=== PATIENT | male | born 1985 | race Caucasian/White ===

== ENCOUNTER 2016-12-09 11:36 | Inpatient (IN) | payer OTHER ==
[~2016-12-09] VITALS: Ht 190.5 cm; Wt 100.0 kg
[2016-12-09] MEDS ORDERED: ONDANSETRON 4 MG INJ IV STA (12:24)
--- NOTE | 2016-12-09 12:24 | ERA ---
ER Documentation Chief Complaint Date/Time DATE: 12/09/16 TIME: 12:23 Chief Complaint Vomiting blood HPI The patient is a 31-year-old male, presenting to the ER because any vomited 2 tablespoon of bright red blood around 6 AM, he had similar symptoms around August 22, 2069 where he went to [facility]. He had EGD that showed bleeding ulcer/ AVM that required cauterization. While he was lifting the ER around 11 AM, he complains of substernal chest pain, without radiation, he had similar chest pain previously. He also complained at the same time epigastric and right upper quadrant abdominal pain. He denied dysuria, diarrhea, constipation Past medical history: Pulmonary hypertension, history of CVA, history of arrhythmia, congenital heart disease, anemia, atrial fibrillation, sick sinus syndrome, CAD, Marfan syndrome, history of pulmonary embolism Past surgical history : Patent foramen ova closure, AICD in June 2016 ROS All systems reviewed and are negative except as per history of present illness. Medications Home Meds Reported Medications Budesonide-Formoterol Fumarate* (Symbicort*) 160-4.5 Hfa.aer.ad, 1 PUFF INHALATION BID, #1 EACH 12/09/16 Gabapentin* (Gabapentin*) 300 Mg Capsule, 300 MG PO TID, #90 CAP 12/09/16 Sucralfate* (Carafate*) 1 Gm Tab, 1 GM PO AC MEALS AND BEDTIME, TAB 12/09/16 Atorvastatin Calcium (Atorvastatin Calcium) 10 Mg Tablet, 10 MG PO QHS, #30 TAB 12/09/16 Tramadol Hcl* (Ultram*) 50 Mg Tablet, 50 MG PO Q6H Y for PAIN, TAB 12/09/16 Sotalol Hcl* (Sotalol Hcl*) 80 Mg Tablet, 80 MG PO BID, TAB 12/09/16 Apixaban* (Eliquis*) 5 Mg Tablet, 5 MG PO BID, TAB 12/09/16 Sertraline Hcl* (Zoloft*) 50 Mg Tablet, 50 MG PO DAILY, #30 TAB 12/09/16 Nitroglycerin* (Nitrostat*) 0.4 Mg Tab.subl, 0.4 MG SL Q5MIN Y for CHEST PAIN, BOTTLE 12/09/16 Pantoprazole* (Pantoprazole*) 40 Mg Tablet.dr, 40 MG PO AC BREAKFAST, TAB 12/09/16 Isosorbide Mononitrate* (Isosorbide Mononitrate*) 60 Mg Tab.er.24h, 60 MG PO DAILY, TAB 12/09/16 Hydromorphone Hcl* (Dilaudid*) 4 Mg Tablet, 4 MG PO Q4H Y for PAIN, TAB 12/09/16 Potassium Chloride* (Potassium Chloride*) 20 Meq Tablet.er, 20 MEQ PO DAILY, TAB.SA 12/09/16 Aspirin* (Aspirin* EC) 81 Mg Tablet.dr, 81 MG PO DAILY, TAB 12/09/16 Albuterol Sulfate* (Albuterol Sulfate* Neb) 0.083%-3 Ml Neb, 2.5 MG NEB Q4 Y for WHEEZING AND SOB, #30 VIAL 12/09/16 Digoxin* (Lanoxin*) 0.125 Mg Tablet, 0.125 MG PO DAILY, TAB 12/09/16 Zolpidem Tartrate* (Ambien*) 10 Mg Tablet, 10 MG PO QHS Y for INSOMNIA, TAB 12/09/16 Ferrous Sulfate* (Ferrous Sulfate*) 325 Mg Tabec, 325 MG PO TID, TAB 12/09/16 Tiotropium Mcgee* (Spiriva*) 18 Mcg Cap.w.dev, 1 CAP INHALATION DAILY, #30 CAP 12/09/16 Ipratropium-Albuterol (Ipratropium-Albuterol) 0.5-3 Mg/3 Ml Ampul.neb, 3 ML INHALATION Q6, #30 VIAL 12/09/16 Allergies Allergies: Coded Allergies: avocado (Verified Allergy, Severe, 12/09/16) banana (Verified Allergy, Severe, 12/09/16) iodine (Verified Allergy, Severe, ANAPHYLLACTIC, 12/09/16) ketamine (Verified Allergy, Severe, RASH, 12/09/16) latex (Verified Allergy, Severe, ANAPHYLACTIC, 12/09/16) onion (Verified Allergy, Severe, 12/09/16) promethazine (Verified Allergy, Severe, 12/09/16) propofol (Verified Allergy, Severe, ANAPHYLACTIC, 12/09/16) ketorolac (Verified Allergy, Mild, RASH, 12/09/16) morphine (Verified Allergy, Mild, RASH, 12/09/16) Uncoded Allergies: IV CONTRAST (Allergy, Unknown, 12/09/16) Physical Exam Vitals Vital Signs Date Time Temp Pulse Resp B/P Pulse Ox O2 Delivery O2 Flow Rate FiO2 12/09/16 11:41 97.9 76 18 141/94 99 Physical Exam Const: No acute distress. Head: Atraumatic. Eyes: Normal Conjunctiva. ENT: Normal External Ears, Nose and Mouth. Neck: Full range of motion. No meningismus. Resp: Clear to auscultation bilaterally. Cardio: Regular rate and rhythm. Abd: Soft, non distended, normal bowel sounds, Mild epigastric and upper quadrant tenderness Skin: No petechiae or rashes. Back: No midline or flank tenderness. Ext: No cyanosis, or edema. Neur: Awake and alert. No focal deficit Psych: Normal Mood and Affect. Result Diagram: 12/09/16 1245 12/09/16 1245 Results 24 hrs Laboratory Tests Test 12/09/16 12:45 12/09/16 13:40 White Blood Count 5.110^3/ul Red Blood Count 4.4610^6/ul Hemoglobin 13.4g/dl Hematocrit 40.5% Mean Corpuscular Volume 90.8fl Mean Corpuscular Hemoglobin 30.0pg Mean Corpuscular Hemoglobin Concent 33.1g/dl Red Cell Distribution Width 14.6% Platelet Count 56979^3/UL Mean Platelet Volume 9.5fl Neutrophils % 61.1% Lymphocytes % 27.7% Monocytes % 9.4% Eosinophils % 1.4% Basophils % 0.2% Nucleated Red Blood Cells % 0.0/100WBC Neutrophils # 3.110^3/ul Lymphocytes # 1.410^3/ul Monocytes # 0.510^3/ul Eosinophils # 0.110^3/ul Basophils # 0.010^3/ul Nucleated Red Blood Cells # 0.010^3/ul Prothrombin Time 17.5Sec Prothrombin Time Ratio 1.4 INR International Normalized Ratio 1.43 Activated Partial Thromboplast Time 30.3Sec Sodium Level 143mmol/L Potassium Level 2.9mmol/L Chloride Level 116mmol/L Carbon Dioxide Level 24mmol/L Anion Gap 6 Blood Urea Nitrogen 4mg/dl Creatinine 0.49mg/dl Glucose Level 72mg/dl Calcium Level 7.1mg/dl Total Bilirubin 0.6mg/dl Direct Bilirubin 0.00mg/dl Indirect Bilirubin 0.6mg/dl Aspartate Amino Transf (AST/SGOT) 14IU/L Alanine Aminotransferase (ALT/SGPT) 29IU/L Alkaline Phosphatase 41IU/L Troponin I < 0.012ng/ml Total Protein 5.3g/dl Albumin 3.1g/dl Globulin 2.20g/dl Albumin/Globulin Ratio 1.40 Lipase 25U/L Ethyl Alcohol Level < 10.0mg/dl Magnesium Level 1.2mg/dl Current Medications Medications (Trade) Dose Ordered Sig/Yoselyn Route PRN Reason Start Time Stop Time Status Last Admin Dose Admin Ondansetron HCl (Zofran Inj) 4 mg ONCE STAT IV 12/09/16 12:24 12/09/16 12:30 DC 12/09/16 13:21 Famotidine (Pepcid Iv) 20 mg ONCE ONCE IV 12/09/16 12:30 12/09/16 12:32 DC 12/09/16 13:20 Methylprednisolone Sodium Succinate (Solu-Medrol) 12 mg ONCE ONCE IV 12/09/16 12:30 12/09/16 12:31 Cancel Diphenhydramine HCl (Benadryl) 50 mg ONCE ONCE IV 12/09/16 12:30 12/09/16 12:32 DC 12/09/16 13:20 Methylprednisolone Sodium Succinate 125 mg 125 mg ONCE ONCE IV 12/09/16 13:30 12/09/16 13:31 DC 12/09/16 13:21 Potassium Chloride 250 ml @ 62.5 mls/hr ONCE ONCE IVPB 12/09/16 14:30 12/09/16 18:29 12/09/16 17:56 Magnesium Sulfate (Magnesium Sulfate 2 Gm/50 ml) 50 ml @ 25 mls/hr ONCE ONCE IVPB 12/09/16 15:30 12/09/16 17:29 DC 12/09/16 17:57 IV Flush 10 ml 10 ml STK-MED ONCE .ROUTE 12/09/16 15:24 12/09/16 15:25 DC 12/09/16 17:44 Sodium Chloride (NS) 100 ml @ ud STK-MED ONCE .ROUTE 12/09/16 15:24 12/09/16 15:25 DC 12/09/16 17:44 Iodixanol (Visipaque Locm) 100 ml STK-MED ONCE .ROUTE 12/09/16 15:24 12/09/16 15:25 DC 12/09/16 17:44 Iodixanol (Visipaque Locm) 50 ml STK-MED ONCE .ROUTE 12/09/16 15:25 12/09/16 15:26 DC 12/09/16 17:45 Lidocaine (Xylocaine 1% (Mpf)) 5 ml ONCE ONCE SC 12/09/16 16:00 12/09/16 16:01 DC IV Flush (NS 10 ml) 10 ml PRN PRN IV FLUSH LINE 12/09/16 17:30 UNV Diphenhydramine HCl (Benadryl) 50 mg ONCE ONCE IV 12/09/16 18:30 12/09/16 18:31 Procedures/[place] [id number] Radiology Main Line: [phone] DIAGNOSTIC IMAGING REPORT Patient: CONRADO ABERNATHY : 1985 Age: 31 Sex: M MR #: [id number] DOS: 12/09/16 1224 Ordering MD: ABDIFATAH ELIAS MD Location: E/R Room/Bed: PROCEDURE: XR Chest. CLINICAL INDICATION: Chest pain. TECHNIQUE: Single frontal view. COMPARISON: None. FINDINGS: The lungs are clear. The heart size is normal. There is a left-sided dual lead permanent pacemaker/ internal cardiac defibrillator. There is no pleural effusion. There is no pneumothorax. IMPRESSION: 1. Left -sided dual lead permanent pacemaker/internal cardiac defibrillator. 2. Otherwise normal chest radiograph. RPTAT: QQ .Ted Bacon MD, MD Date Time Electronically viewed and signed by .Ted Bacon MD, MD on 12/09/2016 13:18 .R/ CC: ABDIFATAH ELIAS MD EKG: Read by emergency physician Rate/Rhythm: Pacer 79 beats/min No further attempting to interpret CT angiogram of the chest/abdomen/pelvic pending MEDICAL MAKING DECISION: The patient is a 31-year-old male, presenting with acute hematemesis, acute chest pain, acute hypokalemia, acute hypomagnesemia. He was treated with Zofran 4 mg IV for nausea, potassium chloride 40 mEq IV for acute hypokalemia, Mag 2 g IV for acute hypomagnesemia, he was medicated with Benadryl 50 mg IV, Solu-Medrol 125 mg IV, Pepcid 20 mg IV prior to CT angiogram because of history of allergic reaction to the contrast dye. He insists on having pain medications he was treated with Dilaudid 1 mg IV with good response. I do not suspect ACS in the patient, the chest pain is most likely due to acute hematemesis. The differential diagnoses acute hematemesis considered include but are not limited to gastritis, peptic ulcer disease, esophageal varices, Svetlana-Herrera tear. The differential diagnoses acute chest pain considered include but are not limited to acute coronary syndrome, acute myocardial infarction, pericarditis, pulmonary embolism, aortic dissection, pneumonia, pleural effusion, pneumothorax , GERD, chest wall pain. Critical Care: Time: 35 minutes excluding all billable procedures. Treatments/Evaluations: Close monitoring and treatment of unstable vital signs, cardiorespiratory, and neurologic status, while maintaining tight balance of fluid, respiratory, and cardiac interventions. Departure Diagnosis: Primary Impression: Hematemesis Additional Impressions: Chest pain Hypokalemia Hypomagnesemia Anemia Condition: Stable Comments I discussed the findings with the patient. I discussed the patient with the on- call hospitalist Dr. Diego at 5:30 PM. who was made aware of the lab, the treatment, the patient condition, pending urine drug screen and CT angiogram. The patient is admitted to telemetry ABDIFATAH ELIAS MD Dec 09, 2016 12:24
[2016-12-09] MEDS ORDERED: DIPHENHYDRAMINE 50 MG INJ IV ONE ×2 (12:30→18:30)
[2016-12-09] MEDS ORDERED: FAMOTIDINE 20 MG INJ IV ONE (12:30)
[2016-12-09] MEDS ORDERED: METHYLPREDNISOLONE 125 MG INJ IV ONE ×2 (12:30→13:30)
--- NOTE | 2016-12-09 13:18 | RADRPT ---
PROCEDURE: XR Chest. CLINICAL INDICATION: Chest pain. TECHNIQUE: Single frontal view. COMPARISON: None. FINDINGS: The lungs are clear. The heart size is normal. There is a left-sided dual lead permanent pacemaker/internal cardiac defib rillator. There is no pleural effusion. There is no pneumothorax. IMPRESSION: 1. Left -sided dual lead permanent pacemaker/internal cardiac defibrillator. 2. Otherwise normal chest radiograph. RPTAT: QQ .Ted Bacon MD, MD Date Time Electronically viewed and signed by .Ted Bacon MD, MD on 12/09/2016 13:18 .R/
[2016-12-09 13:26] LABS: BASOPHILS % 0.2 % (0.0-2.0); EOSINOPHILS # 0.1 10^3/ul (0.0-0.5); EOSINOPHILS % 1.4 % (0.0-7.0); HEMATOCRIT 40.5 % (42.0-52.0); HEMOGLOBIN 13.4 g/dl (14.0-18.0); LYMPHOCYTES # 1.4 10^3/ul (0.8-2.9); LYMPHOCYTES % 27.7 % (15.0-51.0); MEAN CORPUSCULAR HGB CONC 33.1 g/dl (32.0-37.0); MEAN CORPUSCULAR VOLUME 90.8 fl (82.0-101.0); MEAN PLATELET VOLUME 9.5 fl (7.4-10.4); MONOCYTE # 0.5 10^3/ul (0.3-0.9); MONOCYTES % 9.4 % (0.0-11.0); NEUTROPHIL # 3.1 10^3/ul (1.6-7.5); NEUTROPHILS % 61.1 % (39.0-77.0); PLATELET COUNT 217 10^3/UL (140-415); RED BLOOD COUNT 4.46 10^6/ul (4.70-6.10); RED CELL DISTRIBUTION WIDTH 14.6 % (11.5-14.5); WHITE BLOOD COUNT 5.1 10^3/ul (4.8-10.8)
[2016-12-09 13:48] LABS: INR 1.43; PROTIME 17.5 Sec (12.2-14.2); PT RATIO 1.4
[2016-12-09 13:49] LABS: PARTIAL THROMBOPLASTIN TIME 30.3 Sec (25.0-35.0)
[2016-12-09 13:50] LABS: ALANINE AMINOTRANSFERASE 29 IU/L (13-69); ALBUMIN 3.1 g/dl (3.3-4.9); ALKALINE PHOSPHATASE 41 IU/L (42-121); ANION GAP 6 (8-16); ASPARTATE AMINO TRANSFERASE 14 IU/L (15-46); BILIRUBIN,INDIRECT 0.6 mg/dl (0-1.1); BILIRUBIN,TOTAL 0.6 mg/dl (0.2-1.3); BLOOD UREA NITROGEN 4 mg/dl (7-20); CALCIUM 7.1 mg/dl (8.4-10.2); CARBON DIOXIDE 24 mmol/L (21-31); CHLORIDE 116 mmol/L (97-110); CREATININE 0.49 mg/dl (0.61-1.24); GLUCOSE 72 mg/dl (70-220); SODIUM 143 mmol/L (135-144); TOTAL PROTEIN 5.3 g/dl (6.1-8.1)
[2016-12-09 13:51] LABS: ETHANOL < 10.0 mg/dl
[2016-12-09 13:55] LABS: POTASSIUM 2.9 mmol/L (3.5-5.1)
[2016-12-09 14:01] LABS: TROPONIN-I < 0.012 ng/ml (0.00-0.12)
[2016-12-09] MEDS ORDERED: POTASSIUM CHLORIDE 250 ML IVPB ONE (14:30)
[2016-12-09] MEDS ORDERED: IPRA3AMP INHALATION (14:31)
[2016-12-09] MEDS ORDERED: TIOT18CA INHALATION (14:32)
[2016-12-09] MEDS ORDERED: FER325 PO (14:33)
[2016-12-09] MEDS ORDERED: ZOLP10TA PO (14:34)
[2016-12-09] MEDS ORDERED: DIGO125T6 PO (14:34)
[2016-12-09] MEDS ORDERED: ALBU2.5V3 NEB (14:35)
[2016-12-09] MEDS ORDERED: ASPI-664 PO (14:35)
[2016-12-09] MEDS ORDERED: POTA20TA96 PO (14:36)
[2016-12-09] MEDS ORDERED: HYDR4TAB51 PO (14:38)
[2016-12-09] MEDS ORDERED: ISOS60TA PO (14:38)
[2016-12-09] MEDS ORDERED: SERT50TA PO (14:39)
[2016-12-09] MEDS ORDERED: NIT4 SL (14:39)
[2016-12-09] MEDS ORDERED: PANT40TA4 PO (14:39)
[2016-12-09] MEDS ORDERED: APIX5TAB PO (14:40)
[2016-12-09] MEDS ORDERED: SOTA80TA PO (14:40)
[2016-12-09] MEDS ORDERED: TRAM-40 PO (14:40)
[2016-12-09] MEDS ORDERED: ATOR10TA65 PO (14:41)
[2016-12-09] MEDS ORDERED: GABA300C16 PO (14:42)
[2016-12-09] MEDS ORDERED: BUDE6HFA INHALATION (14:42)
[2016-12-09] MEDS ORDERED: SUCR1TAB56 PO (14:42)
[2016-12-09] MEDS ORDERED: IODIXANOL LOCM 100 ML BTL ONE (15:24)
[2016-12-09] MEDS ORDERED: SOD CHLORIDE 0.9% 100 ML ONE (15:24)
[2016-12-09] MEDS ORDERED: IODIXANOL LOCM 50 ML BTL ONE (15:25)
[2016-12-09] MEDS ORDERED: MAGNESIUM SULFATE 2 GM/50 ML 50 ML IVPB ONE (15:30)
[2016-12-09] MEDS ORDERED: LIDOCAINE 1% (MPF) 5 ML VIAL SC ONE (16:00)
--- NOTE | 2016-12-09 17:33 | RADRPT ---
PROCEDURE: XR Chest. CLINICAL INDICATION: PICC line placement TECHNIQUE: Single frontal view of the chest was obtained COMPARISON: Same day FINDINGS: There is a new right-sided PICC line in place with its tip overlying the cavoatrial junction. The heart, mediastinum, and lungs are unchanged. There is a left-sided pacemaker / AICD in place. RPTAT: AA IMPRESSION: New PICC line in appropriate position. .Eron Her MD, MD Date Time Electronically viewed and signed by .Eron Her MD, on 12/09/2016 17:33 .S/
--- NOTE | 2016-12-09 17:44 | RADRPT ---
PROCEDURE: US guidance for PICC line CLINICAL INDICATION: PICC line placement TECHNIQUE: Multiple real-time images were acquired of the patient's arm utilizing a high resolutio n transducer. This was performed by the PICC line nurse for venous access. COMPARISON: None FINDINGS: Ultrasound guidance for PICC line placement. IMPRESSION: Ultrasound guidance for PICC line placement. RPTAT: AA .Eron Her MD, MD Date Time Electronically viewed and signed by .Eron Her MD, on 12/09/2016 17:43 .S/
[2016-12-09] MEDS ORDERED: HYDROmorphONE 1 MG/ML SYG IV STA (18:12)
--- NOTE | 2016-12-09 18:27 | RADRPT ---
PROCEDURE: CT angiogram chest, abdomen and pelvis, aortic dissection protocol CLINICAL INDICATION: Chest and stomach and back pain. Clinical concern for aortic dissection. Hist ory of atrial septal defect repair and cardiac catheterization TECHNIQUE: The study was performed from the thoracic inlet to the iliac crests with the use of [address] 06/01 intravenous contrast material per aortic dissection protocol. Coronal/sagittal r eformatted images and coronal MIP images were generated. 3-D post processing was not performed The i mages were reviewed on a PACS workstation. One or more of the following dose reduction techniques we re used: Automated exposure control, adjustment of the mA and/or kV according to patient size, use o f iterative reconstruction technique. CTDIvol = 51.62 mGy and DLP= 1353.56 mGycm. COMPARISON: Chest x-ray 12/09/2016 FINDINGS: Lungs, airway and pleura: The trachea and bronchi are patent as well as normal in caliber. The katherine gs are clear of infiltrates, masses or nodules. The pleural spaces are clear, without effusions. Mediastinum, santiago and cardiovascular: The heart is mildly enlarged. Dual chamber cardiac pacemaker is present in satisfactory position There is no evidence for pericardial effusion. The thoracic aor ta is normal in caliber and there is no evidence of dissection . There are no filling defects within the pulmonary arteries to suggest emboli. There is no evidence for hilar mass and no mediastinal ad enopathy is present. The esophagus is normal in caliber. Liver, gallbladder, pancreas and spleen: Normal hepatic contour, attenuation in size. There is no evidence for liver mass or ductal dilatation. The gallbladder is unremarkable. No common bile duct dilatation is evident. The pancreas is normal. The spleen is normal, not enlarged. Adrenal glands and genitourinary system: The adrenal glands are normal bilaterally. The kidneys ar e normal in size, contour and attenuation with no evidence for masses, calculi or hydronephrosis. Sy mmetric enhancement of the kidneys is present without evidence of pyelonephritis . The ureters are unremarkable. The urinary bladder shows no abnormality. The prostate gland is mildly enlarged. The visualized scrotum is unremarkable. Gastrointestinal system: The stomach, small bowel and large intestine are normal in caliber. There is no evidence of obstruction, ileus or inflammation. The appendix and surrounding fat are normal. A normal amount of fecal debris is present within the colon and there is no wall thickening to sugg est colitis. Peritoneum, retroperitoneum, vessels and lymph nodes: The abdominal aorta is normal in caliber and without evidence of dissection. There is no evidence for atherosclerotic calcification. The aortic branches are normal without evidence of stenosis. There is no retroperitoneal hematoma Inferior eddi a cava is normal in caliber. There is no evidence for adenopathy. The peritoneal cavity is normal with no evidence for ascites. Osseous structures and musculoskeletal system: There is no evidence for acute osseous abnormality o r muscular pathology. No subcutaneous abnormalities are present. RPTAT:HJJR IMPRESSION: 1. No evidence of aortic dissection. 2. Unremarkable CT angiogram of the chest, abdomen and pelvis. 3. Incidental cardiac pacemaker in good position. Physician Nick Date Time Electronically viewed and signed by Physician Nick on 12/09/2016 18:27 JR/
[2016-12-09] MEDS ORDERED: hydrALAzine 20 MG INJ IV PRN (18:30)
[2016-12-09] MEDS ORDERED: NA PHOSPHATE/BIPHOS 133 ML ENEMA PR PRN (18:30)
[2016-12-09] MEDS ORDERED: ALBUTEROL/IPRATROPIUM (NEB) 3 ML AMP HHN PRN (18:30)
[2016-12-09] MEDS ORDERED: ACETAMINOPHEN 325 MG TAB PO PRN (18:30)
[2016-12-09] MEDS ORDERED: NACL 0.9% 3 ML SYG IV SCH (18:30)
[2016-12-09] MEDS ORDERED: NITROGLYCERIN (SL) 0.4 MG TAB SL PRN (18:30)
[2016-12-09] MEDS ORDERED: ALBUTEROL 0.083% (NEB) 2.5 MG/3 ML AMP NEB PRN (18:30)
[2016-12-09] MEDS ORDERED: LORAZEPAM 2 MG INJ IV PRN (18:30)
[2016-12-09] MEDS ORDERED: MAGNESIUM HYDROXIDE 30ML CUP PO PRN (18:30)
[2016-12-09 18:45] VITALS: TEMP 98.5
[2016-12-09 19:25] LABS: INR 1.28; PROTIME 16.1 Sec (12.2-14.2); PT RATIO 1.3
[2016-12-09 19:26] LABS: PARTIAL THROMBOPLASTIN TIME 33.9 Sec (25.0-35.0)
[2016-12-09 19:50] LABS: BARBITURATES Negative (NEGATIVE); BENZODIAZEPINES Negative (NEGATIVE); CANNABINOIDS Negative (NEGATIVE); COCAINE Negative (NEGATIVE); OPIATES Negative (NEGATIVE)
[2016-12-09 20:22] VITALS: PULSE 66
[2016-12-09 20:27] VITALS: BP 126/76; RESP 18
[2016-12-09 20:33] VITALS: PULSE 105
[2016-12-09 21:00] VITALS: Ht 190.5 cm; Wt 100.0 kg
[2016-12-09] MEDS: morphine 2 MG INJ IV PRN (21:43)
[2016-12-09] MEDS: SOD CHLORIDE 0.45% 1,000 ML IV SCH (21:43)
[2016-12-09] MEDS: SUCRALFATE 1 GM TAB PO SCH (21:44)
[2016-12-09] MEDS: FERROUS SULFATE (EC) 325 MG TAB PO SCH (21:44)
[2016-12-09] MEDS: ATORVASTATIN 10 MG TAB PO SCH (21:44)
[2016-12-09] MEDS: GABAPENTIN 300 MG CAP PO SCH (21:44)
[2016-12-09] MEDS: ZOLPIDEM 5 MG TAB PO PRN ×2 (21:45→23:44)
[2016-12-09] MEDS: HYDROCODONE/APAP (5/325) TAB PO PRN (21:45)
[2016-12-09] MEDS: DIPHENHYDRAMINE 50 MG INJ IV PRN (21:48)
[2016-12-09] MEDS: SOTALOL 80 MG TAB PO SCH (23:44)
[2016-12-10] VITALS (12 sets, daily range): BP systolic 104–128; BP diastolic 56–77; PULSE 60–75; RESP 19–20
[2016-12-10] MEDS: morphine 2 MG INJ IV PRN ×3 (02:22→10:21)
[2016-12-10] MEDS: SUCRALFATE 1 GM TAB PO SCH ×4 (06:16→20:51)
[2016-12-10] MEDS: DIPHENHYDRAMINE 50 MG INJ IV PRN ×3 (06:16→22:42)
[2016-12-10] MEDS ORDERED: PANTOPRAZOLE (EC) 40 MG TAB PO SCH (07:00)
[2016-12-10 07:21] LABS: BASOPHILS % 0.2 % (0.0-2.0); HEMOGLOBIN 12.7 g/dl (14.0-18.0); LYMPHOCYTES # 0.7 10^3/ul (0.8-2.9); LYMPHOCYTES % 12.5 % (15.0-51.0); MEAN CORPUSCULAR HEMOGLOBIN 29.3 pg (29.0-33.0); MEAN CORPUSCULAR HGB CONC 32.6 g/dl (32.0-37.0); MEAN CORPUSCULAR VOLUME 90.1 fl (82.0-101.0); MEAN PLATELET VOLUME 8.5 fl (7.4-10.4); MONOCYTE # 0.2 10^3/ul (0.3-0.9); MONOCYTES % 4.2 % (0.0-11.0); NEUTROPHIL # 4.7 10^3/ul (1.6-7.5); NEUTROPHILS % 82.9 % (39.0-77.0); PLATELET COUNT 187 10^3/UL (140-415); RED BLOOD COUNT 4.33 10^6/ul (4.70-6.10); RED CELL DISTRIBUTION WIDTH 14.4 % (11.5-14.5); WHITE BLOOD COUNT 5.7 10^3/ul (4.8-10.8)
[2016-12-10] MEDS: SOD CHLORIDE 0.45% 1,000 ML IV SCH ×2 (07:35→15:48)
[2016-12-10 07:44] LABS: CALCIUM 9.4 mg/dl (8.4-10.2); CREATININE 0.55 mg/dl (0.61-1.24); MAGNESIUM 1.9 mg/dl (1.7-2.5); PHOSPHORUS 3.4 mg/dl (2.5-4.9); POTASSIUM 4.3 mmol/L (3.5-5.1)
[2016-12-10 08:15] LABS: THYROID STIMULATING HORMONE 0.171 MIU/L (0.465-4.680)
--- NOTE | 2016-12-10 09:07 | HP ---
Date/Time of Note Date/Time of Note DATE: 12/10/16 TIME: 09:00 Assessment/Plan VTE Prophylaxis VTE Prophylaxis Intervention: SCD's Lines/Catheters IV [facility]ter [facility]from [facility] PICC Line Urinary Cath still in place: No Assessment/Plan Assessment/Plan ASSESSMENT 31-year-old male with a history of Marfan syndrome pulmonary hypertension, CVA 3, history of arrhythmia, congenital heart disease, anemia, atrial fibrillation , sick sinus syndrome, CAD, pulmonary embolism and multiple episodes of GI bleed presents with upper GI bleed PLAN N.p.o. with IV fluid Monitor H&H closely GI consult PPI Hold anticoagulation Continue his home medications with adjustment as needed Cardiology consult Note that the patient was complaining of chest/epigastric pain radiating to his back for which pulmonary and abdominal angiogram was negative for dissection HPI/ROS Admit Date/Time Admit Date/Time Dec 09, 2016 at 17:29 Hx of Present Illness This is a 31-year-old male with a history of Marfan syndrome pulmonary hypertension, CVA 3, history of arrhythmia, congenital heart disease, anemia, atrial fibrillation, sick sinus syndrome, CAD, pulmonary embolism and multiple episodes of GI bleed. He presented to the ER complaining of hematemesis. He said that he has had total of about 3 episodes of hematemesis since yesterday. He said he has had multiple episodes of GI bleeding in the past, this being his third for the year and having had 5 episodes of GI bleed last year. 2 3 months ago he underwent EGD at an outside hospital with a finding of AVM, ulcer and varices. Patient is on anticoagulation and that he said has been told he needs to continue to take it otherwise" he will of stroke or PE". Patient also complained of severe chest/epigastric pain radiating to his back. Pulmonary and abdominal angiogram was negative for dissection. When he presented to the ER, hemoglobin was 13.4 and potassium of 2.9. PMH/Family/Social Social History Smoking Status: Never smoker Exam/Review of Systems Vital Signs Vitals Vital Signs Date Time Temp Pulse Resp B/P Pulse Ox O2 Delivery O2 Flow Rate FiO2 12/10/16 07:55 97.5 82 20 128/69 100 12/09/16 18:45 Room Air Intake and Output 12/09/16 12/09/16 12/10/16 15:00 23:00 07:00 Intake Total 300 ml 555 ml Output Total 450 ml Balance 300 ml 105 ml Exam Constitutional: alert, oriented, well developed Head: atraumatic, normocephalic Eyes: EOMI, PERRL Respiratory: clear to auscultation, normal air movement Cardiovascular: nl pulses, regular rate and rhythm Gastrointestinal: soft, tender Extremities: normal pulses Labs Result Diagram: 12/10/16 0640 12/10/16 0640 Medications Medications Current Medications IV Flush (NS 10 ml) 10 ml PRN PRN IV FLUSH LINE; Start 12/09/16 at 17:30 Ondansetron HCl (Zofran Inj) 4 mg Q6H PRN IV NAUSEA AND/OR VOMITING; Start at 18:30 Acetaminophen (Tylenol Tab) 650 mg Q6H PRN PO PAIN LEVEL 1-3 OR FEVER; Start at 18:30 Acetaminophen/ Hydrocodone Bitart ([place] (5/325)) 1 tab Q6H PRN PO MODERATE PAIN LEVEL 4-6 Last administered on 12/09/16 21:45; Admin Dose 1 TAB; Start at 18:30 Morphine Sulfate (morphine) 2 mg Q4H PRN IV SEVERE PAIN LEVEL 7-10 Last administered on 12/10/16 06:16; Admin Dose 2 MG; Start 12/09/16 at 18:30 Docusate Sodium (Colace) 100 mg Q12H PRN PO CONSTIPATION; Start 12/09/16 at 18: 30 Magnesium Hydroxide (Milk Of Mag) 30 ml DAILY PRN PO CONSTIPATION; Start at 18:30 Sodium Biphosphate/ Sodium Phosphate 133 ml 133 ml DAILY PRN [place] CONSTIPATION; Start 12/09/16 at 18:30 Sodium Chloride (1/2 NS) 1,000 ml @ 75 mls/hr [id number] IV Last administered on 12/09/16 21:43; Admin Dose 75 MLS/HR; Start 12/09/16 at 18:07 Lorazepam (Ativan) 0.5 mg Q6H PRN IV ANXIETY; Start 12/09/16 at 18:30 Hydralazine HCl (Apresoline) 10 mg Q6H PRN IV ELEVATED BLOOD PRESSURE; Start at 18:30 Clonidine (Catapres) 0.1 mg Q6H PRN PO ELEVATED BLOOD PRESSURE; Start 12/09/16 at 18:30 Nitroglycerin (Nitroglycerin (Sl Tab) 0.4 Mg) 1 tab Q5M PRN SL ANGINA; Start at 18:30 Albuterol (Proventil 0.083% (Neb)) 2.5 mg Q4 PRN NEB WHEEZING AND SOB; Start at 18:30 Atorvastatin Calcium (Lipitor) 10 mg QHS PO Last administered on 12/09/16 21: 44; Admin Dose 10 MG; Start 12/09/16 at 21:00 Digoxin (Digoxin) 0.125 mg DAILY PO ; Start 12/10/16 at 09:00 Ferrous Sulfate (Ferrous Sulfate (Ec)) 325 mg TID PO Last administered on 21:44; Admin Dose 325 MG; Start 12/09/16 at 21:00 Gabapentin (Neurontin) 300 mg TID PO Last administered on 12/09/16 21:44; Admin Dose 300 MG; Start 12/09/16 at 21:00 Isosorbide Mononitrate (Imdur) 60 mg DAILY PO ; Start 12/10/16 at 09:00 Potassium Chloride (Klor-Con 20) 20 meq DAILY PO ; Start 12/10/16 at 09:00 Sertraline HCl (Zoloft) 50 mg DAILY PO ; Start 12/10/16 at 09:00 Sotalol HCl (Betapace) 80 mg BID PO Last administered on 12/09/16 23:44; Admin Dose 80 MG; Start 12/09/16 at 21:00 Zolpidem Tartrate (Ambien) 10 mg QHS PRN PO INSOMNIA Last administered on 23:44; Admin Dose 10 MG; Start 12/09/16 at 18:30 Miscellaneous Information 1 puff BID INHALATION ; Start 12/09/16 at 21:00; Status UNV Diphenhydramine HCl (Benadryl) 25 mg Q6H PRN IV allergy prophylaxis Last administered on 12/10/16 06:16; Admin Dose 25 MG; Start 12/09/16 at 21:30 CARLENE WELLINGTON MD Dec 10, 2016 09:07
[2016-12-10] MEDS: DIGOXIN 0.125 MG TAB PO SCH (09:33)
[2016-12-10] MEDS: POTASSIUM CHLORIDE (SR) 20 MEQ TAB PO SCH (09:33)
[2016-12-10] MEDS: FERROUS SULFATE (EC) 325 MG TAB PO SCH ×3 (09:33→20:51)
[2016-12-10] MEDS: GABAPENTIN 300 MG CAP PO SCH ×3 (09:33→20:51)
[2016-12-10] MEDS: SERTRALINE 50 MG TAB PO SCH (09:33)
[2016-12-10] MEDS: ISOSORBIDE MONONITRATE(SR)60 MG TAB PO SCH (09:33)
[2016-12-10] MEDS: SOTALOL 80 MG TAB PO SCH ×2 (09:34→20:52)
--- NOTE | 2016-12-10 14:05 | RADRPT ---
Vent Rate: 79 bpm RR Interval: 0 msec MS Interval: 118 msec QRS Duration: 94 msec QT Interval: 376 msec QTC Interval: 431 msec P-R-T [place]: 47 - 44 - 5 degrees Electronic atrial pacemaker T wave abnormality, consider inferior ischemia Abnormal ECG Electronically Signed By: Aiden Merrill [id number]
--- NOTE | 2016-12-10 14:09 | RADRPT ---
Echocardiogram Report Patient Name: CONRADO ABERNATHY Gender: Male Date: 1985 Study Date: 10-Dec-2016 Apparel Rental Clerk: Lor Horn RD Location: [id number] Ref. Physician: ROB BUI Quality: Adequate Procedures: Transthoracic echocardiogram with complete 2D, M-Mode, and doppler examination. Indications: Chest Pain. 2D/M Mode Doppler Measurement Value Normal Ranges Measurement Value Normal Ranges LVIDd 2D 5.3 3.5 - 5.6 cm AV Peak [place] 1.3 m/sec LVIDs 2D 3.2 2.1 - 4.1 cm AV Peak PG 7.0 mmHg LVPWd 2D 0.9 0.6 - 1.1 cm LVOT Peak [place] 1.0 m/sec IVSd 2D 0.9 0.6 - 1.1 cm LVOT Peak PG 4.3 mmHg AoR Diam 2D 2.8 2.0 - 3.7 cm MV E Peak [place] 0.8 m/sec EDV 2D 135.3 cm3 MV A Peak [place] 0.5 m/sec ESV 2D 32.1 cm3 MV E/A 1.7 LA Dimen 2D 4.1 2.3 - 4.0 cm MV Decel Time 191 msec MV Decel [place] 4 MV E/A 1.7 TR Peak [place] 2.9 m/sec TR Peak PG 33.3 mmHg RVSP 36.0 mmHg Findings Left Ventricle: Normal left ventricular systolic function. Normal left ventricular cavity size. Normal left ventricular wall thickness. Ejection fraction is visually estimated at 55 %. Tissue Doppler/Mitral Doppler indices are within normal limits. Right Ventricle: Normal right ventricular size. Normal right ventricular systolic function. Linear artifact in right ventricle suggestive of catheter, pacer lead, or ICD lead. Left Atrium: There is mild enlargement of left atrium. Right Atrium: The right atrium is normal in size. Mitral Valve: Normal appearance and function of the mitral valve with trace physiologic regurgitation. Aortic Valve: Normal appearance of the aortic valve. No significant aortic stenosis or insufficiency. Tricuspid Valve: Normal appearance and function of the tricuspid valve with trace physiologic regurgitation. Estimated peak PA systolic pressure 36 mmHg. Pulmonic Valve: Normal pulmonic valve appearance. Pericardium: Normal pericardium with no significant pericardial effusion. Aorta: Normal aortic root. IVC: Normal size and normal respiratory collapse consistent with normal right atrial pressure. Conclusions 1.Normal left ventricular systolic function. Normal left ventricular cavity size. Normal left ventricular wall thickness. Ejection fraction is visually estimated at 55 %. Tissue Doppler/Mitral Doppler indices are within normal limits. 2.Normal right ventricular size. Normal right ventricular systolic function. Linear artifact in right ventricle suggestive of catheter, pacer lead, or ICD lead. 3.There is mild enlargement of left atrium. 4.The right atrium is normal in size. 5.No significant valvular stenosis or regurgitation seen. 6.Normal pericardium with no significant pericardial effusion. Electronically Signed By: Aiden Merrill 10-Dec-2016 14:08:40 -0700 Patient Name: CONRADO ABERNATHY Study Date: 10-Dec-2016 [id number]
--- NOTE | 2016-12-10 14:27 | PN ---
Date/Time of Note Date/Time of Note DATE: 12/10/16 TIME: 13:58 Assessment/Plan VTE Prophylaxis VTE Prophylaxis Intervention: SCD's Lines/Catheters IV Catheter Type (from Nrsg): PICC Line Central line still needed: Yes Urinary Cath still in place: No Assessment/Plan Assessment/Plan 1. Upper GI bleeding, recurrent, eliquis on hold, protonix iv bid/carafate, GI consult 2. Chest pain, atypical for CAD, but pulmonary hypertension may give angina 3. Pulmonary embolism, due to ASD 4. ASD, s/p repair in 2010 5. Marfan's syndrome, 6. Atrial fibrillation, A-pacing rhythm now, controlled rate, hold eliquis due to GI bleeding 7. Pulmonary embolism in 2013, not clear if he has hypercoagulable state after intensive work ups 8. Cardiac arrest in 2011, AICD 2012 9. h/o recurrent ischemic stroke Subjective 24 Hr Interval Summary Free Text/Dictation no vomiting today Exam/Review of Systems Vital Signs Vitals Vital Signs Date Time Temp Pulse Resp B/P Pulse Ox O2 Delivery O2 Flow Rate FiO2 12/10/16 12:15 75 12/10/16 07:55 97.5 20 128/69 100 12/09/16 18:45 Room Air Intake and Output 12/09/16 12/09/16 12/10/16 15:00 23:00 07:00 Intake Total 300 ml 555 ml Output Total 450 ml Balance 300 ml 105 ml Exam Constitutional: alert, oriented, well developed Psych: nl mood/affect, no complaints Head: atraumatic, normocephalic Eyes: EOMI, PERRL, nl conjunctiva, nl lids, nl sclera ENMT: mucosa pink and moist, nl external ears & nose, nl lips & teeth, nl nasal mucosa & septum Neck: non-tender, supple Respiratory: clear to auscultation, normal air movement, No congested cough, No crackles/rales, No diminished breath sounds, No intercostal retraction, No labored breathing, No other, No respirations, No tactile fremitus, No wheezing Cardiovascular: nl pulses, regular rate and rhythm, No S3, No S4, No bruits, No diastolic murmur, No edema, No gallop, No irregular rhythm, No jugular venous distention (JVD), No murmurs/extra sounds, No other, No rub, No systolic murmur Gastrointestinal: nl liver, spleen, non-tender, soft, No ascites, No bowel sounds, No distended, No firm, No hepatomegaly, No mass , No other, No rebound or guarding, No splenomegaly, No surgical scars, No tender Musculoskeletal: nl extremities to inspection Extremities: normal pulses, No calf tenderness, No clubbing, No cyanosis, No edema, No other, No palpable cord, No pitting pedal edema, No tenderness 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: ICE RINK ATTENDANT II-XII intact, nl mental status, nl speech, nl strength Skin: nl turgor Lymph: nl lymph nodes Results Result Diagram: 12/10/16 0640 12/10/16 0640 Results 24 hrs Laboratory Tests Test 12/09/16 18:50 12/09/16 21:53 12/10/16 00:50 12/10/16 06:40 Prothrombin Time 16.1 H Prothrombin Time Ratio 1.3 INR International Normalized Ratio 1.28 Activated Partial Thromboplast Time 33.9 Troponin I < 0.012 < 0.012 Free Thyroxine 1.57 Urine Opiates Screen Negative Urine Barbiturates Negative Urine Amphetamines Screen Negative Urine Benzodiazepines Screen Negative Urine Cocaine Screen Negative Urine Cannabinoids Negative Bedside Glucose 109 White Blood Count 5.7 Red Blood Count 4.33 L Hemoglobin 12.7 L Hematocrit 39.0 L Mean Corpuscular Volume 90.1 Mean Corpuscular Hemoglobin 29.3 Mean Corpuscular Hemoglobin Concent 32.6 Red Cell Distribution Width 14.4 Platelet Count 187 Mean Platelet Volume 8.5 Neutrophils % 82.9 H Lymphocytes % 12.5 L Monocytes % 4.2 Eosinophils % 0.0 Basophils % 0.2 Nucleated Red Blood Cells % 0.0 Neutrophils # 4.7 Lymphocytes # 0.7 L Monocytes # 0.2 L Eosinophils # 0.0 Basophils # 0.0 Nucleated Red Blood Cells # 0.0 Sodium Level 139 Potassium Level 4.3 Chloride Level 106 # Carbon Dioxide Level 27 Anion Gap 10 Blood Urea Nitrogen 6 L Creatinine 0.55 L Glucose Level 114 # Hemoglobin A1c 4.9 Calcium Level 9.4 Phosphorus Level 3.4 Magnesium Level 1.9 Triglycerides Level 44 Cholesterol Level 157 LDL Cholesterol, Calculated 73 HDL Cholesterol 75 H Cholesterol/HDL Ratio 2.0 Thyroid Stimulating Hormone (TSH) 0.171 L Test 12/10/16 06:41 Troponin I < 0.012 Medications Medications Current Medications IV Flush (NS 10 ml) 10 ml PRN PRN IV FLUSH LINE; Start 12/09/16 at 17:30 Ondansetron HCl (Zofran Inj) 4 mg Q6H PRN IV NAUSEA AND/OR VOMITING; Start at 18:30 Acetaminophen (Tylenol Tab) 650 mg Q6H PRN PO PAIN LEVEL 1-3 OR FEVER; Start at 18:30 Acetaminophen/ Hydrocodone Bitart ([place] (5/325)) 1 tab Q6H PRN PO MODERATE PAIN LEVEL 4-6 Last administered on 12/09/16 21:45; Admin Dose 1 TAB; Start at 18:30 Morphine Sulfate (morphine) 2 mg Q4H PRN IV SEVERE PAIN LEVEL 7-10 Last administered on 12/10/16 10:21; Admin Dose 2 MG; Start 12/09/16 at 18:30 Docusate Sodium (Colace) 100 mg Q12H PRN PO CONSTIPATION; Start 12/09/16 at 18: 30 Magnesium Hydroxide (Milk Of Mag) 30 ml DAILY PRN PO CONSTIPATION; Start at 18:30 Sodium Biphosphate/ Sodium Phosphate 133 ml 133 ml DAILY PRN [place] CONSTIPATION; Start 12/09/16 at 18:30 Sodium Chloride (1/2 NS) 1,000 ml @ 75 mls/hr [id number] IV Last administered on 12/09/16 21:43; Admin Dose 75 MLS/HR; Start 12/09/16 at 18:07 Lorazepam (Ativan) 0.5 mg Q6H PRN IV ANXIETY; Start 12/09/16 at 18:30 Hydralazine HCl (Apresoline) 10 mg Q6H PRN IV ELEVATED BLOOD PRESSURE; Start at 18:30 Clonidine (Catapres) 0.1 mg Q6H PRN PO ELEVATED BLOOD PRESSURE; Start 12/09/16 at 18:30 Nitroglycerin (Nitroglycerin (Sl Tab) 0.4 Mg) 1 tab Q5M PRN SL ANGINA; Start at 18:30 Albuterol (Proventil 0.083% (Neb)) 2.5 mg Q4 PRN NEB WHEEZING AND SOB; Start at 18:30 Atorvastatin Calcium (Lipitor) 10 mg QHS PO Last administered on 12/09/16 21: 44; Admin Dose 10 MG; Start 12/09/16 at 21:00 Digoxin (Digoxin) 0.125 mg DAILY PO Last administered on 12/10/16 09:33; Admin Dose 0.125 MG; Start 12/10/16 at 09:00 Ferrous Sulfate (Ferrous Sulfate (Ec)) 325 mg TID PO Last administered on 13:50; Admin Dose 325 MG; Start 12/09/16 at 21:00 Gabapentin (Neurontin) 300 mg TID PO Last administered on 12/10/16 13:50; Admin Dose 300 MG; Start 12/09/16 at 21:00 Isosorbide Mononitrate (Imdur) 60 mg DAILY PO Last administered on 12/10/16 09 :33; Admin Dose 60 MG; Start 12/10/16 at 09:00 Potassium Chloride (Klor-Con 20) 20 meq DAILY PO Last administered on 09:33; Admin Dose 20 MEQ; Start 12/10/16 at 09:00 Sertraline HCl (Zoloft) 50 mg DAILY PO Last administered on 12/10/16 09:33; Admin Dose 50 MG; Start 12/10/16 at 09:00 Sotalol HCl (Betapace) 80 mg BID PO Last administered on 12/10/16 09:34; Admin Dose 80 MG; Start 12/09/16 at 21:00 Zolpidem Tartrate (Ambien) 10 mg QHS PRN PO INSOMNIA Last administered on 23:44; Admin Dose 10 MG; Start 12/09/16 at 18:30 Salmeterol Xinafoate/ Fluticasone (Advair 250/50 Diskus) 1 inh BID INH ; Start 12/10/16 at 21:00 Diphenhydramine HCl (Benadryl) 25 mg Q6H PRN IV allergy prophylaxis Last administered on 12/10/16 12:13; Admin Dose 25 MG; Start 12/09/16 at 21:30 TALA JOSHUA MD Dec 10, 2016 14:27
[2016-12-10] MEDS: HYDROmorphONE 1 MG/ML SYG IV PRN ×3 (15:00→22:42)
--- NOTE | 2016-12-10 16:28 | CONS ---
Date/Time of Note Date/Time of Note DATE: 12/10/16 TIME: 16:14 Assessment/Plan Assessment/Plan Additional Assessment/Plan Assessment * Hematemesis R/O varices vs av malformation vs ulcers * Marfan syndrome * Atrial fibrillation * Pulmonary hypertension * AICD * H/O EGD Plan * continue present management * EGD tomorrow risks and benefit explained to patient agreed with the planned procedure * Case discussed with DR Addison * further orders will depend on clinical course Consultation Date/Type/Reason Admit Date/Time Dec 09, 2016 at 17:29 Date of Consultation: Dec 10, 2016 Type of Consultation: Gastroenterology Reason for Consultation hematemesis Referring Provider: ROB BUI Hx of Present Illness 31 year old male with past medical history of Marfans syndrome,pulmonary hypertension,CVA,AICD ,history of EGD 2 months ago varices,AV malformation, ulcer per patient.presented in the emergency room complaining of hematemesis describes as 2 teaspoon per episode X 2 times.He denies any shortness of breath nor chest pain>Patient is on eliquis due to atrial fibrillation.Emergency room course revealed hemoglobin 12.7,troponon <0.012 PT 16.[address] angiogram revealed 1. No evidence of aortic dissection. 2. Unremarkable CT angiogram of the chest, abdomen and pelvis. 3. Incidental cardiac pacemaker in good position. Presently ,patient complains of nausea and vomiting but no episode of hematemesis Constitutional: improved, no complaints Eyes: no complaints ENT: no complaints Respiratory: no complaints Cardiovascular: no complaints Gastrointestinal: blood, vomiting Genitourinary: no complaints Musculoskeletal: no complaints Skin: no complaints Neurologic: no complaints Endocrine: no complaints Lymphatic: no complaints Psychological: nl mood/affect, no complaints Immunologic: no complaints Past Medical History Medical History: other (marfan,pulmonary htn,atrial fibrillation.varices,) Past Surgical History Past Surgical Hx: other (AICD,endoscopy) Family History Significant Family History: no pertinent family hx Social History Smoking Status: Never smoker Exam/Review of Systems Vital Signs Vitals Vital Signs Date Time Temp Pulse Resp B/P Pulse Ox O2 Delivery O2 Flow Rate FiO2 12/10/16 15:54 98.3 71 20 104/59 100 12/09/16 18:45 Room Air Intake and Output 9/12/09/16 12/10/16 15:00 23:00 07:00 Intake Total 300 ml 555 ml Output Total 450 ml Balance 300 ml 105 ml Exam Constitutional: alert Psych: nl mood/affect, no complaints Head: atraumatic, normocephalic Eyes: EOMI, PERRL, nl conjunctiva, nl lids, nl sclera ENMT: nl external ears & nose, nl lips & teeth, nl nasal mucosa & septum Neck: non-tender, supple Respiratory: clear to auscultation, normal air movement Cardiovascular: nl pulses, other (atrail paced) Gastrointestinal: nl liver, spleen, non-tender, soft Musculoskeletal: nl extremities to inspection, nl gait and stance Extremities: normal pulses 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: ARTS MANAGER II-XII intact, nl mental status, nl speech, nl strength Skin: nl turgor, No rash or lesions Lymph: nl lymph nodes Results Result Diagram: 12/10/16 0640 12/10/16 0640 Results 24 hrs Laboratory Tests Test 12/09/16 18:50 12/09/16 21:53 12/10/16 00:50 12/10/16 06:40 Prothrombin Time 16.1 H Prothrombin Time Ratio 1.3 INR International Normalized Ratio 1.28 Activated Partial Thromboplast Time 33.9 Troponin I < 0.012 < 0.012 Free Thyroxine 1.57 Urine Opiates Screen Negative Urine Barbiturates Negative Urine Amphetamines Screen Negative Urine Benzodiazepines Screen Negative Urine Cocaine Screen Negative Urine Cannabinoids Negative Bedside Glucose 109 White Blood Count 5.7 Red Blood Count 4.33 L Hemoglobin 12.7 L Hematocrit 39.0 L Mean Corpuscular Volume 90.1 Mean Corpuscular Hemoglobin 29.3 Mean Corpuscular Hemoglobin Concent 32.6 Red Cell Distribution Width 14.4 Platelet Count 187 Mean Platelet Volume 8.5 Neutrophils % 82.9 H Lymphocytes % 12.5 L Monocytes % 4.2 Eosinophils % 0.0 Basophils % 0.2 Nucleated Red Blood Cells % 0.0 Neutrophils # 4.7 Lymphocytes # 0.7 L Monocytes # 0.2 L Eosinophils # 0.0 Basophils # 0.0 Nucleated Red Blood Cells # 0.0 Sodium Level 139 Potassium Level 4.3 Chloride Level 106 # Carbon Dioxide Level 27 Anion Gap 10 Blood Urea Nitrogen 6 L Creatinine 0.55 L Glucose Level 114 # Hemoglobin A1c 4.9 Calcium Level 9.4 Phosphorus Level 3.4 Magnesium Level 1.9 Triglycerides Level 44 Cholesterol Level 157 LDL Cholesterol, Calculated 73 HDL Cholesterol 75 H Cholesterol/HDL Ratio 2.0 Thyroid Stimulating Hormone (TSH) 0.171 L Test 12/10/16 06:41 Troponin I < 0.012 Medications Medications Current Medications IV Flush (NS 10 ml) 10 ml PRN PRN IV FLUSH LINE; Start 12/09/16 at 17:30 Ondansetron HCl (Zofran Inj) 4 mg Q6H PRN IV NAUSEA AND/OR VOMITING; Start at 18:30 Acetaminophen (Tylenol Tab) 650 mg Q6H PRN PO PAIN LEVEL 1-3 OR FEVER; Start at 18:30 Acetaminophen/ Hydrocodone Bitart ([place] (5/325)) 1 tab Q6H PRN PO MODERATE PAIN LEVEL 4-6 Last administered on 12/09/16 21:45; Admin Dose 1 TAB; Start at 18:30 Docusate Sodium (Colace) 100 mg Q12H PRN PO CONSTIPATION; Start 12/09/16 at 18: 30 Magnesium Hydroxide (Milk Of Mag) 30 ml DAILY PRN PO CONSTIPATION; Start at 18:30 Sodium Biphosphate/ Sodium Phosphate 133 ml 133 ml DAILY PRN [place] CONSTIPATION; Start 12/09/16 at 18:30 Sodium Chloride (1/2 NS) 1,000 ml @ 75 mls/hr [id number] IV Last administered on 12/10/16 15:48; Admin Dose 75 MLS/HR; Start 12/09/16 at 18:07 Lorazepam (Ativan) 0.5 mg Q6H PRN IV ANXIETY; Start 12/09/16 at 18:30 Hydralazine HCl (Apresoline) 10 mg Q6H PRN IV ELEVATED BLOOD PRESSURE; Start at 18:30 Clonidine (Catapres) 0.1 mg Q6H PRN PO ELEVATED BLOOD PRESSURE; Start 12/09/16 at 18:30 Nitroglycerin (Nitroglycerin (Sl Tab) 0.4 Mg) 1 tab Q5M PRN SL ANGINA; Start at 18:30 Albuterol (Proventil 0.083% (Neb)) 2.5 mg Q4 PRN NEB WHEEZING AND SOB; Start at 18:30 Atorvastatin Calcium (Lipitor) 10 mg QHS PO Last administered on 12/09/16 21: 44; Admin Dose 10 MG; Start 12/09/16 at 21:00 Digoxin (Digoxin) 0.125 mg DAILY PO Last administered on 12/10/16 09:33; Admin Dose 0.125 MG; Start 12/10/16 at 09:00 Ferrous Sulfate (Ferrous Sulfate (Ec)) 325 mg TID PO Last administered on 13:50; Admin Dose 325 MG; Start 12/09/16 at 21:00 Gabapentin (Neurontin) 300 mg TID PO Last administered on 12/10/16 13:50; Admin Dose 300 MG; Start 12/09/16 at 21:00 Isosorbide Mononitrate (Imdur) 60 mg DAILY PO Last administered on 12/10/16 09 :33; Admin Dose 60 MG; Start 12/10/16 at 09:00 Potassium Chloride (Klor-Con 20) 20 meq DAILY PO Last administered on 09:33; Admin Dose 20 MEQ; Start 12/10/16 at 09:00 Sertraline HCl (Zoloft) 50 mg DAILY PO Last administered on 12/10/16 09:33; Admin Dose 50 MG; Start 12/10/16 at 09:00 Sotalol HCl (Betapace) 80 mg BID PO Last administered on 12/10/16 09:34; Admin Dose 80 MG; Start 12/09/16 at 21:00 Zolpidem Tartrate (Ambien) 10 mg QHS PRN PO INSOMNIA Last administered on 23:44; Admin Dose 10 MG; Start 12/09/16 at 18:30 Salmeterol Xinafoate/ Fluticasone (Advair 250/50 Diskus) 1 inh BID INH ; Start 12/10/16 at 21:00 Pantoprazole (Protonix Iv) 40 mg BID@06,18 IV ; Start 12/10/16 at 18:00 Hydromorphone HCl (Dilaudid) 0.5 mg Q4H PRN IV PAIN Last administered on 15:00; Admin Dose 0.5 MG; Start 12/10/16 at 14:30 Diphenhydramine HCl (Benadryl) 25 mg Q4H PRN IV itching; Start 12/10/16 at 14: 30 RAVEN COTTON NP Dec 10, 2016 16:27
--- NOTE | 2016-12-10 17:10 | CONS ---
Date/Time of Note Date/Time of Note DATE: 12/10/16 TIME: 17:04 Assessment/Plan Assessment/Plan Additional Assessment/Plan Hematemesis with history of GI bleed Chest pain, resolved Preserved ejection fraction Possible history of paroxysmal atrial fibrillation History of cardiac arrest with history of AICD Marfan's -Patient status post CT aortogram and pulmonary angiogram with no evidence of aortic dissection and no evidence of pulmonary emboli. His symptoms began with abdominal pain, nausea and hematemesis and after 2 episodes, developed stabbing chest pain. Serial cardiac enzymes remain negative, echocardiogram with preserved ejection fraction. Agree with holding anticoagulation in the interim pending GI evaluation. Consultation Date/Type/Reason Admit Date/Time Dec 09, 2016 at 17:29 Type of Consultation: cv Reason for Consultation Cardiac evaluation Hx of Present Illness This is a 31-year-old male with extensive past medical history including Marfan' s, cardiac arrest status post AICD, pulmonary emboli on anticoagulation, recurrent GI bleed who presented with abdominal pain nausea and hematemesis. This happened yesterday 2 episodes. Afterwards, patient developed stabbing and sharp-like chest pain rating from the mid abdomen and chest to his back. Because of his history of GI bleed in the past and patient being on anticoagulation, he came to the emergency room for further evaluation and care. After being given Zofran, he is feeling much better. Denies any current chest pain, shortness of breath, palpitations. He is feeling tired. 12 point review of systems was performed with all pertinent positives and negatives mentioned above and all else is negative Constitutional: improved, no complaints Eyes: no complaints ENT: no complaints Respiratory: no complaints Cardiovascular: no complaints Gastrointestinal: blood, vomiting Genitourinary: no complaints Musculoskeletal: no complaints Skin: no complaints Neurologic: no complaints Endocrine: no complaints Lymphatic: no complaints Psychological: nl mood/affect, no complaints Immunologic: no complaints Past Medical History Medical History: other (marfan,pulmonary htn, GI bleed) Past Surgical History Past Surgical Hx: other (AICD,endoscopy, ASD closure) Social History Smoking Status: Never smoker Exam/Review of Systems Vital Signs Vitals Vital Signs Date Time Temp Pulse Resp B/P Pulse Ox O2 Delivery O2 Flow Rate FiO2 12/10/16 16:11 68 12/10/16 15:54 98.3 20 104/59 100 12/09/16 18:45 Room Air Intake and Output 12/09/16 12/09/16 12/10/16 14:59 22:59 06:59 Intake Total 300 ml 555 ml Output Total 450 ml Balance 300 ml 105 ml Exam No apparent distress Constitutional: alert, oriented Head: normocephalic Respiratory: other (Coarse breath sounds bilaterally, no wheezing) Cardiovascular: other (S1-S2 heard), regular rate and rhythm Gastrointestinal: bowel sounds, non-tender, soft Extremities: other (No edema) Results Result Diagram: 12/10/16 0640 12/10/16 0640 Results 24 hrs Laboratory Tests Test 12/09/16 18:50 12/09/16 21:53 12/10/16 00:50 12/10/16 06:40 Prothrombin Time 16.1 H Prothrombin Time Ratio 1.3 INR International Normalized Ratio 1.28 Activated Partial Thromboplast Time 33.9 Troponin I < 0.012 < 0.012 Free Thyroxine 1.57 Urine Opiates Screen Negative Urine Barbiturates Negative Urine Amphetamines Screen Negative Urine Benzodiazepines Screen Negative Urine Cocaine Screen Negative Urine Cannabinoids Negative Bedside Glucose 109 White Blood Count 5.7 Red Blood Count 4.33 L Hemoglobin 12.7 L Hematocrit 39.0 L Mean Corpuscular Volume 90.1 Mean Corpuscular Hemoglobin 29.3 Mean Corpuscular Hemoglobin Concent 32.6 Red Cell Distribution Width 14.4 Platelet Count 187 Mean Platelet Volume 8.5 Neutrophils % 82.9 H Lymphocytes % 12.5 L Monocytes % 4.2 Eosinophils % 0.0 Basophils % 0.2 Nucleated Red Blood Cells % 0.0 Neutrophils # 4.7 Lymphocytes # 0.7 L Monocytes # 0.2 L Eosinophils # 0.0 Basophils # 0.0 Nucleated Red Blood Cells # 0.0 Sodium Level 139 Potassium Level 4.3 Chloride Level 106 # Carbon Dioxide Level 27 Anion Gap 10 Blood Urea Nitrogen 6 L Creatinine 0.55 L Glucose Level 114 # Hemoglobin A1c 4.9 Calcium Level 9.4 Phosphorus Level 3.4 Magnesium Level 1.9 Triglycerides Level 44 Cholesterol Level 157 LDL Cholesterol, Calculated 73 HDL Cholesterol 75 H Cholesterol/HDL Ratio 2.0 Thyroid Stimulating Hormone (TSH) 0.171 L Test 12/10/16 06:41 Troponin I < 0.012 Medications Medications Current Medications IV Flush (NS 10 ml) 10 ml PRN PRN IV FLUSH LINE; Start 12/09/16 at 17:30 Ondansetron HCl (Zofran Inj) 4 mg Q6H PRN IV NAUSEA AND/OR VOMITING; Start at 18:30 Acetaminophen (Tylenol Tab) 650 mg Q6H PRN PO PAIN LEVEL 1-3 OR FEVER; Start at 18:30 Acetaminophen/ Hydrocodone Bitart ([place] (5/325)) 1 tab Q6H PRN PO MODERATE PAIN LEVEL 4-6 Last administered on 12/09/16 21:45; Admin Dose 1 TAB; Start at 18:30 Docusate Sodium (Colace) 100 mg Q12H PRN PO CONSTIPATION; Start 12/09/16 at 18: 30 Magnesium Hydroxide (Milk Of Mag) 30 ml DAILY PRN PO CONSTIPATION; Start at 18:30 Sodium Biphosphate/ Sodium Phosphate 133 ml 133 ml DAILY PRN [place] CONSTIPATION; Start 12/09/16 at 18:30 Sodium Chloride (1/2 NS) 1,000 ml @ 75 mls/hr [id number] IV Last administered on 12/10/16 15:48; Admin Dose 75 MLS/HR; Start 12/09/16 at 18:07 Lorazepam (Ativan) 0.5 mg Q6H PRN IV ANXIETY; Start 12/09/16 at 18:30 Hydralazine HCl (Apresoline) 10 mg Q6H PRN IV ELEVATED BLOOD PRESSURE; Start at 18:30 Clonidine (Catapres) 0.1 mg Q6H PRN PO ELEVATED BLOOD PRESSURE; Start 12/09/16 at 18:30 Nitroglycerin (Nitroglycerin (Sl Tab) 0.4 Mg) 1 tab Q5M PRN SL ANGINA; Start at 18:30 Albuterol (Proventil 0.083% (Neb)) 2.5 mg Q4 PRN NEB WHEEZING AND SOB; Start at 18:30 Atorvastatin Calcium (Lipitor) 10 mg QHS PO Last administered on 12/09/16 21: 44; Admin Dose 10 MG; Start 12/09/16 at 21:00 Digoxin (Digoxin) 0.125 mg DAILY PO Last administered on 12/10/16 09:33; Admin Dose 0.125 MG; Start 12/10/16 at 09:00 Ferrous Sulfate (Ferrous Sulfate (Ec)) 325 mg TID PO Last administered on 13:50; Admin Dose 325 MG; Start 12/09/16 at 21:00 Gabapentin (Neurontin) 300 mg TID PO Last administered on 12/10/16 13:50; Admin Dose 300 MG; Start 12/09/16 at 21:00 Isosorbide Mononitrate (Imdur) 60 mg DAILY PO Last administered on 12/10/16 09 :33; Admin Dose 60 MG; Start 12/10/16 at 09:00 Potassium Chloride (Klor-Con 20) 20 meq DAILY PO Last administered on 09:33; Admin Dose 20 MEQ; Start 12/10/16 at 09:00 Sertraline HCl (Zoloft) 50 mg DAILY PO Last administered on 12/10/16 09:33; Admin Dose 50 MG; Start 12/10/16 at 09:00 Sotalol HCl (Betapace) 80 mg BID PO Last administered on 12/10/16 09:34; Admin Dose 80 MG; Start 12/09/16 at 21:00 Zolpidem Tartrate (Ambien) 10 mg QHS PRN PO INSOMNIA Last administered on 23:44; Admin Dose 10 MG; Start 12/09/16 at 18:30 Salmeterol Xinafoate/ Fluticasone (Advair 250/50 Diskus) 1 inh BID INH ; Start 12/10/16 at 21:00 Pantoprazole (Protonix Iv) 40 mg BID@06,18 IV ; Start 12/10/16 at 18:00 Hydromorphone HCl (Dilaudid) 0.5 mg Q4H PRN IV PAIN Last administered on 15:00; Admin Dose 0.5 MG; Start 12/10/16 at 14:30 Diphenhydramine HCl (Benadryl) 25 mg Q4H PRN IV itching; Start 12/10/16 at 14: 30 Procedures Procedures ECG demonstrates a paced rhythm at 79 bpm, QRS 94 ms, nonspecific ST abnormalities Aiden Merrill DO Dec 10, 2016 17:10
[2016-12-10] MEDS: PANTOPRAZOLE 40 MG INJ IV SCH (17:24)
[2016-12-10] MEDS: SALMETEROL/FLUTICASONE 250/50 INHA INH SCH (20:51)
[2016-12-10] MEDS: ATORVASTATIN 10 MG TAB PO SCH (20:51)
[2016-12-11] VITALS (22 sets, daily range): BP systolic 92–146; BP diastolic 53–86; PULSE 62–92; RESP 10–20
[2016-12-11] MEDS: DIPHENHYDRAMINE 50 MG INJ IV PRN ×5 (03:53→23:38)
[2016-12-11] MEDS: HYDROmorphONE 1 MG/ML SYG IV PRN ×4 (03:54→23:38)
[2016-12-11] MEDS: PANTOPRAZOLE 40 MG INJ IV SCH ×2 (05:56→17:21)
[2016-12-11] MEDS: SUCRALFATE 1 GM TAB PO SCH ×4 (05:59→20:40)
[2016-12-11] MEDS: DIGOXIN 0.125 MG TAB PO SCH (08:31)
[2016-12-11] MEDS: FERROUS SULFATE (EC) 325 MG TAB PO SCH ×3 (08:31→20:38)
[2016-12-11] MEDS: ISOSORBIDE MONONITRATE(SR)60 MG TAB PO SCH (08:31)
[2016-12-11] MEDS: SOTALOL 80 MG TAB PO SCH ×2 (08:31→20:39)
[2016-12-11] MEDS: POTASSIUM CHLORIDE (SR) 20 MEQ TAB PO SCH (08:32)
[2016-12-11] MEDS: GABAPENTIN 300 MG CAP PO SCH ×3 (08:32→20:37)
[2016-12-11] MEDS: SERTRALINE 50 MG TAB PO SCH (08:32)
[2016-12-11 08:41] LABS: BASOPHILS % 0.2 % (0.0-2.0); EOSINOPHILS % 0.6 % (0.0-7.0); HEMATOCRIT 35.7 % (42.0-52.0); HEMOGLOBIN 11.6 g/dl (14.0-18.0); LYMPHOCYTES # 1.9 10^3/ul (0.8-2.9); MEAN CORPUSCULAR HGB CONC 32.5 g/dl (32.0-37.0); MEAN CORPUSCULAR VOLUME 92.2 fl (82.0-101.0); MEAN PLATELET VOLUME 8.9 fl (7.4-10.4); MONOCYTE # 0.5 10^3/ul (0.3-0.9); MONOCYTES % 9.6 % (0.0-11.0); NEUTROPHIL # 2.7 10^3/ul (1.6-7.5); NEUTROPHILS % 52.2 % (39.0-77.0); PLATELET COUNT 162 10^3/UL (140-415); RED BLOOD COUNT 3.87 10^6/ul (4.70-6.10); RED CELL DISTRIBUTION WIDTH 14.9 % (11.5-14.5); WHITE BLOOD COUNT 5.2 10^3/ul (4.8-10.8)
[2016-12-11 08:52] LABS: CALCIUM 8.8 mg/dl (8.4-10.2); CREATININE 0.67 mg/dl (0.61-1.24); POTASSIUM 3.8 mmol/L (3.5-5.1)
[2016-12-11] MEDS: SOD CHLORIDE 0.45% 1,000 ML IV SCH ×2 (09:14→23:54)
[2016-12-11] MEDS: SALMETEROL/FLUTICASONE 250/50 INHA INH SCH ×2 (09:53→20:37)
--- NOTE | 2016-12-11 11:58 | CONS ---
Date/Time of Note Date/Time of Note DATE: 12/11/16 TIME: 11:57 Assessment/Plan Assessment/Plan Additional Assessment/Plan Hematemesis with history of GI bleed Chest pain, resolved Preserved ejection fraction Possible history of paroxysmal atrial fibrillation Pulmonary emboli on anticoagulation ASD status post closure History of cardiac arrest with history of AICD Marfan's -Patient status post CT aortogram and pulmonary angiogram with no evidence of aortic dissection and no evidence of pulmonary emboli. Chest pain has resolved. Serial cardiac enzymes remain negative, echocardiogram with preserved ejection fraction. Agree with holding anticoagulation in the interim pending GI evaluation. Consultation Date/Type/Reason Admit Date/Time Dec 09, 2016 at 17:29 Initial Consult Date 12/10/16 Type of Consultation: cv Referring Provider: ROB BUI 24 HR Interval Summary Free Text/Dictation Denies any further chest pain. Denies shortness of breath, overall feeling better Exam/Review of Systems Vital Signs Vitals Vital Signs Date Time Temp Pulse Resp B/P Pulse Ox O2 Delivery O2 Flow Rate FiO2 12/11/16 11:42 98.3 80 17 115/53 95 12/10/16 12:30 Room Air Intake and Output 12/10/16 12/10/16 12/11/16 15:00 23:00 07:00 Intake Total 1380 ml 1275 ml Output Total 1050 ml 700 ml Balance 330 ml 575 ml Exam No apparent distress Constitutional: alert, oriented Head: normocephalic Respiratory: other (Coarse breath sounds bilaterally, no wheezing) Cardiovascular: other (S1-S2 heard), regular rate and rhythm Gastrointestinal: bowel sounds, non-tender, soft Extremities: clubbing Results Result Diagram: 12/11/16 0800 12/11/16 0802 Results 24 hrs Laboratory Tests Test 12/11/16 08:00 12/11/16 08:02 White Blood Count 5.2 Red Blood Count 3.87 L Hemoglobin 11.6 L Hematocrit 35.7 L Mean Corpuscular Volume 92.2 Mean Corpuscular Hemoglobin 30.0 Mean Corpuscular Hemoglobin Concent 32.5 Red Cell Distribution Width 14.9 H Platelet Count 162 Mean Platelet Volume 8.9 Neutrophils % 52.2 Lymphocytes % 37.0 Monocytes % 9.6 Eosinophils % 0.6 Basophils % 0.2 Nucleated Red Blood Cells % 0.0 Neutrophils # 2.7 Lymphocytes # 1.9 Monocytes # 0.5 Eosinophils # 0.0 Basophils # 0.0 Nucleated Red Blood Cells # 0.0 Sodium Level 138 Potassium Level 3.8 Chloride Level 104 Carbon Dioxide Level 29 Anion Gap 9 Blood Urea Nitrogen 8 Creatinine 0.67 Glucose Level 82 Calcium Level 8.8 Medications Medications Current Medications IV Flush (NS 10 ml) 10 ml PRN PRN IV FLUSH LINE; Start 12/09/16 at 17:30 Ondansetron HCl (Zofran Inj) 4 mg Q6H PRN IV NAUSEA AND/OR VOMITING; Start at 18:30 Acetaminophen (Tylenol Tab) 650 mg Q6H PRN PO PAIN LEVEL 1-3 OR FEVER; Start at 18:30 Acetaminophen/ Hydrocodone Bitart ([place] (5/325)) 1 tab Q6H PRN PO MODERATE PAIN LEVEL 4-6 Last administered on 12/09/16 21:45; Admin Dose 1 TAB; Start at 18:30 Docusate Sodium (Colace) 100 mg Q12H PRN PO CONSTIPATION; Start 12/09/16 at 18: 30 Magnesium Hydroxide (Milk Of Mag) 30 ml DAILY PRN PO CONSTIPATION; Start at 18:30 Sodium Biphosphate/ Sodium Phosphate 133 ml 133 ml DAILY PRN [place] CONSTIPATION; Start 12/09/16 at 18:30 Sodium Chloride (1/2 NS) 1,000 ml @ 75 mls/hr [id number] IV Last administered on 12/10/16 15:48; Admin Dose 75 MLS/HR; Start 12/09/16 at 18:07 Lorazepam (Ativan) 0.5 mg Q6H PRN IV ANXIETY; Start 12/09/16 at 18:30 Hydralazine HCl (Apresoline) 10 mg Q6H PRN IV ELEVATED BLOOD PRESSURE; Start at 18:30 Clonidine (Catapres) 0.1 mg Q6H PRN PO ELEVATED BLOOD PRESSURE; Start 12/09/16 at 18:30 Nitroglycerin (Nitroglycerin (Sl Tab) 0.4 Mg) 1 tab Q5M PRN SL ANGINA; Start at 18:30 Albuterol (Proventil 0.083% (Neb)) 2.5 mg Q4 PRN NEB WHEEZING AND SOB; Start at 18:30 Atorvastatin Calcium (Lipitor) 10 mg QHS PO Last administered on 12/10/16 20: 51; Admin Dose 10 MG; Start 12/09/16 at 21:00 Digoxin (Digoxin) 0.125 mg DAILY PO Last administered on 12/10/16 09:33; Admin Dose 0.125 MG; Start 12/10/16 at 09:00 Ferrous Sulfate (Ferrous Sulfate (Ec)) 325 mg TID PO Last administered on 20:51; Admin Dose 325 MG; Start 12/09/16 at 21:00 Gabapentin (Neurontin) 300 mg TID PO Last administered on 12/10/16 20:51; Admin Dose 300 MG; Start 12/09/16 at 21:00 Isosorbide Mononitrate (Imdur) 60 mg DAILY PO Last administered on 12/10/16 09 :33; Admin Dose 60 MG; Start 12/10/16 at 09:00 Potassium Chloride (Klor-Con 20) 20 meq DAILY PO Last administered on 09:33; Admin Dose 20 MEQ; Start 12/10/16 at 09:00 Sertraline HCl (Zoloft) 50 mg DAILY PO Last administered on 12/10/16 09:33; Admin Dose 50 MG; Start 12/10/16 at 09:00 Sotalol HCl (Betapace) 80 mg BID PO Last administered on 12/10/16 20:52; Admin Dose 80 MG; Start 12/09/16 at 21:00 Zolpidem Tartrate (Ambien) 10 mg QHS PRN PO INSOMNIA Last administered on 23:44; Admin Dose 10 MG; Start 12/09/16 at 18:30 Salmeterol Xinafoate/ Fluticasone (Advair 250/50 Diskus) 1 inh BID INH Last administered on 12/11/16 09:53; Admin Dose 1 INH; Start 12/10/16 at 21:00 Pantoprazole (Protonix Iv) 40 mg BID@06,18 IV Last administered on 12/11/16 05 :56; Admin Dose 40 MG; Start 12/10/16 at 18:00 Hydromorphone HCl (Dilaudid) 0.5 mg Q4H PRN IV PAIN Last administered on 09:54; Admin Dose 0.5 MG; Start 12/10/16 at 14:30 Diphenhydramine HCl (Benadryl) 25 mg Q4H PRN IV itching Last administered on 10:01; Admin Dose 25 MG; Start 12/10/16 at 14:30 Aiden Merrill DO Dec 11, 2016 11:58
--- NOTE | 2016-12-11 15:28 | PN ---
Date/Time of Note Date/Time of Note DATE: 12/11/16 TIME: 15:22 Assessment/Plan VTE Prophylaxis VTE Prophylaxis Intervention: SCD's Lines/Catheters IV Catheter Type (from Nrsg): PICC Line Central line still needed: Yes Urinary Cath still in place: No Assessment/Plan Assessment/Plan 1. Upper GI bleeding, recurrent, eliquis on hold, protonix iv bid/carafate, GI consult for EGD 2. Chest pain, atypical for CAD, but pulmonary hypertension may give angina 3. Pulmonary embolism, due to ASD 4. ASD, s/p repair in 2010 5. Marfan's syndrome, 6. Atrial fibrillation, A-pacing rhythm now, controlled rate, hold eliquis due to GI bleeding 7. Pulmonary embolism in 2013, not clear if he has hypercoagulable state after intensive work ups 8. Cardiac arrest in 2011, AICD 2012 9. h/o recurrent ischemic stroke Subjective 24 Hr Interval Summary Free Text/Dictation no chest pain, no shortness of breath. nausea but no vomiting Exam/Review of Systems Vital Signs Vitals Vital Signs Date Time Temp Pulse Resp B/P Pulse Ox O2 Delivery O2 Flow Rate FiO2 12/11/16 12:50 62 12/11/16 11:42 98.3 17 115/53 95 12/10/16 12:30 Room Air Intake and Output 12/10/16 12/10/16 12/11/16 15:00 23:00 07:00 Intake Total 1380 ml 1275 ml Output Total 1050 ml 700 ml Balance 330 ml 575 ml Exam Constitutional: alert, oriented, well developed Psych: nl mood/affect, no complaints Head: atraumatic, normocephalic Eyes: EOMI, PERRL, nl conjunctiva, nl lids, nl sclera ENMT: nl external ears & nose, nl lips & teeth, nl nasal mucosa & septum Neck: non-tender, supple Respiratory: clear to auscultation, normal air movement, No congested cough, No crackles/rales, No diminished breath sounds, No intercostal retraction, No labored breathing, No other, No respirations, No tactile fremitus, No wheezing Cardiovascular: nl pulses, regular rate and rhythm, No S3, No S4, No bruits, No diastolic murmur, No edema, No gallop, No irregular rhythm, No jugular venous distention (JVD), No murmurs/extra sounds, No other, No rub, No systolic murmur Gastrointestinal: nl liver, spleen, non-tender, soft, No ascites, No bowel sounds, No distended, No firm, No hepatomegaly, No mass , No other, No rebound or guarding, No splenomegaly, No surgical scars, No tender Musculoskeletal: nl extremities to inspection Extremities: normal pulses, No calf tenderness, No clubbing, No cyanosis, No edema, No other, No palpable cord, No pitting pedal edema, No tenderness 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: [employer]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 II-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 intact, nl mental status, nl speech, nl strength Skin: nl turgor Lymph: nl lymph nodes Results Result Diagram: 12/11/16 0800 12/11/16 0802 Results 24 hrs Laboratory Tests Test 12/11/16 08:00 12/11/16 08:02 White Blood Count 5.2 Red Blood Count 3.87 L Hemoglobin 11.6 L Hematocrit 35.7 L Mean Corpuscular Volume 92.2 Mean Corpuscular Hemoglobin 30.0 Mean Corpuscular Hemoglobin Concent 32.5 Red Cell Distribution Width 14.9 H Platelet Count 162 Mean Platelet Volume 8.9 Neutrophils % 52.2 Lymphocytes % 37.0 Monocytes % 9.6 Eosinophils % 0.6 Basophils % 0.2 Nucleated Red Blood Cells % 0.0 Neutrophils # 2.7 Lymphocytes # 1.9 Monocytes # 0.5 Eosinophils # 0.0 Basophils # 0.0 Nucleated Red Blood Cells # 0.0 Sodium Level 138 Potassium Level 3.8 Chloride Level 104 Carbon Dioxide Level 29 Anion Gap 9 Blood Urea Nitrogen 8 Creatinine 0.67 Glucose Level 82 Calcium Level 8.8 Medications Medications Current Medications IV Flush (NS 10 ml) 10 ml PRN PRN IV FLUSH LINE; Start 12/09/16 at 17:30 Ondansetron HCl (Zofran Inj) 4 mg Q6H PRN IV NAUSEA AND/OR VOMITING; Start at 18:30 Acetaminophen (Tylenol Tab) 650 mg Q6H PRN PO PAIN LEVEL 1-3 OR FEVER; Start at 18:30 Acetaminophen/ Hydrocodone Bitart ([place] (5/325)) 1 tab Q6H PRN PO MODERATE PAIN LEVEL 4-6 Last administered on 12/09/16t 21:45; Admin Dose 1 TAB; Start at 18:30 Docusate Sodium (Colace) 100 mg Q12H PRN PO CONSTIPATION; Start 12/09/16 at 18: 30 Magnesium Hydroxide (Milk Of Mag) 30 ml DAILY PRN PO CONSTIPATION; Start at 18:30 Sodium Biphosphate/ Sodium Phosphate 133 ml 133 ml DAILY PRN [place] CONSTIPATION; Start 12/09/16 at 18:30 Sodium Chloride (1/2 NS) 1,000 ml @ 75 mls/hr [id number] IV Last administered on 12/10/16 15:48; Admin Dose 75 MLS/HR; Start 12/09/16 at 18:07 Lorazepam (Ativan) 0.5 mg Q6H PRN IV ANXIETY; Start 12/09/16 at 18:30 Hydralazine HCl (Apresoline) 10 mg Q6H PRN IV ELEVATED BLOOD PRESSURE; Start at 18:30 Clonidine (Catapres) 0.1 mg Q6H PRN PO ELEVATED BLOOD PRESSURE; Start 12/09/16 at 18:30 Nitroglycerin (Nitroglycerin (Sl Tab) 0.4 Mg) 1 tab Q5M PRN SL ANGINA; Start at 18:30 Albuterol (Proventil 0.083% (Neb)) 2.5 mg Q4 PRN NEB WHEEZING AND SOB; Start at 18:30 Atorvastatin Calcium (Lipitor) 10 mg QHS PO Last administered on 12/10/16 20: 51; Admin Dose 10 MG; Start 12/09/16 at 21:00 Digoxin (Digoxin) 0.125 mg DAILY PO Last administered on 12/10/16 09:33; Admin Dose 0.125 MG; Start 12/10/16 at 09:00 Ferrous Sulfate (Ferrous Sulfate (Ec)) 325 mg TID PO Last administered on 20:51; Admin Dose 325 MG; Start 12/09/16 at 21:00 Gabapentin (Neurontin) 300 mg TID PO Last administered on 12/10/16 20:51; Admin Dose 300 MG; Start 12/09/16 at 21:00 Isosorbide Mononitrate (Imdur) 60 mg DAILY PO Last administered on 12/10/16 09 :33; Admin Dose 60 MG; Start 12/10/16 at 09:00 Potassium Chloride (Klor-Con 20) 20 meq DAILY PO Last administered on 09:33; Admin Dose 20 MEQ; Start 12/10/16 at 09:00 Sertraline HCl (Zoloft) 50 mg DAILY PO Last administered on 12/10/16 09:33; Admin Dose 50 MG; Start 12/10/16 at 09:00 Sotalol HCl (Betapace) 80 mg BID PO Last administered on 12/10/16 20:52; Admin Dose 80 MG; Start 12/09/16 at 21:00 Zolpidem Tartrate (Ambien) 10 mg QHS PRN PO INSOMNIA Last administered on 23:44; Admin Dose 10 MG; Start 12/09/16 at 18:30 Salmeterol Xinafoate/ Fluticasone (Advair 250/50 Diskus) 1 inh BID INH Last administered on 12/11/16 09:53; Admin Dose 1 INH; Start 12/10/16 at 21:00 Pantoprazole (Protonix Iv) 40 mg BID@06,18 IV Last administered on 12/11/16 05 :56; Admin Dose 40 MG; Start 12/10/16 at 18:00 Hydromorphone HCl (Dilaudid) 0.5 mg Q4H PRN IV PAIN Last administered on 14:03; Admin Dose 0.5 MG; Start 12/10/16 at 14:30 Diphenhydramine HCl (Benadryl) 25 mg Q4H PRN IV itching Last administered on 14:05; Admin Dose 25 MG; Start 12/10/16 at 14:30 TALA JOSHUA MD Dec 11, 2016 15:28
[2016-12-11] MEDS ORDERED: MIDAZOLAM 1 MG/ML 2 ML INJ ONE (18:46)
[2016-12-11] MEDS ORDERED: ETOMIDATE 20 MG INJ ONE ×2 (18:46→18:58)
--- NOTE | 2016-12-11 19:01 | OPPN ---
Date/Time of Note Date/Time of Note DATE: 12/11/16 TIME: 18:58 Proc Note GI Procedure Date 12/11/16 Pre-procedure Diagnosis * Hematemesis Post-procedure Diagnosis Impression: * Severe erosive gastritis. * Otherwise normal EGD Plan: * Continue PPI plus Carafate * Review biopsies * There are H&H . Procedure Performed: Endoscopy (With biopsies) Surgeon MICHAEL BELTRAN MD [employer] Work[employer] none Anesthesia Type: MAC Anesthesiologist: ROBER KESSLER MD Tourniquet Time none EBL none Transfusion required none Biopsy 1: Gastric antrum/Rule out H. pylori infection Grafts/Implants none Tubes/Drains none Complication(s) none Pt Condition post procedure: stable Disposition: PACU Indications: other (Hematemesis) Procedure Description After informed consent, with the patient/relatives understanding the procedure, its indications, potential risks and complications, including but not limited to : allergic reaction, bleeding, perforation or infection, and after all pertinent questions were answered to the patients satisfaction, the patient/ relatives signed witnessed informed consent. Following this, premedication was administered slowly IV push under careful cardiovascular and respiratory monitoring with pulse oximetry, automatic blood pressure, and pvc monitor. Once the sedative effect was achieved the patient was place in the left lateral decubitus, the panendoscope was introduced and advanced under visual control. Careful examination of the upper gastrointestinal tract, both on insertion as well as withdrawal of the instrument disclosing the following findings: ESOPHAGUS: the mucosa of the entire esophagus was carefully examined and showed the following findings: the mucosa appears within normal limits. There is no evidence of esophagitis, varices, neoplasm, or stricture. No Hiatal Hernia identified. STOMACH: Upon entrance to the stomach air was insufflated, the gastric jose distended normally. The mucosa of the fundus, body and antrum of the stomach was carefully examined both head-on and on retroflexion, and showed the following findings: There is severe erythema edema and superficial erosion of the mucosa throughout the stomach. Biopsies were obtained a limited fashion to rule out H. pylori infection. Otherwise the mucosa appears within normal limits with no abnormalities. There is no evidence of ulcers or neoplasm. PYLORUS: The pylorus was carefully examined and showed the following findings: the pylorus appears patent and within normal limits, with no evidence of gastric outlet obstruction. DUODENUM: The duodenal mucosa was carefully examined in the duodenal bulb as well as the second portion of the duodenum and showed the following findings: the mucosa appears unremarkable with no evidence of duodenitis, ulcer or neoplasm. Copies To: CC: MICHAEL BELTRAN MD, MORDO MD Dec 11, 2016 19:01
[2016-12-11] MEDS ORDERED: HYDROmorphONE (0.2 MG/ML) 10ML SYG IV PRN ×2 (19:30)
[2016-12-11] MEDS ORDERED: DIPHENHYDRAMINE 50 MG INJ IV PRN (19:30)
[2016-12-11] MEDS ORDERED: ONDANSETRON 4 MG INJ IV PRN (19:30)
[2016-12-11] MEDS: ATORVASTATIN 10 MG TAB PO SCH (20:38)
[2016-12-12] VITALS (11 sets, daily range): BP systolic 111–139; BP diastolic 54–66; PULSE 66–89; RESP 16–19
[2016-12-12] MEDS: HYDROmorphONE 1 MG/ML SYG IV PRN ×5 (03:35→20:06)
[2016-12-12] MEDS: DIPHENHYDRAMINE 50 MG INJ IV PRN ×5 (03:36→20:05)
[2016-12-12] MEDS: SUCRALFATE 1 GM TAB PO SCH ×4 (05:51→20:05)
[2016-12-12] MEDS: PANTOPRAZOLE 40 MG INJ IV SCH ×2 (05:51→17:33)
[2016-12-12] MEDS: SALMETEROL/FLUTICASONE 250/50 INHA INH SCH ×2 (08:04→20:04)
[2016-12-12] MEDS: DIGOXIN 0.125 MG TAB PO SCH (08:05)
[2016-12-12] MEDS: DOCUSATE SODIUM 100 MG CAP PO PRN ×2 (08:05→20:04)
[2016-12-12] MEDS: POTASSIUM CHLORIDE (SR) 20 MEQ TAB PO SCH (08:05)
[2016-12-12] MEDS: FERROUS SULFATE (EC) 325 MG TAB PO SCH ×3 (08:05→20:04)
[2016-12-12] MEDS: SERTRALINE 50 MG TAB PO SCH (08:05)
[2016-12-12] MEDS: GABAPENTIN 300 MG CAP PO SCH ×3 (08:06→20:05)
[2016-12-12] MEDS: SOTALOL 80 MG TAB PO SCH ×2 (08:06→20:09)
[2016-12-12] MEDS: ISOSORBIDE MONONITRATE(SR)60 MG TAB PO SCH (08:06)
[2016-12-12 09:02] LABS: BASOPHILS % 0.2 % (0.0-2.0); EOSINOPHILS % 0.8 % (0.0-7.0); HEMOGLOBIN 12.2 g/dl (14.0-18.0); LYMPHOCYTES % 38.7 % (15.0-51.0); MEAN CORPUSCULAR HEMOGLOBIN 29.7 pg (29.0-33.0); MEAN CORPUSCULAR HGB CONC 32.1 g/dl (32.0-37.0); MEAN CORPUSCULAR VOLUME 92.5 fl (82.0-101.0); MEAN PLATELET VOLUME 8.8 fl (7.4-10.4); MONOCYTE # 0.5 10^3/ul (0.3-0.9); MONOCYTES % 9.4 % (0.0-11.0); NEUTROPHIL # 2.6 10^3/ul (1.6-7.5); NEUTROPHILS % 50.7 % (39.0-77.0); PLATELET COUNT 189 10^3/UL (140-415); RED BLOOD COUNT 4.11 10^6/ul (4.70-6.10); RED CELL DISTRIBUTION WIDTH 14.9 % (11.5-14.5); WHITE BLOOD COUNT 5.1 10^3/ul (4.8-10.8)
[2016-12-12 09:35] LABS: CALCIUM 8.9 mg/dl (8.4-10.2); CREATININE 0.7 mg/dl (0.61-1.24); POTASSIUM 3.5 mmol/L (3.5-5.1)
--- NOTE | 2016-12-12 11:10 | PN ---
Date/Time of Note Date/Time of Note DATE: 12/12/16 TIME: 11:09 Assessment/Plan VTE Prophylaxis VTE Prophylaxis Intervention: SCD's Lines/Catheters IV Catheter Type (from Nrs): PICC Line Central line still needed: No Urinary Cath still in place: No Assessment/Plan Assessment/Plan Hematemesis with history of GI bleed Chest pain, resolved Preserved ejection fraction Possible history of paroxysmal atrial fibrillation Pulmonary emboli on anticoagulation ASD status post closure History of cardiac arrest with history of AICD Marfan's -Patient status post CT aortogram and pulmonary angiogram with no evidence of aortic dissection and no evidence of pulmonary emboli. Chest pain has resolved. Serial cardiac enzymes remain negative, echocardiogram with preserved ejection fraction. -resume AC once ok with GI Subjective 24 Hr Interval Summary Free Text/Dictation The patinet with atypical chest pain but stable Exam/Review of Systems Vital Signs Vitals Vital Signs Date Time Temp Pulse Resp B/P Pulse Ox O2 Delivery O2 Flow Rate FiO2 12/12/16 08:19 79 12/12/16 07:41 97.7 19 128/61 98 12/11/16 19:52 Room Air 12/11/16 18:58 5 Intake and Output 12/11/16 12/11/16 12/12/16 15:00 23:00 07:00 Intake Total 750 ml Output Total 1600 ml 650 ml Balance -1600 ml 100 ml Results Result Diagram: 12/12/16 0814 12/12/16 0814 Results 24 hrs Laboratory Tests Test 12/12/16 08:14 White Blood Count 5.1 Red Blood Count 4.11 L Hemoglobin 12.2 L Hematocrit 38.0 L Mean Corpuscular Volume 92.5 Mean Corpuscular Hemoglobin 29.7 Mean Corpuscular Hemoglobin Concent 32.1 Red Cell Distribution Width 14.9 H Platelet Count 189 Mean Platelet Volume 8.8 Neutrophils % 50.7 Lymphocytes % 38.7 Monocytes % 9.4 Eosinophils % 0.8 Basophils % 0.2 Nucleated Red Blood Cells % 0.0 Neutrophils # 2.6 Lymphocytes # 2.0 Monocytes # 0.5 Eosinophils # 0.0 Basophils # 0.0 Nucleated Red Blood Cells # 0.0 Sodium Level 141 Potassium Level 3.5 Chloride Level 106 Carbon Dioxide Level 29 Anion Gap 10 Blood Urea Nitrogen 10 Creatinine 0.70 Glucose Level 102 Calcium Level 8.9 Medications Medications Current Medications IV Flush (NS 10 ml) 10 ml PRN PRN IV FLUSH LINE; Start 12/09/16 at 17:30 Ondansetron HCl (Zofran Inj) 4 mg Q6H PRN IV NAUSEA AND/OR VOMITING; Start at 18:30 Acetaminophen (Tylenol Tab) 650 mg Q6H PRN PO PAIN LEVEL 1-3 OR FEVER; Start at 18:30 Acetaminophen/ Hydrocodone Bitart ([place] (5/325)) 1 tab Q6H PRN PO MODERATE PAIN LEVEL 4-6 Last administered on 12/09/16 21:45; Admin Dose 1 TAB; Start at 18:30 Docusate Sodium (Colace) 100 mg Q12H PRN PO CONSTIPATION Last administered on 08:05; Admin Dose 100 MG; Start 12/09/16 at 18:30 Magnesium Hydroxide (Milk Of Mag) 30 ml DAILY PRN PO CONSTIPATION; Start at 18:30 Sodium Biphosphate/ Sodium Phosphate 133 ml 133 ml DAILY PRN [place] CONSTIPATION; Start 12/09/16 at 18:30 Sodium Chloride (1/2 NS) 1,000 ml @ 75 mls/hr [id number] IV Last administered on 12/11/16 23:54; Admin Dose 75 MLS/HR; Start 12/09/16 at 18:07 Lorazepam (Ativan) 0.5 mg Q6H PRN IV ANXIETY; Start 12/09/16 at 18:30 Hydralazine HCl (Apresoline) 10 mg Q6H PRN IV ELEVATED BLOOD PRESSURE; Start at 18:30 Clonidine (Catapres) 0.1 mg Q6H PRN PO ELEVATED BLOOD PRESSURE; Start 12/09/16 at 18:30 Nitroglycerin (Nitroglycerin (Sl Tab) 0.4 Mg) 1 tab Q5M PRN SL ANGINA; Start at 18:30 Albuterol (Proventil 0.083% (Neb)) 2.5 mg Q4 PRN NEB WHEEZING AND SOB; Start at 18:30 Atorvastatin Calcium (Lipitor) 10 mg QHS PO Last administered on 12/11/16 20: 38; Admin Dose 10 MG; Start 12/09/16 at 21:00 Digoxin (Digoxin) 0.125 mg DAILY PO Last administered on 12/12/16 08:05; Admin Dose 0.125 MG; Start 12/10/16 at 09:00 Ferrous Sulfate (Ferrous Sulfate (Ec)) 325 mg TID PO Last administered on 08:05; Admin Dose 325 MG; Start 12/09/16 at 21:00 Gabapentin (Neurontin) 300 mg TID PO Last administered on 12/12/16 08:06; Admin Dose 300 MG; Start 12/09/16 at 21:00 Isosorbide Mononitrate (Imdur) 60 mg DAILY PO Last administered on 12/12/16 08 :06; Admin Dose 60 MG; Start 12/10/16 at 09:00 Potassium Chloride (Klor-Con 20) 20 meq DAILY PO Last administered on 08:05; Admin Dose 20 MEQ; Start 12/10/16 at 09:00 Sertraline HCl (Zoloft) 50 mg DAILY PO Last administered on 12/12/16 08:05; Admin Dose 50 MG; Start 12/10/16 at 09:00 Sotalol HCl (Betapace) 80 mg BID PO Last administered on 12/12/16 08:06; Admin Dose 80 MG; Start 12/09/16 at 21:00 Zolpidem Tartrate (Ambien) 10 mg QHS PRN PO INSOMNIA Last administered on 23:44; Admin Dose 10 MG; Start 12/09/16 at 18:30 Salmeterol Xinafoate/ Fluticasone (Advair 250/50 Diskus) 1 inh BID INH Last administered on 12/12/16 08:04; Admin Dose 1 INH; Start 12/10/16 at 21:00 Pantoprazole (Protonix Iv) 40 mg BID@06,18 IV Last administered on 12/12/16 05 :51; Admin Dose 40 MG; Start 12/10/16 at 18:00 Hydromorphone HCl (Dilaudid) 0.5 mg Q4H PRN IV PAIN Last administered on 08:04; Admin Dose 0.5 MG; Start 12/10/16 at 14:30 Diphenhydramine HCl (Benadryl) 25 mg Q4H PRN IV itching Last administered on t 08:04; Admin Dose 25 MG; Start 12/10/16 at 14:30 AHSAN SAMANIEGO MD Dec 12, 2016 11:10
[2016-12-12] MEDS: SOD CHLORIDE 0.45% 1,000 ML IV SCH (12:10)
--- NOTE | 2016-12-12 16:44 | PN ---
Date/Time of Note Date/Time of Note DATE: 12/12/16 TIME: 16:41 Assessment/Plan VTE Prophylaxis VTE Prophylaxis Intervention: other Lines/Catheters IV Catheter Type (from Nrsg): PICC Line Central line still needed: Yes Urinary Cath still in place: No Assessment/Plan Chief Complaint/Hosp Course Assessment/Plan 1. Upper GI bleeding, severe erosive gastritis, recurrent, protonix iv bid/ carafate, restarted eliquis with GI approval, monitor closely for repeat bleed. 2. Chest pain, atypical for CAD, but pulmonary hypertension may give angina, resolved 3. Pulmonary embolism, due to ASD 4. ASD, s/p repair in 2010 5. Marfan's syndrome, 6. Atrial fibrillation, A-pacing rhythm now, controlled rate, eliquis 7. Pulmonary embolism in 2013, not clear if he has hypercoagulable state after extensive work ups 8. Cardiac arrest in 2011, AICD 2012 9. h/o recurrent ischemic stroke Problems: Subjective 24 Hr Interval Summary Free Text/Dictation no acute complaints Exam/Review of Systems Vital Signs Vitals Vital Signs Date Time Temp Pulse Resp B/P Pulse Ox O2 Delivery O2 Flow Rate FiO2 12/12/16 16:15 77 12/12/16 15:45 98.1 19 111/55 93 12/11/16 19:52 Room Air 12/11/16 18:58 5 Intake and Output 12/11/16 12/11/16 12/12/16 15:00 23:00 07:00 Intake Total 750 ml Output Total 1600 ml 650 ml Balance -1600 ml 100 ml Exam Constitutional: alert, oriented, well developed Psych: nl mood/affect, no complaints Head: atraumatic, normocephalic Eyes: EOMI, PERRL, nl conjunctiva, nl lids, nl sclera ENMT: nl external ears & nose, nl lips & teeth, nl nasal mucosa & septum Neck: non-tender, supple Respiratory: clear to auscultation, normal air movement, Cardiovascular: nl pulses, regular rate and rhythm, Gastrointestinal: nl liver, spleen, non-tender, soft, Musculoskeletal: nl extremities to inspection Extremities: normal pulses, 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: 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 PLANT SUPERVISOR II-XII 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0 Monocytes # 0.5 Eosinophils # 0.0 Basophils # 0.0 Nucleated Red Blood Cells # 0.0 Sodium Level 141 Potassium Level 3.5 Chloride Level 106 Carbon Dioxide Level 29 Anion Gap 10 Blood Urea Nitrogen 10 Creatinine 0.70 Glucose Level 102 Calcium Level 8.9 Medications Medications Current Medications IV Flush (NS 10 ml) 10 ml PRN PRN IV FLUSH LINE; Start 12/09/16 at 17:30 Ondansetron HCl (Zofran Inj) 4 mg Q6H PRN IV NAUSEA AND/OR VOMITING; Start at 18:30 Acetaminophen (Tylenol Tab) 650 mg Q6H PRN PO PAIN LEVEL 1-3 OR FEVER; Start at 18:30 Acetaminophen/ Hydrocodone Bitart ([place] (5/325)) 1 tab Q6H PRN PO MODERATE PAIN LEVEL 4-6 Last administered on 12/09/16 21:45; Admin Dose 1 TAB; Start at 18:30 Docusate Sodium (Colace) 100 mg Q12H PRN PO CONSTIPATION Last administered on 08:05; Admin Dose 100 MG; Start 12/09/16 at 18:30 Magnesium Hydroxide (Milk Of Mag) 30 ml DAILY PRN PO CONSTIPATION; Start at 18:30 Sodium Biphosphate/ Sodium Phosphate 133 ml 133 ml DAILY PRN [place] CONSTIPATION; Start 12/09/16 at 18:30 Sodium Chloride (1/2 NS) 1,000 ml @ 75 mls/hr [id number] IV Last administered on 12/11/16 23:54; Admin Dose 75 MLS/HR; Start 12/09/16 at 18:07 Lorazepam (Ativan) 0.5 mg Q6H PRN IV ANXIETY; Start 12/09/16 at 18:30 Hydralazine HCl (Apresoline) 10 mg Q6H PRN IV ELEVATED BLOOD PRESSURE; Start at 18:30 Clonidine (Catapres) 0.1 mg Q6H PRN PO ELEVATED BLOOD PRESSURE; Start 12/09/16 at 18:30 Nitroglycerin (Nitroglycerin (Sl Tab) 0.4 Mg) 1 tab Q5M PRN SL ANGINA; Start at 18:30 Albuterol (Proventil 0.083% (Neb)) 2.5 mg Q4 PRN NEB WHEEZING AND SOB; Start at 18:30 Atorvastatin Calcium (Lipitor) 10 mg QHS PO Last administered on 12/11/16 20: 38; Admin Dose 10 MG; Start 12/09/16 at 21:00 Digoxin (Digoxin) 0.125 mg DAILY PO Last administered on 12/12/16 08:05; Admin Dose 0.125 MG; Start 12/10/16 at 09:00 Ferrous Sulfate (Ferrous Sulfate (Ec)) 325 mg TID PO Last administered on 13:03; Admin Dose 325 MG; Start 12/09/16 at 21:00 Gabapentin (Neurontin) 300 mg TID PO Last administered on 12/12/16 13:03; Admin Dose 300 MG; Start 12/09/16 at 21:00 Isosorbide Mononitrate (Imdur) 60 mg DAILY PO Last administered on 12/12/16 08 :06; Admin Dose 60 MG; Start 12/10/16 at 09:00 Potassium Chloride (Klor-Con 20) 20 meq DAILY PO Last administered on 08:05; Admin Dose 20 MEQ; Start 12/10/16 at 09:00 Sertraline HCl (Zoloft) 50 mg DAILY PO Last administered on 12/12/16 08:05; Admin Dose 50 MG; Start 12/10/16 at 09:00 Sotalol HCl (Betapace) 80 mg BID PO Last administered on 12/12/16 08:06; Admin Dose 80 MG; Start 12/09/16 at 21:00 Zolpidem Tartrate (Ambien) 10 mg QHS PRN PO INSOMNIA Last administered on 23:44; Admin Dose 10 MG; Start 12/09/16 at 18:30 Salmeterol Xinafoate/ Fluticasone (Advair 250/50 Diskus) 1 inh BID INH Last administered on 12/12/16 08:04; Admin Dose 1 INH; Start 12/10/16 at 21:00 Pantoprazole (Protonix Iv) 40 mg BID@06,18 IV Last administered on 12/12/16 05 :51; Admin Dose 40 MG; Start 12/10/16 at 18:00 Hydromorphone HCl (Dilaudid) 0.5 mg Q4H PRN IV PAIN Last administered on 16:06; Admin Dose 0.5 MG; Start 12/10/16 at 14:30 Diphenhydramine HCl (Benadryl) 25 mg Q4H PRN IV itching Last administered on 16:06; Admin Dose 25 MG; Start 12/10/16 at 14:30 PAOLA CAEPLLAN Dec 12, 2016 16:44
[2016-12-12] MEDS: ATORVASTATIN 10 MG TAB PO SCH (20:08)
[2016-12-12] MEDS: APIXABAN 5 MG TABLET PO SCH (20:08)
[2016-12-13] VITALS (7 sets, daily range): BP systolic 116–146; BP diastolic 65–69; PULSE 73–90; RESP 18–21
[2016-12-13] MEDS: DIPHENHYDRAMINE 50 MG INJ IV PRN ×6 (00:09→20:39)
[2016-12-13] MEDS: HYDROmorphONE 1 MG/ML SYG IV PRN ×6 (00:10→20:39)
[2016-12-13] MEDS: SOD CHLORIDE 0.45% 1,000 ML IV SCH ×2 (00:13→15:31)
[2016-12-13] MEDS: PANTOPRAZOLE 40 MG INJ IV SCH ×2 (05:52→17:57)
[2016-12-13] MEDS: SUCRALFATE 1 GM TAB PO SCH ×4 (05:52→20:39)
[2016-12-13] MEDS: SALMETEROL/FLUTICASONE 250/50 INHA INH SCH ×2 (08:48→20:39)
[2016-12-13] MEDS: SERTRALINE 50 MG TAB PO SCH (08:50)
[2016-12-13] MEDS: GABAPENTIN 300 MG CAP PO SCH ×3 (08:50→20:39)
[2016-12-13] MEDS: FERROUS SULFATE (EC) 325 MG TAB PO SCH ×3 (08:50→20:39)
[2016-12-13] MEDS: ISOSORBIDE MONONITRATE(SR)60 MG TAB PO SCH (08:50)
[2016-12-13] MEDS: POTASSIUM CHLORIDE (SR) 20 MEQ TAB PO SCH (08:50)
[2016-12-13] MEDS: DIGOXIN 0.125 MG TAB PO SCH (08:51)
[2016-12-13] MEDS: SOTALOL 80 MG TAB PO SCH ×2 (08:51→20:41)
[2016-12-13 09:08] LABS: BASOPHILS % 0.2 % (0.0-2.0); HEMATOCRIT 34.4 % (42.0-52.0); HEMOGLOBIN 10.6 g/dl (14.0-18.0); LYMPHOCYTES # 1.7 10^3/ul (0.8-2.9); MEAN CORPUSCULAR HEMOGLOBIN 28.7 pg (29.0-33.0); MEAN CORPUSCULAR HGB CONC 30.8 g/dl (32.0-37.0); MEAN CORPUSCULAR VOLUME 93.2 fl (82.0-101.0); MEAN PLATELET VOLUME 8.8 fl (7.4-10.4); MONOCYTE # 0.4 10^3/ul (0.3-0.9); MONOCYTES % 10.5 % (0.0-11.0); NEUTROPHIL # 1.9 10^3/ul (1.6-7.5); NEUTROPHILS % 45.8 % (39.0-77.0); PLATELET COUNT 157 10^3/UL (140-415); RED BLOOD COUNT 3.69 10^6/ul (4.70-6.10); RED CELL DISTRIBUTION WIDTH 14.7 % (11.5-14.5); WHITE BLOOD COUNT 4.1 10^3/ul (4.8-10.8)
[2016-12-13 09:28] LABS: CALCIUM 8.6 mg/dl (8.4-10.2); CREATININE 0.72 mg/dl (0.61-1.24); MAGNESIUM 1.6 mg/dl (1.7-2.5); PHOSPHORUS 3.8 mg/dl (2.5-4.9); POTASSIUM 3.5 mmol/L (3.5-5.1)
[2016-12-13] MEDS: APIXABAN 5 MG TABLET PO SCH (09:29)
[2016-12-13] MEDS ORDERED: POTASSIUM CHLORIDE 20 MEQ POWDER FOR ORAL SOLN PO ONE ×2 (10:30)
[2016-12-13] MEDS ORDERED: MAGNESIUM SULFATE 2 GM/50 ML 50 ML IVPB ONE (10:30)
[2016-12-13 10:56] LABS: HEMATOCRIT 33.1 % (42.0-52.0); HEMOGLOBIN 10.4 g/dl (14.0-18.0)
[2016-12-13] MEDS: HYDROCODONE/APAP (5/325) TAB PO PRN (11:33)
--- NOTE | 2016-12-13 12:56 | PN ---
Date/Time of Note Date/Time of Note DATE: 12/13/16 TIME: 12:52 Assessment/Plan VTE Prophylaxis VTE Prophylaxis Intervention: SCD's Lines/Catheters IV Catheter Type (from Nrs): PICC Line Central line still needed: Yes Urinary Cath still in place: No Assessment/Plan Chief Complaint/Hosp Course Assessment/Plan 1. Upper GI bleeding, severe erosive gastritis, recurrent, protonix iv bid/ carafate, restarted eliquis with GI approval, however hgb dropped and patient states darker stool, however unclear if actually dark/black. Will hold eliquis for now, FOBT, restart when able. repeat hgb tomorrow. 2. Chest pain, atypical for CAD, but pulmonary hypertension may give angina, resolved 3. Pulmonary embolism, due to ASD 4. ASD, s/p repair in 2010 5. Marfan's syndrome, 6. Atrial fibrillation, A-pacing rhythm now, controlled rate, eliquis 7. Pulmonary embolism in 2013, not clear if he has hypercoagulable state after extensive work ups 8. Cardiac arrest in 2011, AICD 2012 9. h/o recurrent ischemic stroke DISPO: patient has hx of recurrent GI bleeds, but given multiple co-morbidities , would benefit from eliquis or other AC. Will attempt to restart eliquis when appropriate before DC. Problems: Subjective 24 Hr Interval Summary Free Text/Dictation patient reports mildly darker brown stool overnight Exam/Review of Systems Vital Signs Vitals Vital Signs Date Time Temp Pulse Resp B/P Pulse Ox O2 Delivery O2 Flow Rate FiO2 12/13/16 11:27 98.0 79 18 116/65 98 12/11/16 19:52 Room Air 12/11/16 18:58 5 Intake and Output 12/12/16 12/12/16 12/13/16 15:00 23:00 07:00 Intake Total 1600 ml 1290 ml Output Total 2400 ml 700 ml Balance -800 ml 590 ml Exam Constitutional: alert, oriented, well developed Psych: nl mood/affect, no complaints Head: atraumatic, normocephalic Eyes: EOMI, PERRL, nl conjunctiva, nl lids, nl sclera ENMT: nl external ears & nose, nl lips & teeth, nl nasal mucosa & septum Neck: non-tender, supple Respiratory: clear to auscultation, normal air movement, Cardiovascular: nl pulses, regular rate and rhythm, Gastrointestinal: nl liver, spleen, non-tender, soft, Musculoskeletal: nl extremities to inspection Extremities: normal pulses, 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: BUTTON SPINDLER II-XII 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, nl mental status, nl speech, nl strength Skin: nl turgor Lymph: nl lymph nodes Results Result Diagram: 12/13/16 1034 12/13/16 0840 Results 24 hrs Laboratory Tests Test 12/13/16 08:40 12/13/16 10:34 White Blood Count 4.1 L Red Blood Count 3.69 L Hemoglobin 10.6 L 10.4 L Hematocrit 34.4 L 33.1 L Mean Corpuscular Volume 93.2 Mean Corpuscular Hemoglobin 28.7 L Mean Corpuscular Hemoglobin Concent 30.8 L Red Cell Distribution Width 14.7 H Platelet Count 157 Mean Platelet Volume 8.8 Neutrophils % 45.8 Lymphocytes % 42.0 Monocytes % 10.5 Eosinophils % 1.0 Basophils % 0.2 Nucleated Red Blood Cells % 0.0 Neutrophils # 1.9 Lymphocytes # 1.7 Monocytes # 0.4 Eosinophils # 0.0 Basophils # 0.0 Nucleated Red Blood Cells # 0.0 Sodium Level 140 Potassium Level 3.5 Chloride Level 104 Carbon Dioxide Level 32 H Anion Gap 8 Blood Urea Nitrogen 11 Creatinine 0.72 Glucose Level 87 Calcium Level 8.6 Phosphorus Level 3.8 Magnesium Level 1.6 L Medications Medications Current Medications IV Flush (NS 10 ml) 10 ml PRN PRN IV FLUSH LINE; Start 12/09/16 at 17:30 Ondansetron HCl (Zofran Inj) 4 mg Q6H PRN IV NAUSEA AND/OR VOMITING; Start at 18:30 Acetaminophen (Tylenol Tab) 650 mg Q6H PRN PO PAIN LEVEL 1-3 OR FEVER; Start at 18:30 Acetaminophen/ Hydrocodone Bitart ([place] (5/325)) 1 tab Q6H PRN PO MODERATE PAIN LEVEL 4-6 Last administered on 12/13/16 11:33; Admin Dose 1 TAB; Start at 18:30 Docusate Sodium (Colace) 100 mg Q12H PRN PO CONSTIPATION Last administered on 20:04; Admin Dose 100 MG; Start 12/09/16 at 18:30 Magnesium Hydroxide (Milk Of Mag) 30 ml DAILY PRN PO CONSTIPATION; Start at 18:30 Sodium Biphosphate/ Sodium Phosphate 133 ml 133 ml DAILY PRN [place] CONSTIPATION; Start 12/09/16 at 18:30 Sodium Chloride (1/2 NS) 1,000 ml @ 75 mls/hr [id number] IV Last administered on 12/13/16 00:13; Admin Dose 75 MLS/HR; Start 12/09/16 at 18:07 Lorazepam (Ativan) 0.5 mg Q6H PRN IV ANXIETY; Start 12/09/16 at 18:30 Hydralazine HCl (Apresoline) 10 mg Q6H PRN IV ELEVATED BLOOD PRESSURE; Start at 18:30 Clonidine (Catapres) 0.1 mg Q6H PRN PO ELEVATED BLOOD PRESSURE; Start 12/09/16 at 18:30 Nitroglycerin (Nitroglycerin (Sl Tab) 0.4 Mg) 1 tab Q5M PRN SL ANGINA; Start at 18:30 Albuterol (Proventil 0.083% (Neb)) 2.5 mg Q4 PRN NEB WHEEZING AND SOB; Start at 18:30 Atorvastatin Calcium (Lipitor) 10 mg QHS PO Last administered on 12/12/16 20: 08; Admin Dose 10 MG; Start 12/09/16 at 21:00 Digoxin (Digoxin) 0.125 mg DAILY PO Last administered on 12/13/16 08:51; Admin Dose 0.125 MG; Start 12/10/16 at 09:00 Ferrous Sulfate (Ferrous Sulfate (Ec)) 325 mg TID PO Last administered on 12:34; Admin Dose 325 MG; Start 12/09/16 at 21:00 Gabapentin (Neurontin) 300 mg TID PO Last administered on 12/13/16 12:34; Admin Dose 300 MG; Start 12/09/16 at 21:00 Isosorbide Mononitrate (Imdur) 60 mg DAILY PO Last administered on 12/13/16 08 :50; Admin Dose 60 MG; Start 12/10/16 at 09:00 Potassium Chloride (Klor-Con 20) 20 meq DAILY PO Last administered on 08:50; Admin Dose 20 MEQ; Start 12/10/16 at 09:00 Sertraline HCl (Zoloft) 50 mg DAILY PO Last administered on 12/13/16 08:50; Admin Dose 50 MG; Start 12/10/16 at 09:00 Sotalol HCl (Betapace) 80 mg BID PO Last administered on 12/13/16 08:51; Admin Dose 80 MG; Start 12/09/16 at 21:00 Zolpidem Tartrate (Ambien) 10 mg QHS PRN PO INSOMNIA Last administered on 23:44; Admin Dose 10 MG; Start 12/09/16 at 18:30 Salmeterol Xinafoate/ Fluticasone (Advair 250/50 Diskus) 1 inh BID INH Last administered on 12/13/16 08:48; Admin Dose 1 INH; Start 12/10/16 at 21:00 Pantoprazole (Protonix Iv) 40 mg BID@06,18 IV Last administered on 12/13/16 05 :52; Admin Dose 40 MG; Start 12/10/16 at 18:00 Hydromorphone HCl (Dilaudid) 0.5 mg Q4H PRN IV PAIN Last administered on 12:35; Admin Dose 0.5 MG; Start 12/10/16 at 14:30 Diphenhydramine HCl (Benadryl) 25 mg Q4H PRN IV itching Last administered on 12:35; Admin Dose 25 MG; Start 12/10/16 at 14:30 Apixaban (Eliquis) 5 mg BID PO Last administered on 12/13/16 09:29; Admin Dose 5 MG; Start 12/12/16 at 21:00; Status Future Hold PAOLA CAPELLAN Dec 13, 2016 12:56
--- NOTE | 2016-12-13 14:28 | PN ---
DATE: 12/13/2016 ASSESSMENT: 1. Hematemesis. 2. Chest pain, which is now resolved. Preserved ejection fraction. 3. Paroxysmal atrial fibrillation. 4. Pulmonary emboli on anticoagulation. 5. Atrial septic defect, status post closure. 6. Cardiac arrest status post implantable cardioverter defibrillator. 7. Marfan syndrome. SUBJECTIVE DATA: The patient feels well with no further chest pain. Recommend resumption of anticoagulation when okay with GI. He is currently on sotalol for prevention of recurrence of atrial fibrillation. PHYSICAL EXAMINATION: No distress. VITAL SIGNS: Temperature 98, pulse 79, blood pressure 116/65. CARDIAC: Regular rate and rhythm. NECK: No jugular venous distention. LUNGS: Clear. ABDOMEN: Soft. EXTREMITIES: No edema. LAB: Hematocrit 34.4, white count 4.1, sodium 140, potassium 3.5, BUN 11, creatinine 0.72. Dictated By: Jhonny Rosa MD /hemalatha/dev /Document#: [id number]
[2016-12-13] MEDS: ATORVASTATIN 10 MG TAB PO SCH (20:39)
[2016-12-14] VITALS (12 sets, daily range): BP systolic 112–139; BP diastolic 58–67; PULSE 65–80; RESP 19–20
[2016-12-14] MEDS: HYDROmorphONE 1 MG/ML SYG IV PRN ×6 (00:41→20:47)
[2016-12-14] MEDS: DIPHENHYDRAMINE 50 MG INJ IV PRN ×6 (00:41→20:46)
[2016-12-14] MEDS: SOD CHLORIDE 0.45% 1,000 ML IV SCH ×2 (04:47→08:54)
[2016-12-14] MEDS: PANTOPRAZOLE 40 MG INJ IV SCH (06:47)
[2016-12-14 07:54] LABS: BASOPHILS % 0.2 % (0.0-2.0); EOSINOPHILS # 0.1 10^3/ul (0.0-0.5); EOSINOPHILS % 1.2 % (0.0-7.0); HEMATOCRIT 33.3 % (42.0-52.0); HEMOGLOBIN 10.7 g/dl (14.0-18.0); LYMPHOCYTES # 1.6 10^3/ul (0.8-2.9); LYMPHOCYTES % 38.8 % (15.0-51.0); MEAN CORPUSCULAR HEMOGLOBIN 30.1 pg (29.0-33.0); MEAN CORPUSCULAR HGB CONC 32.1 g/dl (32.0-37.0); MEAN CORPUSCULAR VOLUME 93.8 fl (82.0-101.0); MEAN PLATELET VOLUME 8.6 fl (7.4-10.4); MONOCYTE # 0.4 10^3/ul (0.3-0.9); MONOCYTES % 10.5 % (0.0-11.0); NEUTROPHILS % 48.6 % (39.0-77.0); PLATELET COUNT 158 10^3/UL (140-415); RED BLOOD COUNT 3.55 10^6/ul (4.70-6.10); RED CELL DISTRIBUTION WIDTH 14.6 % (11.5-14.5); WHITE BLOOD COUNT 4.2 10^3/ul (4.8-10.8)
[2016-12-14 08:16] LABS: CALCIUM 8.2 mg/dl (8.4-10.2); CREATININE 0.65 mg/dl (0.61-1.24); POTASSIUM 3.6 mmol/L (3.5-5.1)
[2016-12-14] MEDS: SUCRALFATE 1 GM TAB PO SCH ×4 (08:47→20:54)
[2016-12-14] MEDS: SALMETEROL/FLUTICASONE 250/50 INHA INH SCH ×2 (08:47→20:45)
[2016-12-14] MEDS: SERTRALINE 50 MG TAB PO SCH (08:48)
[2016-12-14] MEDS: FERROUS SULFATE (EC) 325 MG TAB PO SCH ×3 (08:48→20:45)
[2016-12-14] MEDS: POTASSIUM CHLORIDE (SR) 20 MEQ TAB PO SCH (08:48)
[2016-12-14] MEDS: GABAPENTIN 300 MG CAP PO SCH ×3 (08:55→20:46)
[2016-12-14] MEDS: ISOSORBIDE MONONITRATE(SR)60 MG TAB PO SCH (08:56)
[2016-12-14] MEDS: DIGOXIN 0.125 MG TAB PO SCH (08:57)
[2016-12-14] MEDS: DOCUSATE SODIUM 100 MG CAP PO PRN (08:57)
[2016-12-14] MEDS: SOTALOL 80 MG TAB PO SCH ×2 (08:58→20:46)
[2016-12-14] MEDS: DOCUSATE SODIUM 100 MG CAP PO SCH ×2 (12:30→20:45)
[2016-12-14] MEDS ORDERED: traMADol 50 MG TAB PO PRN (14:00)
[2016-12-14] MEDS ORDERED: HYDROmorphONE 1 MG/ML SYG IV PRN (14:30)
--- NOTE | 2016-12-14 17:33 | PN ---
Date/Time of Note Date/Time of Note DATE: 12/14/16 TIME: 17:24 Assessment/Plan VTE Prophylaxis VTE Prophylaxis Intervention: SCD's Lines/Catheters IV Catheter Type (from Nrs): PICC Line Central line still needed: Yes Urinary Cath still in place: No Assessment/Plan Assessment/Plan 1. Upper GI bleeding, severe erosive gastritis, recurrent, protonix iv bid/ carafate - Will restarted eliquis. Monitor hgb and for dark stools - Was not able to pass BM for FOBT. Will give colace 2. Chest pain, atypical for CAD, but pulmonary hypertension may give angina, resolved 3. Pulmonary embolism, due to ASD - On eliquis 4. ASD, s/p repair in 2010 - Stable 5. Marfan's syndrome, 6. Atrial fibrillation - Stable. A-pacing rhythm now, controlled rate, eliquis 7. Cardiac arrest in 2011, AICD 2012 8. h/o recurrent ischemic stroke 9. Disposition - will monitor hgb since Eliquis restarted - If remains stable will d/c in next 24-48 hours Subjective 24 Hr Interval Summary Free Text/Dictation Patient experiencing palpitations and generalized pain. Concerned because believe his defibrillator may have went off last night but no records on telemonitoring. No acute overnight events and no further episodes of dark tarry stool. Exam/Review of Systems Vital Signs Vitals Vital Signs Date Time Temp Pulse Resp B/P Pulse Ox O2 Delivery O2 Flow Rate FiO2 12/14/16 16:23 77 12/14/16 15:50 98.1 20 136/67 99 12/11/16 19:52 Room Air 12/11/16 18:58 5 Intake and Output 12/13/16 12/13/16 12/14/16 15:00 23:00 07:00 Intake Total 200 ml 2625 ml Output Total 2600 ml Balance 200 ml 25 ml Exam Constitutional: alert, oriented, well developed Psych: anxiety Head: atraumatic, normocephalic Eyes: EOMI, PERRL ENMT: nl external ears & nose, nl lips & teeth Neck: non-tender, supple Respiratory: clear to auscultation, diminished breath sounds, No crackles/rales, No wheezing Cardiovascular: regular rate and rhythm, No systolic murmur Gastrointestinal: nl liver, spleen, non-tender, soft, No distended, No rebound or guarding Musculoskeletal: nl extremities to inspection Extremities: normal pulses 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: MAP COLORER II-XII intact, nl mental status Skin: nl turgor Lymph: nl lymph nodes Results Result Diagram: 12/14/1615 12/14/16 0715 Results 24 hrs Laboratory Tests Test 12/14/16 07:15 White Blood Count 4.2 L Red Blood Count 3.55 L Hemoglobin 10.7 L Hematocrit 33.3 L Mean Corpuscular Volume 93.8 Mean Corpuscular Hemoglobin 30.1 Mean Corpuscular Hemoglobin Concent 32.1 Red Cell Distribution Width 14.6 H Platelet Count 158 Mean Platelet Volume 8.6 Neutrophils % 48.6 Lymphocytes % 38.8 Monocytes % 10.5 Eosinophils % 1.2 Basophils % 0.2 Nucleated Red Blood Cells % 0.0 Neutrophils # 2.0 Lymphocytes # 1.6 Monocytes # 0.4 Eosinophils # 0.1 Basophils # 0.0 Nucleated Red Blood Cells # 0.0 Sodium Level 139 Potassium Level 3.6 Chloride Level 105 Carbon Dioxide Level 30 Anion Gap 8 Blood Urea Nitrogen 6 L Creatinine 0.65 Glucose Level 77 Calcium Level 8.2 L Medications Medications Current Medications IV Flush (NS 10 ml) 10 ml PRN PRN IV FLUSH LINE Last administered on 12/13/16 16:42; Admin Dose 10 ML; Start 12/09/16 at 17:30 Ondansetron HCl (Zofran Inj) 4 mg Q6H PRN IV NAUSEA AND/OR VOMITING; Start at 18:30 Acetaminophen (Tylenol Tab) 650 mg Q6H PRN PO PAIN LEVEL 1-3 OR FEVER; Start at 18:30 Acetaminophen/ Hydrocodone Bitart ([place] (5/325)) 1 tab Q6H PRN PO MODERATE PAIN LEVEL 4-6 Last administered on 12/13/16 11:33; Admin Dose 1 TAB; Start at 18:30 Magnesium Hydroxide (Milk Of Mag) 30 ml DAILY PRN PO CONSTIPATION; Start at 18:30 Sodium Biphosphate/ Sodium Phosphate 133 ml 133 ml DAILY PRN [place] CONSTIPATION; Start 12/09/16 at 18:30 Sodium Chloride (1/2 NS) 1,000 ml @ 75 mls/hr [id number] IV Last administered on 12/14/16 08:54; Admin Dose 75 MLS/HR; Start 12/09/16 at 18:07 Lorazepam (Ativan) 0.5 mg Q6H PRN IV ANXIETY; Start 12/09/16 at 18:30 Hydralazine HCl (Apresoline) 10 mg Q6H PRN IV ELEVATED BLOOD PRESSURE; Start at 18:30 Clonidine (Catapres) 0.1 mg Q6H PRN PO ELEVATED BLOOD PRESSURE; Start 12/09/16 at 18:30 Nitroglycerin (Nitroglycerin (Sl Tab) 0.4 Mg) 1 tab Q5M PRN SL ANGINA; Start at 18:30 Albuterol (Proventil 0.083% (Neb)) 2.5 mg Q4 PRN NEB WHEEZING AND SOB; Start at 18:30 Atorvastatin Calcium (Lipitor) 10 mg QHS PO Last administered on 12/13/16 20: 39; Admin Dose 10 MG; Start 12/09/16 at 21:00 Digoxin (Digoxin) 0.125 mg DAILY PO Last administered on 12/14/16 08:57; Admin Dose 0.125 MG; Start 12/10/16 at 09:00 Ferrous Sulfate (Ferrous Sulfate (Ec)) 325 mg TID PO Last administered on 12:41; Admin Dose 325 MG; Start 12/09/16 at 21:00 Gabapentin (Neurontin) 300 mg TID PO Last administered on 12/14/16 12:41; Admin Dose 300 MG; Start 12/09/16 at 21:00 Isosorbide Mononitrate (Imdur) 60 mg DAILY PO Last administered on 12/14/16 08 :56; Admin Dose 60 MG; Start 12/10/16 at 09:00 Potassium Chloride (Klor-Con 20) 20 meq DAILY PO Last administered on 08:48; Admin Dose 20 MEQ; Start 12/10/16 at 09:00 Sertraline HCl (Zoloft) 50 mg DAILY PO Last administered on 12/14/16 08:48; Admin Dose 50 MG; Start 12/10/16 at 09:00 Sotalol HCl (Betapace) 80 mg BID PO Last administered on 10/2/17at 08:58; Admin Dose 80 MG; Start 12/09/16 at 21:00 Zolpidem Tartrate (Ambien) 10 mg QHS PRN PO INSOMNIA Last administered on 23:44; Admin Dose 10 MG; Start 12/09/16 at 18:30 Salmeterol Xinafoate/ Fluticasone (Advair 250/50 Diskus) 1 inh BID INH Last administered on 12/14/16 08:47; Admin Dose 1 INH; Start 12/10/16 at 21:00 Diphenhydramine HCl (Benadryl) 25 mg Q4H PRN IV itching Last administered on 16:46; Admin Dose 25 MG; Start 12/10/16 at 14:30 Pantoprazole (Protonix Tab) 40 mg BID@06,18 PO ; Start 12/14/16 at 18:00 Apixaban (Eliquis) 5 mg BID PO ; Start 12/14/16 at 21:00 Docusate Sodium (Colace) 100 mg BID PO ; Start 12/14/16 at 12:30 Hydromorphone HCl (Dilaudid) 4 mg Q4H PRN PO PAIN; Start 12/14/16 at 14:00 Tramadol HCl (Ultram) 50 mg Q6H PRN PO PAIN LEVEL 1-5; Start 12/14/16 at 14:00 Hydromorphone HCl (Dilaudid) 1 mg Q4H PRN IV PAIN Last administered on 16:45; Admin Dose 1 MG; Start 12/14/16 at 14:30 AMOS TORRES MD Dec 14, 2016 17:33
[2016-12-14] MEDS: PANTOPRAZOLE (EC) 40 MG TAB PO SCH (18:03)
[2016-12-14] MEDS: APIXABAN 5 MG TABLET PO SCH (20:45)
[2016-12-14] MEDS: ATORVASTATIN 10 MG TAB PO SCH (20:46)
--- NOTE | 2016-12-14 22:09 | CONS ---
Date/Time of Note Date/Time of Note DATE: 12/14/16 TIME: 22:08 Assessment/Plan Assessment/Plan Additional Assessment/Plan Hematemesis with history of GI bleed Chest pain, resolved Preserved ejection fraction Possible history of paroxysmal atrial fibrillation Pulmonary emboli on anticoagulation ASD status post closure History of cardiac arrest with history of AICD Marfan's -Patient status post CT aortogram and pulmonary angiogram with no evidence of aortic dissection and no evidence of pulmonary emboli. Chest pain has resolved. Serial cardiac enzymes remain negative, echocardiogram with preserved ejection fraction. EGD with erosive gastritis. Anticoagulation was restarted, monitor hemoglobin closely. Patient with sensation of possible electric shock last night and is requesting ICD interrogation. Patient with Biotronik device. Consultation Date/Type/Reason Admit Date/Time Dec 09, 2016 at 17:29 Initial Consult Date 12/10/16 Type of Consultation: cv Referring Provider: ROB BUI 24 HR Interval Summary Free Text/Dictation Patient complains of possible shocking-like sensation overnight, denies chest pain or palpitations Exam/Review of Systems Vital Signs Vitals Vital Signs Date Time Temp Pulse Resp B/P Pulse Ox O2 Delivery O2 Flow Rate FiO2 12/14/16 20:30 77 12/14/16 19:49 98.4 20 139/67 96 12/11/16 19:52 Room Air 12/11/16 18:58 5 Intake and Output 12/13/16 12/13/16 12/14/16 15:00 23:00 07:00 Intake Total 200 ml 2625 ml Output Total 2600 ml Balance 200 ml 25 ml Exam No apparent distress Constitutional: alert, oriented Head: normocephalic Respiratory: other (Coarse breath sounds bilaterally, no wheezing) Cardiovascular: other (S1-S2 heard), regular rate and rhythm Gastrointestinal: bowel sounds, non-tender, soft Extremities: other (No significant edema) Results Result Diagram: 12/14/16 0715 12/14/16 0715 Results 24 hrs Laboratory Tests Test 12/14/16 07:15 12/14/16 16:53 White Blood Count 4.2 L Red Blood Count 3.55 L Hemoglobin 10.7 L Hematocrit 33.3 L Mean Corpuscular Volume 93.8 Mean Corpuscular Hemoglobin 30.1 Mean Corpuscular Hemoglobin Concent 32.1 Red Cell Distribution Width 14.6 H Platelet Count 158 Mean Platelet Volume 8.6 Neutrophils % 48.6 Lymphocytes % 38.8 Monocytes % 10.5 Eosinophils % 1.2 Basophils % 0.2 Nucleated Red Blood Cells % 0.0 Neutrophils # 2.0 Lymphocytes # 1.6 Monocytes # 0.4 Eosinophils # 0.1 Basophils # 0.0 Nucleated Red Blood Cells # 0.0 Sodium Level 139 Potassium Level 3.6 Chloride Level 105 Carbon Dioxide Level 30 Anion Gap 8 Blood Urea Nitrogen 6 L Creatinine 0.65 Glucose Level 77 Calcium Level 8.2 L Stool Occult Blood NEGATIVE Medications Medications Current Medications IV Flush (NS 10 ml) 10 ml PRN PRN IV FLUSH LINE Last administered on 12/13/16 16:42; Admin Dose 10 ML; Start 12/09/16 at 17:30 Ondansetron HCl (Zofran Inj) 4 mg Q6H PRN IV NAUSEA AND/OR VOMITING; Start at 18:30 Acetaminophen (Tylenol Tab) 650 mg Q6H PRN PO PAIN LEVEL 1-3 OR FEVER; Start at 18:30 Acetaminophen/ Hydrocodone Bitart ([place] (5/325)) 1 tab Q6H PRN PO MODERATE PAIN LEVEL 4-6 Last administered on 12/13/16 11:33; Admin Dose 1 TAB; Start at 18:30 Magnesium Hydroxide (Milk Of Mag) 30 ml DAILY PRN PO CONSTIPATION; Start at 18:30 Sodium Biphosphate/ Sodium Phosphate 133 ml 133 ml DAILY PRN CO CONSTIPATION; Start 12/09/16 at 18:30 Sodium Chloride (1/2 NS) 1,000 ml @ 75 mls/hr [id number] IV Last administered on 12/14/16 08:54; Admin Dose 75 MLS/HR; Start 12/09/16 at 18:07 Lorazepam (Ativan) 0.5 mg Q6H PRN IV ANXIETY; Start 12/09/16 at 18:30 Hydralazine HCl (Apresoline) 10 mg Q6H PRN IV ELEVATED BLOOD PRESSURE; Start at 18:30 Clonidine (Catapres) 0.1 mg Q6H PRN PO ELEVATED BLOOD PRESSURE; Start 12/09/16 at 18:30 Nitroglycerin (Nitroglycerin (Sl Tab) 0.4 Mg) 1 tab Q5M PRN SL ANGINA; Start at 18:30 Albuterol (Proventil 0.083% (Neb)) 2.5 mg Q4 PRN NEB WHEEZING AND SOB; Start at 18:30 Atorvastatin Calcium (Lipitor) 10 mg QHS PO Last administered on 12/14/16 20: 46; Admin Dose 10 MG; Start 12/09/16 at 21:00 Digoxin (Digoxin) 0.125 mg DAILY PO Last administered on 12/14/16 08:57; Admin Dose 0.125 MG; Start 12/10/16 at 09:00 Ferrous Sulfate (Ferrous Sulfate (Ec)) 325 mg TID PO Last administered on 20:45; Admin Dose 325 MG; Start 12/09/16 at 21:00 Gabapentin (Neurontin) 300 mg TID PO Last administered on 12/14/16 20:46; Admin Dose 300 MG; Start 12/09/16 at 21:00 Isosorbide Mononitrate (Imdur) 60 mg DAILY PO Last administered on 12/14/16 08 :56; Admin Dose 60 MG; Start 12/10/16 at 09:00 Potassium Chloride (Klor-Con 20) 20 meq DAILY PO Last administered on 08:48; Admin Dose 20 MEQ; Start 12/10/16 at 09:00 Sertraline HCl (Zoloft) 50 mg DAILY PO Last administered on 12/14/16 08:48; Admin Dose 50 MG; Start 12/10/16 at 09:00 Sotalol HCl (Betapace) 80 mg BID PO Last administered on 12/14/16 20:46; Admin Dose 80 MG; Start 12/09/16 at 21:00 Zolpidem Tartrate (Ambien) 10 mg QHS PRN PO INSOMNIA Last administered on 23:44; Admin Dose 10 MG; Start 12/09/16 at 18:30 Salmeterol Xinafoate/ Fluticasone (Advair 250/50 Diskus) 1 inh BID INH Last administered on 12/14/16 20:45; Admin Dose 1 INH; Start 12/10/16 at 21:00 Diphenhydramine HCl (Benadryl) 25 mg Q4H PRN IV itching Last administered on 20:46; Admin Dose 25 MG; Start 12/10/16 at 14:30 Pantoprazole (Protonix Tab) 40 mg BID@06,18 PO Last administered on 12/14/16 18:03; Admin Dose 40 MG; Start 12/14/16 at 18:00 Apixaban (Eliquis) 5 mg BID PO Last administered on 12/14/16 20:45; Admin Dose 5 MG; Start 12/14/16 at 21:00 Docusate Sodium (Colace) 100 mg BID PO Last administered on 12/14/16 20:45; Admin Dose 100 MG; Start 12/14/16 at 12:30 Hydromorphone HCl (Dilaudid) 4 mg Q4H PRN PO PAIN; Start 12/14/16 at 14:00 Tramadol HCl (Ultram) 50 mg Q6H PRN PO PAIN LEVEL 1-5; Start 12/14/16 at 14:00 Hydromorphone HCl (Dilaudid) 1 mg Q4H PRN IV PAIN Last administered on 20:47; Admin Dose 1 MG; Start 12/14/16 at 14:30 Aiden Merrill DO Dec 14, 2016 22:09
[2016-12-15] VITALS (15 sets, daily range): BP systolic 122–134; BP diastolic 58–65; PULSE 68–122; RESP 18–20
[2016-12-15] MEDS: HYDROmorphONE 1 MG/ML SYG IV PRN ×6 (00:46→20:42)
[2016-12-15] MEDS: DIPHENHYDRAMINE 50 MG INJ IV PRN ×5 (00:46→20:42)
[2016-12-15] MEDS: SOD CHLORIDE 0.45% 1,000 ML IV SCH ×2 (03:51→20:43)
[2016-12-15] MEDS: PANTOPRAZOLE (EC) 40 MG TAB PO SCH ×2 (05:45→17:16)
[2016-12-15] MEDS: SUCRALFATE 1 GM TAB PO SCH ×4 (08:26→20:43)
[2016-12-15] MEDS: APIXABAN 5 MG TABLET PO SCH ×2 (08:26→20:43)
[2016-12-15] MEDS: POTASSIUM CHLORIDE (SR) 20 MEQ TAB PO SCH (08:26)
[2016-12-15] MEDS: GABAPENTIN 300 MG CAP PO SCH ×3 (08:26→20:43)
[2016-12-15] MEDS: SALMETEROL/FLUTICASONE 250/50 INHA INH SCH ×2 (08:26→20:42)
[2016-12-15] MEDS: DOCUSATE SODIUM 100 MG CAP PO SCH ×2 (08:27→20:43)
[2016-12-15] MEDS: SOTALOL 80 MG TAB PO SCH ×2 (08:27→20:43)
[2016-12-15] MEDS: FERROUS SULFATE (EC) 325 MG TAB PO SCH ×3 (08:28→20:42)
[2016-12-15] MEDS: SERTRALINE 50 MG TAB PO SCH (08:28)
[2016-12-15] MEDS: ISOSORBIDE MONONITRATE(SR)60 MG TAB PO SCH (08:28)
[2016-12-15] MEDS: DIGOXIN 0.125 MG TAB PO SCH (08:29)
[2016-12-15 10:02] LABS: BASOPHILS % 0.5 % (0.0-2.0); EOSINOPHILS # 0.1 10^3/ul (0.0-0.5); EOSINOPHILS % 1.8 % (0.0-7.0); HEMATOCRIT 35.3 % (42.0-52.0); HEMOGLOBIN 11.6 g/dl (14.0-18.0); LYMPHOCYTES # 1.4 10^3/ul (0.8-2.9); LYMPHOCYTES % 32.4 % (15.0-51.0); MEAN CORPUSCULAR HEMOGLOBIN 30.2 pg (29.0-33.0); MEAN CORPUSCULAR HGB CONC 32.9 g/dl (32.0-37.0); MEAN CORPUSCULAR VOLUME 91.9 fl (82.0-101.0); MEAN PLATELET VOLUME 8.8 fl (7.4-10.4); MONOCYTE # 0.4 10^3/ul (0.3-0.9); MONOCYTES % 8.6 % (0.0-11.0); NEUTROPHIL # 2.5 10^3/ul (1.6-7.5); PLATELET COUNT 179 10^3/UL (140-415); RED BLOOD COUNT 3.84 10^6/ul (4.70-6.10); RED CELL DISTRIBUTION WIDTH 14.6 % (11.5-14.5); WHITE BLOOD COUNT 4.4 10^3/ul (4.8-10.8)
[2016-12-15 11:05] LABS: CALCIUM 9.2 mg/dl (8.4-10.2); CREATININE 0.65 mg/dl (0.61-1.24); POTASSIUM 3.9 mmol/L (3.5-5.1)
[2016-12-15] MEDS ORDERED: MAGNESIUM SULFATE 2 GM/50 ML 50 ML IVPB ONE ×3 (12:30→18:00)
--- NOTE | 2016-12-15 15:44 | PN ---
Date/Time of Note Date/Time of Note DATE: 12/15/16 TIME: 15:39 Assessment/Plan VTE Prophylaxis VTE Prophylaxis Intervention: ambulation, SCD's Lines/Catheters IV Catheter Type (from Nrsg): PICC Line Central line still needed: Yes Urinary Cath still in place: No Assessment/Plan Assessment/Plan 1. Upper GI bleeding, severe erosive gastritis, recurrent, protonix iv bid/ carafate - Eliquis restarted and hgb stable - FOBT negative as well and informed patient iron supplements give stool a dark color as well 2. NSVT - 13 beats today - Electrolytes checked and Mg replaced to keep K >4 and Mg >2 3. Chest pain, atypical for CAD, but pulmonary hypertension may give angina, resolved 4. Pruritis - Patient states its chronic but relieved with benadryl - hydrocortisone cream PRN as well 5. Pulmonary embolism, due to ASD - On eliquis 6. ASD, s/p repair in 2010 - Stable 7. Marfan's syndrome, 8. Atrial fibrillation - Stable. A-pacing rhythm now, controlled rate, eliquis 8. Cardiac arrest in 2011, AICD 2012 9. h/o recurrent ischemic stroke 10. Disposition -once cleared by cardiology, will d/c home. Patient not comfortable going home after NSVT Subjective 24 Hr Interval Summary Free Text/Dictation Patient states he was feeling fine until after ICD was interrogated and had a run of NSVT. Also c/o itching of his chest area. No other acute events or new complaints. Exam/Review of Systems Vital Signs Vitals Vital Signs Date Time Temp Pulse Resp B/P Pulse Ox O2 Delivery O2 Flow Rate FiO2 12/15/16 12:00 71 12/15/16 11:53 98.6 18 123/58 96 12/15/16 11:05 Room Air 12/11/16 18:58 5 Intake and Output 12/14/16 12/14/16 12/15/16 15:00 23:00 07:00 Intake Total 1935 ml 400 ml Output Total 900 ml 1700 ml 1600 ml Balance -900 ml 235 ml -1200 ml Exam Constitutional: alert, oriented, well developed Head: atraumatic, normocephalic Eyes: EOMI, PERRL ENMT: nl external ears & nose, nl lips & teeth Neck: non-tender, supple Respiratory: clear to auscultation, diminished breath sounds, No crackles/rales, No wheezing Cardiovascular: regular rate and rhythm, No systolic murmur Gastrointestinal: nl liver, spleen, non-tender, soft, No distended, No rebound or guarding Musculoskeletal: nl extremities to inspection Extremities: normal pulses 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: [employer] II-XII intact, nl mental status Skin: nl turgor, pale complexion Lymph: nl lymph nodes Results Result Diagram: 12/15/1625 12/15/16 0913 Results 24 hrs Laboratory Tests Test 12/14/16 16:53 12/15/16 09:13 12/15/16 09:25 Stool Occult Blood NEGATIVE Sodium Level 140 Potassium Level 3.9 Chloride Level 102 Carbon Dioxide Level 34 H Anion Gap 8 Blood Urea Nitrogen 11 Creatinine 0.65 Glucose Level 74 Calcium Level 9.2 Magnesium Level 1.6 L White Blood Count 4.4 L Red Blood Count 3.84 L Hemoglobin 11.6 L Hematocrit 35.3 L Mean Corpuscular Volume 91.9 Mean Corpuscular Hemoglobin 30.2 Mean Corpuscular Hemoglobin Concent 32.9 Red Cell Distribution Width 14.6 H Platelet Count 179 Mean Platelet Volume 8.8 Neutrophils % 56.0 Lymphocytes % 32.4 Monocytes % 8.6 Eosinophils % 1.8 Basophils % 0.5 Nucleated Red Blood Cells % 0.0 Neutrophils # 2.5 Lymphocytes # 1.4 Monocytes # 0.4 Eosinophils # 0.1 Basophils # 0.0 Nucleated Red Blood Cells # 0.0 Medications Medications Current Medications IV Flush (NS 10 ml) 10 ml PRN PRN IV FLUSH LINE Last administered on 12/13/16 16:42; Admin Dose 10 ML; Start 12/09/16 at 17:30 Ondansetron HCl (Zofran Inj) 4 mg Q6H PRN IV NAUSEA AND/OR VOMITING; Start at 18:30 Acetaminophen (Tylenol Tab) 650 mg Q6H PRN PO PAIN LEVEL 1-3 OR FEVER; Start at 18:30 Acetaminophen/ Hydrocodone Bitart ([place] (5/325)) 1 tab Q6H PRN PO MODERATE PAIN LEVEL 4-6 Last administered on 12/13/16 11:33; Admin Dose 1 TAB; Start at 18:30 Magnesium Hydroxide (Milk Of Mag) 30 ml DAILY PRN PO CONSTIPATION; Start at 18:30 Sodium Biphosphate/ Sodium Phosphate 133 ml 133 ml DAILY PRN NM CONSTIPATION; Start 12/09/16 at 18:30 Sodium Chloride (1/2 NS) 1,000 ml @ 75 mls/hr [id number] IV Last administered on 12/15/16 03:51; Admin Dose 75 MLS/HR; Start 12/09/16 at 18:07 Lorazepam (Ativan) 0.5 mg Q6H PRN IV ANXIETY; Start 12/09/16 at 18:30 Hydralazine HCl (Apresoline) 10 mg Q6H PRN IV ELEVATED BLOOD PRESSURE; Start at 18:30 Clonidine (Catapres) 0.1 mg Q6H PRN PO ELEVATED BLOOD PRESSURE; Start 12/09/16 at 18:30 Nitroglycerin (Nitroglycerin (Sl Tab) 0.4 Mg) 1 tab Q5M PRN SL ANGINA; Start at 18:30 Albuterol (Proventil 0.083% (Neb)) 2.5 mg Q4 PRN NEB WHEEZING AND SOB; Start at 18:30 Atorvastatin Calcium (Lipitor) 10 mg QHS PO Last administered on 12/14/16 20: 46; Admin Dose 10 MG; Start 12/09/16 at 21:00 Digoxin (Digoxin) 0.125 mg DAILY PO Last administered on 12/15/16 08:29; Admin Dose 0.125 MG; Start 12/10/16 at 09:00 Ferrous Sulfate (Ferrous Sulfate (Ec)) 325 mg TID PO Last administered on 12:17; Admin Dose 325 MG; Start 12/09/16 at 21:00 Gabapentin (Neurontin) 300 mg TID PO Last administered on 12/15/16 12:17; Admin Dose 300 MG; Start 12/09/16 at 21:00 Isosorbide Mononitrate (Imdur) 60 mg DAILY PO Last administered on 12/15/16 08 :28; Admin Dose 60 MG; Start 12/10/16 at 09:00 Potassium Chloride (Klor-Con 20) 20 meq DAILY PO Last administered on 08:26; Admin Dose 20 MEQ; Start 12/10/16 at 09:00 Sertraline HCl (Zoloft) 50 mg DAILY PO Last administered on 12/15/16 08:28; Admin Dose 50 MG; Start 12/10/16 at 09:00 Sotalol HCl (Betapace) 80 mg BID PO Last administered on 12/15/16 08:27; Admin Dose 80 MG; Start 12/09/16 at 21:00 Zolpidem Tartrate (Ambien) 10 mg QHS PRN PO INSOMNIA Last administered on 23:44; Admin Dose 10 MG; Start 12/09/16 at 18:30 Salmeterol Xinafoate/ Fluticasone (Advair 250/50 Diskus) 1 inh BID INH Last administered on 12/15/16 08:26; Admin Dose 1 INH; Start 12/10/16 at 21:00 Pantoprazole (Protonix Tab) 40 mg BID@06,18 PO Last administered on 12/15/16 05:45; Admin Dose 40 MG; Start 12/14/16 at 18:00 Apixaban (Eliquis) 5 mg BID PO Last administered on 12/15/16 08:26; Admin Dose 5 MG; Start 12/14/16 at 21:00 Docusate Sodium (Colace) 100 mg BID PO Last administered on 12/15/16 08:27; Admin Dose 100 MG; Start 12/14/16 at 12:30 Hydromorphone HCl (Dilaudid) 4 mg Q4H PRN PO PAIN; Start 12/14/16 at 14:00 Tramadol HCl (Ultram) 50 mg Q6H PRN PO PAIN LEVEL 1-5; Start 12/14/16 at 14:00 Hydromorphone HCl (Dilaudid) 1 mg Q4H PRN IV PAIN Last administered on 12:30; Admin Dose 1 MG; Start 12/14/16 at 14:30 Diphenhydramine HCl (Benadryl) 50 mg Q4H PRN IV itching; Start 12/15/16 at 14: 30 Hydrocortisone (Hydrocortisone 0.5% Oint) 1 applic BID TOP ; Start 12/15/16 at 14:30 AMOS TORRES MD Dec 15, 2016 15:44
[2016-12-15] MEDS: HYDROCORTISONE 0.5% 28.35 GM OINT TOP SCH ×2 (17:00→20:42)
--- NOTE | 2016-12-15 19:08 | CONS ---
Date/Time of Note Date/Time of Note DATE: 12/15/16 TIME: 19:07 Assessment/Plan Assessment/Plan Additional Assessment/Plan Hematemesis with history of GI bleed Chest pain, resolved Preserved ejection fraction Possible history of paroxysmal atrial fibrillation Pulmonary emboli on anticoagulation ASD status post closure History of cardiac arrest with history of AICD Marfan's Narrow complex tachycardia -Patient with pacemaker ICD interrogation today with no abnormalities seen. Afterwards, patient with a brief episode of narrow complex tachycardia, SVT versus pacemaker mediated tachycardia. With supplement magnesium to maintain above 2.0. Maintain potassium above 4.0. Consultation Date/Type/Reason Admit Date/Time Dec 09, 2016 at 17:29 Initial Consult Date 12/10/16 Type of Consultation: cv Referring Provider: ROB BUI 24 HR Interval Summary Free Text/Dictation Denies palpitations, shortness of breath or dizziness Exam/Review of Systems Vital Signs Vitals Vital Signs Date Time Temp Pulse Resp B/P Pulse Ox O2 Delivery O2 Flow Rate FiO2 12/15/16 16:34 98.6 81 20 122/63 93 12/15/16 11:05 Room Air 12/11/16 18:58 5 Intake and Output 12/14/16 12/14/16 12/15/16 15:00 23:00 07:00 Intake Total 1935 ml 400 ml Output Total 900 ml 1700 ml 1600 ml Balance -900 ml 235 ml -1200 ml Exam No apparent distress Constitutional: alert, oriented Head: normocephalic Respiratory: other (Coarse breath sounds bilaterally, no wheezing) Cardiovascular: other (S1-S2 heard), regular rate and rhythm Gastrointestinal: bowel sounds, non-tender, soft Extremities: other (No edema) Results Result Diagram: 12/15/16 0925 12/15/16 0913 Results 24 hrs Laboratory Tests Test 12/15/16 09:13 12/15/16 09:25 Sodium Level 140 Potassium Level 3.9 Chloride Level 102 Carbon Dioxide Level 34 H Anion Gap 8 Blood Urea Nitrogen 11 Creatinine 0.65 Glucose Level 74 Calcium Level 9.2 Magnesium Level 1.6 L White Blood Count 4.4 L Red Blood Count 3.84 L Hemoglobin 11.6 L Hematocrit 35.3 L Mean Corpuscular Volume 91.9 Mean Corpuscular Hemoglobin 30.2 Mean Corpuscular Hemoglobin Concent 32.9 Red Cell Distribution Width 14.6 H Platelet Count 179 Mean Platelet Volume 8.8 Neutrophils % 56.0 Lymphocytes % 32.4 Monocytes % 8.6 Eosinophils % 1.8 Basophils % 0.5 Nucleated Red Blood Cells % 0.0 Neutrophils # 2.5 Lymphocytes # 1.4 Monocytes # 0.4 Eosinophils # 0.1 Basophils # 0.0 Nucleated Red Blood Cells # 0.0 Medications Medications Current Medications IV Flush (NS 10 ml) 10 ml PRN PRN IV FLUSH LINE Last administered on 12/13/16 16:42; Admin Dose 10 ML; Start 12/09/16 at 17:30 Ondansetron HCl (Zofran Inj) 4 mg Q6H PRN IV NAUSEA AND/OR VOMITING; Start at 18:30 Acetaminophen (Tylenol Tab) 650 mg Q6H PRN PO PAIN LEVEL 1-3 OR FEVER; Start at 18:30 Acetaminophen/ Hydrocodone Bitart ([place] (5/325)) 1 tab Q6H PRN PO MODERATE PAIN LEVEL 4-6 Last administered on 12/13/16 11:33; Admin Dose 1 TAB; Start at 18:30 Magnesium Hydroxide (Milk Of Mag) 30 ml DAILY PRN PO CONSTIPATION; Start at 18:30 Sodium Biphosphate/ Sodium Phosphate 133 ml 133 ml DAILY PRN IN CONSTIPATION; Start 12/09/16 at 18:30 Sodium Chloride (1/2 NS) 1,000 ml @ 75 mls/hr [id number] IV Last administered on 12/15/16 03:51; Admin Dose 75 MLS/HR; Start 12/09/16 at 18:07 Lorazepam (Ativan) 0.5 mg Q6H PRN IV ANXIETY; Start 12/09/16 at 18:30 Hydralazine HCl (Apresoline) 10 mg Q6H PRN IV ELEVATED BLOOD PRESSURE; Start at 18:30 Clonidine (Catapres) 0.1 mg Q6H PRN PO ELEVATED BLOOD PRESSURE; Start 12/09/16 at 18:30 Nitroglycerin (Nitroglycerin (Sl Tab) 0.4 Mg) 1 tab Q5M PRN SL ANGINA; Start at 18:30 Albuterol (Proventil 0.083% (Neb)) 2.5 mg Q4 PRN NEB WHEEZING AND SOB; Start at 18:30 Atorvastatin Calcium (Lipitor) 10 mg QHS PO Last administered on 12/14/16 20: 46; Admin Dose 10 MG; Start 12/09/16 at 21:00 Digoxin (Digoxin) 0.125 mg DAILY PO Last administered on 12/15/16 08:29; Admin Dose 0.125 MG; Start 12/10/16 at 09:00 Ferrous Sulfate (Ferrous Sulfate (Ec)) 325 mg TID PO Last administered on 12:17; Admin Dose 325 MG; Start 12/09/16 at 21:00 Gabapentin (Neurontin) 300 mg TID PO Last administered on 12/15/16 12:17; Admin Dose 300 MG; Start 12/09/16 at 21:00 Isosorbide Mononitrate (Imdur) 60 mg DAILY PO Last administered on 12/15/16 08 :28; Admin Dose 60 MG; Start 12/10/16 at 09:00 Potassium Chloride (Klor-Con 20) 20 meq DAILY PO Last administered on 08:26; Admin Dose 20 MEQ; Start 12/10/16 at 09:00 Sertraline HCl (Zoloft) 50 mg DAILY PO Last administered on 12/15/16 08:28; Admin Dose 50 MG; Start 12/10/16 at 09:00 Sotalol HCl (Betapace) 80 mg BID PO Last administered on 12/15/16 08:27; Admin Dose 80 MG; Start 12/09/16 at 21:00 Zolpidem Tartrate (Ambien) 10 mg QHS PRN PO INSOMNIA Last administered on 23:44; Admin Dose 10 MG; Start 12/09/16 at 18:30 Salmeterol Xinafoate/ Fluticasone (Advair 250/50 Diskus) 1 inh BID INH Last administered on 12/15/16 08:26; Admin Dose 1 INH; Start 12/10/16 at 21:00 Pantoprazole (Protonix Tab) 40 mg BID@06,18 PO Last administered on 12/15/16 17:16; Admin Dose 40 MG; Start 12/14/16 at 18:00 Apixaban (Eliquis) 5 mg BID PO Last administered on 12/15/16 08:26; Admin Dose 5 MG; Start 12/14/16 at 21:00 Docusate Sodium (Colace) 100 mg BID PO Last administered on 12/15/16 08:27; Admin Dose 100 MG; Start 12/14/16 at 12:30 Hydromorphone HCl (Dilaudid) 4 mg Q4H PRN PO PAIN; Start 12/14/16 at 14:00 Tramadol HCl (Ultram) 50 mg Q6H PRN PO PAIN LEVEL 1-5; Start 12/14/16 at 14:00 Hydromorphone HCl (Dilaudid) 1 mg Q4H PRN IV PAIN Last administered on 16:28; Admin Dose 1 MG; Start 12/14/16 at 14:30 Diphenhydramine HCl (Benadryl) 50 mg Q4H PRN IV itching Last administered on 16:27; Admin Dose 50 MG; Start 12/15/16 at 14:30 Hydrocortisone 1 applic 1 applic BID TOP ; Start 12/15/16 at 14:30 Magnesium Sulfate (Magnesium Sulfate 2 Gm/50 ml) 50 ml @ 25 mls/hr ONCE ONCE IVPB Last administered on 12/15/16 18:00; Admin Dose 25 MLS/HR; Start at 18:00; Stop 12/15/16 at 19:59 Aiden Merrill DO Dec 15, 2016 19:08
[2016-12-15] MEDS: ATORVASTATIN 10 MG TAB PO SCH (20:43)
[2016-12-16] VITALS (11 sets, daily range): BP systolic 117–130; BP diastolic 56–63; PULSE 69–93; RESP 18–20
[2016-12-16] MEDS: DIPHENHYDRAMINE 50 MG INJ IV PRN ×6 (00:43→22:01)
[2016-12-16] MEDS: HYDROmorphONE 1 MG/ML SYG IV PRN ×6 (00:43→22:01)
[2016-12-16] MEDS: SOD CHLORIDE 0.45% 1,000 ML IV SCH ×2 (04:57→22:08)
[2016-12-16] MEDS: PANTOPRAZOLE (EC) 40 MG TAB PO SCH ×2 (06:04→17:27)
[2016-12-16] MEDS: SUCRALFATE 1 GM TAB PO SCH ×4 (08:21→21:59)
[2016-12-16] MEDS: SALMETEROL/FLUTICASONE 250/50 INHA INH SCH ×2 (08:21→21:00)
[2016-12-16] MEDS: DOCUSATE SODIUM 100 MG CAP PO SCH ×2 (08:23→21:59)
[2016-12-16] MEDS: DIGOXIN 0.125 MG TAB PO SCH (08:23)
[2016-12-16] MEDS: SOTALOL 80 MG TAB PO SCH ×2 (08:23→21:59)
[2016-12-16] MEDS: HYDROCORTISONE 0.5% 28.35 GM OINT TOP SCH ×2 (08:24→22:01)
[2016-12-16] MEDS: APIXABAN 5 MG TABLET PO SCH ×2 (08:24→22:00)
[2016-12-16] MEDS: FERROUS SULFATE (EC) 325 MG TAB PO SCH ×3 (08:24→21:59)
[2016-12-16] MEDS: POTASSIUM CHLORIDE (SR) 20 MEQ TAB PO SCH (08:24)
[2016-12-16] MEDS: ISOSORBIDE MONONITRATE(SR)60 MG TAB PO SCH (08:24)
[2016-12-16] MEDS: GABAPENTIN 300 MG CAP PO SCH ×3 (08:24→22:00)
[2016-12-16 08:44] LABS: BASOPHILS % 0.4 % (0.0-2.0); EOSINOPHILS # 0.1 10^3/ul (0.0-0.5); EOSINOPHILS % 1.9 % (0.0-7.0); HEMATOCRIT 37.8 % (42.0-52.0); HEMOGLOBIN 12.1 g/dl (14.0-18.0); LYMPHOCYTES # 1.7 10^3/ul (0.8-2.9); LYMPHOCYTES % 32.3 % (15.0-51.0); MEAN CORPUSCULAR VOLUME 93.8 fl (82.0-101.0); MEAN PLATELET VOLUME 8.5 fl (7.4-10.4); MONOCYTE # 0.5 10^3/ul (0.3-0.9); MONOCYTES % 8.5 % (0.0-11.0); PLATELET COUNT 199 10^3/UL (140-415); RED BLOOD COUNT 4.03 10^6/ul (4.70-6.10); RED CELL DISTRIBUTION WIDTH 14.8 % (11.5-14.5); WHITE BLOOD COUNT 5.3 10^3/ul (4.8-10.8)
[2016-12-16] MEDS: SERTRALINE 50 MG TAB PO SCH (09:25)
[2016-12-16 10:13] LABS: CALCIUM 9.7 mg/dl (8.4-10.2); CREATININE 0.68 mg/dl (0.61-1.24); POTASSIUM 3.9 mmol/L (3.5-5.1)
--- NOTE | 2016-12-16 14:13 | PN ---
Date/Time of Note Date/Time of Note DATE: 12/16/16 TIME: 14:05 Assessment/Plan VTE Prophylaxis VTE Prophylaxis Intervention: SCD's Lines/Catheters IV Catheter Type (from Nrs): PICC Line Central line still needed: Yes Urinary Cath still in place: No Assessment/Plan Assessment/Plan 1. Upper GI bleeding, severe erosive gastritis, recurrent, protonix iv bid/ carafate - Eliquis restarted and hgb stable - FOBT negative as well and informed patient iron supplements give stool a dark color as well 2. NSVT - stable. no further episodes - Electrolytes checked and Mg replaced to keep K >4 and Mg >2 3. Chest pain, atypical for CAD, but pulmonary hypertension may give angina, resolved 4. Pruritis - resolved - Benadryl and hydrocortisone cream PRN 5. Pulmonary embolism, due to ASD - On eliquis 6. ASD, s/p repair in 2010 - Stable 7. Marfan's syndrome, 8. Atrial fibrillation - Stable. A-pacing rhythm now, controlled rate, eliquis 8. Cardiac arrest in 2011, AICD 2012 9. h/o recurrent ischemic stroke 10. Disposition - If remains stable, d/c in am home Subjective 24 Hr Interval Summary Free Text/Dictation Patient states "hes hanging in there" but feels as if he will be ready to go in the am. He would like to make sure his electrolytes levels are stable prior to discharge. No acute overnight events Exam/Review of Systems Vital Signs Vitals Vital Signs Date Time Temp Pulse Resp B/P Pulse Ox O2 Delivery O2 Flow Rate FiO2 12/16/16 12:30 78 12/16/16 11:55 97.6 18 119/56 98 12/15/16 11:05 Room Air Intake and Output 12/15/16 12/15/16 12/16/16 15:00 23:00 07:00 Intake Total 450 ml 1300 ml 1600 ml Output Total 900 ml 1320 ml 2200 ml Balance -450 ml -20 ml -600 ml Exam Constitutional: alert, oriented, well developed Eyes: EOMI, PERRL Neck: non-tender, supple Respiratory: clear to auscultation, diminished breath sounds, No crackles/rales , No wheezing Cardiovascular: regular rate and rhythm, No systolic murmur Gastrointestinal: nl liver, spleen, non-tender, soft, No distended, No rebound or guarding Musculoskeletal: nl extremities to inspection Extremities: normal pulses 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, nl mental status Skin: nl turgor, pale complexion Results Result Diagram: 12/16/16 0757 12/16/16 0757 Results 24 hrs Laboratory Tests Test 12/16/16 07:57 White Blood Count 5.3 # Red Blood Count 4.03 L Hemoglobin 12.1 L Hematocrit 37.8 L Mean Corpuscular Volume 93.8 Mean Corpuscular Hemoglobin 30.0 Mean Corpuscular Hemoglobin Concent 32.0 Red Cell Distribution Width 14.8 H Platelet Count 199 Mean Platelet Volume 8.5 Neutrophils % 56.0 Lymphocytes % 32.3 Monocytes % 8.5 Eosinophils % 1.9 Basophils % 0.4 Nucleated Red Blood Cells % 0.0 Neutrophils # 3.0 Lymphocytes # 1.7 Monocytes # 0.5 Eosinophils # 0.1 Basophils # 0.0 Nucleated Red Blood Cells # 0.0 Sodium Level 137 Potassium Level 3.9 Chloride Level 99 Carbon Dioxide Level 32 H Anion Gap 10 Blood Urea Nitrogen 13 Creatinine 0.68 Glucose Level 93 Calcium Level 9.7 Magnesium Level 1.7 Medications Medications Current Medications IV Flush (NS 10 ml) 10 ml PRN PRN IV FLUSH LINE Last administered on 12/13/16 16:42; Admin Dose 10 ML; Start 12/09/16 at 17:30 Ondansetron HCl (Zofran Inj) 4 mg Q6H PRN IV NAUSEA AND/OR VOMITING; Start at 18:30 Acetaminophen (Tylenol Tab) 650 mg Q6H PRN PO PAIN LEVEL 1-3 OR FEVER; Start at 18:30 Acetaminophen/ Hydrocodone Bitart ([place] (5/325)) 1 tab Q6H PRN PO MODERATE PAIN LEVEL 4-6 Last administered on 12/13/16 11:33; Admin Dose 1 TAB; Start at 18:30 Magnesium Hydroxide (Milk Of Mag) 30 ml DAILY PRN PO CONSTIPATION; Start at 18:30 Sodium Biphosphate/ Sodium Phosphate 133 ml 133 ml DAILY PRN [place] CONSTIPATION; Start 12/09/16 at 18:30 Sodium Chloride (1/2 NS) 1,000 ml @ 75 mls/hr [id number] IV Last administered on 12/16/16 04:57; Admin Dose 75 MLS/HR; Start 12/09/16 at 18:07 Lorazepam (Ativan) 0.5 mg Q6H PRN IV ANXIETY; Start 12/09/16 at 18:30 Hydralazine HCl (Apresoline) 10 mg Q6H PRN IV ELEVATED BLOOD PRESSURE; Start at 18:30 Clonidine (Catapres) 0.1 mg Q6H PRN PO ELEVATED BLOOD PRESSURE; Start 12/09/16 at 18:30 Nitroglycerin (Nitroglycerin (Sl Tab) 0.4 Mg) 1 tab Q5M PRN SL ANGINA; Start at 18:30 Albuterol (Proventil 0.083% (Neb)) 2.5 mg Q4 PRN NEB WHEEZING AND SOB; Start at 18:30 Atorvastatin Calcium (Lipitor) 10 mg QHS PO Last administered on 12/15/16 20: 43; Admin Dose 10 MG; Start 12/09/16 at 21:00 Digoxin (Digoxin) 0.125 mg DAILY PO Last administered on 12/16/16 08:23; Admin Dose 0.125 MG; Start 12/10/16 at 09:00 Ferrous Sulfate (Ferrous Sulfate (Ec)) 325 mg TID PO Last administered on 12:22; Admin Dose 325 MG; Start 12/09/16 at 21:00 Gabapentin (Neurontin) 300 mg TID PO Last administered on 12/16/16 12:22; Admin Dose 300 MG; Start 12/09/16 at 21:00 Isosorbide Mononitrate (Imdur) 60 mg DAILY PO Last administered on 12/16/16 08 :24; Admin Dose 60 MG; Start 12/10/16 at 09:00 Potassium Chloride (Klor-Con 20) 20 meq DAILY PO Last administered on 08:24; Admin Dose 20 MEQ; Start 12/10/16 at 09:00 Sertraline HCl (Zoloft) 50 mg DAILY PO Last administered on 12/16/16 09:25; Admin Dose 50 MG; Start 12/10/16 at 09:00 Sotalol HCl (Betapace) 80 mg BID PO Last administered on 12/16/16 08:23; Admin Dose 80 MG; Start 12/09/16 at 21:00 Zolpidem Tartrate (Ambien) 10 mg QHS PRN PO INSOMNIA Last administered on 23:44; Admin Dose 10 MG; Start 12/09/16 at 18:30 Salmeterol Xinafoate/ Fluticasone (Advair 250/50 Diskus) 1 inh BID INH Last administered on 12/16/16 08:21; Admin Dose 1 INH; Start 12/10/16 at 21:00 Pantoprazole (Protonix Tab) 40 mg BID@,18 PO Last administered on 12/16/16 06:04; Admin Dose 40 MG; Start 12/14/16 at 18:00 Apixaban (Eliquis) 5 mg BID PO Last administered on 12/16/16 08:24; Admin Dose 5 MG; Start 12/14/16 at 21:00 Docusate Sodium (Colace) 100 mg BID PO Last administered on 12/16/16 08:23; Admin Dose 100 MG; Start 12/14/16 at 12:30 Hydromorphone HCl (Dilaudid) 4 mg Q4H PRN PO PAIN; Start 12/14/16 at 14:00 Tramadol HCl (Ultram) 50 mg Q6H PRN PO PAIN LEVEL 1-5; Start 12/14/16 at 14:00 Hydromorphone HCl (Dilaudid) 1 mg Q4H PRN IV PAIN Last administered on 13:54; Admin Dose 1 MG; Start 12/14/16 at 14:30 Diphenhydramine HCl (Benadryl) 50 mg Q4H PRN IV itching Last administered on 13:54; Admin Dose 50 MG; Start 12/15/16 at 14:30 Hydrocortisone (Hydrocortisone 0.5% Oint) 1 applic BID TOP Last administered on 12/16/16 08:24; Admin Dose 1 APPLIC; Start 12/15/16 at 14:30 AMOS TORRES MD Dec 16, 2016 14:13
--- NOTE | 2016-12-16 14:42 | CONS ---
Date/Time of Note Date/Time of Note DATE: 12/16/16 TIME: 14:41 Assessment/Plan Assessment/Plan Additional Assessment/Plan Hematemesis with history of GI bleed Chest pain, resolved Preserved ejection fraction Possible history of paroxysmal atrial fibrillation Pulmonary emboli on anticoagulation ASD status post closure History of cardiac arrest with history of AICD Marfan's Narrow complex tachycardia -Patient with pacemaker ICD interrogation yesterday with no abnormalities seen. Afterwards, patient with a brief episode of narrow complex tachycardia, SVT versus pacemaker mediated tachycardia. No further episodes seen today. Will supplement magnesium to maintain above 2.0. Maintain potassium above 4.0. DC planning Consultation Date/Type/Reason Admit Date/Time Dec 09, 2016 at 17:29 Initial Consult Date 12/10/16 Type of Consultation: cv Referring Provider: ROB BUI 24 HR Interval Summary Free Text/Dictation Denies palpitations, shortness of breath or chest pain Exam/Review of Systems Vital Signs Vitals Vital Signs Date Time Temp Pulse Resp B/P Pulse Ox O2 Delivery O2 Flow Rate FiO2 12/16/16 12:30 78 12/16/16 11:55 97.6 18 119/56 98 12/15/16 11:05 Room Air Intake and Output 12/15/16 12/15/16 12/16/16 15:00 23:00 07:00 Intake Total 450 ml 1300 ml 1600 ml Output Total 900 ml 1320 ml 2200 ml Balance -450 ml -20 ml -600 ml Exam No apparent distress Constitutional: alert, oriented Head: normocephalic Respiratory: other (Coarse breath sounds bilaterally, no wheezing) Cardiovascular: other (S1-S2 heard), regular rate and rhythm Gastrointestinal: bowel sounds, non-tender, soft Extremities: other (No edema) Results Result Diagram: 12/16/16 0757 12/16/16 0757 Results 24 hrs Laboratory Tests Test 12/16/16 07:57 White Blood Count 5.3 # Red Blood Count 4.03 L Hemoglobin 12.1 L Hematocrit 37.8 L Mean Corpuscular Volume 93.8 Mean Corpuscular Hemoglobin 30.0 Mean Corpuscular Hemoglobin Concent 32.0 Red Cell Distribution Width 14.8 H Platelet Count 199 Mean Platelet Volume 8.5 Neutrophils % 56.0 Lymphocytes % 32.3 Monocytes % 8.5 Eosinophils % 1.9 Basophils % 0.4 Nucleated Red Blood Cells % 0.0 Neutrophils # 3.0 Lymphocytes # 1.7 Monocytes # 0.5 Eosinophils # 0.1 Basophils # 0.0 Nucleated Red Blood Cells # 0.0 Sodium Level 137 Potassium Level 3.9 Chloride Level 99 Carbon Dioxide Level 32 H Anion Gap 10 Blood Urea Nitrogen 13 Creatinine 0.68 Glucose Level 93 Calcium Level 9.7 Magnesium Level 1.7 Medications Medications Current Medications IV Flush (NS 10 ml) 10 ml PRN PRN IV FLUSH LINE Last administered on 12/13/16 16:42; Admin Dose 10 ML; Start 12/09/16 at 17:30 Ondansetron HCl (Zofran Inj) 4 mg Q6H PRN IV NAUSEA AND/OR VOMITING; Start at 18:30 Acetaminophen (Tylenol Tab) 650 mg Q6H PRN PO PAIN LEVEL 1-3 OR FEVER; Start at 18:30 Acetaminophen/ Hydrocodone Bitart ([place] (5/325)) 1 tab Q6H PRN PO MODERATE PAIN LEVEL 4-6 Last administered on 12/13/16 11:33; Admin Dose 1 TAB; Start at 18:30 Magnesium Hydroxide (Milk Of Mag) 30 ml DAILY PRN PO CONSTIPATION; Start at 18:30 Sodium Biphosphate/ Sodium Phosphate 133 ml 133 ml DAILY PRN [place] CONSTIPATION; Start 12/09/16 at 18:30 Sodium Chloride (1/2 NS) 1,000 ml @ 75 mls/hr [id number] IV Last administered on 12/16/16 04:57; Admin Dose 75 MLS/HR; Start 12/09/16 at 18:07 Lorazepam (Ativan) 0.5 mg Q6H PRN IV ANXIETY; Start 12/09/16 at 18:30 Hydralazine HCl (Apresoline) 10 mg Q6H PRN IV ELEVATED BLOOD PRESSURE; Start at 18:30 Clonidine (Catapres) 0.1 mg Q6H PRN PO ELEVATED BLOOD PRESSURE; Start 12/09/16 at 18:30 Nitroglycerin (Nitroglycerin (Sl Tab) 0.4 Mg) 1 tab Q5M PRN SL ANGINA; Start at 18:30 Albuterol (Proventil 0.083% (Neb)) 2.5 mg Q4 PRN NEB WHEEZING AND SOB; Start at 18:30 Atorvastatin Calcium (Lipitor) 10 mg QHS PO Last administered on 12/15/16 20: 43; Admin Dose 10 MG; Start 12/09/16 at 21:00 Digoxin (Digoxin) 0.125 mg DAILY PO Last administered on 12/16/16 08:23; Admin Dose 0.125 MG; Start 12/10/16 at 09:00 Ferrous Sulfate (Ferrous Sulfate (Ec)) 325 mg TID PO Last administered on 12:22; Admin Dose 325 MG; Start 12/09/16 at 21:00 Gabapentin (Neurontin) 300 mg TID PO Last administered on 12/16/16 12:22; Admin Dose 300 MG; Start 12/09/16 at 21:00 Isosorbide Mononitrate (Imdur) 60 mg DAILY PO Last administered on 12/16/16 08 :24; Admin Dose 60 MG; Start 12/10/16 at 09:00 Potassium Chloride (Klor-Con 20) 20 meq DAILY PO Last administered on 08:24; Admin Dose 20 MEQ; Start 12/10/16 at 09:00 Sertraline HCl (Zoloft) 50 mg DAILY PO Last administered on 12/16/16 09:25; Admin Dose 50 MG; Start 12/10/16 at 09:00 Sotalol HCl (Betapace) 80 mg BID PO Last administered on 12/16/16 08:23; Admin Dose 80 MG; Start 12/09/16 at 21:00 Zolpidem Tartrate (Ambien) 10 mg QHS PRN PO INSOMNIA Last administered on 23:44; Admin Dose 10 MG; Start 12/09/16 at 18:30 Salmeterol Xinafoate/ Fluticasone (Advair 250/50 Diskus) 1 inh BID INH Last administered on 12/16/16 08:21; Admin Dose 1 INH; Start 12/10/16 at 21:00 Pantoprazole (Protonix Tab) 40 mg BID@,18 PO Last administered on 12/16/16 06:04; Admin Dose 40 MG; Start 12/14/16 at 18:00 Apixaban (Eliquis) 5 mg BID PO Last administered on 12/16/16 08:24; Admin Dose 5 MG; Start 12/14/16 at 21:00 Docusate Sodium (Colace) 100 mg BID PO Last administered on 12/16/16 08:23; Admin Dose 100 MG; Start 12/14/16 at 12:30 Hydromorphone HCl (Dilaudid) 4 mg Q4H PRN PO PAIN; Start 12/14/16 at 14:00 Tramadol HCl (Ultram) 50 mg Q6H PRN PO PAIN LEVEL 1-5; Start 12/14/16 at 14:00 Hydromorphone HCl (Dilaudid) 1 mg Q4H PRN IV PAIN Last administered on 13:54; Admin Dose 1 MG; Start 12/14/16 at 14:30 Diphenhydramine HCl (Benadryl) 50 mg Q4H PRN IV itching Last administered on 13:54; Admin Dose 50 MG; Start 12/15/16 at 14:30 Hydrocortisone (Hydrocortisone 0.5% Oint) 1 applic BID TOP Last administered on 12/16/16 08:24; Admin Dose 1 APPLIC; Start 12/15/16 at 14:30 Cyclobenzaprine HCl (Flexeril) 10 mg TID PO ; Start 12/16/16 at 21:00 Aiden Merrill DO Dec 16, 2016 14:42
[2016-12-16] MEDS ORDERED: MAGNESIUM SULFATE 4 GM/100 ML 100 ML IVPB ONE (15:00)
[2016-12-16] MEDS: CYCLOBENZAPRINE 10 MG TAB PO SCH (21:59)
[2016-12-16] MEDS: ATORVASTATIN 10 MG TAB PO SCH (21:59)
[2016-12-17] VITALS (12 sets, daily range): BP systolic 113–122; BP diastolic 54–62; PULSE 71–176; RESP 18–19
[2016-12-17] MEDS: HYDROmorphONE 1 MG/ML SYG IV PRN ×6 (02:00→23:09)
[2016-12-17] MEDS: DIPHENHYDRAMINE 50 MG INJ IV PRN ×6 (02:00→23:09)
[2016-12-17] MEDS: PANTOPRAZOLE (EC) 40 MG TAB PO SCH ×2 (06:36→17:53)
[2016-12-17] MEDS: SUCRALFATE 1 GM TAB PO SCH ×4 (06:36→21:57)
--- NOTE | 2016-12-17 07:43 | CONS ---
Date/Time of Note Date/Time of Note DATE: 12/17/16 TIME: 07:42 Assessment/Plan Assessment/Plan Chief Complaint/Hosp Course Hematemesis with history of GI bleed Chest pain, resolved Preserved ejection fraction Possible history of paroxysmal atrial fibrillation Pulmonary emboli on anticoagulation ASD status post closure History of cardiac arrest with history of AICD Marfan's Narrow complex tachycardia Problems: Additional Assessment/Plan keep mag > 2 and potassium > 4 continue current meds Consultation Date/Type/Reason Admit Date/Time Dec 09, 2016 at 17:29 Initial Consult Date 12/10/16 Type of Consultation: cv Referring Provider: ROB BUI 24 HR Interval Summary Free Text/Dictation no chest pain, no sob, no palpitations, paced rhythm on tele without arrhyhtmjias in last 20 hours Detailed Summary Respiratory: no complaints Cardiovascular: no complaints Gastrointestinal: no complaints Musculoskeletal: no complaints Neurologic: no complaints Endocrine: no complaints Lymphatic: no complaints Exam/Review of Systems Vital Signs Vitals Vital Signs Date Time Temp Pulse Resp B/P Pulse Ox O2 Delivery O2 Flow Rate FiO2 12/17/16 04:31 71 12/17/16 04:10 98.2 19 120/62 97 12/15/16 11:05 Room Air Intake and Output 12/16/16 12/16/16 12/17/16 15:00 23:00 07:00 Intake Total 950 ml 1200 ml Output Total 2500 ml 1800 ml Balance -1550 ml -600 ml Exam Constitutional: alert, oriented Head: atraumatic, normocephalic Neck: supple Respiratory: clear to auscultation Cardiovascular: regular rate and rhythm Gastrointestinal: soft Musculoskeletal: nl extremities to inspection Extremities: normal pulses 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 Results Result Diagram: 12/16/16 0757 12/16/16 0757 Results 24 hrs Laboratory Tests Test 12/16/16 07:57 White Blood Count 5.3 # Red Blood Count 4.03 L Hemoglobin 12.1 L Hematocrit 37.8 L Mean Corpuscular Volume 93.8 Mean Corpuscular Hemoglobin 30.0 Mean Corpuscular Hemoglobin Concent 32.0 Red Cell Distribution Width 14.8 H Platelet Count 199 Mean Platelet Volume 8.5 Neutrophils % 56.0 Lymphocytes % 32.3 Monocytes % 8.5 Eosinophils % 1.9 Basophils % 0.4 Nucleated Red Blood Cells % 0.0 Neutrophils # 3.0 Lymphocytes # 1.7 Monocytes # 0.5 Eosinophils # 0.1 Basophils # 0.0 Nucleated Red Blood Cells # 0.0 Sodium Level 137 Potassium Level 3.9 Chloride Level 99 Carbon Dioxide Level 32 H Anion Gap 10 Blood Urea Nitrogen 13 Creatinine 0.68 Glucose Level 93 Calcium Level 9.7 Magnesium Level 1.7 Medications Medications Current Medications IV Flush (NS 10 ml) 10 ml PRN PRN IV FLUSH LINE Last administered on 12/13/16 16:42; Admin Dose 10 ML; Start 12/09/16 at 17:30 Ondansetron HCl (Zofran Inj) 4 mg Q6H PRN IV NAUSEA AND/OR VOMITING; Start at 18:30 Acetaminophen (Tylenol Tab) 650 mg Q6H PRN PO PAIN LEVEL 1-3 OR FEVER; Start at 18:30 Acetaminophen/ Hydrocodone Bitart ([place] (5/325)) 1 tab Q6H PRN PO MODERATE PAIN LEVEL 4-6 Last administered on 12/13/16 11:33; Admin Dose 1 TAB; Start at 18:30 Magnesium Hydroxide (Milk Of Mag) 30 ml DAILY PRN PO CONSTIPATION; Start at 18:30 Sodium Biphosphate/ Sodium Phosphate 133 ml 133 ml DAILY PRN [place] CONSTIPATION; Start 12/09/16 at 18:30 Sodium Chloride (1/2 NS) 1,000 ml @ 75 mls/hr [id number] IV Last administered on 12/16/16 22:08; Admin Dose 75 MLS/HR; Start 12/09/16 at 18:07 Lorazepam (Ativan) 0.5 mg Q6H PRN IV ANXIETY; Start 12/09/16 at 18:30 Hydralazine HCl (Apresoline) 10 mg Q6H PRN IV ELEVATED BLOOD PRESSURE; Start at 18:30 Clonidine (Catapres) 0.1 mg Q6H PRN PO ELEVATED BLOOD PRESSURE; Start 12/09/16 at 18:30 Nitroglycerin (Nitroglycerin (Sl Tab) 0.4 Mg) 1 tab Q5M PRN SL ANGINA; Start at 18:30 Albuterol (Proventil 0.083% (Neb)) 2.5 mg Q4 PRN NEB WHEEZING AND SOB; Start at 18:30 Atorvastatin Calcium (Lipitor) 10 mg QHS PO Last administered on 12/16/16 21: 59; Admin Dose 10 MG; Start 12/09/16 at 21:00 Digoxin (Digoxin) 0.125 mg DAILY PO Last administered on 12/16/16 08:23; Admin Dose 0.125 MG; Start 12/10/16 at 09:00 Ferrous Sulfate (Ferrous Sulfate (Ec)) 325 mg TID PO Last administered on 21:59; Admin Dose 325 MG; Start 12/09/16 at 21:00 Gabapentin (Neurontin) 300 mg TID PO Last administered on 12/16/16 22:00; Admin Dose 300 MG; Start 12/09/16 at 21:00 Isosorbide Mononitrate (Imdur) 60 mg DAILY PO Last administered on 12/16/16 08 :24; Admin Dose 60 MG; Start 12/10/16 at 09:00 Potassium Chloride (Klor-Con 20) 20 meq DAILY PO Last administered on 08:24; Admin Dose 20 MEQ; Start 12/10/16 at 09:00 Sertraline HCl (Zoloft) 50 mg DAILY PO Last administered on 12/16/16 09:25; Admin Dose 50 MG; Start 12/10/16 at 09:00 Sotalol HCl (Betapace) 80 mg BID PO Last administered on 12/16/16 21:59; Admin Dose 80 MG; Start 12/09/16 at 21:00 Zolpidem Tartrate (Ambien) 10 mg QHS PRN PO INSOMNIA Last administered on 23:44; Admin Dose 10 MG; Start 12/09/16 at 18:30 Salmeterol Xinafoate/ Fluticasone (Advair 250/50 Diskus) 1 inh BID INH Last administered on 12/16/16 21:00; Admin Dose 1 INH; Start 12/10/16 at 21:00 Pantoprazole (Protonix Tab) 40 mg BID@,18 PO Last administered on 12/17/16 06:36; Admin Dose 40 MG; Start 12/14/16 at 18:00 Apixaban (Eliquis) 5 mg BID PO Last administered on 12/16/16 22:00; Admin Dose 5 MG; Start 12/14/16 at 21:00 Docusate Sodium (Colace) 100 mg BID PO Last administered on 12/16/16 21:59; Admin Dose 100 MG; Start 12/14/16 at 12:30 Hydromorphone HCl (Dilaudid) 4 mg Q4H PRN PO PAIN; Start 12/14/16 at 14:00 Tramadol HCl (Ultram) 50 mg Q6H PRN PO PAIN LEVEL 1-5; Start 12/14/16 at 14:00 Hydromorphone HCl (Dilaudid) 1 mg Q4H PRN IV PAIN Last administered on 06:38; Admin Dose 1 MG; Start 12/14/16 at 14:30 Diphenhydramine HCl (Benadryl) 50 mg Q4H PRN IV itching Last administered on 06:36; Admin Dose 50 MG; Start 12/15/16 at 14:30 Hydrocortisone (Hydrocortisone 0.5% Oint) 1 applic BID TOP Last administered on 12/16/16 22:01; Admin Dose 1 APPLIC; Start 12/15/16 at 14:30 Cyclobenzaprine HCl (Flexeril) 10 mg TID PO Last administered on 12/16/16 21: 59; Admin Dose 10 MG; Start 12/16/16 at 21:00 HERMELINDA MOSQUERA MD Dec 17, 2016 07:43
[2016-12-17] MEDS: SALMETEROL/FLUTICASONE 250/50 INHA INH SCH ×2 (08:52→21:56)
[2016-12-17] MEDS: DOCUSATE SODIUM 100 MG CAP PO SCH ×2 (08:53→21:58)
[2016-12-17] MEDS: SERTRALINE 50 MG TAB PO SCH (08:53)
[2016-12-17] MEDS: ISOSORBIDE MONONITRATE(SR)60 MG TAB PO SCH (08:53)
[2016-12-17] MEDS: CYCLOBENZAPRINE 10 MG TAB PO SCH ×2 (08:53→13:18)
[2016-12-17] MEDS: APIXABAN 5 MG TABLET PO SCH ×2 (08:53→21:58)
[2016-12-17] MEDS: SOTALOL 80 MG TAB PO SCH ×2 (08:54→21:57)
[2016-12-17] MEDS: GABAPENTIN 300 MG CAP PO SCH ×3 (08:54→21:58)
[2016-12-17] MEDS: DIGOXIN 0.125 MG TAB PO SCH (08:54)
[2016-12-17] MEDS: POTASSIUM CHLORIDE (SR) 20 MEQ TAB PO SCH (08:54)
[2016-12-17] MEDS: FERROUS SULFATE (EC) 325 MG TAB PO SCH ×3 (08:54→21:58)
[2016-12-17] MEDS: HYDROCORTISONE 0.5% 28.35 GM OINT TOP SCH ×2 (09:05→21:56)
[2016-12-17 09:20] LABS: BASOPHILS % 0.4 % (0.0-2.0); EOSINOPHILS # 0.1 10^3/ul (0.0-0.5); EOSINOPHILS % 1.5 % (0.0-7.0); HEMATOCRIT 38.5 % (42.0-52.0); HEMOGLOBIN 12.1 g/dl (14.0-18.0); LYMPHOCYTES # 1.4 10^3/ul (0.8-2.9); LYMPHOCYTES % 30.4 % (15.0-51.0); MEAN CORPUSCULAR HEMOGLOBIN 29.6 pg (29.0-33.0); MEAN CORPUSCULAR HGB CONC 31.4 g/dl (32.0-37.0); MEAN CORPUSCULAR VOLUME 94.1 fl (82.0-101.0); MEAN PLATELET VOLUME 8.6 fl (7.4-10.4); MONOCYTE # 0.5 10^3/ul (0.3-0.9); MONOCYTES % 10.3 % (0.0-11.0); NEUTROPHIL # 2.6 10^3/ul (1.6-7.5); NEUTROPHILS % 56.5 % (39.0-77.0); PLATELET COUNT 200 10^3/UL (140-415); RED BLOOD COUNT 4.09 10^6/ul (4.70-6.10); RED CELL DISTRIBUTION WIDTH 14.9 % (11.5-14.5); WHITE BLOOD COUNT 4.6 10^3/ul (4.8-10.8)
[2016-12-17 09:37] LABS: CALCIUM 9.5 mg/dl (8.4-10.2); CREATININE 0.73 mg/dl (0.61-1.24); POTASSIUM 4.2 mmol/L (3.5-5.1)
[2016-12-17] MEDS: SOD CHLORIDE 0.45% 1,000 ML IV SCH (13:19)
[2016-12-17] MEDS: ONDANSETRON 4 MG INJ IV PRN (15:07)
--- NOTE | 2016-12-17 15:42 | PN ---
Date/Time of Note Date/Time of Note DATE: 12/17/16 TIME: 15:39 Assessment/Plan VTE Prophylaxis VTE Prophylaxis Intervention: ambulation Lines/Catheters IV Catheter Type (from Nrs): PICC Line Central line still needed: Yes Urinary Cath still in place: No Assessment/Plan Assessment/Plan . Upper GI bleeding, severe erosive gastritis, recurrent - Eliquis restarted and hgb stable - FOBT negative 2. NSVT - stable. no further episodes - Electrolytes checked and Mg replaced to keep K >4 and Mg >2 3. Chest pain, atypical for CAD, but pulmonary hypertension may give angina, resolved 4. Pruritis - stable - Benadryl and hydrocortisone cream PRN 5. Pulmonary embolism, due to ASD - On eliquis 6. ASD, s/p repair in 2010 - Stable 7. Marfan's syndrome, 8. Atrial fibrillation - Stable. A-pacing rhythm now, controlled rate, eliquis 8. Cardiac arrest in 2011, AICD 2012 9. h/o recurrent ischemic stroke 10. Hypokalemia/hypomag - stable - will plan to give daily Mg supplements upon d/c 11. Disposition - if remains stable, d/c in am Subjective 24 Hr Interval Summary Free Text/Dictation Patient doing well but concerned about going home today since family will not be home until later tonight. No acute issues and no overnight events. Exam/Review of Systems Vital Signs Vitals Vital Signs Date Time Temp Pulse Resp B/P Pulse Ox O2 Delivery O2 Flow Rate FiO2 12/17/16 12:06 98.2 90 18 114/54 97 12/15/16 11:05 Room Air Intake and Output 12/16/16 12/16/16 12/17/16 15:00 23:00 07:00 Intake Total 950 ml 1200 ml Output Total 2500 ml 1800 ml Balance -1550 ml -600 ml Exam Constitutional: alert, oriented, well developed Eyes: EOMI, PERRL Neck: non-tender, supple Respiratory: clear to auscultation, diminished breath sounds, No crackles/rales , No wheezing Cardiovascular: regular rate and rhythm, No systolic murmur Gastrointestinal: nl liver, spleen, non-tender, soft, No distended, No rebound or guarding Musculoskeletal: nl extremities to inspection Extremities: normal pulses 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: TOBACCO SHAKER II-XII intact, nl mental status Skin: nl turgor, pale complexion Results Result Diagram: 12/17/16 0847 12/17/16 0807 Results 24 hrs Laboratory Tests Test 12/17/16 08:07 12/17/16 08:41 12/17/16 08:47 Sodium Level 139 Potassium Level 4.2 Chloride Level 99 Carbon Dioxide Level 33 H Anion Gap 11 Blood Urea Nitrogen 14 Creatinine 0.73 Glucose Level 92 Calcium Level 9.5 Magnesium Level 1.8 White Blood Count 4.6 L Red Blood Count 4.09 L Hemoglobin 12.1 L Hematocrit 38.5 L Mean Corpuscular Volume 94.1 Mean Corpuscular Hemoglobin 29.6 Mean Corpuscular Hemoglobin Concent 31.4 L Red Cell Distribution Width 14.9 H Platelet Count 200 Mean Platelet Volume 8.6 Neutrophils % 56.5 Lymphocytes % 30.4 Monocytes % 10.3 Eosinophils % 1.5 Basophils % 0.4 Nucleated Red Blood Cells % 0.0 Neutrophils # 2.6 Lymphocytes # 1.4 Monocytes # 0.5 Eosinophils # 0.1 Basophils # 0.0 Nucleated Red Blood Cells # 0.0 Medications Medications Current Medications IV Flush (NS 10 ml) 10 ml PRN PRN IV FLUSH LINE Last administered on 12/13/16 16:42; Admin Dose 10 ML; Start 12/09/16 at 17:30 Ondansetron HCl (Zofran Inj) 4 mg Q6H PRN IV NAUSEA AND/OR VOMITING Last administered on 12/17/16 15:07; Admin Dose 4 MG; Start 12/09/16 at 18:30 Acetaminophen (Tylenol Tab) 650 mg Q6H PRN PO PAIN LEVEL 1-3 OR FEVER; Start at 18:30 Acetaminophen/ Hydrocodone Bitart ([place] (5/325)) 1 tab Q6H PRN PO MODERATE PAIN LEVEL 4-6 Last administered on 12/13/16 11:33; Admin Dose 1 TAB; Start at 18:30 Magnesium Hydroxide (Milk Of Mag) 30 ml DAILY PRN PO CONSTIPATION; Start at 18:30 Sodium Biphosphate/ Sodium Phosphate 133 ml 133 ml DAILY PRN [place] CONSTIPATION; Start 12/09/16 at 18:30 Sodium Chloride (1/2 NS) 1,000 ml @ 75 mls/hr [id number] IV Last administered on 12/17/16 13:19; Admin Dose 75 MLS/HR; Start 12/09/16 at 18:07 Lorazepam (Ativan) 0.5 mg Q6H PRN IV ANXIETY; Start 12/09/16 at 18:30 Hydralazine HCl (Apresoline) 10 mg Q6H PRN IV ELEVATED BLOOD PRESSURE; Start at 18:30 Clonidine (Catapres) 0.1 mg Q6H PRN PO ELEVATED BLOOD PRESSURE; Start 12/09/16 at 18:30 Nitroglycerin (Nitroglycerin (Sl Tab) 0.4 Mg) 1 tab Q5M PRN SL ANGINA; Start at 18:30 Albuterol (Proventil 0.083% (Neb)) 2.5 mg Q4 PRN NEB WHEEZING AND SOB; Start at 18:30 Atorvastatin Calcium (Lipitor) 10 mg QHS PO Last administered on 12/16/16 21: 59; Admin Dose 10 MG; Start 12/09/16 at 21:00 Digoxin (Digoxin) 0.125 mg DAILY PO Last administered on 12/17/16 08:54; Admin Dose 0.125 MG; Start 12/10/16 at 09:00 Ferrous Sulfate (Ferrous Sulfate (Ec)) 325 mg TID PO Last administered on 13:18; Admin Dose 325 MG; Start 12/09/16 at 21:00 Gabapentin (Neurontin) 300 mg TID PO Last administered on 12/17/16 13:18; Admin Dose 300 MG; Start 12/09/16 at 21:00 Isosorbide Mononitrate (Imdur) 60 mg DAILY PO Last administered on 12/17/16 08 :53; Admin Dose 60 MG; Start 12/10/16 at 09:00 Potassium Chloride (Klor-Con 20) 20 meq DAILY PO Last administered on 08:54; Admin Dose 20 MEQ; Start 12/10/16 at 09:00 Sertraline HCl (Zoloft) 50 mg DAILY PO Last administered on 12/17/16 08:53; Admin Dose 50 MG; Start 12/10/16 at 09:00 Sotalol HCl (Betapace) 80 mg BID PO Last administered on 12/17/16 08:54; Admin Dose 80 MG; Start 12/09/16 at 21:00 Zolpidem Tartrate (Ambien) 10 mg QHS PRN PO INSOMNIA Last administered on 23:44; Admin Dose 10 MG; Start 12/09/16 at 18:30 Salmeterol Xinafoate/ Fluticasone (Advair 250/50 Diskus) 1 inh BID INH Last administered on 12/17/16 08:52; Admin Dose 1 INH; Start 12/10/16 at 21:00 Pantoprazole (Protonix Tab) 40 mg BID@18 PO Last administered on 12/17/16 06:36; Admin Dose 40 MG; Start 12/14/16 at 18:00 Apixaban (Eliquis) 5 mg BID PO Last administered on 12/17/16 08:53; Admin Dose 5 MG; Start 12/14/16 at 21:00 Docusate Sodium (Colace) 100 mg BID PO Last administered on 12/17/16 08:53; Admin Dose 100 MG; Start 12/14/16 at 12:30 Hydromorphone HCl (Dilaudid) 4 mg Q4H PRN PO PAIN; Start 12/14/16 at 14:00 Tramadol HCl (Ultram) 50 mg Q6H PRN PO PAIN LEVEL 1-5; Start 12/14/16 at 14:00 Hydromorphone HCl (Dilaudid) 1 mg Q4H PRN IV PAIN Last administered on 14:57; Admin Dose 1 MG; Start 12/14/16 at 14:30 Diphenhydramine HCl (Benadryl) 50 mg Q4H PRN IV itching Last administered on 14:56; Admin Dose 50 MG; Start 12/15/16 at 14:30 Hydrocortisone (Hydrocortisone 0.5% Oint) 1 applic BID TOP Last administered on 12/17/16 09:05; Admin Dose 1 APPLIC; Start 12/15/16 at 14:30 Cyclobenzaprine HCl (Flexeril) 10 mg TID PO Last administered on 12/17/16 13: 18; Admin Dose 10 MG; Start 12/16/16 at 21:00 AMOS TORRES MD Dec 17, 2016 15:42
[2016-12-17] MEDS: BACLOFEN 10 MG TAB PO SCH (21:58)
[2016-12-17] MEDS: ATORVASTATIN 10 MG TAB PO SCH (21:58)
[2016-12-18] VITALS (11 sets, daily range): BP systolic 110–127; BP diastolic 53–84; PULSE 85–107; RESP 16–19
[2016-12-18] MEDS ORDERED: ALTEPLASE (CATHFLO) 2 MG INJ CATHETER PRN (02:30)
[2016-12-18] MEDS: DIPHENHYDRAMINE 50 MG INJ IV PRN ×6 (03:04→22:47)
[2016-12-18] MEDS: HYDROmorphONE 1 MG/ML SYG IV PRN ×6 (03:05→22:47)
[2016-12-18] MEDS: SOD CHLORIDE 0.45% 1,000 ML IV SCH ×3 (03:06→21:09)
[2016-12-18] MEDS: PANTOPRAZOLE (EC) 40 MG TAB PO SCH ×2 (06:00→17:09)
[2016-12-18 06:31] LABS: BASOPHILS % 0.4 % (0.0-2.0); EOSINOPHILS # 0.1 10^3/ul (0.0-0.5); EOSINOPHILS % 1.4 % (0.0-7.0); HEMATOCRIT 37.2 % (42.0-52.0); HEMOGLOBIN 11.6 g/dl (14.0-18.0); LYMPHOCYTES # 1.7 10^3/ul (0.8-2.9); LYMPHOCYTES % 29.6 % (15.0-51.0); MEAN CORPUSCULAR HEMOGLOBIN 29.2 pg (29.0-33.0); MEAN CORPUSCULAR HGB CONC 31.2 g/dl (32.0-37.0); MEAN CORPUSCULAR VOLUME 93.7 fl (82.0-101.0); MEAN PLATELET VOLUME 8.4 fl (7.4-10.4); MONOCYTE # 0.6 10^3/ul (0.3-0.9); MONOCYTES % 11.5 % (0.0-11.0); NEUTROPHIL # 3.1 10^3/ul (1.6-7.5); NEUTROPHILS % 56.2 % (39.0-77.0); PLATELET COUNT 171 10^3/UL (140-415); RED BLOOD COUNT 3.97 10^6/ul (4.70-6.10); RED CELL DISTRIBUTION WIDTH 14.9 % (11.5-14.5); WHITE BLOOD COUNT 5.6 10^3/ul (4.8-10.8)
[2016-12-18 06:59] LABS: ALBUMIN 3.7 g/dl (3.3-4.9); CALCIUM 9.6 mg/dl (8.4-10.2); CREATININE 0.75 mg/dl (0.61-1.24); MAGNESIUM 1.2 mg/dl (1.7-2.5); PHOSPHORUS 4.6 mg/dl (2.5-4.9); POTASSIUM 4.4 mmol/L (3.5-5.1)
[2016-12-18] MEDS: SUCRALFATE 1 GM TAB PO SCH ×4 (07:10→21:08)
--- NOTE | 2016-12-18 07:45 | CONS ---
Date/Time of Note Date/Time of Note DATE: 12/18/16 TIME: 07:44 Assessment/Plan Assessment/Plan Chief Complaint/Hosp Course Hematemesis with history of GI bleed Chest pain, resolved Preserved ejection fraction Possible history of paroxysmal atrial fibrillation Pulmonary emboli on anticoagulation ASD status post closure History of cardiac arrest with history of AICD Marfan's Narrow complex tachycardia Problems: Additional Assessment/Plan no change in cardiac regimen Consultation Date/Type/Reason Admit Date/Time Dec 09, 2016 at 17:29 Initial Consult Date 12/10/16 Type of Consultation: cv Referring Provider: ROB BUI 24 HR Interval Summary Free Text/Dictation no chest pain, no sob, no palpitations Detailed Summary Respiratory: no complaints Cardiovascular: no complaints Gastrointestinal: no complaints Musculoskeletal: no complaints Skin: no complaints Neurologic: no complaints Endocrine: no complaints Lymphatic: no complaints Exam/Review of Systems Vital Signs Vitals Vital Signs Date Time Temp Pulse Resp B/P Pulse Ox O2 Delivery O2 Flow Rate FiO2 12/18/16 04:39 93 12/18/16 04:00 98.2 17 111/60 98 12/15/16 11:05 Room Air Intake and Output 12/17/16 12/17/16 12/18/16 15:00 23:00 07:00 Intake Total 1750 ml Output Total 3800 ml Balance -2050 ml Exam Constitutional: alert, oriented Head: atraumatic, normocephalic Neck: supple Respiratory: clear to auscultation Cardiovascular: regular rate and rhythm Gastrointestinal: soft Musculoskeletal: nl extremities to inspection Extremities: normal pulses Results Result Diagram: 12/18/16 0606 12/18/16 0606 Results 24 hrs Laboratory Tests Test 12/17/16 08:07 12/17/16 08:41 12/17/16 08:47 12/18/16 06:06 Sodium Level 139 137 Potassium Level 4.2 4.4 Chloride Level 99 99 Carbon Dioxide Level 33 H 31 Anion Gap 11 11 Blood Urea Nitrogen 14 13 Creatinine 0.73 0.75 Glucose Level 92 113 Calcium Level 9.5 9.6 Magnesium Level 1.8 1.2 L White Blood Count 4.6 L 5.6 # Red Blood Count 4.09 L 3.97 L Hemoglobin 12.1 L 11.6 L Hematocrit 38.5 L 37.2 L Mean Corpuscular Volume 94.1 93.7 Mean Corpuscular Hemoglobin 29.6 29.2 Mean Corpuscular Hemoglobin Concent 31.4 L 31.2 L Red Cell Distribution Width 14.9 H 14.9 H Platelet Count 200 171 Mean Platelet Volume 8.6 8.4 Neutrophils % 56.5 56.2 Lymphocytes % 30.4 29.6 Monocytes % 10.3 11.5 H Eosinophils % 1.5 1.4 Basophils % 0.4 0.4 Nucleated Red Blood Cells % 0.0 0.0 Neutrophils # 2.6 3.1 Lymphocytes # 1.4 1.7 Monocytes # 0.5 0.6 Eosinophils # 0.1 0.1 Basophils # 0.0 0.0 Nucleated Red Blood Cells # 0.0 0.0 Phosphorus Level 4.6 Albumin 3.7 Medications Medications Current Medications IV Flush (NS 10 ml) 10 ml PRN PRN IV FLUSH LINE Last administered on 12/13/16 16:42; Admin Dose 10 ML; Start 12/09/16 at 17:30 Ondansetron HCl (Zofran Inj) 4 mg Q6H PRN IV NAUSEA AND/OR VOMITING Last administered on 12/17/16 15:07; Admin Dose 4 MG; Start 12/09/16 at 18:30 Acetaminophen (Tylenol Tab) 650 mg Q6H PRN PO PAIN LEVEL 1-3 OR FEVER; Start at 18:30 Acetaminophen/ Hydrocodone Bitart ([place] (5/325)) 1 tab Q6H PRN PO MODERATE PAIN LEVEL 4-6 Last administered on 12/13/16 11:33; Admin Dose 1 TAB; Start at 18:30 Magnesium Hydroxide (Milk Of Mag) 30 ml DAILY PRN PO CONSTIPATION; Start at 18:30 Sodium Biphosphate/ Sodium Phosphate 133 ml 133 ml DAILY PRN [place] CONSTIPATION; Start 12/09/16 at 18:30 Sodium Chloride (1/2 NS) 1,000 ml @ 75 mls/hr [id number] IV Last administered on 12/18/16 03:06; Admin Dose 75 MLS/HR; Start 12/09/16 at 18:07 Lorazepam (Ativan) 0.5 mg Q6H PRN IV ANXIETY; Start 12/09/16 at 18:30 Hydralazine HCl (Apresoline) 10 mg Q6H PRN IV ELEVATED BLOOD PRESSURE; Start at 18:30 Clonidine (Catapres) 0.1 mg Q6H PRN PO ELEVATED BLOOD PRESSURE; Start 12/09/16 at 18:30 Nitroglycerin (Nitroglycerin (Sl Tab) 0.4 Mg) 1 tab Q5M PRN SL ANGINA; Start at 18:30 Albuterol (Proventil 0.083% (Neb)) 2.5 mg Q4 PRN NEB WHEEZING AND SOB; Start at 18:30 Atorvastatin Calcium (Lipitor) 10 mg QHS PO Last administered on 12/17/16 21: 58; Admin Dose 10 MG; Start 12/09/16 at 21:00 Digoxin (Digoxin) 0.125 mg DAILY PO Last administered on 12/17/16 08:54; Admin Dose 0.125 MG; Start 12/10/16 at 09:00 Ferrous Sulfate (Ferrous Sulfate (Ec)) 325 mg TID PO Last administered on 21:58; Admin Dose 325 MG; Start 12/09/16 at 21:00 Gabapentin (Neurontin) 300 mg TID PO Last administered on 12/17/16 21:58; Admin Dose 300 MG; Start 12/09/16 at 21:00 Isosorbide Mononitrate (Imdur) 60 mg DAILY PO Last administered on 12/17/16 08 :53; Admin Dose 60 MG; Start 12/10/16 at 09:00 Potassium Chloride (Klor-Con 20) 20 meq DAILY PO Last administered on 08:54; Admin Dose 20 MEQ; Start 12/10/16 at 09:00 Sertraline HCl (Zoloft) 50 mg DAILY PO Last administered on 12/17/16 08:53; Admin Dose 50 MG; Start 12/10/16 at 09:00 Sotalol HCl (Betapace) 80 mg BID PO Last administered on 12/17/16 21:57; Admin Dose 80 MG; Start 12/09/16 at 21:00 Zolpidem Tartrate (Ambien) 10 mg QHS PRN PO INSOMNIA Last administered on 23:44; Admin Dose 10 MG; Start 12/09/16 at 18:30 Salmeterol Xinafoate/ Fluticasone (Advair 250/50 Diskus) 1 inh BID INH Last administered on 12/17/16 21:56; Admin Dose 1 INH; Start 12/10/16 at 21:00 Pantoprazole (Protonix Tab) 40 mg BID@06,18 PO Last administered on 12/18/16 06:00; Admin Dose 40 MG; Start 12/14/16 at 18:00 Apixaban (Eliquis) 5 mg BID PO Last administered on 12/17/16 21:58; Admin Dose 5 MG; Start 12/14/16 at 21:00 Docusate Sodium (Colace) 100 mg BID PO Last administered on 12/17/16 21:58; Admin Dose 100 MG; Start 12/14/16 at 12:30 Hydromorphone HCl (Dilaudid) 4 mg Q4H PRN PO PAIN; Start 12/14/16 at 14:00 Tramadol HCl (Ultram) 50 mg Q6H PRN PO PAIN LEVEL 1-5; Start 12/14/16 at 14:00 Hydromorphone HCl (Dilaudid) 1 mg Q4H PRN IV PAIN Last administered on 07:11; Admin Dose 1 MG; Start 12/14/16 at 14:30 Diphenhydramine HCl (Benadryl) 50 mg Q4H PRN IV itching Last administered on 07:11; Admin Dose 50 MG; Start 12/15/16 at 14:30 Hydrocortisone (Hydrocortisone 0.5% Oint) 1 applic BID TOP Last administered on 12/17/16 21:56; Admin Dose 1 APPLIC; Start 12/15/16 at 14:30 Baclofen (Lioresal) 10 mg TID PO Last administered on 12/17/16 21:58; Admin Dose 10 MG; Start 12/17/16 at 21:00 HERMELINDA MOSQUERA MD Dec 18, 2016 07:45
[2016-12-18] MEDS: GABAPENTIN 300 MG CAP PO SCH ×3 (08:34→21:08)
[2016-12-18] MEDS: SALMETEROL/FLUTICASONE 250/50 INHA INH SCH ×2 (08:34→21:07)
[2016-12-18] MEDS: ISOSORBIDE MONONITRATE(SR)60 MG TAB PO SCH (08:35)
[2016-12-18] MEDS: SERTRALINE 50 MG TAB PO SCH (08:35)
[2016-12-18] MEDS: DOCUSATE SODIUM 100 MG CAP PO SCH ×2 (08:36→21:08)
[2016-12-18] MEDS: SOTALOL 80 MG TAB PO SCH ×2 (08:36→21:08)
[2016-12-18] MEDS: BACLOFEN 10 MG TAB PO SCH ×3 (08:36→21:08)
[2016-12-18] MEDS: DIGOXIN 0.125 MG TAB PO SCH (08:36)
[2016-12-18] MEDS: FERROUS SULFATE (EC) 325 MG TAB PO SCH ×3 (08:37→21:08)
[2016-12-18] MEDS: POTASSIUM CHLORIDE (SR) 20 MEQ TAB PO SCH (08:37)
[2016-12-18] MEDS: APIXABAN 5 MG TABLET PO SCH ×2 (08:37→21:08)
[2016-12-18] MEDS ORDERED: DOCUSATE SODIUM 10 MG/ML (10ML CUP) GTB SCH (09:00)
[2016-12-18] MEDS: HYDROCORTISONE 0.5% 28.35 GM OINT TOP SCH ×2 (10:54→21:09)
[2016-12-18] MEDS ORDERED: MAGNESIUM SULFATE 4 GM/100 ML 100 ML IVPB ONE (12:00)
--- NOTE | 2016-12-18 14:57 | PN ---
Date/Time of Note Date/Time of Note DATE: 12/18/16 TIME: 14:54 Assessment/Plan VTE Prophylaxis VTE Prophylaxis Intervention: SCD's, other Lines/Catheters IV Catheter Type (from Nrs): PICC Line Central line still needed: Yes Urinary Cath still in place: No Assessment/Plan Assessment/Plan 1. Upper GI bleeding, severe erosive gastritis, recurrent - Eliquis restarted and hgb stable. Patient did have one episode of bright red blood after BM this am - FOBT negative in the past. Will order repeat if patient experiences another episode 2. NSVT - stable. no further episodes - Electrolytes checked and Mg replaced to keep K >4 and Mg >2 3. Chest pain, atypical for CAD, but pulmonary hypertension may give angina, resolved 4. Pruritis - stable - Benadryl and hydrocortisone cream PRN 5. Pulmonary embolism, due to ASD - On eliquis 6. ASD, s/p repair in 2010 - Stable 7. Marfan's syndrome, 8. Atrial fibrillation - Stable. A-pacing rhythm now, controlled rate, eliquis 8. Cardiac arrest in 2011, AICD 2012 9. h/o recurrent ischemic stroke 10. Hypokalemia/hypomag - Mg 1.2, replaced - will plan to give daily Mg supplements upon d/c 11. Disposition - if patient has no further episodes of BRBPR will d/c in am Subjective 24 Hr Interval Summary Free Text/Dictation Patient states this am he experiencing about 2 tablespoons of blood in his stool. Denies any further episodes but concerned about findings. No acute overnight events. Exam/Review of Systems Vital Signs Vitals Vital Signs Date Time Temp Pulse Resp B/P Pulse Ox O2 Delivery O2 Flow Rate FiO2 12/18/16 12:41 85 12/18/16 11:39 98.1 19 115/53 96 12/15/16 11:05 Room Air Intake and Output 12/17/16 12/17/16 12/18/16 15:00 23:00 07:00 Intake Total 1750 ml 1000 ml Output Total 3800 ml Balance -2050 ml 1000 ml Exam Constitutional: alert, oriented, well developed Eyes: EOMI, PERRL Neck: non-tender, supple Respiratory: clear to auscultation, diminished breath sounds, No crackles/rales , No wheezing Cardiovascular: regular rate and rhythm, No systolic murmur Gastrointestinal: nl liver, spleen, non-tender, soft, No distended, No rebound or guarding Musculoskeletal: nl extremities to inspection Extremities: normal pulses 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: [employer] ADVISOR II-XII intact, nl mental status Skin: nl turgor, pale complexion Results Result Diagram: 12/18/16 0606 12/18/16 0606 Results 24 hrs Laboratory Tests Test 12/18/16 06:06 White Blood Count 5.6 # Red Blood Count 3.97 L Hemoglobin 11.6 L Hematocrit 37.2 L Mean Corpuscular Volume 93.7 Mean Corpuscular Hemoglobin 29.2 Mean Corpuscular Hemoglobin Concent 31.2 L Red Cell Distribution Width 14.9 H Platelet Count 171 Mean Platelet Volume 8.4 Neutrophils % 56.2 Lymphocytes % 29.6 Monocytes % 11.5 H Eosinophils % 1.4 Basophils % 0.4 Nucleated Red Blood Cells % 0.0 Neutrophils # 3.1 Lymphocytes # 1.7 Monocytes # 0.6 Eosinophils # 0.1 Basophils # 0.0 Nucleated Red Blood Cells # 0.0 Sodium Level 137 Potassium Level 4.4 Chloride Level 99 Carbon Dioxide Level 31 Anion Gap 11 Blood Urea Nitrogen 13 Creatinine 0.75 Glucose Level 113 Calcium Level 9.6 Phosphorus Level 4.6 Magnesium Level 1.2 L Albumin 3.7 Medications Medications Current Medications IV Flush (NS 10 ml) 10 ml PRN PRN IV FLUSH LINE Last administered on 12/13/16 16:42; Admin Dose 10 ML; Start 12/09/16 at 17:30 Ondansetron HCl (Zofran Inj) 4 mg Q6H PRN IV NAUSEA AND/OR VOMITING Last administered on 12/17/16 15:07; Admin Dose 4 MG; Start 12/09/16 at 18:30 Acetaminophen (Tylenol Tab) 650 mg Q6H PRN PO PAIN LEVEL 1-3 OR FEVER; Start at 18:30 Acetaminophen/ Hydrocodone Bitart ([place] (5/325)) 1 tab Q6H PRN PO MODERATE PAIN LEVEL 4-6 Last administered on 12/13/16 11:33; Admin Dose 1 TAB; Start at 18:30 Magnesium Hydroxide (Milk Of Mag) 30 ml DAILY PRN PO CONSTIPATION; Start at 18:30 Sodium Biphosphate/ Sodium Phosphate 133 ml 133 ml DAILY PRN [place] CONSTIPATION; Start 12/09/16 at 18:30 Sodium Chloride (1/2 NS) 1,000 ml @ 75 mls/hr [id number] IV Last administered on 12/18/16 03:06; Admin Dose 75 MLS/HR; Start 12/09/16 at 18:07 Lorazepam (Ativan) 0.5 mg Q6H PRN IV ANXIETY; Start 12/09/16 at 18:30 Hydralazine HCl (Apresoline) 10 mg Q6H PRN IV ELEVATED BLOOD PRESSURE; Start at 18:30 Clonidine (Catapres) 0.1 mg Q6H PRN PO ELEVATED BLOOD PRESSURE; Start 12/09/16 at 18:30 Nitroglycerin (Nitroglycerin (Sl Tab) 0.4 Mg) 1 tab Q5M PRN SL ANGINA; Start at 18:30 Albuterol (Proventil 0.083% (Neb)) 2.5 mg Q4 PRN NEB WHEEZING AND SOB; Start at 18:30 Atorvastatin Calcium (Lipitor) 10 mg QHS PO Last administered on 12/17/16 21: 58; Admin Dose 10 MG; Start 12/09/16 at 21:00 Digoxin (Digoxin) 0.125 mg DAILY PO Last administered on 12/18/16 08:36; Admin Dose 0.125 MG; Start 12/10/16 at 09:00 Ferrous Sulfate (Ferrous Sulfate (Ec)) 325 mg TID PO Last administered on 12:25; Admin Dose 325 MG; Start 12/09/16 at 21:00 Gabapentin (Neurontin) 300 mg TID PO Last administered on 12/18/16 12:26; Admin Dose 300 MG; Start 12/09/16 at 21:00 Isosorbide Mononitrate (Imdur) 60 mg DAILY PO Last administered on 12/18/16 08 :35; Admin Dose 60 MG; Start 12/10/16 at 09:00 Potassium Chloride (Klor-Con 20) 20 meq DAILY PO Last administered on 08:37; Admin Dose 20 MEQ; Start 12/10/16 at 09:00 Sertraline HCl (Zoloft) 50 mg DAILY PO Last administered on 12/18/16 08:35; Admin Dose 50 MG; Start 12/10/16 at 09:00 Sotalol HCl (Betapace) 80 mg BID PO Last administered on 12/18/16 08:36; Admin Dose 80 MG; Start 12/09/16 at 21:00 Zolpidem Tartrate (Ambien) 10 mg QHS PRN PO INSOMNIA Last administered on 23:44; Admin Dose 10 MG; Start 12/09/16 at 18:30 Salmeterol Xinafoate/ Fluticasone (Advair 250/50 Diskus) 1 inh BID INH Last administered on 12/18/16 08:34; Admin Dose 1 INH; Start 12/10/16 at 21:00 Pantoprazole (Protonix Tab) 40 mg BID@,18 PO Last administered on 12/18/16 06:00; Admin Dose 40 MG; Start 12/14/16 at 18:00 Apixaban (Eliquis) 5 mg BID PO Last administered on 12/18/16 08:37; Admin Dose 5 MG; Start 12/14/16 at 21:00 Docusate Sodium (Colace) 100 mg BID PO Last administered on 12/18/16 08:36; Admin Dose 100 MG; Start 12/14/16 at 12:30 Hydromorphone HCl (Dilaudid) 4 mg Q4H PRN PO PAIN; Start 12/14/16 at 14:00 Tramadol HCl (Ultram) 50 mg Q6H PRN PO PAIN LEVEL 1-5; Start 12/14/16 at 14:00 Hydromorphone HCl (Dilaudid) 1 mg Q4H PRN IV PAIN Last administered on 10:56; Admin Dose 1 MG; Start 12/14/16 at 14:30 Diphenhydramine HCl (Benadryl) 50 mg Q4H PRN IV itching Last administered on 10:54; Admin Dose 50 MG; Start 12/15/16 at 14:30 Hydrocortisone (Hydrocortisone 0.5% Oint) 1 applic BID TOP Last administered on 12/18/16 10:54; Admin Dose 1 APPLIC; Start 12/15/16 at 14:30 Baclofen 10 mg 10 mg TID PO Last administered on 12/18/16 12:26; Admin Dose 10 MG; Start 12/17/16 at 21:00 Magnesium Sulfate (Magnesium Sulfate 4 Gm/100 ml) 100 ml @ 25 mls/hr ONCE ONCE IVPB Last administered on 12/18/16 12:26; Admin Dose 25 MLS/HR; Start at 12:00; Stop 12/18/16 at 15:59 AMOS TORRES MD Dec 18, 2016 14:57
[2016-12-18] MEDS: ATORVASTATIN 10 MG TAB PO SCH (21:08)
[2016-12-19] VITALS (12 sets, daily range): BP systolic 106–163; BP diastolic 55–94; PULSE 73–104; RESP 16–20
[2016-12-19] MEDS: DIPHENHYDRAMINE 50 MG INJ IV PRN ×5 (02:54→20:42)
[2016-12-19] MEDS: HYDROmorphONE 1 MG/ML SYG IV PRN ×5 (02:54→20:42)
[2016-12-19] MEDS: PANTOPRAZOLE (EC) 40 MG TAB PO SCH ×2 (06:08→17:31)
[2016-12-19 07:18] LABS: BASOPHILS % 0.2 % (0.0-2.0); EOSINOPHILS # 0.1 10^3/ul (0.0-0.5); EOSINOPHILS % 0.9 % (0.0-7.0); HEMATOCRIT 37.2 % (42.0-52.0); HEMOGLOBIN 11.5 g/dl (14.0-18.0); LYMPHOCYTES # 1.3 10^3/ul (0.8-2.9); LYMPHOCYTES % 14.5 % (15.0-51.0); MEAN CORPUSCULAR HEMOGLOBIN 28.9 pg (29.0-33.0); MEAN CORPUSCULAR HGB CONC 30.9 g/dl (32.0-37.0); MEAN CORPUSCULAR VOLUME 93.5 fl (82.0-101.0); MEAN PLATELET VOLUME 8.6 fl (7.4-10.4); MONOCYTE # 0.8 10^3/ul (0.3-0.9); NEUTROPHIL # 6.6 10^3/ul (1.6-7.5); NEUTROPHILS % 74.6 % (39.0-77.0); PLATELET COUNT 180 10^3/UL (140-415); RED BLOOD COUNT 3.98 10^6/ul (4.70-6.10); WHITE BLOOD COUNT 8.9 10^3/ul (4.8-10.8)
[2016-12-19 07:41] LABS: CALCIUM 9.1 mg/dl (8.4-10.2); CREATININE 0.78 mg/dl (0.61-1.24); MAGNESIUM 1.8 mg/dl (1.7-2.5); PHOSPHORUS 3.8 mg/dl (2.5-4.9); POTASSIUM 4.6 mmol/L (3.5-5.1)
[2016-12-19] MEDS: BACLOFEN 10 MG TAB PO SCH ×3 (08:21→20:41)
[2016-12-19] MEDS: POTASSIUM CHLORIDE (SR) 20 MEQ TAB PO SCH (08:21)
[2016-12-19] MEDS: ISOSORBIDE MONONITRATE(SR)60 MG TAB PO SCH (08:21)
[2016-12-19] MEDS: DOCUSATE SODIUM 100 MG CAP PO SCH ×2 (08:21→20:41)
[2016-12-19] MEDS: APIXABAN 5 MG TABLET PO SCH ×2 (08:21→20:41)
[2016-12-19] MEDS: SOTALOL 80 MG TAB PO SCH (08:22)
[2016-12-19] MEDS: GABAPENTIN 300 MG CAP PO SCH ×3 (08:22→20:41)
[2016-12-19] MEDS: FERROUS SULFATE (EC) 325 MG TAB PO SCH ×3 (08:22→20:42)
[2016-12-19] MEDS: DIGOXIN 0.125 MG TAB PO SCH (08:22)
[2016-12-19] MEDS: SERTRALINE 50 MG TAB PO SCH (08:22)
[2016-12-19] MEDS: SALMETEROL/FLUTICASONE 250/50 INHA INH SCH ×2 (08:22→20:41)
[2016-12-19] MEDS: HYDROCORTISONE 0.5% 28.35 GM OINT TOP SCH ×2 (08:23→20:42)
[2016-12-19] MEDS: SUCRALFATE 1 GM TAB PO SCH ×4 (08:24→20:41)
[2016-12-19] MEDS: ONDANSETRON 4 MG INJ IV PRN (12:37)
--- NOTE | 2016-12-19 13:15 | PN ---
Date/Time of Note Date/Time of Note DATE: 12/19/16 TIME: 13:11 Assessment/Plan VTE Prophylaxis VTE Prophylaxis Intervention: other Lines/Catheters IV Catheter Type (from [facility]): PICC Line Central line still needed: Yes Urinary Cath still in place: No Assessment/Plan Assessment/Plan 1. Upper GI bleeding, severe erosive gastritis, recurrent - Patient states he experienced an episodes of emesis with blood mixed with undigested food. - H/H stable this am and will continue to monitor - Eliquis restarted and hgb stable - FOBT negative in the past 2. NSVT - stable. no further episodes - Electrolytes checked and Mg replaced to keep K >4 and Mg >2 3. Chest pain, atypical for CAD, but pulmonary hypertension may give angina, resolved 4. Pruritis - stable - Benadryl and hydrocortisone cream PRN 5. Pulmonary embolism, due to ASD - On eliquis 6. ASD, s/p repair in 2010 - Stable 7. Marfan's syndrome, 8. Atrial fibrillation - Stable. A-pacing rhythm now, controlled rate, eliquis 8. Cardiac arrest in 2011, AICD 2012 9. h/o recurrent ischemic stroke 10. Hypokalemia/hypomag - Mg 1.8 - will plan to give daily Mg supplements upon d/c 11. Disposition - patient states experienced blood in stool and emesis. Will continue monitoring H/H and will discharge once remains stable with no further episodes of bleeding Subjective 24 Hr Interval Summary Free Text/Dictation Patient states he experienced an episode of hematemesis this am which he described bright blood mixed with undigested food. Denies any nausea prior to event. No other complaints and no overnight events. Exam/Review of Systems Vital Signs Vitals Vital Signs Date Time Temp Pulse Resp B/P Pulse Ox O2 Delivery O2 Flow Rate FiO2 12/19/16 12:04 80 12/19/16 11:52 98.3 19 106/55 97 12/15/16 11:05 Room Air Intake and Output 12/18/16 12/18/16 12/19/16 14:59 22:59 06:59 Intake Total 2500 ml 1800 ml Output Total 1200 ml 1000 ml 1500 ml Balance -1200 ml 1500 ml 300 ml Exam Constitutional: alert, oriented, well developed Eyes: EOMI, PERRL Neck: non-tender, supple Respiratory: clear to auscultation, diminished breath sounds, No crackles/rales , No wheezing Cardiovascular: regular rate and rhythm, No systolic murmur Gastrointestinal: nl liver, spleen, non-tender, soft, No distended, No rebound or guarding Musculoskeletal: nl extremities to inspection Extremities: normal pulses 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, nl mental status Skin: nl turgor, pale complexion Results Result Diagram: 12/19/16 0659 12/19/16 0652 Results 24 hrs Laboratory Tests Test 12/19/16 06:52 12/19/16 06:59 Sodium Level 137 Potassium Level 4.6 Chloride Level 101 Carbon Dioxide Level 30 Anion Gap 11 Blood Urea Nitrogen 14 Creatinine 0.78 Glucose Level 82 Calcium Level 9.1 Phosphorus Level 3.8 Magnesium Level 1.8 Albumin 4.0 White Blood Count 8.9 # Red Blood Count 3.98 L Hemoglobin 11.5 L Hematocrit 37.2 L Mean Corpuscular Volume 93.5 Mean Corpuscular Hemoglobin 28.9 L Mean Corpuscular Hemoglobin Concent 30.9 L Red Cell Distribution Width 15.0 H Platelet Count 180 Mean Platelet Volume 8.6 Neutrophils % 74.6 Lymphocytes % 14.5 L Monocytes % 9.0 Eosinophils % 0.9 Basophils % 0.2 Nucleated Red Blood Cells % 0.0 Neutrophils # 6.6 Lymphocytes # 1.3 Monocytes # 0.8 Eosinophils # 0.1 Basophils # 0.0 Nucleated Red Blood Cells # 0.0 Medications Medications Current Medications IV Flush (NS 10 ml) 10 ml PRN PRN IV FLUSH LINE Last administered on 12/13/16 16:42; Admin Dose 10 ML; Start 12/09/16 at 17:30 Ondansetron HCl (Zofran Inj) 4 mg Q6H PRN IV NAUSEA AND/OR VOMITING Last administered on 12/19/16 12:37; Admin Dose 4 MG; Start 12/09/16 at 18:30 Acetaminophen (Tylenol Tab) 650 mg Q6H PRN PO PAIN LEVEL 1-3 OR FEVER; Start at 18:30 Acetaminophen/ Hydrocodone Bitart (Bruno (5/325)) 1 tab Q6H PRN PO MODERATE PAIN LEVEL 4-6 Last administered on 12/13/16 11:33; Admin Dose 1 TAB; Start at 18:30 Magnesium Hydroxide (Milk Of Mag) 30 ml DAILY PRN PO CONSTIPATION; Start at 18:30 Sodium Biphosphate/ Sodium Phosphate 133 ml 133 ml DAILY PRN [place] CONSTIPATION; Start 12/09/16 at 18:30 Sodium Chloride (1/2 NS) 1,000 ml @ 75 mls/hr [id number] IV Last administered on 12/18/16 21:09; Admin Dose 75 MLS/HR; Start 12/09/16 at 18:07 Lorazepam (Ativan) 0.5 mg Q6H PRN IV ANXIETY; Start 12/09/16 at 18:30 Hydralazine HCl (Apresoline) 10 mg Q6H PRN IV ELEVATED BLOOD PRESSURE; Start at 18:30 Clonidine (Catapres) 0.1 mg Q6H PRN PO ELEVATED BLOOD PRESSURE; Start 12/09/16 at 18:30 Nitroglycerin (Nitroglycerin (Sl Tab) 0.4 Mg) 1 tab Q5M PRN SL ANGINA; Start at 18:30 Albuterol (Proventil 0.083% (Neb)) 2.5 mg Q4 PRN NEB WHEEZING AND SOB; Start at 18:30 Atorvastatin Calcium (Lipitor) 10 mg QHS PO Last administered on 12/18/16 21: 08; Admin Dose 10 MG; Start 12/09/16 at 21:00 Digoxin (Digoxin) 0.125 mg DAILY PO Last administered on 12/19/16 08:22; Admin Dose 0.125 MG; Start 12/10/16 at 09:00 Ferrous Sulfate (Ferrous Sulfate (Ec)) 325 mg TID PO Last administered on 12:29; Admin Dose 325 MG; Start 12/09/16 at 21:00 Gabapentin (Neurontin) 300 mg TID PO Last administered on 12/19/16 12:29; Admin Dose 300 MG; Start 12/09/16 at 21:00 Isosorbide Mononitrate (Imdur) 60 mg DAILY PO Last administered on 12/19/16 08 :21; Admin Dose 60 MG; Start 12/10/16 at 09:00 Potassium Chloride (Klor-Con 20) 20 meq DAILY PO Last administered on 08:21; Admin Dose 20 MEQ; Start 12/10/16 at 09:00 Sertraline HCl (Zoloft) 50 mg DAILY PO Last administered on 12/19/16 08:22; Admin Dose 50 MG; Start 12/10/16 at 09:00 Sotalol HCl (Betapace) 80 mg BID PO Last administered on 12/19/16 08:22; Admin Dose 80 MG; Start 12/09/16 at 21:00 Zolpidem Tartrate (Ambien) 10 mg QHS PRN PO INSOMNIA Last administered on 23:44; Admin Dose 10 MG; Start 12/09/16 at 18:30 Salmeterol Xinafoate/ Fluticasone (Advair 250/50 Diskus) 1 inh BID INH Last administered on 12/19/16 08:22; Admin Dose 1 INH; Start 12/10/16 at 21:00 Pantoprazole (Protonix Tab) 40 mg BID@,18 PO Last administered on 12/19/16 06:08; Admin Dose 40 MG; Start 12/14/16 at 18:00 Apixaban (Eliquis) 5 mg BID PO Last administered on 12/19/16 08:21; Admin Dose 5 MG; Start 12/14/16 at 21:00 Docusate Sodium (Colace) 100 mg BID PO Last administered on 12/19/16 08:21; Admin Dose 100 MG; Start 12/14/16 at 12:30 Hydromorphone HCl (Dilaudid) 4 mg Q4H PRN PO PAIN; Start 12/14/16 at 14:00 Tramadol HCl (Ultram) 50 mg Q6H PRN PO PAIN LEVEL 1-5; Start 12/14/16 at 14:00 Hydromorphone HCl (Dilaudid) 1 mg Q4H PRN IV PAIN Last administered on 12:28; Admin Dose 1 MG; Start 12/14/16 at 14:30 Diphenhydramine HCl (Benadryl) 50 mg Q4H PRN IV itching Last administered on 12:28; Admin Dose 50 MG; Start 12/15/16 at 14:30 Hydrocortisone (Hydrocortisone 0.5% Oint) 1 applic BID TOP Last administered on 12/19/16 08:23; Admin Dose 1 APPLIC; Start 12/15/16 at 14:30 Baclofen (Lioresal) 10 mg TID PO Last administered on 12/19/16 12:29; Admin Dose 10 MG; Start 12/17/16 at 21:00 AMOS TORRES MD Dec 19, 2016 13:15
[2016-12-19] MEDS: ATORVASTATIN 10 MG TAB PO SCH (20:41)
[2016-12-20] VITALS (12 sets, daily range): BP systolic 108–140; BP diastolic 57–78; PULSE 75–96; RESP 15–20
[2016-12-20] MEDS: SOTALOL 80 MG TAB PO SCH ×3 (01:05→21:36)
[2016-12-20] MEDS: HYDROmorphONE 1 MG/ML SYG IV PRN ×6 (01:06→21:35)
[2016-12-20] MEDS: DIPHENHYDRAMINE 50 MG INJ IV PRN ×6 (01:06→21:35)
[2016-12-20] MEDS: PANTOPRAZOLE (EC) 40 MG TAB PO SCH ×2 (05:04→17:13)
[2016-12-20 09:22] LABS: BASOPHILS % 0.2 % (0.0-2.0); EOSINOPHILS # 0.1 10^3/ul (0.0-0.5); EOSINOPHILS % 1.9 % (0.0-7.0); HEMATOCRIT 38.2 % (42.0-52.0); HEMOGLOBIN 11.8 g/dl (14.0-18.0); LYMPHOCYTES # 1.3 10^3/ul (0.8-2.9); LYMPHOCYTES % 31.8 % (15.0-51.0); MEAN CORPUSCULAR HEMOGLOBIN 28.8 pg (29.0-33.0); MEAN CORPUSCULAR HGB CONC 30.9 g/dl (32.0-37.0); MEAN CORPUSCULAR VOLUME 93.2 fl (82.0-101.0); MEAN PLATELET VOLUME 8.4 fl (7.4-10.4); MONOCYTE # 0.5 10^3/ul (0.3-0.9); MONOCYTES % 11.2 % (0.0-11.0); NEUTROPHIL # 2.3 10^3/ul (1.6-7.5); NEUTROPHILS % 54.4 % (39.0-77.0); PLATELET COUNT 183 10^3/UL (140-415); RED CELL DISTRIBUTION WIDTH 14.8 % (11.5-14.5); WHITE BLOOD COUNT 4.2 10^3/ul (4.8-10.8)
[2016-12-20] MEDS: SALMETEROL/FLUTICASONE 250/50 INHA INH SCH ×2 (09:25→21:34)
[2016-12-20] MEDS: SUCRALFATE 1 GM TAB PO SCH ×4 (09:26→23:53)
[2016-12-20] MEDS: GABAPENTIN 300 MG CAP PO SCH ×3 (09:26→21:36)
[2016-12-20] MEDS: ISOSORBIDE MONONITRATE(SR)60 MG TAB PO SCH (09:26)
[2016-12-20] MEDS: APIXABAN 5 MG TABLET PO SCH ×2 (09:27→21:35)
[2016-12-20] MEDS: DOCUSATE SODIUM 100 MG CAP PO SCH ×2 (09:27→21:36)
[2016-12-20] MEDS: DIGOXIN 0.125 MG TAB PO SCH (09:27)
[2016-12-20] MEDS: POTASSIUM CHLORIDE (SR) 20 MEQ TAB PO SCH (09:27)
[2016-12-20] MEDS: BACLOFEN 10 MG TAB PO SCH ×3 (09:28→21:36)
[2016-12-20] MEDS: FERROUS SULFATE (EC) 325 MG TAB PO SCH ×3 (09:28→21:35)
[2016-12-20] MEDS: HYDROCORTISONE 0.5% 28.35 GM OINT TOP SCH ×2 (09:28→21:35)
[2016-12-20] MEDS: SERTRALINE 50 MG TAB PO SCH (09:28)
[2016-12-20 09:41] LABS: ALBUMIN 4.1 g/dl (3.3-4.9); CALCIUM 9.1 mg/dl (8.4-10.2); CREATININE 0.6 mg/dl (0.61-1.24); MAGNESIUM 1.6 mg/dl (1.7-2.5); PHOSPHORUS 3.7 mg/dl (2.5-4.9)
--- NOTE | 2016-12-20 10:50 | PN ---
Date/Time of Note Date/Time of Note DATE: 12/20/16 TIME: 10:50 Assessment/Plan VTE Prophylaxis VTE Prophylaxis Intervention: other Lines/Catheters IV Catheter Type (from Nrsg): PICC Line Central line still needed: Yes Urinary Cath still in place: No Assessment/Plan Assessment/Plan 1. Upper GI bleeding, severe erosive gastritis, recurrent - H/H stable this am and will continue to monitor - On Eliquis and hgb stable - FOBT negative in the past 2. RUQ pain - Will check RUQ US to rule out any issues with gallbladder - Zofran PRN for nausea 3. NSVT - stable. no further episodes - Electrolytes checked and Mg replaced to keep K >4 and Mg >2 4. Chest pain, atypical for CAD, but pulmonary hypertension may give angina, resolved 5. Pruritis - stable - Benadryl and hydrocortisone cream PRN 6. Pulmonary embolism, due to ASD - On eliquis 7. ASD, s/p repair in 2010 - Stable 8. Marfan's syndrome, 9. Atrial fibrillation - Stable. A-pacing rhythm now, controlled rate, eliquis 10. Cardiac arrest in 2011, AICD 2012 11. h/o recurrent ischemic stroke 12. Hypokalemia/hypomag - Mg 1.6 - started on daily Mg supplements 13. Disposition - awaiting results of RUQ US Subjective 24 Hr Interval Summary Free Text/Dictation Patient states he has not had any further episodes of hematemesis or BRBPR but states RUQ discomfort is present with associated nausea. No acute overnight events. Exam/Review of Systems Vital Signs Vitals Vital Signs Date Time Temp Pulse Resp B/P Pulse Ox O2 Delivery O2 Flow Rate FiO2 12/20/16 08:15 98.0 80 18 118/58 97 Intake and Output 12/19/16 12/19/16 12/20/16 15:00 23:00 07:00 Intake Total 800 ml 650 ml Output Total 1000 ml Balance 800 ml -350 ml Exam Constitutional: alert, oriented, well developed Eyes: EOMI, PERRL Neck: non-tender, supple Respiratory: clear to auscultation, diminished breath sounds, No crackles/rales , No wheezing Cardiovascular: regular rate and rhythm, No systolic murmur Gastrointestinal: nl liver, spleen, Tenderness in RUQ, +Murpheys , soft, No distended, No rebound or guarding Musculoskeletal: nl extremities to inspection Extremities: normal pulses 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: MANAGER 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 II-XII 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, nl mental status Skin: nl turgor, pale complexion Results Result Diagram: 12/20/16 0840 12/20/16 0840 Results 24 hrs Laboratory Tests Test 12/20/16 08:40 White Blood Count 4.2 #L Red Blood Count 4.10 L Hemoglobin 11.8 L Hematocrit 38.2 L Mean Corpuscular Volume 93.2 Mean Corpuscular Hemoglobin 28.8 L Mean Corpuscular Hemoglobin Concent 30.9 L Red Cell Distribution Width 14.8 H Platelet Count 183 Mean Platelet Volume 8.4 Neutrophils % 54.4 Lymphocytes % 31.8 Monocytes % 11.2 H Eosinophils % 1.9 Basophils % 0.2 Nucleated Red Blood Cells % 0.0 Neutrophils # 2.3 Lymphocytes # 1.3 Monocytes # 0.5 Eosinophils # 0.1 Basophils # 0.0 Nucleated Red Blood Cells # 0.0 Sodium Level 139 Potassium Level 4.0 Chloride Level 101 Carbon Dioxide Level 30 Anion Gap 12 Blood Urea Nitrogen 11 Creatinine 0.60 L Glucose Level 125 # Calcium Level 9.1 Phosphorus Level 3.7 Magnesium Level 1.6 L Albumin 4.1 Medications Medications Current Medications IV Flush (NS 10 ml) 10 ml PRN PRN IV FLUSH LINE Last administered on 12/13/16 16:42; Admin Dose 10 ML; Start 12/09/16 at 17:30 Ondansetron HCl (Zofran Inj) 4 mg Q6H PRN IV NAUSEA AND/OR VOMITING Last administered on 12/19/16 12:37; Admin Dose 4 MG; Start 12/09/16 at 18:30 Acetaminophen (Tylenol Tab) 650 mg Q6H PRN PO PAIN LEVEL 1-3 OR FEVER; Start at 18:30 Acetaminophen/ Hydrocodone Bitart (Healy (5/325)) 1 tab Q6H PRN PO MODERATE PAIN LEVEL 4-6 Last administered on 12/13/16 11:33; Admin Dose 1 TAB; Start at 18:30 Magnesium Hydroxide (Milk Of Mag) 30 ml DAILY PRN PO CONSTIPATION; Start at 18:30 Sodium Biphosphate/ Sodium Phosphate (Fleet Enema) 133 ml DAILY PRN [place] CONSTIPATION; Start 12/09/16 at 18:30 Lorazepam (Ativan) 0.5 mg Q6H PRN IV ANXIETY; Start 12/09/16 at 18:30 Hydralazine HCl (Apresoline) 10 mg Q6H PRN IV ELEVATED BLOOD PRESSURE; Start at 18:30 Clonidine (Catapres) 0.1 mg Q6H PRN PO ELEVATED BLOOD PRESSURE; Start 12/09/16 at 18:30 Nitroglycerin (Nitroglycerin (Sl Tab) 0.4 Mg) 1 tab Q5M PRN SL ANGINA; Start at 18:30 Albuterol (Proventil 0.083% (Neb)) 2.5 mg Q4 PRN NEB WHEEZING AND SOB; Start at 18:30 Atorvastatin Calcium (Lipitor) 10 mg QHS PO Last administered on 12/19/16 20: 41; Admin Dose 10 MG; Start 12/09/16 at 21:00 Digoxin (Digoxin) 0.125 mg DAILY PO Last administered on 12/20/16 09:27; Admin Dose 0.125 MG; Start 12/10/16 at 09:00 Ferrous Sulfate (Ferrous Sulfate (Ec)) 325 mg TID PO Last administered on 09:28; Admin Dose 325 MG; Start 12/09/16 at 21:00 Gabapentin (Neurontin) 300 mg TID PO Last administered on 12/20/16 09:26; Admin Dose 300 MG; Start 12/09/16 at 21:00 Isosorbide Mononitrate (Imdur) 60 mg DAILY PO Last administered on 12/20/16 09 :26; Admin Dose 60 MG; Start 12/10/16 at 09:00 Potassium Chloride (Klor-Con 20) 20 meq DAILY PO Last administered on 09:; Admin Dose 20 MEQ; Start 12/10/16 at 09:00 Sertraline HCl (Zoloft) 50 mg DAILY PO Last administered on 12/20/16 09:28; Admin Dose 50 MG; Start 12/10/16 at 09:00 Sotalol HCl (Betapace) 80 mg BID PO Last administered on 12/20/16 09:27; Admin Dose 80 MG; Start 12/09/16 at 21:00 Zolpidem Tartrate (Ambien) 10 mg QHS PRN PO INSOMNIA Last administered on 23:44; Admin Dose 10 MG; Start 12/09/16 at 18:30 Salmeterol Xinafoate/ Fluticasone (Advair 250/50 Diskus) 1 inh BID INH Last administered on 12/20/16 09:25; Admin Dose 1 INH; Start 12/10/16 at 21:00 Pantoprazole (Protonix Tab) 40 mg BID@,18 PO Last administered on 12/20/16 05:04; Admin Dose 40 MG; Start 12/14/16 at 18:00 Apixaban (Eliquis) 5 mg BID PO Last administered on 12/20/16 09:27; Admin Dose 5 MG; Start 12/14/16 at 21:00 Docusate Sodium (Colace) 100 mg BID PO Last administered on 12/20/16 09:27; Admin Dose 100 MG; Start 12/14/16 at 12:30 Hydromorphone HCl (Dilaudid) 4 mg Q4H PRN PO PAIN; Start 12/14/16 at 14:00 Tramadol HCl (Ultram) 50 mg Q6H PRN PO PAIN LEVEL 1-5; Start 12/14/16 at 14:00 Hydromorphone HCl (Dilaudid) 1 mg Q4H PRN IV PAIN Last administered on 09:26; Admin Dose 1 MG; Start 12/14/16 at 14:30 Diphenhydramine HCl (Benadryl) 50 mg Q4H PRN IV itching Last administered on 09:26; Admin Dose 50 MG; Start 12/15/16 at 14:30 Hydrocortisone (Hydrocortisone 0.5% Oint) 1 applic BID TOP Last administered on 12/20/16 09:28; Admin Dose 1 APPLIC; Start 12/15/16 at 14:30 Baclofen (Lioresal) 10 mg TID PO Last administered on 12/20/16 09:28; Admin Dose 10 MG; Start 12/17/16 at 21:00 AMOS TORRES MD Dec 20, 2016 10:50
[2016-12-20] MEDS: MAGNESIUM OXIDE 400 MG TAB PO SCH (12:43)
[2016-12-20] MEDS: ATORVASTATIN 10 MG TAB PO SCH (21:36)
[2016-12-21] VITALS (12 sets, daily range): BP systolic 18–143; BP diastolic 57–118; PULSE 72–120; RESP 18–19
[2016-12-21] MEDS: DIPHENHYDRAMINE 50 MG INJ IV PRN ×6 (01:29→21:26)
[2016-12-21] MEDS: HYDROmorphONE 1 MG/ML SYG IV PRN ×6 (01:29→21:26)
[2016-12-21] MEDS: PANTOPRAZOLE (EC) 40 MG TAB PO SCH ×2 (05:29→17:24)
--- NOTE | 2016-12-21 07:51 | RADRPT ---
PROCEDURE: US Abdomen (right upper quadrant). CLINICAL INDICATION: Right upper quadrant abdomen pain. TECHNIQUE: Multiple real-time longitudinal and transverse images of the right upper quadrant of th e abdomen were acquired utilizing a curved array transducer. Images were reviewed on a high-resoluti on PACS workstation. COMPARISON: None FINDINGS: The left lobe of liver is not seen due to overlying bowel gas. The visualized portion of the liver i s normal in size and echogenicity. There is no focal hepatic lesion. The gallbladder is normal with no stones or wall thickening. There is no pericholecystic fluid joshua ection. The bile ducts are normal with the common bile duct measuring 5.4 mm in diameter. The pancreas is not seen due to overlying bowel gas. No free fluid is present. The right kidney measures 10.9 cm. There is normal echogenicity of the right kidney. There is no perinephric fluid collection. No hydronephrosis, mass, or calculus is seen. IMPRESSION: 1. Left lobe of liver and pancreas not seen due to overlying bowel gas. 2. Otherwise normal right upper quadrant abdomen ultrasound. RPTAT: QQ .Ted Bacon MD, Date Time Electronically viewed and signed by .Ted Bacon MD, on 12/21/2016 07:51 .R/
[2016-12-21] MEDS: MAGNESIUM OXIDE 400 MG TAB PO SCH (09:30)
[2016-12-21] MEDS: DOCUSATE SODIUM 100 MG CAP PO SCH ×2 (09:30→21:28)
[2016-12-21] MEDS: SUCRALFATE 1 GM TAB PO SCH ×4 (09:30→21:28)
[2016-12-21] MEDS: ISOSORBIDE MONONITRATE(SR)60 MG TAB PO SCH (09:30)
[2016-12-21] MEDS: SERTRALINE 50 MG TAB PO SCH (09:30)
[2016-12-21] MEDS: FERROUS SULFATE (EC) 325 MG TAB PO SCH ×3 (09:30→21:29)
[2016-12-21] MEDS: GABAPENTIN 300 MG CAP PO SCH ×3 (09:30→21:27)
[2016-12-21] MEDS: SOTALOL 80 MG TAB PO SCH ×2 (09:30→21:30)
[2016-12-21] MEDS: APIXABAN 5 MG TABLET PO SCH ×2 (09:31→21:28)
[2016-12-21] MEDS: POTASSIUM CHLORIDE (SR) 20 MEQ TAB PO SCH (09:31)
[2016-12-21] MEDS: SALMETEROL/FLUTICASONE 250/50 INHA INH SCH ×2 (09:31→21:36)
[2016-12-21] MEDS: DIGOXIN 0.125 MG TAB PO SCH (09:31)
[2016-12-21] MEDS: HYDROCORTISONE 0.5% 28.35 GM OINT TOP SCH ×2 (09:39→21:29)
[2016-12-21] MEDS: BACLOFEN 10 MG TAB PO SCH ×3 (09:39→21:28)
[2016-12-21] MEDS ORDERED: BARIUM SULF 2% 450 ML BTL (BERRY SMOOTHIE) PO ONE (19:00)
--- NOTE | 2016-12-21 19:46 | PN ---
Date/Time of Note Date/Time of Note DATE: 12/21/16 TIME: 19:44 Assessment/Plan VTE Prophylaxis VTE Prophylaxis Intervention: other Lines/Catheters IV Catheter Type (from Nrsg): PICC Line Central line still needed: Yes Urinary Cath still in place: No Assessment/Plan Chief Complaint/Hosp Course 1. Upper GI bleeding, severe erosive gastritis, recurrent - H/H stable this am and will continue to monitor - On Eliquis and hgb stable - FOBT negative in the past 2. R abdominal pain - RUQ nondescript, will order CT for continued pain, now in RLQ as well. - Zofran PRN for nausea 3. NSVT - stable. no further episodes - Electrolytes checked and Mg replaced to keep K >4 and Mg >2 4. Chest pain, atypical for CAD, but pulmonary hypertension may give angina, resolved 5. Pruritis - stable - Benadryl and hydrocortisone cream PRN 6. Pulmonary embolism, due to ASD - On eliquis 7. ASD, s/p repair in 2010 - Stable 8. Marfan's syndrome, 9. Atrial fibrillation - Stable. A-pacing rhythm now, controlled rate, eliquis 10. Cardiac arrest in 2011, AICD 2012 11. h/o recurrent ischemic stroke 12. Hypokalemia/hypomag - Mg 1.6 - started on daily Mg supplements 13. Disposition Problems: Subjective 24 Hr Interval Summary Free Text/Dictation still mild R sided pain Exam/Review of Systems Vital Signs Vitals Vital Signs Date Time Temp Pulse Resp B/P Pulse Ox O2 Delivery O2 Flow Rate FiO2 12/21/16 16:06 98 12/21/16 16:03 98.0 19 117/61 100 Intake and Output 12/20/16 12/20/16 12/21/16 15:00 23:00 07:00 Intake Total 1500 ml 450 ml Output Total 800 ml 1100 ml Balance -800 ml 1500 ml -650 ml Exam Constitutional: alert, oriented, well developed Eyes: EOMI, PERRL Neck: non-tender, supple Respiratory: clear to auscultation, diminished breath sounds, No crackles/rales , No wheezing Cardiovascular: regular rate and rhythm, No systolic murmur Gastrointestinal: nl liver, spleen, mild Tenderness in R abdomen, soft, No distended, No rebound or guarding Musculoskeletal: nl extremities to inspection Extremities: normal pulses 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 COVER 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, nl mental status Skin: nl turgor, pale complexion Results Result Diagram: 12/20/16 0840 12/20/16 0840 Medications Medications Current Medications IV Flush (NS 10 ml) 10 ml PRN PRN IV FLUSH LINE Last administered on 12/13/16 16:42; Admin Dose 10 ML; Start 12/09/16 at 17:30 Ondansetron HCl (Zofran Inj) 4 mg Q6H PRN IV NAUSEA AND/OR VOMITING Last administered on 12/19/16 12:37; Admin Dose 4 MG; Start 12/09/16 at 18:30 Acetaminophen (Tylenol Tab) 650 mg Q6H PRN PO PAIN LEVEL 1-3 OR FEVER; Start at 18:30 Acetaminophen/ Hydrocodone Bitart (Central (5/325)) 1 tab Q6H PRN PO MODERATE PAIN LEVEL 4-6 Last administered on 12/13/16 11:33; Admin Dose 1 TAB; Start at 18:30 Magnesium Hydroxide (Milk Of Mag) 30 ml DAILY PRN PO CONSTIPATION; Start at 18:30 Sodium Biphosphate/ Sodium Phosphate (Fleet Enema) 133 ml DAILY PRN [place] CONSTIPATION; Start 12/09/16 at 18:30 Lorazepam (Ativan) 0.5 mg Q6H PRN IV ANXIETY; Start 12/09/16 at 18:30 Hydralazine HCl (Apresoline) 10 mg Q6H PRN IV ELEVATED BLOOD PRESSURE; Start at 18:30 Clonidine (Catapres) 0.1 mg Q6H PRN PO ELEVATED BLOOD PRESSURE; Start 12/09/16 at 18:30 Nitroglycerin (Nitroglycerin (Sl Tab) 0.4 Mg) 1 tab Q5M PRN SL ANGINA; Start at 18:30 Albuterol (Proventil 0.083% (Neb)) 2.5 mg Q4 PRN NEB WHEEZING AND SOB; Start at 18:30 Atorvastatin Calcium (Lipitor) 10 mg QHS PO Last administered on 12/20/16 21: 36; Admin Dose 10 MG; Start 12/09/16 at 21:00 Digoxin (Digoxin) 0.125 mg DAILY PO Last administered on 12/21/16 09:31; Admin Dose 0.125 MG; Start 12/10/16 at 09:00 Ferrous Sulfate (Ferrous Sulfate (Ec)) 325 mg TID PO Last administered on 12:16; Admin Dose 325 MG; Start 12/09/16 at 21:00 Gabapentin (Neurontin) 300 mg TID PO Last administered on 12/21/16 12:16; Admin Dose 300 MG; Start 12/09/16 at 21:00 Isosorbide Mononitrate (Imdur) 60 mg DAILY PO Last administered on 12/21/16 09 :30; Admin Dose 60 MG; Start 12/10/16 at 09:00 Potassium Chloride (Klor-Con 20) 20 meq DAILY PO Last administered on 09:31; Admin Dose 20 MEQ; Start 12/10/16 at 09:00 Sertraline HCl (Zoloft) 50 mg DAILY PO Last administered on 12/21/16 09:30; Admin Dose 50 MG; Start 12/10/16 at 09:00 Sotalol HCl (Betapace) 80 mg BID PO Last administered on 12/21/16 09:30; Admin Dose 80 MG; Start 12/09/16 at 21:00 Zolpidem Tartrate (Ambien) 10 mg QHS PRN PO INSOMNIA Last administered on 23:44; Admin Dose 10 MG; Start 12/09/16 at 18:30 Salmeterol Xinafoate/ Fluticasone (Advair 250/50 Diskus) 1 inh BID INH Last administered on 12/21/16 09:31; Admin Dose 1 INH; Start 12/10/16 at 21:00 Pantoprazole (Protonix Tab) 40 mg BID@06,18 PO Last administered on 12/21/16 17:24; Admin Dose 40 MG; Start 12/14/16 at 18:00 Apixaban (Eliquis) 5 mg BID PO Last administered on 12/21/16 09:31; Admin Dose 5 MG; Start 12/14/16 at 21:00 Docusate Sodium (Colace) 100 mg BID PO Last administered on 12/21/16 09:30; Admin Dose 100 MG; Start 12/14/16 at 12:30 Hydromorphone HCl (Dilaudid) 4 mg Q4H PRN PO PAIN; Start 12/14/16 at 14:00 Tramadol HCl (Ultram) 50 mg Q6H PRN PO PAIN LEVEL 1-5; Start 12/14/16 at 14:00 Hydromorphone HCl (Dilaudid) 1 mg Q4H PRN IV PAIN Last administered on 17:25; Admin Dose 1 MG; Start 12/14/16 at 14:30 Diphenhydramine HCl (Benadryl) 50 mg Q4H PRN IV itching Last administered on 17:25; Admin Dose 50 MG; Start 12/15/16 at 14:30 Hydrocortisone (Hydrocortisone 0.5% Oint) 1 applic BID TOP Last administered on 12/21/16 09:39; Admin Dose 1 APPLIC; Start 12/15/16 at 14:30 Baclofen (Lioresal) 10 mg TID PO Last administered on 12/21/16 12:16; Admin Dose 10 MG; Start 12/17/16 at 21:00 Magnesium Oxide (Mag-Ox 400) 400 mg DAILY PO Last administered on 12/21/16 09: 30; Admin Dose 400 MG; Start 12/20/16 at 12:00 PAOLA CAPELLAN Dec 21, 2016 19:46
[2016-12-21] MEDS: ATORVASTATIN 10 MG TAB PO SCH (21:28)
[2016-12-22] VITALS (12 sets, daily range): BP systolic 120–142; BP diastolic 59–75; PULSE 67–108; RESP 16–18
[2016-12-22] MEDS: DIPHENHYDRAMINE 50 MG INJ IV PRN ×6 (01:31→21:25)
[2016-12-22] MEDS: HYDROmorphONE 1 MG/ML SYG IV PRN ×7 (01:31→21:26)
[2016-12-22] MEDS: PANTOPRAZOLE (EC) 40 MG TAB PO SCH ×2 (05:23→17:34)
[2016-12-22 08:50] LABS: BASOPHILS % 0.3 % (0.0-2.0); EOSINOPHILS # 0.1 10^3/ul (0.0-0.5); EOSINOPHILS % 1.4 % (0.0-7.0); HEMATOCRIT 34.5 % (42.0-52.0); HEMOGLOBIN 10.7 g/dl (14.0-18.0); LYMPHOCYTES # 1.3 10^3/ul (0.8-2.9); LYMPHOCYTES % 36.3 % (15.0-51.0); MEAN CORPUSCULAR VOLUME 93.5 fl (82.0-101.0); MEAN PLATELET VOLUME 8.3 fl (7.4-10.4); MONOCYTE # 0.5 10^3/ul (0.3-0.9); MONOCYTES % 13.4 % (0.0-11.0); NEUTROPHIL # 1.8 10^3/ul (1.6-7.5); NEUTROPHILS % 48.1 % (39.0-77.0); PLATELET COUNT 187 10^3/UL (140-415); RED BLOOD COUNT 3.69 10^6/ul (4.70-6.10); RED CELL DISTRIBUTION WIDTH 14.5 % (11.5-14.5); WHITE BLOOD COUNT 3.7 10^3/ul (4.8-10.8)
[2016-12-22 09:01] LABS: CREATININE 0.56 mg/dl (0.61-1.24); MAGNESIUM 1.6 mg/dl (1.7-2.5); PHOSPHORUS 4.1 mg/dl (2.5-4.9); POTASSIUM 4.2 mmol/L (3.5-5.1)
[2016-12-22 09:13] LABS: ALBUMIN 3.7 g/dl (3.3-4.9); BILIRUBIN,INDIRECT 0.1 mg/dl (0-1.1); BILIRUBIN,TOTAL 0.1 mg/dl (0.2-1.3)
[2016-12-22] MEDS: SALMETEROL/FLUTICASONE 250/50 INHA INH SCH ×2 (09:44→21:25)
[2016-12-22] MEDS: SOTALOL 80 MG TAB PO SCH ×2 (09:45→21:36)
[2016-12-22] MEDS: DOCUSATE SODIUM 100 MG CAP PO SCH ×2 (09:45→21:25)
[2016-12-22] MEDS: FERROUS SULFATE (EC) 325 MG TAB PO SCH ×3 (09:46→21:25)
[2016-12-22] MEDS: GABAPENTIN 300 MG CAP PO SCH ×3 (09:46→21:25)
[2016-12-22] MEDS: MAGNESIUM OXIDE 400 MG TAB PO SCH (09:46)
[2016-12-22] MEDS: SERTRALINE 50 MG TAB PO SCH (09:46)
[2016-12-22] MEDS: DIGOXIN 0.125 MG TAB PO SCH (09:46)
[2016-12-22] MEDS: ISOSORBIDE MONONITRATE(SR)60 MG TAB PO SCH (09:46)
[2016-12-22] MEDS: POTASSIUM CHLORIDE (SR) 20 MEQ TAB PO SCH (09:47)
[2016-12-22] MEDS: APIXABAN 5 MG TABLET PO SCH ×2 (09:47→21:25)
[2016-12-22] MEDS: HYDROCORTISONE 0.5% 28.35 GM OINT TOP SCH ×2 (09:47→21:26)
[2016-12-22] MEDS: BACLOFEN 10 MG TAB PO SCH ×3 (09:58→21:25)
[2016-12-22] MEDS: SUCRALFATE 1 GM TAB PO SCH ×4 (09:58→21:25)
--- NOTE | 2016-12-22 14:43 | PN ---
Date/Time of Note Date/Time of Note DATE: 12/22/16 TIME: 14:37 Assessment/Plan VTE Prophylaxis VTE Prophylaxis Intervention: other Lines/Catheters IV Catheter Type (from Nrsg): PICC Line Central line still needed: Yes Urinary Cath still in place: No Assessment/Plan Assessment/Plan 1. Upper GI bleeding, recurrent, follow up with GI 2. Chest pain, atypical for CAD, but pulmonary hypertension may give angina 3. Pulmonary embolism, due to ASD 4. ASD, s/p repair in 2010 5. Marfan's syndrome, 6. Atrial fibrillation, A-pacing rhythm now, controlled rate, hold eliquis due to GI bleeding 7. Pulmonary embolism in 2013, not clear if he has hypercoagulable state after intensive work ups 8. Cardiac arrest in 2011, AICD 2012 9. h/o recurrent ischemic stroke 10. RUQ abdominal pain, unremarkable ultrasound order CT scan 11. Hypomagnesemia, Mg Subjective 24 Hr Interval Summary Free Text/Dictation feels better. RUQ abdominal pain Exam/Review of Systems Vital Signs Vitals Vital Signs Date Time Temp Pulse Resp B/P Pulse Ox O2 Delivery O2 Flow Rate FiO2 12/22/16 12:23 98.1 98 18 121/59 96 Intake and Output 12/21/16 12/21/16 12/22/16 15:00 23:00 07:00 Intake Total 1500 ml 1500 ml Output Total 1200 ml Balance 1500 ml 300 ml Exam Constitutional: alert, oriented, well developed Psych: anxiety, nl mood/affect, no complaints Head: atraumatic, normocephalic Eyes: EOMI, PERRL, nl conjunctiva, nl lids ENMT: nl external ears & nose, nl lips & teeth Neck: non-tender, supple Respiratory: clear to auscultation, normal air movement, No congested cough, No crackles/rales, No diminished breath sounds, No intercostal retraction, No labored breathing, No other, No respirations, No tactile fremitus, No wheezing Cardiovascular: nl pulses, regular rate and rhythm, No S3, No S4, No bruits, No diastolic murmur, No edema, No gallop, No irregular rhythm, No jugular venous distention (JVD), No murmurs/extra sounds, No other, No rub, No systolic murmur Gastrointestinal: nl liver, spleen, other (right upper abdominal tenderness), soft Musculoskeletal: nl extremities to inspection Extremities: normal pulses, No calf tenderness, No clubbing, No cyanosis, No edema, No other, No palpable cord, No pitting pedal edema, No tenderness 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: NUCLEAR TECHNICIAN II-XII intact, nl mental status, nl speech, nl strength Results Result Diagram: 12/22/16 0806 12/22/16 0806 Results 24 hrs Laboratory Tests Test 12/22/16 08:06 White Blood Count 3.7 L Red Blood Count 3.69 L Hemoglobin 10.7 L Hematocrit 34.5 L Mean Corpuscular Volume 93.5 Mean Corpuscular Hemoglobin 29.0 Mean Corpuscular Hemoglobin Concent 31.0 L Red Cell Distribution Width 14.5 Platelet Count 187 Mean Platelet Volume 8.3 Neutrophils % 48.1 Lymphocytes % 36.3 Monocytes % 13.4 H Eosinophils % 1.4 Basophils % 0.3 Nucleated Red Blood Cells % 0.0 Neutrophils # 1.8 Lymphocytes # 1.3 Monocytes # 0.5 Eosinophils # 0.1 Basophils # 0.0 Nucleated Red Blood Cells # 0.0 Sodium Level 136 Potassium Level 4.2 Chloride Level 103 Carbon Dioxide Level 32 H Anion Gap 5 L Blood Urea Nitrogen 7 Creatinine 0.56 L Glucose Level 84 # Calcium Level 9.0 Phosphorus Level 4.1 Magnesium Level 1.6 L Total Bilirubin 0.1 L Direct Bilirubin 0.00 Indirect Bilirubin 0.1 Aspartate Amino Transf (AST/SGOT) 45 Alanine Aminotransferase (ALT/SGPT) 76 H Alkaline Phosphatase 88 Total Protein 6.0 L Albumin 3.7 Medications Medications Current Medications IV Flush (NS 10 ml) 10 ml PRN PRN IV FLUSH LINE Last administered on 12/13/16 16:42; Admin Dose 10 ML; Start 12/09/16 at 17:30 Ondansetron HCl (Zofran Inj) 4 mg Q6H PRN IV NAUSEA AND/OR VOMITING Last administered on 12/19/16 12:37; Admin Dose 4 MG; Start 12/09/16 at 18:30 Acetaminophen (Tylenol Tab) 650 mg Q6H PRN PO PAIN LEVEL 1-3 OR FEVER; Start at 18:30 Acetaminophen/ Hydrocodone Bitart ([place] (5/325)) 1 tab Q6H PRN PO MODERATE PAIN LEVEL 4-6 Last administered on 12/13/16 11:33; Admin Dose 1 TAB; Start at 18:30 Magnesium Hydroxide (Milk Of Mag) 30 ml DAILY PRN PO CONSTIPATION; Start at 18:30 Sodium Biphosphate/ Sodium Phosphate (Fleet Enema) 133 ml DAILY PRN ID CONSTIPATION; Start 12/09/16 at 18:30 Lorazepam (Ativan) 0.5 mg Q6H PRN IV ANXIETY; Start 12/09/16 at 18:30 Hydralazine HCl (Apresoline) 10 mg Q6H PRN IV ELEVATED BLOOD PRESSURE; Start at 18:30 Clonidine (Catapres) 0.1 mg Q6H PRN PO ELEVATED BLOOD PRESSURE; Start 12/09/16 at 18:30 Nitroglycerin (Nitroglycerin (Sl Tab) 0.4 Mg) 1 tab Q5M PRN SL ANGINA; Start at 18:30 Albuterol (Proventil 0.083% (Neb)) 2.5 mg Q4 PRN NEB WHEEZING AND SOB; Start at 18:30 Atorvastatin Calcium (Lipitor) 10 mg QHS PO Last administered on 12/21/16 21: 28; Admin Dose 10 MG; Start 12/09/16 at 21:00 Digoxin (Digoxin) 0.125 mg DAILY PO Last administered on 12/22/16 09:46; Admin Dose 0.125 MG; Start 12/10/16 at 09:00 Ferrous Sulfate (Ferrous Sulfate (Ec)) 325 mg TID PO Last administered on 12/22 13:37; Admin Dose 325 MG; Start 12/09/16 at 21:00 Gabapentin (Neurontin) 300 mg TID PO Last administered on 12/22/16 13:37; Admin Dose 300 MG; Start 12/09/16 at 21:00 Isosorbide Mononitrate (Imdur) 60 mg DAILY PO Last administered on 12/22/16 09:46; Admin Dose 60 MG; Start 12/10/16 at 09:00 Potassium Chloride (Klor-Con 20) 20 meq DAILY PO Last administered on 09:47; Admin Dose 20 MEQ; Start 12/10/16 at 09:00 Sertraline HCl (Zoloft) 50 mg DAILY PO Last administered on 12/22/16 09:46; Admin Dose 50 MG; Start 12/10/16 at 09:00 Sotalol HCl (Betapace) 80 mg BID PO Last administered on 12/22/16 09:45; Admin Dose 80 MG; Start 12/09/16 at 21:00 Zolpidem Tartrate (Ambien) 10 mg QHS PRN PO INSOMNIA Last administered on 23:44; Admin Dose 10 MG; Start 12/09/16 at 18:30 Salmeterol Xinafoate/ Fluticasone (Advair 250/50 Diskus) 1 inh BID INH Last administered on 12/22/16 09:44; Admin Dose 1 INH; Start 12/10/16 at 21:00 Pantoprazole (Protonix Tab) 40 mg BID@06,18 PO Last administered on 12/22/16 05:23; Admin Dose 40 MG; Start 12/14/16 at 18:00 Apixaban (Eliquis) 5 mg BID PO Last administered on 12/22/16 09:47; Admin Dose 5 MG; Start 12/14/16 at 21:00 Docusate Sodium (Colace) 100 mg BID PO Last administered on 12/22/16 09:45; Admin Dose 100 MG; Start 12/14/16 at 12:30 Hydromorphone HCl (Dilaudid) 4 mg Q4H PRN PO PAIN; Start 12/14/16 at 14:00 Tramadol HCl (Ultram) 50 mg Q6H PRN PO PAIN LEVEL 1-5; Start 12/14/16 at 14:00 Hydromorphone HCl (Dilaudid) 1 mg Q4H PRN IV PAIN Last administered on 13:37; Admin Dose 1 MG; Start 12/14/16 at 14:30 Diphenhydramine HCl (Benadryl) 50 mg Q4H PRN IV itching Last administered on 13:37; Admin Dose 50 MG; Start 12/15/16 at 14:30 Hydrocortisone (Hydrocortisone 0.5% Oint) 1 applic BID TOP Last administered on 12/22/16 09:47; Admin Dose 1 APPLIC; Start 12/15/16 at 14:30 Baclofen (Lioresal) 10 mg TID PO Last administered on 12/22/16 13:37; Admin Dose 10 MG; Start 12/17/16 at 21:00 Magnesium Oxide (Mag-Ox 400) 400 mg DAILY PO Last administered on 12/22/16 09 :46; Admin Dose 400 MG; Start 12/20/16 at 12:00 TALA JOSHUA MD Dec 22, 2016 14:42
[2016-12-22] MEDS ORDERED: MAGNESIUM SULFATE 3 GM in SOD CHLORIDE 0.9% 100 ML IVPB ONE (16:00)
--- NOTE | 2016-12-22 17:13 | RADRPT ---
PROCEDURE: CT Abdomen and Pelvis without contrast. CLINICAL INDICATION: Abdominal and pelvic pain. Right-sided pain. TECHNIQUE: CT scan of the abdomen and pelvis without contrast was performed. Coronal and sagittal reformatted images were obtained from the axial source images. Images were reviewed on a high-resolu [employer] PACS workstation. Total exam DLP is 1389.74 mGy-cm. CTDIvol is 21.06 mGy. One or more of the following dose reduction techniques were used: Automated exposure control, adjustment of the mA and/ or kV according to patient size, use of iterative reconstruction technique. COMPARISON: CT scan of the chest, abdomen, and pelvis dated 12/09/2016. FINDINGS: The lung bases are normal. There is no pleural effusion or pericardial effusion. There is a dual manuel d permanent pacemaker. The liver is normal in size and attenuation. There is no focal hepatic lesion. The gallbladder and bile ducts are normal. The spleen is normal in size. There is no focal splenic lesion. Both adrenals are normal with no enlargement or mass. The pancreas is unremarkable with no mass or evidence of pancreatitis. There is no renal mass or hydronephrosis. There is no renal calculus or ureteral calculus. The abdominal aorta is not dilated. There is no retroperitoneal lymphadenopathy or mass. There is no pelvic lymphadenopathy or mass. The bladder and distal ureters are normal. The periappendiceal region is unremarkable with no evidence of appendicitis. The bowel and mesentery are normal. There is no free fluid or free gas. The osseous structures are unremarkable with no fracture or lytic lesion. IMPRESSION: 1. Permanent pacemaker. 2. Otherwise unremarkable CT scan of the abdomen and pelvis. RPTAT: QQ .Ted Bacon MD, MD Date Time Electronically viewed and signed by .Ted Bacon MD, MD on 12/22/2016 17:13 .R/
[2016-12-22] MEDS: ATORVASTATIN 10 MG TAB PO SCH (21:25)
[2016-12-23] VITALS (11 sets, daily range): BP systolic 112–134; BP diastolic 56–68; PULSE 72–100; RESP 18–20
[2016-12-23] MEDS: DIPHENHYDRAMINE 50 MG INJ IV PRN ×6 (01:36→21:08)
[2016-12-23] MEDS: HYDROmorphONE 1 MG/ML SYG IV PRN ×6 (01:36→21:09)
[2016-12-23] MEDS: PANTOPRAZOLE (EC) 40 MG TAB PO SCH ×2 (05:46→17:37)
[2016-12-23] MEDS: FERROUS SULFATE (EC) 325 MG TAB PO SCH ×3 (09:17→21:08)
[2016-12-23] MEDS: POTASSIUM CHLORIDE (SR) 20 MEQ TAB PO SCH (09:17)
[2016-12-23] MEDS: APIXABAN 5 MG TABLET PO SCH ×2 (09:17→21:08)
[2016-12-23] MEDS: GABAPENTIN 300 MG CAP PO SCH ×3 (09:17→21:08)
[2016-12-23] MEDS: SUCRALFATE 1 GM TAB PO SCH ×4 (09:18→21:08)
[2016-12-23] MEDS: DIGOXIN 0.125 MG TAB PO SCH (09:18)
[2016-12-23] MEDS: DOCUSATE SODIUM 100 MG CAP PO SCH ×2 (09:18→21:08)
[2016-12-23] MEDS: SOTALOL 80 MG TAB PO SCH ×2 (09:18→21:09)
[2016-12-23] MEDS: MAGNESIUM OXIDE 400 MG TAB PO SCH (09:18)
[2016-12-23] MEDS: BACLOFEN 10 MG TAB PO SCH ×3 (09:19→21:08)
[2016-12-23] MEDS: SALMETEROL/FLUTICASONE 250/50 INHA INH SCH ×2 (09:20→21:09)
[2016-12-23] MEDS: ISOSORBIDE MONONITRATE(SR)60 MG TAB PO SCH (09:20)
[2016-12-23 09:34] LABS: BASOPHILS % 0.3 % (0.0-2.0); EOSINOPHILS # 0.1 10^3/ul (0.0-0.5); EOSINOPHILS % 1.3 % (0.0-7.0); HEMATOCRIT 35.4 % (42.0-52.0); HEMOGLOBIN 11.1 g/dl (14.0-18.0); LYMPHOCYTES # 1.3 10^3/ul (0.8-2.9); LYMPHOCYTES % 35.5 % (15.0-51.0); MEAN CORPUSCULAR HEMOGLOBIN 29.4 pg (29.0-33.0); MEAN CORPUSCULAR HGB CONC 31.4 g/dl (32.0-37.0); MEAN CORPUSCULAR VOLUME 93.9 fl (82.0-101.0); MEAN PLATELET VOLUME 8.5 fl (7.4-10.4); MONOCYTE # 0.5 10^3/ul (0.3-0.9); MONOCYTES % 12.6 % (0.0-11.0); NEUTROPHIL # 1.9 10^3/ul (1.6-7.5); NEUTROPHILS % 49.8 % (39.0-77.0); PLATELET COUNT 216 10^3/UL (140-415); RED BLOOD COUNT 3.77 10^6/ul (4.70-6.10); RED CELL DISTRIBUTION WIDTH 14.5 % (11.5-14.5); WHITE BLOOD COUNT 3.7 10^3/ul (4.8-10.8)
[2016-12-23] MEDS: SERTRALINE 50 MG TAB PO SCH (09:37)
[2016-12-23] MEDS: HYDROCORTISONE 0.5% 28.35 GM OINT TOP SCH ×2 (09:38→21:10)
[2016-12-23 09:58] LABS: CALCIUM 8.9 mg/dl (8.4-10.2); CREATININE 0.57 mg/dl (0.61-1.24); MAGNESIUM 1.9 mg/dl (1.7-2.5); POTASSIUM 4.4 mmol/L (3.5-5.1)
--- NOTE | 2016-12-23 14:19 | PN ---
Date/Time of Note Date/Time of Note DATE: 12/23/16 TIME: 14:17 Assessment/Plan VTE Prophylaxis VTE Prophylaxis Intervention: other Lines/Catheters IV Catheter Type (from Nrs): PICC Line Central line still needed: Yes Urinary Cath still in place: No Assessment/Plan Assessment/Plan 1. Upper GI bleeding, recurrent, no active bleeding 2. Chest pain, atypical for CAD, but pulmonary hypertension may give angina 3. Pulmonary embolism, due to ASD 4. ASD, s/p repair in 2010 5. Marfan's syndrome, 6. Atrial fibrillation, A-pacing rhythm now, controlled rate, hold eliquis due to GI bleeding 7. Pulmonary embolism in 2013, not clear if he has hypercoagulable state after intensive work ups 8. Cardiac arrest in 2011, AICD 2012 9. h/o recurrent ischemic stroke 10. RUQ abdominal pain, unremarkable ultrasound order CT scan 11. Hypomagnesemia, corrected 12. Discharge plan for tomorrow Subjective 24 Hr Interval Summary Free Text/Dictation no bleeding, no chest pain Exam/Review of Systems Vital Signs Vitals Vital Signs Date Time Temp Pulse Resp B/P Pulse Ox O2 Delivery O2 Flow Rate FiO2 12/23/16 12:10 72 12/23/16 11:48 98.0 20 132/58 99 Intake and Output 12/22/16 12/22/16 12/23/16 15:00 23:00 07:00 Intake Total 1306 ml 1320 ml Output Total 950 ml 1100 ml Balance 356 ml 220 ml Exam Constitutional: alert, oriented, well developed Psych: nl mood/affect, no complaints Head: atraumatic, normocephalic Eyes: EOMI, PERRL, nl conjunctiva, nl lids, nl sclera ENMT: nl external ears & nose, nl lips & teeth, nl nasal mucosa & septum Neck: non-tender, supple Respiratory: clear to auscultation, normal air movement, No congested cough, No crackles/rales, No diminished breath sounds, No intercostal retraction, No labored breathing, No other, No respirations, No tactile fremitus, No wheezing Cardiovascular: nl pulses, regular rate and rhythm, No S3, No S4, No bruits, No diastolic murmur, No edema, No gallop, No irregular rhythm, No jugular venous distention (JVD), No murmurs/extra sounds, No other, No rub, No systolic murmur Gastrointestinal: nl liver, spleen, non-tender, soft, No ascites, No bowel sounds, No distended, No firm, No hepatomegaly, No mass , No other, No rebound or guarding, No splenomegaly, No surgical scars, No tender Musculoskeletal: nl extremities to inspection Extremities: normal pulses, No calf tenderness, No clubbing, No cyanosis, No edema, No other, No palpable cord, No pitting pedal edema, No tenderness 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: MANAGER CALL CENTER II-XII intact, nl mental status, nl speech, nl strength Skin: nl turgor Lymph: nl lymph nodes Results Result Diagram: 12/23/1682512/23/16825 Results 24 hrs Laboratory Tests Test 12/23/16 08:26 White Blood Count 3.7 L Red Blood Count 3.77 L Hemoglobin 11.1 L Hematocrit 35.4 L Mean Corpuscular Volume 93.9 Mean Corpuscular Hemoglobin 29.4 Mean Corpuscular Hemoglobin Concent 31.4 L Red Cell Distribution Width 14.5 Platelet Count 216 Mean Platelet Volume 8.5 Neutrophils % 49.8 Lymphocytes % 35.5 Monocytes % 12.6 H Eosinophils % 1.3 Basophils % 0.3 Nucleated Red Blood Cells % 0.0 Neutrophils # 1.9 Lymphocytes # 1.3 Monocytes # 0.5 Eosinophils # 0.1 Basophils # 0.0 Nucleated Red Blood Cells # 0.0 Sodium Level 138 Potassium Level 4.4 Chloride Level 103 Carbon Dioxide Level 29 Anion Gap 10 # Blood Urea Nitrogen 7 Creatinine 0.57 L Glucose Level 85 Calcium Level 8.9 Magnesium Level 1.9 Medications Medications Current Medications IV Flush (NS 10 ml) 10 ml PRN PRN IV FLUSH LINE Last administered on 12/13/16 16:42; Admin Dose 10 ML; Start 12/09/16 at 17:30 Ondansetron HCl (Zofran Inj) 4 mg Q6H PRN IV NAUSEA AND/OR VOMITING Last administered on 12/19/16 12:37; Admin Dose 4 MG; Start 12/09/16 at 18:30 Acetaminophen (Tylenol Tab) 650 mg Q6H PRN PO PAIN LEVEL 1-3 OR FEVER; Start at 18:30 Acetaminophen/ Hydrocodone Bitart ([place] (5/325)) 1 tab Q6H PRN PO MODERATE PAIN LEVEL 4-6 Last administered on 12/13/16 11:33; Admin Dose 1 TAB; Start at 18:30 Magnesium Hydroxide (Milk Of Mag) 30 ml DAILY PRN PO CONSTIPATION; Start at 18:30 Sodium Biphosphate/ Sodium Phosphate (Fleet Enema) [address] CONSTIPATION; Start 12/09/16 at 18:30 Lorazepam (Ativan) 0.5 mg Q6H PRN IV ANXIETY; Start 12/09/16 at 18:30 Hydralazine HCl (Apresoline) 10 mg Q6H PRN IV ELEVATED BLOOD PRESSURE; Start at 18:30 Clonidine (Catapres) 0.1 mg Q6H PRN PO ELEVATED BLOOD PRESSURE; Start 12/09/16 at 18:30 Nitroglycerin (Nitroglycerin (Sl Tab) 0.4 Mg) 1 tab Q5M PRN SL ANGINA; Start at 18:30 Albuterol (Proventil 0.083% (Neb)) 2.5 mg Q4 PRN NEB WHEEZING AND SOB; Start at 18:30 Atorvastatin Calcium (Lipitor) 10 mg QHS PO Last administered on 12/22/16 21: 25; Admin Dose 10 MG; Start 12/09/16 at 21:00 Digoxin (Digoxin) 0.125 mg DAILY PO Last administered on 12/23/16 09:18; Admin Dose 0.125 MG; Start 12/10/16 at 09:00 Ferrous Sulfate (Ferrous Sulfate (Ec)) 325 mg TID PO Last administered on 12/23 13:22; Admin Dose 325 MG; Start 12/09/16 at 21:00 Gabapentin (Neurontin) 300 mg TID PO Last administered on 12/23/16 13:22; Admin Dose 300 MG; Start 12/09/16 at 21:00 Isosorbide Mononitrate (Imdur) 60 mg DAILY PO Last administered on 12/23/16 09:20; Admin Dose 60 MG; Start 12/10/16 at 09:00 Potassium Chloride (Klor-Con 20) 20 meq DAILY PO Last administered on 09:17; Admin Dose 20 MEQ; Start 12/10/16 at 09:00 Sertraline HCl (Zoloft) 50 mg DAILY PO Last administered on 12/23/16 09:37; Admin Dose 50 MG; Start 12/10/16 at 09:00 Sotalol HCl (Betapace) 80 mg BID PO Last administered on 12/23/16 09:18; Admin Dose 80 MG; Start 12/09/16 at 21:00 Zolpidem Tartrate (Ambien) 10 mg QHS PRN PO INSOMNIA Last administered on 23:44; Admin Dose 10 MG; Start 12/09/16 at 18:30 Salmeterol Xinafoate/ Fluticasone (Advair 250/50 Diskus) 1 inh BID INH Last administered on 12/23/16 09:20; Admin Dose 1 INH; Start 12/10/16 at 21:00 Pantoprazole (Protonix Tab) 40 mg BID@18 PO Last administered on 12/23/16 05:46; Admin Dose 40 MG; Start 12/14/16 at 18:00 Apixaban (Eliquis) 5 mg BID PO Last administered on 12/23/16 09:17; Admin Dose 5 MG; Start 12/14/16 at 21:00 Docusate Sodium (Colace) 100 mg BID PO Last administered on 12/23/16 09:18; Admin Dose 100 MG; Start 12/14/16 at 12:30 Hydromorphone HCl (Dilaudid) 4 mg Q4H PRN PO PAIN; Start 12/14/16 at 14:00 Tramadol HCl (Ultram) 50 mg Q6H PRN PO PAIN LEVEL 1-5; Start 12/14/16 at 14:00 Hydromorphone HCl (Dilaudid) 1 mg Q4H PRN IV PAIN Last administered on 13:23; Admin Dose 1 MG; Start 12/14/16 at 14:30 Diphenhydramine HCl (Benadryl) 50 mg Q4H PRN IV itching Last administered on 13:23; Admin Dose 50 MG; Start 12/15/16 at 14:30 Hydrocortisone (Hydrocortisone 0.5% Oint) 1 applic BID TOP Last administered on 12/23/16 09:38; Admin Dose 1 APPLIC; Start 12/15/16 at 14:30 Baclofen (Lioresal) 10 mg TID PO Last administered on 12/23/16 13:22; Admin Dose 10 MG; Start 12/17/16 at 21:00 Magnesium Oxide (Mag-Ox 400) 400 mg DAILY PO Last administered on 12/23/16 09 :18; Admin Dose 400 MG; Start 12/20/16 at 12:00 TALA JOSHUA MD Dec 23, 2016 14:19
[2016-12-23] MEDS: ATORVASTATIN 10 MG TAB PO SCH (21:08)
[2016-12-24] VITALS (12 sets, daily range): BP systolic 110–131; BP diastolic 58–68; PULSE 74–84; RESP 16–20
[2016-12-24] MEDS: HYDROmorphONE 1 MG/ML SYG IV PRN ×6 (01:18→21:46)
[2016-12-24] MEDS: DIPHENHYDRAMINE 50 MG INJ IV PRN ×6 (01:18→21:46)
[2016-12-24] MEDS: PANTOPRAZOLE (EC) 40 MG TAB PO SCH ×2 (05:15→17:35)
[2016-12-24] MEDS: SUCRALFATE 1 GM TAB PO SCH ×4 (08:29→20:55)
[2016-12-24] MEDS: FERROUS SULFATE (EC) 325 MG TAB PO SCH ×3 (08:30→20:50)
[2016-12-24] MEDS: POTASSIUM CHLORIDE (SR) 20 MEQ TAB PO SCH (08:30)
[2016-12-24] MEDS: DOCUSATE SODIUM 100 MG CAP PO SCH ×2 (08:30→20:50)
[2016-12-24] MEDS: SERTRALINE 50 MG TAB PO SCH (08:31)
[2016-12-24] MEDS: GABAPENTIN 300 MG CAP PO SCH ×3 (08:31→20:50)
[2016-12-24] MEDS: BACLOFEN 10 MG TAB PO SCH ×3 (08:31→20:49)
[2016-12-24] MEDS: MAGNESIUM OXIDE 400 MG TAB PO SCH (08:31)
[2016-12-24] MEDS: HYDROCORTISONE 0.5% 28.35 GM OINT TOP SCH ×2 (08:32→20:51)
[2016-12-24] MEDS: DIGOXIN 0.125 MG TAB PO SCH (08:33)
[2016-12-24] MEDS: APIXABAN 5 MG TABLET PO SCH ×2 (08:33→20:50)
[2016-12-24] MEDS: SOTALOL 80 MG TAB PO SCH ×2 (08:34→21:47)
[2016-12-24] MEDS: ISOSORBIDE MONONITRATE(SR)60 MG TAB PO SCH (08:35)
[2016-12-24] MEDS: SALMETEROL/FLUTICASONE 250/50 INHA INH SCH ×2 (09:20→20:49)
--- NOTE | 2016-12-24 12:33 | PN ---
Date/Time of Note Date/Time of Note DATE: 12/24/16 TIME: 12:29 Assessment/Plan VTE Prophylaxis VTE Prophylaxis Intervention: other Lines/Catheters IV Catheter Type (from Nrs): PICC Line Central line still needed: Yes Urinary Cath still in place: No Assessment/Plan Assessment/Plan 1. Left sided numbness, CT head 2. Upper GI bleeding, recurrent, no active bleeding 3. Pulmonary embolism, due to ASD 4. ASD, s/p repair in 2010 5. Marfan's syndrome, 6. Atrial fibrillation, A-pacing rhythm now, controlled rate, hold eliquis due to GI bleeding 7. Pulmonary embolism in 2013, not clear if he has hypercoagulable state after intensive work ups 8. Cardiac arrest in 2011, AICD 2012 9. h/o recurrent ischemic stroke 10. RUQ abdominal pain, unremarkable ultrasound order CT scan Subjective 24 Hr Interval Summary Free Text/Dictation complains of numbness on left side started about 30 minutes, involving left upper and lower extremities and left side of truck. No weakness on left side, no slurred speech Exam/Review of Systems Vital Signs Vitals Vital Signs Date Time Temp Pulse Resp B/P Pulse Ox O2 Delivery O2 Flow Rate FiO2 12/24/16 11:40 98.3 83 18 123/58 98 Intake and Output 12/23/16 12/23/16 12/24/16 14:59 22:59 06:59 Intake Total 14 ml 900 ml Output Total 1000 ml 800 ml Balance -986 ml 100 ml Exam Constitutional: alert, oriented, well developed Head: atraumatic, normocephalic Eyes: EOMI, PERRL, nl conjunctiva, nl lids, nl sclera ENMT: nl external ears & nose, nl lips & teeth, nl nasal mucosa & septum Neck: non-tender, supple Respiratory: clear to auscultation, normal air movement, No congested cough, No crackles/rales, No diminished breath sounds, No intercostal retraction, No labored breathing, No other, No respirations, No tactile fremitus, No wheezing Cardiovascular: nl pulses, regular rate and rhythm, No S3, No S4, No bruits, No diastolic murmur, No edema, No gallop, No irregular rhythm, No jugular venous distention (JVD), No murmurs/extra sounds, No other, No rub, No systolic murmur Gastrointestinal: nl liver, spleen, soft, No ascites, No bowel sounds, No distended, No firm, No hepatomegaly, No mass , No non-tender, No other, No rebound or guarding, No splenomegaly, No surgical scars, No tender Musculoskeletal: nl extremities to inspection Extremities: normal pulses, No calf tenderness, No clubbing, No cyanosis, No edema, No other, No palpable cord, No pitting pedal edema, No tenderness 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: COMPLIANCE CLERK II-XII intact, nl mental status, nl speech, nl strength, numbness (on left side) Results Result Diagram: 12/23/1682512/23/16 08 Medications Medications Current Medications IV Flush (NS 10 ml) 10 ml PRN PRN IV FLUSH LINE Last administered on 12/13/16 16:42; Admin Dose 10 ML; Start 12/09/16 at 17:30 Ondansetron HCl (Zofran Inj) 4 mg Q6H PRN IV NAUSEA AND/OR VOMITING Last administered on 12/19/16 12:37; Admin Dose 4 MG; Start 12/09/16 at 18:30 Acetaminophen (Tylenol Tab) 650 mg Q6H PRN PO PAIN LEVEL 1-3 OR FEVER; Start at 18:30 Acetaminophen/ Hydrocodone Bitart ([place] (5/325)) 1 tab Q6H PRN PO MODERATE PAIN LEVEL 4-6 Last administered on 12/13/16 11:33; Admin Dose 1 TAB; Start at 18:30 Magnesium Hydroxide (Milk Of Mag) 30 ml DAILY PRN PO CONSTIPATION; Start at 18:30 Sodium Biphosphate/ Sodium Phosphate (Fleet Enema) [address] CONSTIPATION; Start 12/09/16 at 18:30 Lorazepam (Ativan) 0.5 mg Q6H PRN IV ANXIETY; Start 12/09/16 at 18:30 Hydralazine HCl (Apresoline) 10 mg Q6H PRN IV ELEVATED BLOOD PRESSURE; Start at 18:30 Clonidine (Catapres) 0.1 mg Q6H PRN PO ELEVATED BLOOD PRESSURE; Start 12/09/16 at 18:30 Nitroglycerin (Nitroglycerin (Sl Tab) 0.4 Mg) 1 tab Q5M PRN SL ANGINA; Start at 18:30 Albuterol (Proventil 0.083% (Neb)) 2.5 mg Q4 PRN NEB WHEEZING AND SOB; Start at 18:30 Atorvastatin Calcium (Lipitor) 10 mg QHS PO Last administered on 12/23/16 21: 08; Admin Dose 10 MG; Start 12/09/16 at 21:00 Digoxin (Digoxin) 0.125 mg DAILY PO Last administered on 12/24/16 08:33; Admin Dose 0.125 MG; Start 12/10/16 at 09:00 Ferrous Sulfate (Ferrous Sulfate (Ec)) 325 mg TID PO Last administered on 12/24 12:22; Admin Dose 325 MG; Start 12/09/16 at 21:00 Gabapentin (Neurontin) 300 mg TID PO Last administered on 12/24/16 12:22; Admin Dose 300 MG; Start 12/09/16 at 21:00 Isosorbide Mononitrate (Imdur) 60 mg DAILY PO Last administered on 12/24/16 08:35; Admin Dose 60 MG; Start 12/10/16 at 09:00 Potassium Chloride (Klor-Con 20) 20 meq DAILY PO Last administered on 08:30; Admin Dose 20 MEQ; Start 12/10/16 at 09:00 Sertraline HCl (Zoloft) 50 mg DAILY PO Last administered on 12/24/16 08:31; Admin Dose 50 MG; Start 12/10/16 at 09:00 Sotalol HCl (Betapace) 80 mg BID PO Last administered on 12/24/16 08:34; Admin Dose 80 MG; Start 12/09/16 at 21:00 Zolpidem Tartrate (Ambien) 10 mg QHS PRN PO INSOMNIA Last administered on 23:44; Admin Dose 10 MG; Start 12/09/16 at 18:30 Salmeterol Xinafoate/ Fluticasone (Advair 250/50 Diskus) 1 inh BID INH Last administered on 12/24/16 09:20; Admin Dose 1 INH; Start 12/10/16 at 21:00 Pantoprazole (Protonix Tab) 40 mg BID@,18 PO Last administered on 12/24/16 05:15; Admin Dose 40 MG; Start 12/14/16 at 18:00 Apixaban (Eliquis) 5 mg BID PO Last administered on 12/24/16 08:33; Admin Dose 5 MG; Start 12/14/16 at 21:00 Docusate Sodium (Colace) 100 mg BID PO Last administered on 12/24/16 08:30; Admin Dose 100 MG; Start 12/14/16 at 12:30 Hydromorphone HCl (Dilaudid) 4 mg Q4H PRN PO PAIN; Start 12/14/16 at 14:00 Tramadol HCl (Ultram) 50 mg Q6H PRN PO PAIN LEVEL 1-5; Start 12/14/16 at 14:00 Hydromorphone HCl (Dilaudid) 1 mg Q4H PRN IV PAIN Last administered on 09:21; Admin Dose 1 MG; Start 12/14/16 at 14:30 Diphenhydramine HCl (Benadryl) 50 mg Q4H PRN IV itching Last administered on 09:21; Admin Dose 50 MG; Start 12/15/16 at 14:30 Hydrocortisone (Hydrocortisone 0.5% Oint) 1 applic BID TOP Last administered on 12/24/16 08:32; Admin Dose 1 APPLIC; Start 12/15/16 at 14:30 Baclofen (Lioresal) 10 mg TID PO Last administered on 12/24/16 12:22; Admin Dose 10 MG; Start 12/17/16 at 21:00 Magnesium Oxide (Mag-Ox 400) 400 mg DAILY PO Last administered on 12/24/16 08 :31; Admin Dose 400 MG; Start 12/20/16 at 12:00 TALA JOSHUA MD Dec 24, 2016 12:33
--- NOTE | 2016-12-24 13:33 | RADRPT ---
PROCEDURE: CT Brain without contrast. CLINICAL INDICATION: Left-sided numbness TECHNIQUE: A CT of the brain was performed on a multidetector CT scanner utilizing axial sections from the skull base through the vertex without contrast. Images were reviewed on a high-resolution [employer] workstation. Exam CTDI = 45.01 mGy and the DLP = 720.23 mGy-cm. One or more of the following dose reduction techniques were used: Automated exposure control Adjustment of the mA and/or kV according to patient size. Use of iterative reconstruction technique. COMPARISON: None available FINDINGS: There is no evidence of intracranial hemorrhage, mass effect or midline shift. No abnormal intra-ax ial or extra-axial fluid collections are seen. The density of the brain is normal and the lmia/whit e matter differentiation is well preserved. The osseous structures are unremarkable. The paranasal sinuses are clear. IMPRESSION: 1. No intracranial hemorrhage, mass effect or midline shift. RPTAT: BB .Cesar Quiros MD, MD Date Time Electronically viewed and signed by .Cesar Quiros MD, on 12/24/2016 13:33 .O/
[2016-12-24] MEDS: ATORVASTATIN 10 MG TAB PO SCH (20:49)
[2016-12-25] VITALS (13 sets, daily range): BP systolic 116–130; BP diastolic 56–73; PULSE 78–110; RESP 17–20
[2016-12-25] MEDS: DIPHENHYDRAMINE 50 MG INJ IV PRN ×6 (01:46→22:48)
[2016-12-25] MEDS: HYDROmorphONE 1 MG/ML SYG IV PRN ×4 (01:47→13:43)
[2016-12-25] MEDS: PANTOPRAZOLE (EC) 40 MG TAB PO SCH ×2 (05:48→18:00)
[2016-12-25] MEDS: SERTRALINE 50 MG TAB PO SCH (09:23)
[2016-12-25] MEDS: FERROUS SULFATE (EC) 325 MG TAB PO SCH ×3 (09:23→20:39)
[2016-12-25] MEDS: DOCUSATE SODIUM 100 MG CAP PO SCH ×2 (09:23→20:39)
[2016-12-25] MEDS: POTASSIUM CHLORIDE (SR) 20 MEQ TAB PO SCH (09:24)
[2016-12-25] MEDS: APIXABAN 5 MG TABLET PO SCH ×2 (09:24→20:39)
[2016-12-25] MEDS: MAGNESIUM OXIDE 400 MG TAB PO SCH (09:24)
[2016-12-25] MEDS: BACLOFEN 10 MG TAB PO SCH ×3 (09:24→20:39)
[2016-12-25] MEDS: GABAPENTIN 300 MG CAP PO SCH ×3 (09:24→20:38)
[2016-12-25] MEDS: SUCRALFATE 1 GM TAB PO SCH ×4 (09:24→20:38)
[2016-12-25] MEDS: ISOSORBIDE MONONITRATE(SR)60 MG TAB PO SCH (09:25)
[2016-12-25] MEDS: DIGOXIN 0.125 MG TAB PO SCH (09:27)
[2016-12-25] MEDS: SALMETEROL/FLUTICASONE 250/50 INHA INH SCH ×2 (09:30→20:39)
[2016-12-25] MEDS: SOTALOL 80 MG TAB PO SCH ×2 (09:30→20:38)
[2016-12-25] MEDS: HYDROCORTISONE 0.5% 28.35 GM OINT TOP SCH ×2 (09:31→20:37)
--- NOTE | 2016-12-25 14:35 | PN ---
Date/Time of Note Date/Time of Note DATE: 12/25/16 TIME: 14:33 Assessment/Plan VTE Prophylaxis VTE Prophylaxis Intervention: other Lines/Catheters IV Catheter Type (from Nrs): PICC Line Central line still needed: Yes Urinary Cath still in place: No Assessment/Plan Assessment/Plan 1. Left sided numbness and weakness but CT head negative and physical exam with symmetric muscle strength 2. Upper GI bleeding, recurrent, no active bleeding 3. Pulmonary embolism, due to ASD 4. ASD, s/p repair in 2010 5. Marfan's syndrome, 6. Atrial fibrillation, A-pacing rhythm now, controlled rate, hold eliquis due to GI bleeding 7. Pulmonary embolism in 2013, not clear if he has hypercoagulable state after intensive work ups 8. Cardiac arrest in 2011, AICD 2012 9. h/o recurrent ischemic stroke 10. RUQ abdominal pain, unremarkable ultrasound order CT scan, resolved 11. Plan to discharge tomorrow and patient states he will have a ride tomorrow Subjective 24 Hr Interval Summary Free Text/Dictation states stronger on left side today Exam/Review of Systems Vital Signs Vitals Vital Signs Date Time Temp Pulse Resp B/P Pulse Ox O2 Delivery O2 Flow Rate FiO2 12/25/16 12:12 92 12/25/16 11:31 98.3 17 124/56 99 12/25/16 04:00 Room Air Intake and Output 12/24/16 12/24/16 12/25/16 14:59 22:59 06:59 Intake Total 2000 ml 350 ml Output Total 1400 ml 1600 ml Balance 600 ml -1250 ml Exam Constitutional: alert, oriented, well developed Head: atraumatic, normocephalic Eyes: EOMI, PERRL, nl conjunctiva, nl lids, nl sclera ENMT: nl external ears & nose, nl lips & teeth, nl nasal mucosa & septum Neck: non-tender, supple Respiratory: clear to auscultation, normal air movement, No congested cough, No crackles/rales, No diminished breath sounds, No intercostal retraction, No labored breathing, No other, No respirations, No tactile fremitus, No wheezing Cardiovascular: nl pulses, regular rate and rhythm, No S3, No S4, No bruits, No diastolic murmur, No edema, No gallop, No irregular rhythm, No jugular venous distention (JVD), No murmurs/extra sounds, No other, No rub, No systolic murmur Gastrointestinal: nl liver, spleen, non-tender, soft, No ascites, No bowel sounds, No distended, No firm, No hepatomegaly, No mass , No other, No rebound or guarding, No splenomegaly, No surgical scars, No tender Musculoskeletal: nl extremities to inspection Extremities: normal pulses, No calf tenderness, No clubbing, No cyanosis, No edema, No other, No palpable cord, No pitting pedal edema, No tenderness 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: SURETY BOND AGENT II-XII intact, nl mental status, nl speech, nl strength Results Result Diagram: 12/23/1682512/23/16825 Medications Medications Current Medications IV Flush (NS 10 ml) 10 ml PRN PRN IV FLUSH LINE Last administered on 12/13/16 16:42; Admin Dose 10 ML; Start 12/09/16 at 17:30 Ondansetron HCl (Zofran Inj) 4 mg Q6H PRN IV NAUSEA AND/OR VOMITING Last administered on 12/19/16 12:37; Admin Dose 4 MG; Start 12/09/16 at 18:30 Acetaminophen (Tylenol Tab) 650 mg Q6H PRN PO PAIN LEVEL 1-3 OR FEVER; Start at 18:30 Acetaminophen/ Hydrocodone Bitart (Ferguson (5/325)) 1 tab Q6H PRN PO MODERATE PAIN LEVEL 4-6 Last administered on 12/13/16 11:33; Admin Dose 1 TAB; Start at 18:30 Magnesium Hydroxide (Milk Of Mag) 30 ml DAILY PRN PO CONSTIPATION; Start at 18:30 Sodium Biphosphate/ Sodium Phosphate (Fleet Enema) 133 ml DAILY PRN [place] CONSTIPATION; Start 12/09/16 at 18:30 Lorazepam (Ativan) 0.5 mg Q6H PRN IV ANXIETY; Start 12/09/16 at 18:30 Hydralazine HCl (Apresoline) 10 mg Q6H PRN IV ELEVATED BLOOD PRESSURE; Start at 18:30 Clonidine (Catapres) 0.1 mg Q6H PRN PO ELEVATED BLOOD PRESSURE; Start 12/09/16 at 18:30 Nitroglycerin (Nitroglycerin (Sl Tab) 0.4 Mg) 1 tab Q5M PRN SL ANGINA; Start at 18:30 Albuterol (Proventil 0.083% (Neb)) 2.5 mg Q4 PRN NEB WHEEZING AND SOB; Start at 18:30 Atorvastatin Calcium (Lipitor) 10 mg QHS PO Last administered on 12/24/16 20: 49; Admin Dose 10 MG; Start 12/09/16 at 21:00 Digoxin (Digoxin) 0.125 mg DAILY PO Last administered on 12/25/16 09:27; Admin Dose 0.125 MG; Start 12/10/16 at 09:00 Ferrous Sulfate (Ferrous Sulfate (Ec)) 325 mg TID PO Last administered on 12/25 12:44; Admin Dose 325 MG; Start 12/09/16 at 21:00 Gabapentin (Neurontin) 300 mg TID PO Last administered on 12/25/16 12:44; Admin Dose 300 MG; Start 12/09/16 at 21:00 Isosorbide Mononitrate (Imdur) 60 mg DAILY PO Last administered on 12/25/16 09:25; Admin Dose 60 MG; Start 12/10/16 at 09:00 Potassium Chloride (Klor-Con 20) 20 meq DAILY PO Last administered on 09:24; Admin Dose 20 MEQ; Start 12/10/16 at 09:00 Sertraline HCl (Zoloft) 50 mg DAILY PO Last administered on 12/25/16 09:23; Admin Dose 50 MG; Start 12/10/16 at 09:00 Sotalol HCl (Betapace) 80 mg BID PO Last administered on 12/25/16 09:30; Admin Dose 80 MG; Start 12/09/16 at 21:00 Zolpidem Tartrate (Ambien) 10 mg QHS PRN PO INSOMNIA Last administered on 23:44; Admin Dose 10 MG; Start 12/09/16 at 18:30 Salmeterol Xinafoate/ Fluticasone (Advair 250/50 Diskus) 1 inh BID INH Last administered on 12/25/16 09:30; Admin Dose 1 INH; Start 12/10/16 at 21:00 Pantoprazole (Protonix Tab) 40 mg BID@06,18 PO Last administered on 12/25/16 05:48; Admin Dose 40 MG; Start 12/14/16 at 18:00 Apixaban (Eliquis) 5 mg BID PO Last administered on 12/25/16 09:24; Admin Dose 5 MG; Start 12/14/16 at 21:00 Docusate Sodium (Colace) 100 mg BID PO Last administered on 12/25/16 09:23; Admin Dose 100 MG; Start 12/14/16 at 12:30 Hydromorphone HCl (Dilaudid) 4 mg Q4H PRN PO PAIN; Start 12/14/16 at 14:00 Tramadol HCl (Ultram) 50 mg Q6H PRN PO PAIN LEVEL 1-5; Start 12/14/16 at 14:00 Hydromorphone HCl (Dilaudid) 1 mg Q4H PRN IV PAIN Last administered on 13:43; Admin Dose 1 MG; Start 12/14/16 at 14:30 Diphenhydramine HCl (Benadryl) 50 mg Q4H PRN IV itching Last administered on 13:42; Admin Dose 50 MG; Start 12/15/16 at 14:30 Hydrocortisone (Hydrocortisone 0.5% Oint) 1 applic BID TOP Last administered on 12/25/16 09:31; Admin Dose 1 APPLIC; Start 12/15/16 at 14:30 Baclofen (Lioresal) 10 mg TID PO Last administered on 12/25/16 12:44; Admin Dose 10 MG; Start 12/17/16 at 21:00 Magnesium Oxide (Mag-Ox 400) 400 mg DAILY PO Last administered on 12/25/16 09 :24; Admin Dose 400 MG; Start 12/20/16 at 12:00 TALA JOSHUA MD Dec 25, 2016 14:35
[2016-12-25] MEDS: HYDROmorphONE 4 MG TAB PO PRN ×2 (18:00→22:48)
[2016-12-25] MEDS: ATORVASTATIN 10 MG TAB PO SCH (20:39)
[2016-12-26] VITALS (12 sets, daily range): BP systolic 110–149; BP diastolic 56–78; PULSE 70–107; RESP 17–21
[2016-12-26] MEDS: DIPHENHYDRAMINE 50 MG INJ IV PRN ×5 (02:52→21:27)
[2016-12-26] MEDS: HYDROmorphONE 4 MG TAB PO PRN ×3 (02:52→12:32)
[2016-12-26] MEDS: PANTOPRAZOLE (EC) 40 MG TAB PO SCH ×2 (05:55→17:11)
[2016-12-26] MEDS: SALMETEROL/FLUTICASONE 250/50 INHA INH SCH ×2 (08:23→21:01)
[2016-12-26] MEDS: SUCRALFATE 1 GM TAB PO SCH ×4 (08:23→21:01)
[2016-12-26] MEDS: DOCUSATE SODIUM 100 MG CAP PO SCH ×2 (08:24→21:00)
[2016-12-26] MEDS: SOTALOL 80 MG TAB PO SCH ×2 (08:24→21:01)
[2016-12-26] MEDS: DIGOXIN 0.125 MG TAB PO SCH (08:24)
[2016-12-26] MEDS: APIXABAN 5 MG TABLET PO SCH ×2 (08:25→21:00)
[2016-12-26] MEDS: ISOSORBIDE MONONITRATE(SR)60 MG TAB PO SCH (08:25)
[2016-12-26] MEDS: FERROUS SULFATE (EC) 325 MG TAB PO SCH ×3 (08:25→21:00)
[2016-12-26] MEDS: POTASSIUM CHLORIDE (SR) 20 MEQ TAB PO SCH (08:26)
[2016-12-26] MEDS: GABAPENTIN 300 MG CAP PO SCH ×3 (08:26→21:00)
[2016-12-26] MEDS: BACLOFEN 10 MG TAB PO SCH ×3 (08:26→21:27)
[2016-12-26] MEDS: SERTRALINE 50 MG TAB PO SCH (08:26)
[2016-12-26] MEDS: MAGNESIUM OXIDE 400 MG TAB PO SCH (08:26)
[2016-12-26] MEDS: HYDROCORTISONE 0.5% 28.35 GM OINT TOP SCH ×2 (08:27→21:03)
--- NOTE | 2016-12-26 13:35 | PDOCDIS ---
Discharge Instructions CONDITION Patient Condition: Stable HOME CARE INSTRUCTIONS: Special Diet: 2gna ACTIVITY: Activity Restrictions: Slowly Increase Activity FOLLOW UP/APPOINTMENTS Follow-up Plan Please take your medications as prescribed, please follow-up with your heart doctor and primary care doctor in the clinic in the next 1 week. ROB BUI Dec 26, 2016 13:35
[2016-12-26] MEDS ORDERED: ASPI-664 PO (13:37)
[2016-12-26] MEDS ORDERED: BACL10TA PO (13:37)
[2016-12-26] MEDS ORDERED: DIGO125T6 PO (13:37)
--- NOTE | 2016-12-26 16:11 | DS ---
DATE OF ADMISSION: 12/09/2016 DATE OF DISCHARGE: 12/26/2016 HISTORY OF PRESENT ILLNESS AND HOSPITAL COURSE: .: The patient initially came in with signs of upper bleed. He was made NPO and given IV fluids. He was seen by multiple specialists in his hospital stay including the hospice social worker, cardiology team and GI team. He underwent endoscopy showing severe erosive gastritis, otherwise a normal EGD. His blood thinning medications were held initially on this admission. Labs were monitored. His hemoglobin remained stable throughout this stay. Vital signs remained stable. Afterwards, cardiology team saw the patient. Initially his Eliquis was held due to his GI bleeding. The patient has a history of ASD status post surgical repair in 2010. He has been on Eliquis for history of pulmonary embolism. Over the course of his hospital stay, his vital signs were stable. He able to ambulate and tolerated a p.o. diet. He did have some pain symptoms of left-sided numbness or weakness symptoms but a head CT was negative for any signs of any stroke. He had no more signs of any upper or lower GI bleeding. His heart rate was monitored very carefully on telemetry floor. Echocardiogram was performed and showed normal left ventricular systolic function, normal left ventricular cavity size, normal left ventricular wall thickness. EF was about 55 percent. He had normal right ventricular cavity size and systolic function. There was no significant valvular stenosis or regurgitation. Linear artifact in the right ventricle suggests and pacer ICD lead. Again, patient was able to ambulate and tolerate a p.o. diet. He had some adjustments made to his both his cardiac medicine and his pain control medications. Because the patient is clinically improved and his hemoglobin is stable, he will be discharged home today in improved condition. DISCHARGE MEDICATIONS: 1. Baclofen 10 mg t.i.d. 2. Albuterol nebulizers q.4 hours p.r.n. 3. Eliquis 5 mg b.i.d. 4. Aspirin 81 mg daily. 5. Atorvastatin 10 mg q.h.s. 6. Symbicort inhaled b.i.d. 7. Digoxin 0.125 mg daily. 8. Ferrous sulfate 325 mg t.i.d. 9. Gabapentin 300 mg t.i.d. 10. Dilaudid 4 mg p.o. q.4h p.r.n. 11. Imdur 60 mg daily. 12. Nitroglycerin 0.4 mg sublingual q.5 minutes p.r.n. 13. Protonix 40 mg daily. 14. Potassium chloride 20 mEq daily. 15. Zoloft 50 mg daily. 16. Sotalol 80, mg b.i.d. 17. Carafate 1 g p.o. with meals and q.h.s. 18. Spiriva 1 capsule inhaled daily. 19. Tramadol 50 mg q.6h p.r.n. 20. Ambien 10 mg q.h.s. p.r.n. FOLLOWUP: The patient will follow up with his primary care doctor as well as his polymer engineer, who is at [place]. He will follow up with them in the next 1-2 weeks. FINAL DIAGNOSES: 1. Upper gastrointestinal bleed, status post esophagogastroduodenoscopy with severe erosive gastritis found, now stable. 2. Chest pain. Ruled out for acute coronary syndrome. 3. History of pulmonary embolism secondary to atrial septal defect. 4. History of atrial septal defect, status post surgical repair 2010. 5. History of Marfan syndrome. 6. Left-sided numbness and weakness. Ruled out for stroke. 7. History of atrial fibrillation. 8. History of pulmonary embolism in 2013. 9. History of cardiac arrest. With AICD placement in the past. 10. History of recurrent ischemic stroke. 11. History of pulmonary hypertension. 12. History of sick sinus syndrome. 13. Time to prepare patient's discharge 55 minutes. Dictated By: Tyrell Diego MD /hemalatha/ernst /Document#: [id number] MTDD
[2016-12-26] MEDS ORDERED: HYDROmorphONE 1 MG/ML SYG IV SCH (17:30)
[2016-12-26] MEDS: ATORVASTATIN 10 MG TAB PO SCH (21:00)
[2016-12-27] VITALS: PULSE 93
[2016-12-27 00:04] VITALS: BP 135/73; RESP 20
== END 2016-12-27 00:15 | disposition home or self-care (01) | DRG 378 ==
LOC: E/R 11:36 → MS4 17:29
PROVIDERS: ADMIT Hospitalist; ATTEND Hospitalist
PROC: 0DB68ZX Excision of Stomach, Via Natural or Artificial Opening Endoscopic, Diagnostic (ICD-10-PCS; principal; 2016-12-11 19:00)
PROC: 4B02XTZ Measurement of Cardiac Defibrillator, External Approach (ICD-10-PCS; 2016-12-15)
DX: K29.61 Other gastritis with bleeding (principal); Q87.40 Marfan syndrome, unspecified; I27.20 Pulmonary hypertension, unspecified; I47.1 Supraventricular tachycardia; E83.42 Hypomagnesemia; I25.10 Atherosclerotic heart disease of native coronary artery without angina pectoris; R07.9 Chest pain, unspecified; R20.0 Anesthesia of skin; I48.0 Paroxysmal atrial fibrillation; L29.9 Pruritus, unspecified; E87.6 Hypokalemia; Z86.711 Personal history of pulmonary embolism; Z95.810 Presence of automatic (implantable) cardiac defibrillator; Z79.01 Long term (current) use of anticoagulants; Z86.73 Personal history of transient ischemic attack (TIA), and cerebral infarction without residual deficits; Z86.74 Personal history of sudden cardiac arrest
CPT/HCPCS: 36415; 36569; 70450; 71010; 71275; 74176; 75635; 76705; 76937; 80048; 80053; 80061; 80069; 80076; 80306; 80307; 82270; 82962; 83036; 83690; 83735; 84100; 84439; 84443; 84484; 85014; 85018; 85025; 85610; 85730; 86850; 86900; 86901; 88305; 88312; 93005; 93306; 96365; 96368; 96375; 96376; C9113; J1170; J1200; J2250; J2270; J2405; J2930; J2997; J3475; J3480; Q9967

== ENCOUNTER 2017-02-10 10:50 | Inpatient (IN) | payer OTHER ==
[~2017-02-10] VITALS: Ht 190.5 cm; Wt 104.8 kg
[~2017-02-10 10:50] MED LIST: ALBU2.5V3 NEB; APIX5TAB PO; ASPI-664 PO; ATOR10TA65 PO; BACL10TA PO; BUDE6HFA INHALATION; DIGO125T6 PO; FER325 PO; GABA300C16 PO; HYDR4TAB51 PO; IPRA3AMP INHALATION; ISOS60TA PO; NIT4 SL; PANT40TA4 PO; POTA20TA96 PO; SERT50TA PO; SOTA80TA PO; SUCR1TAB56 PO; TIOT18CA INHALATION; TRAM-40 PO; ZOLP10TA PO
[2017-02-10] MEDS ORDERED: ONDANSETRON 4 MG INJ IV STA ×2 (12:05→15:32)
[2017-02-10] MEDS ORDERED: HYDROmorphONE 1 MG/ML SYG IV STA ×2 (12:05→13:45)
[2017-02-10] MEDS ORDERED: PANTOPRAZOLE 40 MG INJ IV STA (12:05)
[2017-02-10] MEDS ORDERED: SOD CHLORIDE 0.9% 1,000 ML IV STA (12:05)
[2017-02-10 12:48] LABS: BASOPHILS % 0.3 % (0.0-2.0); EOSINOPHILS # 0.1 10^3/ul (0.0-0.5); EOSINOPHILS % 0.8 % (0.0-7.0); HEMATOCRIT 43.7 % (42.0-52.0); HEMOGLOBIN 14.1 g/dl (14.0-18.0); LYMPHOCYTES # 1.2 10^3/ul (0.8-2.9); LYMPHOCYTES % 19.4 % (15.0-51.0); MEAN CORPUSCULAR HEMOGLOBIN 30.3 pg (29.0-33.0); MEAN CORPUSCULAR HGB CONC 32.3 g/dl (32.0-37.0); MEAN CORPUSCULAR VOLUME 93.8 fl (82.0-101.0); MEAN PLATELET VOLUME 8.3 fl (7.4-10.4); MONOCYTE # 0.5 10^3/ul (0.3-0.9); MONOCYTES % 7.4 % (0.0-11.0); NEUTROPHIL # 4.5 10^3/ul (1.6-7.5); NEUTROPHILS % 71.9 % (39.0-77.0); PLATELET COUNT 226 10^3/UL (140-415); RED BLOOD COUNT 4.66 10^6/ul (4.70-6.10); RED CELL DISTRIBUTION WIDTH 14.2 % (11.5-14.5); WHITE BLOOD COUNT 6.2 10^3/ul (4.8-10.8)
[2017-02-10 13:07] LABS: INR 1.66; PROTIME 19.7 Sec (12.2-14.2); PT RATIO 1.5
[2017-02-10 13:08] LABS: PARTIAL THROMBOPLASTIN TIME 36.9 Sec (25.0-35.0)
--- NOTE | 2017-02-10 13:09 | RADRPT ---
PROCEDURE: XR Chest. CLINICAL INDICATION: Chest pain TECHNIQUE: Frontal chest x-ray was obtained. COMPARISON: Chest x-ray December 09, 2016 FINDINGS: Noted is a dual lead pacemaker. The heart is not enlarged. Mediastinum is not widened. No hilar mass es seen. Lungs are clear of any infiltrates or mass. There is no effusion or pneumothorax. Noted is a right cervical rib. IMPRESSION: No evidence for active cardiopulmonary disease. .Michael Iglesias MD, MD Date Time Electronically viewed and signed by .Michael Iglesias MD, on 02/10/2017 13:08 .A/
[2017-02-10 13:11] LABS: ALANINE AMINOTRANSFERASE 38 IU/L (13-69); ALBUMIN 5.1 g/dl (3.3-4.9); ALBUMIN/GLOBULIN RATIO 1.96; ALKALINE PHOSPHATASE 82 IU/L (42-121); ANION GAP 16 (8-16); ASPARTATE AMINO TRANSFERASE 18 IU/L (15-46); BILIRUBIN,INDIRECT 0.5 mg/dl (0-1.1); BILIRUBIN,TOTAL 0.5 mg/dl (0.2-1.3); BLOOD UREA NITROGEN 12 mg/dl (7-20); CALCIUM 9.9 mg/dl (8.4-10.2); CARBON DIOXIDE 28 mmol/L (21-31); CHLORIDE 102 mmol/L (97-110); CREATININE 0.76 mg/dl (0.61-1.24); GLUCOSE 84 mg/dl (70-220); POTASSIUM 3.8 mmol/L (3.5-5.1); SODIUM 142 mmol/L (135-144); TOTAL PROTEIN 7.7 g/dl (6.1-8.1)
[2017-02-10 13:22] LABS: TROPONIN-I < 0.012 ng/ml (0.00-0.12)
[2017-02-10] MEDS ORDERED: DIPHENHYDRAMINE 50 MG INJ IV ONE (13:30)
--- NOTE | 2017-02-10 14:15 | ERD ---
ER Documentation Chief Complaint Chief Complaint HEMATEMESIS X 3 TODAY, CP, HX CA HPI Patient is a 31-year-old male with Marfan's disease, hypertension, stroke, CHF, and cardiac arrest who presents with chest pain and vomiting blood. He said that he had chest pain radiating to his back. He vomited blood this morning at 9 AM. He had a similar presentation in November when he was admitted and had an endoscopy which showed severe distal gastritis. He saw his primary doctor on Wednesday was sent to an ER that day and they did observation for 12 hours and sent him home. Upon review of old medical records the patient one previous visit to the ER in November of this year and was admitted. Review of the emergency department information exchange system shows visits to 3 separate emergency departments. He does not remember the name of his primary doctor. ROS All systems reviewed and are negative except as per history of present illness. Medications Home Meds Active Scripts Baclofen* (Baclofen*) 10 Mg Tablet, 10 MG PO TID, #90 TAB Prov:ROB BUI S. 12/26/16 Aspirin* (Aspirin* EC) 81 Mg Tablet.dr, 81 MG PO DAILY, #30 TAB Prov:ROB BUI S. 12/26/16 Digoxin* (Lanoxin*) 0.125 Mg Tablet, 0.125 MG PO DAILY, #30 TAB Prov:ROB BUI S. 12/26/16 Reported Medications Budesonide-Formoterol Fumarate* (Symbicort*) 160-4.5 Hfa.aer.ad, 1 PUFF INHALATION BID, #1 EACH 12/09/16 Gabapentin* (Gabapentin*) 300 Mg Capsule, 300 MG PO TID, #90 CAP 12/09/16 Sucralfate* (Carafate*) 1 Gm Tab, 1 GM PO AC MEALS AND BEDTIME, TAB 12/09/16 Atorvastatin Calcium (Atorvastatin Calcium) 10 Mg Tablet, 10 MG PO QHS, #30 TAB 12/09/16 Tramadol Hcl* (Ultram*) 50 Mg Tablet, 50 MG PO Q6H Y for PAIN, TAB 12/09/16 Sotalol Hcl* (Sotalol Hcl*) 80 Mg Tablet, 80 MG PO BID, TAB 12/09/16 Apixaban* (Eliquis*) 5 Mg Tablet, 5 MG PO BID, TAB 12/09/16 Sertraline Hcl* (Zoloft*) 50 Mg Tablet, 50 MG PO DAILY, #30 TAB 12/09/16 Nitroglycerin* (Nitrostat*) 0.4 Mg Tab.subl, 0.4 MG SL Q5MIN Y for CHEST PAIN, BOTTLE 12/09/16 Pantoprazole* (Pantoprazole*) 40 Mg Tablet.dr, 40 MG PO AC BREAKFAST, TAB 12/09/16 Isosorbide Mononitrate* (Isosorbide Mononitrate*) 60 Mg Tab.er.24h, 60 MG PO DAILY, TAB 12/09/16 Hydromorphone Hcl* (Dilaudid*) 4 Mg Tablet, 4 MG PO Q4H Y for PAIN, TAB 12/09/16 Potassium Chloride* (Potassium Chloride*) 20 Meq Tablet.er, 20 MEQ PO DAILY, TAB.SA 12/09/16 Albuterol Sulfate* (Albuterol Sulfate* Neb) 0.083%-3 Ml Neb, 2.5 MG NEB Q4 Y for WHEEZING AND SOB, #30 VIAL 12/09/16 Zolpidem Tartrate* (Ambien*) 10 Mg Tablet, 10 MG PO QHS Y for INSOMNIA, TAB 12/09/16 Ferrous Sulfate* (Ferrous Sulfate*) 325 Mg Tabec, 325 MG PO TID, TAB 12/09/16 Tiotropium Jackman* (Spiriva*) 18 Mcg Cap.w.dev, 1 CAP INHALATION DAILY, #30 CAP 12/09/16 Ipratropium-Albuterol (Ipratropium-Albuterol) 0.5-3 Mg/3 Ml Ampul.neb, 3 ML INHALATION Q6, #30 VIAL 12/09/16 Allergies Allergies: Coded Allergies: avocado (Verified Allergy, Severe, 12/09/16) banana (Verified Allergy, Severe, 12/09/16) iodine (Verified Allergy, Severe, ANAPHYLLACTIC, 12/09/16) ketamine (Verified Allergy, Severe, RASH, 12/09/16) latex (Verified Allergy, Severe, ANAPHYLACTIC, 12/09/16) onion (Verified Allergy, Severe, 12/09/16) promethazine (Verified Allergy, Severe, 12/09/16) propofol (Verified Allergy, Severe, ANAPHYLACTIC, 12/09/16) ketorolac (Verified Allergy, Mild, RASH, 12/09/16) morphine (Verified Allergy, Mild, RASH, 12/09/16) Iodinated Contrast- Oral and IV Dye (Verified Allergy, Unknown, 12/20/16) PMhx/Soc History of Surgery: Yes Anesthesia Reaction: Yes (Ketamine: breakout in rashes) Hx 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 Disorder: Yes (stroke) Hx Respiratory Disorders: Yes (pulmonary HTN) Hx Cardiac Disorders: Yes (AICD/pacemaker, cardiac arrest) Hx Psychiatric Problems: Yes (mild depression) Hx Miscellaneous Medical Probl: No (CKD) Hx Alcohol Use: No Hx Substance Use: No Hx Tobacco Use: No Smoking Status: Never smoker FmHx Family History: diabetes Physical Exam Vitals Vital Signs Date Time Temp Pulse Resp B/P Pulse Ox O2 Delivery O2 Flow Rate FiO2 02/10/17 13:16 98.3 72 20 133/72 99 02/10/17 10:54 98.2 65 18 137/65 99 Physical Exam Const: Moderate distress Head: Atraumatic Eyes: Normal Conjunctiva ENT: Normal External Ears, Nose and Mouth. Neck: Full range of motion..~ No meningismus. Resp: Clear to auscultation bilaterally Cardio: Regular rate and rhythm, no murmurs Abd: Soft, non tender, non distended. Normal bowel sounds Skin: Pale skin Back: No midline or flank tenderness Ext: Long extremities consistent with Marfan syndrome Neur: Awake and alert Psych: Normal Mood and Affect Result Diagram: 02/10/17 1230 02/10/17 1230 Results 24 hrs Laboratory Tests Test 02/10/17 12:30 White Blood Count 6.210^3/ul Red Blood Count 4.6610^6/ul Hemoglobin 14.1g/dl Hematocrit 43.7% Mean Corpuscular Volume 93.8fl Mean Corpuscular Hemoglobin 30.3pg Mean Corpuscular Hemoglobin Concent 32.3g/dl Red Cell Distribution Width 14.2% Platelet Count 08095^3/UL Mean Platelet Volume 8.3fl Neutrophils % 71.9% Lymphocytes % 19.4% Monocytes % 7.4% Eosinophils % 0.8% Basophils % 0.3% Nucleated Red Blood Cells % 0.0/100WBC Neutrophils # 4.510^3/ul Lymphocytes # 1.210^3/ul Monocytes # 0.510^3/ul Eosinophils # 0.110^3/ul Basophils # 0.010^3/ul Nucleated Red Blood Cells # 0.010^3/ul Prothrombin Time 19.7Sec Prothrombin Time Ratio 1.5 INR International Normalized Ratio 1.66 Activated Partial Thromboplast Time 36.9Sec Sodium Level 142mmol/L Potassium Level 3.8mmol/L Chloride Level 102mmol/L Carbon Dioxide Level 28mmol/L Anion Gap 16 Blood Urea Nitrogen 12mg/dl Creatinine 0.76mg/dl Glucose Level 84mg/dl Calcium Level 9.9mg/dl Total Bilirubin 0.5mg/dl Direct Bilirubin 0.00mg/dl Indirect Bilirubin 0.5mg/dl Aspartate Amino Transf (AST/SGOT) 18IU/L Alanine Aminotransferase (ALT/SGPT) 38IU/L Alkaline Phosphatase 82IU/L Troponin I < 0.012ng/ml Total Protein 7.7g/dl Albumin 5.1g/dl Globulin 2.60g/dl Albumin/Globulin Ratio 1.96 Current Medications Medications (Trade) Dose Ordered Sig/Yoselyn Route PRN Reason Start Time Stop Time Status Last Admin Dose Admin Sodium Chloride (NS) 1,000 ml @ 1,000 mls/hr Q1H STAT IV 02/10/17 12:05 02/10/17 13:04 DC 02/10/17 12:35 Pantoprazole (Protonix Iv) 40 mg ONCE STAT IV 02/10/17 12:05 02/10/17 12:06 DC 02/10/17 12:34 Ondansetron HCl (Zofran Inj) 4 mg ONCE STAT IV 02/10/17 12:05 02/10/17 12:06 DC 02/10/17 12:34 Hydromorphone HCl (Dilaudid) 1 mg ONCE STAT IV 02/10/17 12:05 02/10/17 12:06 DC 02/10/17 12:34 Diphenhydramine HCl (Benadryl) 25 mg ONCE ONCE IV 02/10/17 13:30 02/10/17 13:31 DC 02/10/17 13:43 Hydromorphone HCl (Dilaudid) 1 mg ONCE STAT IV 02/10/17 13:45 02/10/17 13:46 DC 02/10/17 13:52 Procedures/MDM EKG read by me: Rate/Rhythm: Regular rate and rhythm at a rate of 74 Intervals: Normal Impression: No evidence of ischemia or arrhythmia Chest x-ray negative per radiology. Patient is a 31-year-old male with multiple comorbidities including Marfan's disease, cardiac arrest, hypertension, stroke, and CHF who presents with vomiting blood. I am concerned for upper GI bleed. The patient was given Protonix. The patient had a normal EKG and chest x-ray at this point I doubt aortic dissection. He said that he has an allergy to contrast dye and I do not want to do a CTA of the chest at this time. The patient will be admitted to the care of Dr. Haile from the panel team to a telemetry bed. The patient would likely benefit from GI consultation while admitted. Departure Diagnosis: Primary Impression: GI bleed GI bleed type/associated pathology: unspecified gastrointestinal hemorrhage type Qualified Code: K92.2 - Gastrointestinal hemorrhage, unspecified gastrointestinal hemorrhage type Additional Impression: Chest pain Chest pain type: unspecified Qualified Code: R07.9 - Chest pain, unspecified type Condition: NÉSTOR Alcantara MD Feb 10, 2017 14:15
[2017-02-10] MEDS ORDERED: ONDANSETRON 4 MG INJ IV PRN (14:30)
[2017-02-10] MEDS ORDERED: ACETAMINOPHEN 325 MG TAB PO PRN (14:30)
[2017-02-10 16:13] LABS: BASOPHILS % 0.2 % (0.0-2.0); EOSINOPHILS # 0.1 10^3/ul (0.0-0.5); EOSINOPHILS % 1.1 % (0.0-7.0); HEMATOCRIT 35.9 % (42.0-52.0); HEMOGLOBIN 11.9 g/dl (14.0-18.0); LYMPHOCYTES # 1.6 10^3/ul (0.8-2.9); LYMPHOCYTES % 28.3 % (15.0-51.0); MEAN CORPUSCULAR HEMOGLOBIN 30.9 pg (29.0-33.0); MEAN CORPUSCULAR HGB CONC 33.1 g/dl (32.0-37.0); MEAN CORPUSCULAR VOLUME 93.2 fl (82.0-101.0); MEAN PLATELET VOLUME 8.5 fl (7.4-10.4); MONOCYTE # 0.4 10^3/ul (0.3-0.9); MONOCYTES % 7.1 % (0.0-11.0); NEUTROPHIL # 3.6 10^3/ul (1.6-7.5); NEUTROPHILS % 63.1 % (39.0-77.0); PLATELET COUNT 186 10^3/UL (140-415); RED BLOOD COUNT 3.85 10^6/ul (4.70-6.10); RED CELL DISTRIBUTION WIDTH 14.3 % (11.5-14.5); WHITE BLOOD COUNT 5.6 10^3/ul (4.8-10.8)
--- NOTE | 2017-02-10 16:34 | HP ---
Date/Time of Note Date/Time of Note DATE: 02/10/17 TIME: 16:26 Assessment/Plan VTE Prophylaxis VTE Prophylaxis Intervention: SCD's Assessment/Plan Chief Complaint/Hosp Course 31 yo male with Marfans, PPM/ICD 2/2 VT/VF arrest and SSS, A Fib, PUD, AVMs of stomach presenting with hematemesis Hematemesis - HD stable, bleeding seems to have stopped - Start protonix IV, trend H/H - Consult GI for consideration of endoscopy - Hold Eliquis h/o VT/VF arrest s/p ICD s/p PPM for SSS h/o PE on Eliquis - Hold Eliquis for now Epigastric vs chest pain: - Suspect from vomiting - Troponin negative, EKG non ischemic - Cycle troponin Discharge following GI workup Problems: HPI/ROS Admit Date/Time Admit Date/Time Hx of Present Illness 31 yo male who h/o Marfans, VT/VF arrest s/p ICD, SSS s/p PPM, A Fib, PE in March while on AC now on Eliquis, recent episodes of UGIB presents with hematemsis this AM Patient on AC for A FIb and PE. PE occured in March while on Pradaxa, then switched to Eliquis. Has had numerous episodes of UGIB. Underwent EGD at [facility] in August showing AVMs and ulcers, then EGD here in november showing severe gastritis. Has been taking carafate and protonix. No NSAID use. No alcohol. Complains of epigastric pain since yesterday. PMH/Family/Social Past Medical History Marfans ICD/PPM for VT and SSS A Fib PE on Eliquis PUD, AVMs, UGIB Past Surgical History Past Surgical Hx: other Social History Alcohol Use: none Smoking Status: Never smoker Drug Use: none Exam/Review of Systems Vital Signs Vitals Vital Signs Date Time Temp Pulse Resp B/P Pulse Ox O2 Delivery O2 Flow Rate FiO2 02/10/17 13:16 98.3 72 20 133/72 99 Exam Exam Well appearing, in NAD AOx3, pleasant Sytolic murmur, RRR paced Clear lungs Abdomen soft nt nd Ext marfanoid No edema Labs Result Diagram: 02/10/17 1600 02/10/17 1230 Medications Medications Current Medications Pantoprazole (Protonix Iv) 40 mg BID@,18 IV ; Start 02/10/17 at 18:00 CHELSIE DALEY MD Feb 10, 2017 16:34
[2017-02-10] MEDS: HYDROmorphONE 0.5 MG/0.5 ML SYG IV PRN ×2 (17:07→23:14)
[2017-02-10] MEDS: DIPHENHYDRAMINE 50 MG INJ IM PRN ×2 (17:08→23:14)
[2017-02-10] MEDS: PANTOPRAZOLE 40 MG INJ IV SCH (18:08)
[2017-02-10 18:18] VITALS: TEMP 98
[2017-02-10 20:23] VITALS: BP 116/54; RESP 20
[2017-02-10 20:37] VITALS: PULSE 62
[2017-02-10 21:00] VITALS: Ht 190.5 cm; Wt 104.8 kg
[2017-02-10 21:47] LABS: HEMATOCRIT 35.5 % (42.0-52.0); HEMOGLOBIN 11.4 g/dl (14.0-18.0)
[2017-02-10 23:42] VITALS: BP 118/58; RESP 20
[2017-02-11] VITALS (11 sets, daily range): BP systolic 106–117; BP diastolic 49–60; PULSE 60–66; RESP 18–20
[2017-02-11 04:15] LABS: HEMATOCRIT 32.9 % (42.0-52.0)
[2017-02-11 04:33] LABS: CALCIUM 8.5 mg/dl (8.4-10.2); CREATININE 0.61 mg/dl (0.61-1.24); MAGNESIUM 1.5 mg/dl (1.7-2.5); PHOSPHORUS 3.8 mg/dl (2.5-4.9); POTASSIUM 3.3 mmol/L (3.5-5.1)
[2017-02-11] MEDS: SOD CHLORIDE 0.9% 1,000 ML IV SCH ×2 (05:04→18:18)
[2017-02-11] MEDS: PANTOPRAZOLE 40 MG INJ IV SCH ×2 (05:05→17:32)
[2017-02-11] MEDS: HYDROmorphONE 0.5 MG/0.5 ML SYG IV PRN ×4 (05:05→23:44)
[2017-02-11] MEDS: DIPHENHYDRAMINE 50 MG INJ IM PRN ×4 (05:06→23:44)
[2017-02-11] MEDS ORDERED: POTASSIUM CHLORIDE (SR) 20 MEQ TAB PO ONE ×2 (06:00→08:00)
[2017-02-11] MEDS ORDERED: MAGNESIUM SULFATE 2 GM/50 ML 50 ML IVPB ONE (06:00)
--- NOTE | 2017-02-11 10:27 | CONS ---
Date/Time of Note Date/Time of Note DATE: 02/11/17 TIME: 10:07 Assessment/Plan Assessment/Plan Chief Complaint/Hosp Course Summary Assessment and Plan: Assessment: Hematemesis R/o PUD vs gastritis vs AVM Epigastric R/o PUD vs gastritis H/o VT/VF arrest s/p ICD H/o SS H/o PE on AC therapy Plan: Continue PPI IV Keep NPO EGD tomorrow Continue to monitor H/H Patient seen in collaboration with Dr. Addison Problems: Consultation Date/Type/Reason Admit Date/Time Date of Consultation: Feb 11, 2017 Type of Consultation: GI Reason for Consultation Hematemesis Hx of Present Illness History of Present Illness: This is a 31 year old male with a past medical history of Marfan's, pulmonary HTN, asthma, PE in Mar while on Pradaxa (anticoagulation was changed to Eliquis , after PE in Mar), SSS, VT/VF arrest s/p ICD placement 2012 with removal Apr 2016 secondary to endocarditis and replacement of ICD in May of 2016. Patient had an EGD in August showing gastric ulcer and AVM, pt was had another EGD in November showing gastritis, he was started on PPI and Carafate. Presented to the ER hematemesis x3 episodes with associated epigastric pain. Pain is described as a intermittent cramping feeling 6/10 on pain scale, not relieved by anything in particular, pain worse postprandial. Eliquis was stopped yesterday. Upon initial evaluation HGB 14, today's HGB is now 11. He currently denies any further episodes of hematemesis, nausea, change in bowel habits, melena, or anorexia. He continues to have some abd pain, with min improvement from yesterday. Wit current presentation agree with IV PPI, will plan for EGD tomorrow, keep patient NPO at this time, and continue to monitor H/ H. Review of Systems: Gastrointestinal and liver: Positive for: nausea, vomiting,hematemesis,and abdominal pain. Negative for: Anorexia, dysphagia, odynophagia, pyrosis, regurgitation, early satiety, bloating, food intolerance, diarrhea, constipation, change in bowel habits, laxative use, melena, hematochezia, and rectal symptoms, incontinence, jaundice. Constitutional: requiring IVF Eyes: no complaints ENT: no complaints Respiratory: no complaints Cardiovascular: no complaints Genitourinary: no complaints Musculoskeletal: no complaints Skin: no complaints Past Medical History Medical History: GI bleed, peptic ulcer disease, other (Pulm HTN, asthma, PE, SSS, VT/VF arrest s/p ICD, on AC therapy) Past Surgical History Past Surgical Hx: other (Tonsilectomy ) Social History Alcohol Use: none Smoking Status: Never smoker Drug Use: none Exam/Review of Systems Vital Signs Vitals Vital Signs Date Time Temp Pulse Resp B/P Pulse Ox O2 Delivery O2 Flow Rate FiO2 02/11/17 08:17 62 02/11/17 08:01 97.8 18 115/55 100 Intake and Output 02/10/17 02/10/17 02/11/17 15:00 23:00 07:00 Intake Total 40 ml Output Total 350 ml Balance -310 ml Exam Constitutional: alert, oriented Psych: no complaints Head: atraumatic, normocephalic Eyes: nl conjunctiva ENMT: nl external ears & nose, nl lips & teeth Neck: non-tender, supple Respiratory: clear to auscultation Cardiovascular: regular rate and rhythm Gastrointestinal: bowel sounds, nl liver, spleen, soft, tender, No distended, No firm, No hepatomegaly, No mass, No rebound or guarding, No splenomegaly, No surgical scars Genitourinary - Male: nl penis Musculoskeletal: nl extremities to inspection Results Result Diagram: 02/11/1740402/11/17 0405 Results 24 hrs Laboratory Tests Test 02/10/17 12:30 02/10/17 16:00 02/10/17 18:20 02/10/17 21:16 White Blood Count 6.2 # 5.6 Red Blood Count 4.66 #L 3.85 L Hemoglobin 14.1 # 11.9 L 11.4 L Hematocrit 43.7 # 35.9 L 35.5 L Mean Corpuscular Volume 93.8 93.2 Mean Corpuscular Hemoglobin 30.3 30.9 Mean Corpuscular Hemoglobin Concent 32.3 33.1 Red Cell Distribution Width 14.2 14.3 Platelet Count 226 186 Mean Platelet Volume 8.3 8.5 Neutrophils % 71.9 63.1 Lymphocytes % 19.4 28.3 Monocytes % 7.4 7.1 Eosinophils % 0.8 1.1 Basophils % 0.3 0.2 Nucleated Red Blood Cells % 0.0 0.0 Neutrophils # 4.5 3.6 Lymphocytes # 1.2 1.6 Monocytes # 0.5 0.4 Eosinophils # 0.1 0.1 Basophils # 0.0 0.0 Nucleated Red Blood Cells # 0.0 0.0 Prothrombin Time 19.7 #H Prothrombin Time Ratio 1.5 INR International Normalized Ratio 1.66 Activated Partial Thromboplast Time 36.9 H Sodium Level 142 Potassium Level 3.8 Chloride Level 102 Carbon Dioxide Level 28 Anion Gap 16 Blood Urea Nitrogen 12 Creatinine 0.76 Glucose Level 84 Calcium Level 9.9 Total Bilirubin 0.5 Direct Bilirubin 0.00 Indirect Bilirubin 0.5 Aspartate Amino Transf (AST/SGOT) 18 Alanine Aminotransferase (ALT/SGPT) 38 Alkaline Phosphatase 82 Troponin I < 0.012 < 0.012 Total Protein 7.7 Albumin 5.1 H Globulin 2.60 Albumin/Globulin Ratio 1.96 Test 02/11/17 04:05 Hemoglobin 11.0 L Hematocrit 32.9 L Sodium Level 141 Potassium Level 3.3 L Chloride Level 108 Carbon Dioxide Level 27 Anion Gap 9 # Blood Urea Nitrogen 9 Creatinine 0.61 Glucose Level 82 Calcium Level 8.5 Phosphorus Level 3.8 Magnesium Level 1.5 L Medications Medications Current Medications Pantoprazole (Protonix Iv) 40 mg BID@06,18 IV Last administered on 02/11/17 05:05; Admin Dose 40 MG; Start 02/10/17 at 18:00 Hydromorphone HCl (Dilaudid) 0.5 mg Q6H PRN IV PAIN Last administered on 05:05; Admin Dose 0.5 MG; Start 02/10/17 at 17:00 Diphenhydramine HCl 25 mg 25 mg Q6H PRN IM ITCHING Last administered on 05:06; Admin Dose 25 MG; Start 02/10/17 at 17:00 Sodium Chloride (NS) 1,000 ml @ 70 mls/hr [id number] IV Last administered on 05:04; Admin Dose 70 MLS/HR; Start 02/11/17 at 04:00 Copies To: CC: MICHAEL ADDISON MD, VICTORIA Feb 11, 2017 10:21
--- NOTE | 2017-02-11 13:56 | PN ---
Date/Time of Note Date/Time of Note DATE: 02/11/17 TIME: 13:55 Assessment/Plan VTE Prophylaxis VTE Prophylaxis Intervention: LMWH, SCD's, other Lines/Catheters IV Catheter Type (from Nrsg): Mid Line Assessment/Plan Chief Complaint/Hosp Course 31 yo male with Marfans, PPM/ICD 2/2 VT/VF arrest and SSS, A Fib, PUD, AVMs of stomach presenting with hematemesis Hematemesis - HD stable, bleeding seems to have stopped - Contniue protonix IV, trend H/H - Endoscopy tomorrow - Hold Eliquis h/o VT/VF arrest s/p ICD s/p PPM for SSS h/o PE on Eliquis - Hold Eliquis for now Epigastric vs chest pain: - Suspect from vomiting - Troponin negative, EKG non ischemic - Cycle troponin Opiate dependence for chronic pain Discharge following GI workup Problems: Subjective 24 Hr Interval Summary Free Text/Dictation Requesting increasing dose of dilaudid, though can't verbalize where pain is No more bleeding episodes Exam/Review of Systems Vital Signs Vitals Vital Signs Date Time Temp Pulse Resp B/P Pulse Ox O2 Delivery O2 Flow Rate FiO2 02/11/17 12:21 66 02/11/17 11:30 98.0 18 112/60 98 Intake and Output 02/10/17 02/10/17 02/11/17 15:00 23:00 07:00 Intake Total 40 ml Output Total 350 ml Balance -310 ml Exam Constitutional: alert, oriented, well developed Psych: nl mood/affect, no complaints Head: atraumatic, normocephalic Eyes: EOMI, PERRL, nl conjunctiva, nl lids, nl sclera ENMT: nl external ears & nose, nl lips & teeth, nl nasal mucosa & septum Neck: non-tender, supple Respiratory: clear to auscultation, normal air movement Cardiovascular: nl pulses, regular rate and rhythm Gastrointestinal: nl liver, spleen, non-tender, soft Musculoskeletal: nl extremities to inspection, nl gait and stance Extremities: normal pulses 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: PRINT ROOM WORKER II-XII intact, nl mental status, nl speech, nl strength Skin: nl turgor, No rash or lesions Lymph: nl lymph nodes Results Result Diagram: 02/11/175 02/11/17 0405 Results 24 hrs Laboratory Tests Test 02/10/17 16:00 02/10/17 18:20 02/10/17 21:16 02/11/17 04:05 White Blood Count 5.6 Red Blood Count 3.85 L Hemoglobin 11.9 L 11.4 L 11.0 L Hematocrit 35.9 L 35.5 L 32.9 L Mean Corpuscular Volume 93.2 Mean Corpuscular Hemoglobin 30.9 Mean Corpuscular Hemoglobin Concent 33.1 Red Cell Distribution Width 14.3 Platelet Count 186 Mean Platelet Volume 8.5 Neutrophils % 63.1 Lymphocytes % 28.3 Monocytes % 7.1 Eosinophils % 1.1 Basophils % 0.2 Nucleated Red Blood Cells % 0.0 Neutrophils # 3.6 Lymphocytes # 1.6 Monocytes # 0.4 Eosinophils # 0.1 Basophils # 0.0 Nucleated Red Blood Cells # 0.0 Troponin I < 0.012 Sodium Level 141 Potassium Level 3.3 L Chloride Level 108 Carbon Dioxide Level 27 Anion Gap 9 # Blood Urea Nitrogen 9 Creatinine 0.61 Glucose Level 82 Calcium Level 8.5 Phosphorus Level 3.8 Magnesium Level 1.5 L Medications Medications Current Medications Pantoprazole (Protonix Iv) 40 mg BID@06,18 IV Last administered on 02/11/17 05:05; Admin Dose 40 MG; Start 02/10/17 at 18:00 Hydromorphone HCl (Dilaudid) 0.5 mg Q6H PRN IV PAIN Last administered on 11:12; Admin Dose 0.5 MG; Start 02/10/17 at 17:00 Diphenhydramine HCl 25 mg 25 mg Q6H PRN IM ITCHING Last administered on 11:13; Admin Dose 25 MG; Start 02/10/17 at 17:00 Sodium Chloride (NS) 1,000 ml @ 70 mls/hr [id number] IV Last administered on 05:04; Admin Dose 70 MLS/HR; Start 02/11/17 at 04:00 CHELSIE DALEY MD Feb 11, 2017 13:56
[2017-02-11 14:17] LABS: HEMOGLOBIN 12.7 g/dl (14.0-18.0)
[2017-02-11 14:36] LABS: CALCIUM 8.8 mg/dl (8.4-10.2); CREATININE 0.61 mg/dl (0.61-1.24); MAGNESIUM 2.2 mg/dl (1.7-2.5); POTASSIUM 4.3 mmol/L (3.5-5.1)
[2017-02-11 20:18] LABS: HEMATOCRIT 35.3 % (42.0-52.0); HEMOGLOBIN 11.6 g/dl (14.0-18.0)
[2017-02-12] VITALS (16 sets, daily range): BP systolic 110–140; BP diastolic 54–70; PULSE 60–115; RESP 16–24
[2017-02-12] MEDS: HYDROmorphONE 0.5 MG/0.5 ML SYG IV PRN ×3 (05:56→18:13)
[2017-02-12] MEDS: PANTOPRAZOLE 40 MG INJ IV SCH ×2 (05:56→17:52)
[2017-02-12] MEDS: DIPHENHYDRAMINE 50 MG INJ IV PRN ×3 (05:59→18:13)
[2017-02-12] MEDS: SOD CHLORIDE 0.9% 1,000 ML IV SCH ×2 (12:09→22:00)
--- NOTE | 2017-02-12 15:54 | PN ---
Date/Time of Note Date/Time of Note DATE: 02/12/17 TIME: 15:53 Assessment/Plan VTE Prophylaxis VTE Prophylaxis Intervention: LMWH, other Lines/Catheters IV Catheter Type (from Nrsg): Mid Line Urinary Cath still in place: No Assessment/Plan Chief Complaint/Hosp Course 31 yo male with Marfans, PPM/ICD 2/2 VT/VF arrest and SSS, A Fib, PUD, AVMs of stomach presenting with hematemesis Hematemesis - HD stable, bleeding seems to have stopped - Contniue protonix IV, trend H/H - Endoscopy today - Hold Eliquis h/o VT/VF arrest s/p ICD s/p PPM for SSS h/o PE on Eliquis - Hold Eliquis for now Epigastric vs chest pain: - Suspect from vomiting - Troponin negative, EKG non ischemic Opiate dependence for chronic pain Discharge following GI workup Problems: Subjective 24 Hr Interval Summary Free Text/Dictation Awating endoscopy H/H stable Exam/Review of Systems Vital Signs Vitals Vital Signs Date Time Temp Pulse Resp B/P Pulse Ox O2 Delivery O2 Flow Rate FiO2 02/12/17 12:30 80 02/12/17 11:30 97.4 18 119/59 100 Intake and Output 02/11/17 02/11/17 02/12/17 15:00 23:00 07:00 Intake Total 0 ml 840 ml Output Total 600 ml Balance -600 ml 840 ml Exam Constitutional: alert, oriented, well developed Psych: nl mood/affect, no complaints Head: atraumatic, normocephalic Eyes: EOMI, PERRL, nl conjunctiva, nl lids, nl sclera ENMT: nl external ears & nose, nl lips & teeth, nl nasal mucosa & septum Neck: non-tender, supple Respiratory: clear to auscultation, normal air movement Cardiovascular: nl pulses, regular rate and rhythm Gastrointestinal: nl liver, spleen, non-tender, soft Musculoskeletal: nl extremities to inspection, nl gait and stance Extremities: normal pulses 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: WATER METER READER II-XII intact, nl mental status, nl speech, nl strength Skin: nl turgor, No rash or lesions Lymph: nl lymph nodes Results Result Diagram: 02/11/17200702/11/17 1311 Results 24 hrs Laboratory Tests Test 02/11/17 20:08 Hemoglobin 11.6 L Hematocrit 35.3 L Medications Medications Current Medications Pantoprazole (Protonix Iv) 40 mg BID@06,18 IV Last administered on 02/12/17 05 :56; Admin Dose 40 MG; Start 02/10/17 at 18:00 Hydromorphone HCl 0.5 mg 0.5 mg Q6H PRN IV PAIN Last administered on 02/12/17 12:04; Admin Dose 0.5 MG; Start 02/10/17 at 17:00 Sodium Chloride (NS) 1,000 ml @ 70 mls/hr [id number] IV Last administered on 02/12 12:09; Admin Dose 70 MLS/HR; Start 02/11/17 at 04:00 Diphenhydramine HCl (Benadryl) 25 mg Q6H PRN IV ITCHING Last administered on 12:05; Admin Dose 25 MG; Start 02/12/17 at 06:00 CHELSIE DALEY MD Feb 12, 2017 15:54
[2017-02-12] MEDS ORDERED: FENTAnyl 50 MCG/ML VIAL ONE ×4 (16:01→16:06)
[2017-02-12] MEDS ORDERED: MIDAZOLAM 1 MG/ML 2 ML INJ ONE ×3 (16:02→16:05)
[2017-02-12] MEDS ORDERED: DIPHENHYDRAMINE 50 MG INJ ONE (16:02)
[2017-02-12] MEDS ORDERED: ETOMIDATE 20 MG INJ ONE (16:02)
--- NOTE | 2017-02-12 16:23 | OPPN ---
Date/Time of Note Date/Time of Note DATE: 02/12/17 TIME: 16:18 Proc Note GI Procedure Date 02/12/17 Indication: other (Hematemesis) Pre-procedure Diagnosis Hematemesis Post-procedure Diagnosis Impression: Moderate gastritis. Rule out H. pylori infection. Biopsies obtained Otherwise normal EGD Plan: Continue PPI therapy No definitive contraindication to anticoagulate him from the GI viewpoint Advance diet as tolerated . 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 [employer] Furnace none Anesthesia Type: MAC Anesthesiologist: CARLA AGUILA MD Tourniquet Time none EBL none Transfusion required none Biopsy 1: Gastric antrum Grafts/Implants none Tubes/Drains none Complication(s) none Disposition: PACU Procedure Description After informed consent, with the patient/relatives understanding the procedure, its indications, potential risks and complications, including but not limited to : allergic reaction, bleeding, perforation or infection, and after all pertinent questions were answered to the patients satisfaction, the patient/ relatives signed witnessed informed consent. Following this, premedication was administered slowly IV push under careful cardiovascular and respiratory monitoring with pulse oximetry, automatic blood pressure, and athletic monitor. Once the sedative effect was achieved the patient was place in the left lateral decubitus, the panendoscope was introduced and advanced under visual control. Careful examination of the upper gastrointestinal tract, both on insertion as well as withdrawal of the instrument disclosing the following findings: ESOPHAGUS: the mucosa of the entire esophagus was carefully examined and showed the following findings: the mucosa appears within normal limits. There is no evidence of esophagitis, varices, neoplasm, or stricture. No Hiatal Hernia identified. STOMACH: Upon entrance to the stomach air was insufflated, the gastric jose distended normally. The mucosa of the fundus, body and antrum of the stomach was carefully examined both head-on and on retroflexion, and showed the following findings: There is moderate erythema and edema of the mucosa of the body and antrum the stomach. Biopsies were obtained to rule out H. pylori infection. Otherwise the mucosa appears within normal limits with no abnormalities. There is no evidence of ulcers or neoplasm. PYLORUS: The pylorus was carefully examined and showed the following findings: the pylorus appears patent and within normal limits, with no evidence of gastric outlet obstruction. DUODENUM: The duodenal mucosa was carefully examined in the duodenal bulb as well as the second portion of the duodenum and showed the following findings: the mucosa appears unremarkable with no evidence of duodenitis, ulcer or neoplasm. Copies To: CC: MICHAEL BELTRAN MD, MORDO MD Feb 12, 2017 16:23
[2017-02-12] MEDS ORDERED: HYDROmorphONE (0.2 MG/ML) 10ML SYG IV ONE (16:36)
[2017-02-12] MEDS ORDERED: ONDANSETRON 4 MG INJ ONE (16:38)
[2017-02-12] MEDS ORDERED: METOCLOPRAMIDE 10 MG INJ IV PRN (17:00)
[2017-02-12] MEDS ORDERED: HYDROmorphONE (0.2 MG/ML) 10ML SYG IV PRN ×3 (17:00)
[2017-02-12] MEDS ORDERED: LABETALOL HCL 20MG INJ IV PRN (17:00)
[2017-02-12] MEDS ORDERED: ONDANSETRON 4 MG INJ IV PRN (17:00)
[2017-02-12] MEDS ORDERED: EPHEDrine SULFATE 50 MG/5 ML SYG IV PRN (17:00)
[2017-02-12] MEDS ORDERED: ALBUMIN HUMAN 5% 250 ML IV PRN (17:00)
[2017-02-12 18:28] LABS: HEMATOCRIT 39.5 % (42.0-52.0); HEMOGLOBIN 13.1 g/dl (14.0-18.0)
[2017-02-13] VITALS (12 sets, daily range): BP systolic 103–119; BP diastolic 52–58; PULSE 71–108; RESP 16–18
[2017-02-13] MEDS: HYDROmorphONE 0.5 MG/0.5 ML SYG IV PRN ×4 (00:15→18:42)
[2017-02-13] MEDS: DIPHENHYDRAMINE 50 MG INJ IV PRN ×4 (00:15→18:41)
[2017-02-13] MEDS: PANTOPRAZOLE 40 MG INJ IV SCH (06:14)
--- NOTE | 2017-02-13 10:52 | PN ---
Date/Time of Note Date/Time of Note DATE: 02/13/17 TIME: 10:33 Assessment/Plan VTE Prophylaxis VTE Prophylaxis Intervention: ambulation Lines/Catheters IV [facility] Line Urinary Cath still in place: No Assessment/Plan Chief Complaint/Hosp Course Assessment: Hx of Hematemesis S/p EGD Impression: Moderate gastritis. Rule out H. pylori infection. Biopsies obtained Otherwise normal EGD History of Marfan's H/o VT/VF arrest s/p ICD S/p PPM for SSS H/o PE Plan: Continue PPI therapy No contraindication to anticoagulate him from the GI viewpoint Regular diet as tolerated Patient is tolerating regular diet. C/o right upper quadrant pain following each meal. Will follow up with [facility] GI team to conduct any further testing. H&H is stable. Patient is stable from GI standpoint. At this point will sign off and will be available for consult upon request. PHYSICAL EXAMINATION: GENERAL: Well developed, well nourished, alert & oriented x 3, in no acute distress SKIN: No lesions, no stigmata chronic liver disease, no evidence of bleeding diathesis LYMPHATIC: No palpable lymphadenopathy. HEAD: Normocephalic, atraumatic, no tenderness. EYES: Pupils equal reactive to light and accommodation, full extraocular movements, sclera clear, non-icteric, no discharge. EARS/NOSE AND THROAT: Ears normal, nose normal, oropharynx normal, oral membranes well hydrated without lesions. NECK: Supple, no masses, thyroid normal, JVP within normal limits, carotids normal without bruits. CHEST: Inspection within normal limits. CARDIOVASCULAR: Heart: Regular rate and rhythm, no murmurs, gallops or rubs. Peripheral pulses present within normal limits, no cyanosis, clubbing or edemas. No pulsatile abdominal mass RESPIRATORY: Lungs clear to auscultation and percussion, no wheezing, no rubs GASTROINTESTINAL AND LIVER: Abdomen: Soft, right upper quadrant and right lower quadrant tenderness, non-distended, no hernias, no masses, no organomegaly, no ascites, no guarding, no rebound tenderness, normoactive bowel sounds. Rectal: Deferred. GENITOURINARY: [Male genitalia within normal limits. EXTREMITIES: No cyanosis, clubbing or edema. Problems: Exam/Review of Systems Vital Signs Vitals Vital Signs Date Time Temp Pulse Resp B/P Pulse Ox O2 Delivery O2 Flow Rate FiO2 02/13/17 08:26 80 02/13/17 07:49 98.2 18 113/57 100 02/12/17 16:53 Room Air Intake and Output 02/12/17 02/12/17 02/13/17 15:00 23:00 07:00 Intake Total 400 ml 850 ml Output Total 1000 ml 1450 ml Balance -600 ml -600 ml Results Result Diagram: 02/12/17 1805 02/11/17 1311 Results 24 hrs Laboratory Tests Test 02/12/17 18:05 Hemoglobin 13.1 L Hematocrit 39.5 L Medications Medications Current Medications Pantoprazole (Protonix Iv) 40 mg BID@06,18 IV Last administered on 02/13/17 06 :14; Admin Dose 40 MG; Start 02/10/17 at 18:00 Hydromorphone HCl 0.5 mg 0.5 mg Q6H PRN IV PAIN Last administered on 02/13/17 06:15; Admin Dose 0.5 MG; Start 02/10/17 at 17:00 Sodium Chloride (NS) 1,000 ml @ 70 mls/hr [id number] IV Last administered on 02/12 12:09; Admin Dose 70 MLS/HR; Start 02/11/17 at 04:00 Diphenhydramine HCl (Benadryl) 25 mg Q6H PRN IV ITCHING Last administered on 06:15; Admin Dose 25 MG; Start 02/12/17 at 06:00 RISA MCNAMARA NP Feb 13, 2017 10:46
[2017-02-13] MEDS: APIXABAN 5 MG TABLET PO SCH ×2 (12:47→21:35)
--- NOTE | 2017-02-13 14:56 | PN ---
Date/Time of Note Date/Time of Note DATE: 02/13/17 TIME: 14:55 Assessment/Plan VTE Prophylaxis VTE Prophylaxis Intervention: other Lines/Catheters IV Catheter Type (from Nrsg): Mid Line Urinary Cath still in place: No Assessment/Plan Chief Complaint/Hosp Course 31 yo male with Marfans, PPM/ICD 2/2 VT/VF arrest and SSS, A Fib, PUD, AVMs of stomach presenting with hematemesis Hematemesis - HD stable, bleeding resolved, nothing concerning on EG - Restart AC, if stable will dc tomorrow h/o VT/VF arrest s/p ICD s/p PPM for SSS h/o PE on Eliquis - Resume Eliquis Epigastric vs chest pain: - Suspect from vomiting - Troponin negative, EKG non ischemic Opiate dependence for chronic pain Discharge christina if H/H stable on Eliquis Problems: Subjective 24 Hr Interval Summary Free Text/Dictation No more bleeding EGD neg for source Restarted on AC today Exam/Review of Systems Vital Signs Vitals Vital Signs Date Time Temp Pulse Resp B/P Pulse Ox O2 Delivery O2 Flow Rate FiO2 02/13/17 12:14 71 02/13/17 11:47 98.5 18 108/52 98 02/12/17 16:53 Room Air Intake and Output 02/12/17 02/12/17 02/13/17 15:00 23:00 07:00 Intake Total 400 ml 850 ml Output Total 1000 ml 1450 ml Balance -600 ml -600 ml Exam Constitutional: alert, oriented, well developed Psych: nl mood/affect, no complaints Head: atraumatic, normocephalic Eyes: EOMI, PERRL, nl conjunctiva, nl lids, nl sclera ENMT: nl external ears & nose, nl lips & teeth, nl nasal mucosa & septum Neck: non-tender, supple Respiratory: clear to auscultation, normal air movement Cardiovascular: nl pulses, regular rate and rhythm Gastrointestinal: nl liver, spleen, non-tender, soft Musculoskeletal: nl extremities to inspection, nl gait and stance Extremities: normal pulses 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: MOBILE MARKETING SPECIALIST II-XII intact, nl mental status, nl speech, nl strength Skin: nl turgor, No rash or lesions Lymph: nl lymph nodes Results Result Diagram: 02/12/17 1805 02/11/17 1311 Results 24 hrs Laboratory Tests Test 02/12/17 18:05 Hemoglobin 13.1 L Hematocrit 39.5 L Medications Medications Current Medications Pantoprazole (Protonix Iv) 40 mg BID@,18 IV Last administered on 02/13/17 06 :14; Admin Dose 40 MG; Start 02/10/17 at 18:00 Hydromorphone HCl (Dilaudid) 0.5 mg Q6H PRN IV PAIN Last administered on 12:40; Admin Dose 0.5 MG; Start 02/10/17 at 17:00 Diphenhydramine HCl (Benadryl) 25 mg Q6H PRN IV ITCHING Last administered on 12:41; Admin Dose 25 MG; Start 02/12/17 at 06:00 Apixaban (Eliquis) 5 mg BID PO Last administered on 02/13/17 12:47; Admin Dose 5 MG; Start 02/13/17 at 10:30 CHELSIE DALEY MD Feb 13, 2017 14:56
[2017-02-13] MEDS: PANTOPRAZOLE (EC) 40 MG TAB PO SCH (17:24)
[2017-02-14] VITALS (12 sets, daily range): BP systolic 91–127; BP diastolic 51–74; PULSE 76–108; RESP 16–18
[2017-02-14] MEDS: DIPHENHYDRAMINE 50 MG INJ IV PRN ×4 (00:26→18:46)
[2017-02-14] MEDS: HYDROmorphONE 0.5 MG/0.5 ML SYG IV PRN ×4 (00:27→18:46)
[2017-02-14 06:02] LABS: HEMATOCRIT 36.7 % (42.0-52.0)
[2017-02-14] MEDS: PANTOPRAZOLE (EC) 40 MG TAB PO SCH ×2 (06:05→17:24)
[2017-02-14] MEDS: APIXABAN 5 MG TABLET PO SCH ×2 (08:39→20:20)
--- NOTE | 2017-02-14 10:34 | PDOCDIS ---
Discharge Instructions DIAGNOSIS Discharge Diagnosis GI bleeding CONDITION Patient Condition: Good HOME CARE INSTRUCTIONS: Diet Instructions: RegularSpecial Diet: REG.DIET. CHELSIE DALEY MD Feb 14, 2017 10:34
--- NOTE | 2017-02-14 10:36 | DS ---
Date/Time of Note Date/Time of Note DATE: 02/14/17 TIME: 10:34 Discharge Summary Admission/Discharge Info Admit Date/Time Feb 13, 2017 at 14:28 Discharge Date/Time Discharge Diagnosis GI bleeding Patient Condition: Good Hx of Present Illness 31 yo male who h/o Marfans, VT/VF arrest s/p ICD, SSS s/p PPM, A Fib, PE in March while on AC now on Eliquis, recent episodes of UGIB presents with hematemsis this AM Patient on AC for A FIb and PE. PE occured in March while on Pradaxa, then switched to Eliquis. Has had numerous episodes of UGIB. Underwent EGD at [facility] in August showing AVMs and ulcers, then EGD here in november showing severe gastritis. Has been taking carafate and protonix. No NSAID use. No alcohol. Complains of epigastric pain since yesterday. Hospital Course The patient was started on IV PPI out of concern for GI bleeding. H/H were trended and remained stable throughout admission. EGD was performed showing moderate gastritis but no source of bleeding was found. Anticoagulation was resumed following endoscopy and he had no further episodes of bleeding. He was encouraged to follow up with Dr Addison for biopys results and to return to the hospital if symptoms recur. Home Meds Active Scripts Baclofen* (Baclofen*) 10 Mg Tablet, 10 MG PO TID, #90 TAB Prov:ROB BUI S. 12/26/16 Aspirin* (Aspirin* EC) 81 Mg Tablet., 81 MG PO DAILY, #30 TAB Prov:ROB BUI S. 12/26/16 Reported Medications Budesonide-Formoterol Fumarate* (Symbicort*) 160-4.5 Hfa.aer.ad, 1 PUFF INHALATION BID, #1 EACH 12/09/16 Gabapentin* (Gabapentin*) 300 Mg Capsule, 300 MG PO TID, #90 CAP 12/09/16 Sucralfate* (Carafate*) 1 Gm Tab, 1 GM PO AC MEALS AND BEDTIME, TAB 12/09/16 Atorvastatin Calcium (Atorvastatin Calcium) 10 Mg Tablet, 10 MG PO QHS, #30 TAB 12/09/16 Tramadol Hcl* (Ultram*) 50 Mg Tablet, 50 MG PO Q6H Y for PAIN, TAB 12/09/16 Sotalol Hcl* (Sotalol Hcl*) 80 Mg Tablet, 80 MG PO BID, TAB 12/09/16 Apixaban* (Eliquis*) 5 Mg Tablet, 5 MG PO BID, TAB 12/09/16 Sertraline Hcl* (Zoloft*) 50 Mg Tablet, 50 MG PO DAILY, #30 TAB 12/09/16 Nitroglycerin* (Nitrostat*) 0.4 Mg Tab.subl, 0.4 MG SL Q5MIN Y for CHEST PAIN, BOTTLE 12/09/16 Pantoprazole* (Pantoprazole*) 40 Mg Tablet.dr, 40 MG PO AC BREAKFAST, TAB 12/09/16 Isosorbide Mononitrate* (Isosorbide Mononitrate*) 60 Mg Tab.er.24h, 60 MG PO DAILY, TAB 12/09/16 Hydromorphone Hcl* (Dilaudid*) 4 Mg Tablet, 4 MG PO Q4H Y for PAIN, TAB 12/09/16 Potassium Chloride* (Potassium Chloride*) 20 Meq Tablet.er, 20 MEQ PO DAILY, TAB.SA 12/09/16 Albuterol Sulfate* (Albuterol Sulfate* Neb) 0.083%-3 Ml Neb, 2.5 MG NEB Q4 Y for WHEEZING AND SOB, #30 VIAL 12/09/16 Zolpidem Tartrate* (Ambien*) 10 Mg Tablet, 10 MG PO QHS Y for INSOMNIA, TAB 12/09/16 Ferrous Sulfate* (Ferrous Sulfate*) 325 Mg Tabec, 325 MG PO TID, TAB 12/09/16 Tiotropium [facility] [place]* (Spiriva*) 18 Mcg Cap.w.dev, 1 CAP INHALATION DAILY, #30 CAP 12/09/16 Ipratropium-Albuterol (Ipratropium-Albuterol) 0.5-3 Mg/3 Ml Ampul.neb, 3 ML INHALATION Q6, #30 VIAL 12/09/16 Discontinued Scripts Digoxin* (Lanoxin*) 0.125 Mg Tablet, 0.125 MG PO DAILY, #30 TAB Prov:ROB BUI 12/26/16 Primary Care Provider Not On Staff Doctor Pending Labs Laboratory Tests Test 02/14/17 05:12 Hemoglobin 12.0g/dl (14.0-18.0) Hematocrit 36.7% (42.0-52.0) CHELSIE DALEY MD Feb 14, 2017 10:36
== END 2017-02-14 20:39 | disposition home or self-care (01) | DRG 378 ==
LOC: E/R 10:50 → MS4 14:23 → INTOOBSV 14:23 → OBSVTOIN 14:32
PROVIDERS: ADMIT Internal Medicine; ATTEND Family Medicine
PROC: 0DB68ZX Excision of Stomach, Via Natural or Artificial Opening Endoscopic, Diagnostic (ICD-10-PCS; principal; 2017-02-12 18:00)
DX: K92.0 Hematemesis (principal); Q87.40 Marfan syndrome, unspecified; R07.9 Chest pain, unspecified; I10 Essential (primary) hypertension; K29.70 Gastritis, unspecified, without bleeding
CPT/HCPCS: 36415; 71010; 80048; 80053; 83735; 84100; 84484; 85014; 85018; 85025; 85610; 85730; 86850; 86900; 86901; 88305; 93005; 96372; 96374; 96375; 96376; 99217; G0378; C9113; J1170; J1200; J2250; J2405; J3010; J3475; J7030

== ENCOUNTER 2017-07-10 18:21 | Inpatient (IN) | END 2017-07-13 15:50 | disposition home or self-care (01) | DRG 378 ==

== ENCOUNTER 2017-10-11 18:40 | Observation (INO) | END 2017-10-13 19:28 | disposition home or self-care (01) ==

== ENCOUNTER 2018-01-25 03:28 | Inpatient (IN) | END 2018-01-28 19:10 | disposition home or self-care (01) | DRG 378 ==

== ENCOUNTER 2018-05-19 01:18 | Observation (INO) | payer OTHER ==
[~2018-05-19] VITALS: Ht 190.5 cm; Wt 98.0 kg
[2018-05-19] VITALS (18 sets, daily range): BP systolic 107–150; BP diastolic 52–97; PULSE 60–76; RESP 14–20; Ht 190.5 cm; Wt 98.0 kg
[~2018-05-19 01:18] MED LIST changes: +ADV50050 INHALATION; -ALBU2.5V3 NEB; -ASPI-664 PO; +ASPI-817 PO; -BACL10TA PO; -BUDE6HFA INHALATION; +CARV6.2579 PO; +DIGO125T PO; -DIGO125T6 PO; +DOCU-144 PO; +DULO60CA59 PO; -FER325 PO; -HYDR4TAB51 PO; -IPRA3AMP INHALATION; -NIT4 SL; +NITR0.4T32 SL; +POTA10TA37 PO; -POTA20TA96 PO; -SERT50TA PO; +SERT50TA6 PO; -TIOT18CA INHALATION; -TRAM-40 PO; +TRAM50TA PO; -ZOLP10TA PO; +ZOLP10TA5 PO; +[UNRECOGNIZED DRUG - CODE] SQ
[2018-05-19] MEDS ORDERED: SOD CHLORIDE 0.9% 1,000 ML IV STA (01:52)
[2018-05-19] MEDS ORDERED: PANTOPRAZOLE IV 80 MG in SOD CHLORIDE 0.9% 100 ML IVPB STA (01:52)
[2018-05-19] MEDS ORDERED: ONDANSETRON 4 MG INJ IV STA (01:52)
[2018-05-19] MEDS ORDERED: OCTREOTIDE 500 MCG in SOD CHLORIDE 0.9% 49 ML IV STA (01:52)
[2018-05-19] MEDS ORDERED: morphine 4 MG/ML VIAL IV STA ×2 (01:52→04:34)
[2018-05-19] MEDS ORDERED: OCTREOTIDE 50 MCG in SOD CHLORIDE 0.9% 25 ML IVPB STA (01:52)
[2018-05-19] MEDS: PANTOPRAZOLE IV 80 MG in SOD CHLORIDE 0.9% 100 ML IV STA ×2 (03:10→03:28)
[2018-05-19] MEDS ORDERED: DIPHENHYDRAMINE 50 MG INJ IV ONE (03:30)
[2018-05-19] MEDS ORDERED: FUROSEMIDE 20 MG INJ IV ONE (04:30)
[2018-05-19] MEDS ORDERED: CYAN500T46 PO (04:35)
[2018-05-19] MEDS ORDERED: FER325 PO (04:35)
[2018-05-19] MEDS ORDERED: METH750T2 PO (04:35)
[2018-05-19] MEDS ORDERED: BUPR1FIL SL (04:35)
[2018-05-19] MEDS ORDERED: ONDA4TAB95 PO (04:38)
[2018-05-19] MEDS ORDERED: NACL 0.9% 3 ML SYG IV SCH (05:30)
[2018-05-19] MEDS ORDERED: METOCLOPRAMIDE 10 MG INJ IV PRN (05:30)
[2018-05-19] MEDS ORDERED: ONDANSETRON 4 MG INJ IV PRN ×2 (05:30→17:30)
--- NOTE | 2018-05-19 05:31 | ERD ---
ER Documentation Chief Complaint Chief Complaint cp radiating to back, stomach, hematemesis; hx of Marfan's, GI bleed HPI Is a 32-year-old male with a history of Marfan syndrome esophageal variceal bleeding comes in with complaints of coffee-ground emesis x2 today with chest pain associated with his vomiting. He denies fevers or chills. He denies any other current complaints. Patient said is been banded before. Reviewing [facility] EMR, patient's been here for this type of complaint previously. ROS All systems reviewed and are negative except as per history of present illness. Medications Home Meds Reported Medications Ondansetron Hcl* (Ondansetron Hcl*) 4 Mg Tablet, 4 MG PO Q6 PRN for NAUSEA AND/OR VOMITING 05/19/18 Cyanocobalamin* (Vitamin B12*) 500 Mcg Tab, 1000 MCG PO DAILY, TAB 05/19/18 Ferrous Sulfate* (Ferrous Sulfate*) 325 Mg Tabec, 325 MG PO BID for 30 Days, #60 TAKE 1 TABLET BY MOUTH TWICE A DAY WITH MEALS 05/19/18 Buprenorphine Hcl-Naloxone Hcl (Suboxone SL) 2-0.5 Mg Film, SL PLACE 1 FLIM UNDER THE TONGUE EVERY 6 HOURS; 05/19/18 Methocarbamol* (Methocarbamol*) 750 Mg Tablet, 750 MG PO QID TAKE 1 TABLET BY MOUTH 4 TIMES A DAY NEEDED 05/19/18 Enoxaparin Sodium (Enoxaparin Sodium) 100 Mg/1 Ml Syringe, 100 MG SQ BID, SYR 10/11/17 Salmeterol Xinaf-Fluticasone* (Advair*) 500/50 Diskus Inhaler, 1 INH INHALATION BID, #1 INHALER 10/11/17 Apixaban* (Eliquis*) 5 Mg Tablet, 5 MG PO BID, TAB 07/10/17 Zolpidem Tartrate* (Zolpidem Tartrate*) 10 Mg Tablet, 10 MG PO QHS PRN for INSOMNIA, #30 TAB 07/10/17 Tramadol Hcl* (Ultram*) 50 Mg Tablet, 50 MG PO Q6H PRN for PAIN, TAB 07/10/17 Sucralfate* (Carafate*) 1 Gm Tab, 1 GM PO AC MEALS AND BEDTIME, TAB 07/10/17 Sotalol Hcl* (Sotalol Hcl*) 80 Mg Tablet, 80 MG PO DAILY, TAB 07/10/17 Sertraline Hcl* (Sertraline Hcl*) 50 Mg Tablet, 50 MG PO DAILY, #30 TAB 07/10/17 Potassium Chloride* (K-Dur*) 10 Meq Tab.prt.sr, 10 MEQ PO BID, TAB 07/10/17 Pantoprazole* (Pantoprazole*) 40 Mg Tablet.dr, 40 MG PO AC BREAKFAST, TAB 07/10/17 Nitroglycerin* (Nitroglycerin* SL) 0.4 Mg Tab.subl, 0.4 MG SL Q5MIN PRN for CHEST PAIN, BOTTLE 07/10/17 Isosorbide Mononitrate* (Isosorbide Mononitrate*) 60 Mg Tab.er.24h, 60 MG PO QAM, TAB 07/10/17 Gabapentin* (Gabapentin*) 300 Mg Capsule, 300 MG PO TID, #90 CAP 07/10/17 Duloxetine Hcl* (Duloxetine Hcl*) 60 Mg Capsule.dr, 60 MG PO DAILY, #30 CAP 07/10/17 Docusate Sodium* (Colace*) 100 Mg Capsule, 100 MG PO BID, #60 CAP 07/10/17 Digoxin* (Digitek*) 125 Mcg Tablet, 0.125 MG PO DAILY, TAB 07/10/17 Carvedilol* (Carvedilol*) 6.25 Mg Tablet, 6.25 MG PO BID, #60 TAB 07/10/17 Atorvastatin Calcium (Atorvastatin Calcium) 10 Mg Tablet, 10 MG PO QHS, #30 TAB 07/10/17 Aspirin* (Aspirin* EC) 81 Mg Tablet.dr, 81 MG PO DAILY, TAB 07/10/17 Allergies Allergies: Coded Allergies: avocado (Unverified Allergy, Severe, 05/19/18) banana (Unverified Allergy, Severe, 05/19/18) iodine (Unverified Allergy, Severe, ANAPHYLLACTIC, 05/19/18) latex (Unverified Allergy, Severe, ANAPHYLACTIC, 05/19/18) onion (Unverified Allergy, Severe, 05/19/18) promethazine (Unverified Allergy, Severe, 05/19/18) propofol (Unverified Allergy, Severe, ANAPHYLACTIC, 05/19/18) ketorolac (Unverified Allergy, Mild, RASH, 05/19/18) Iodinated Contrast- Oral and IV Dye (Unverified Allergy, Unknown, 05/19/18) kiwi (Unverified Allergy, Unknown, 05/19/18) anaphylactic shock tomato (Unverified Allergy, Unknown, 05/19/18) anaphylactic shock PMhx/Soc History of Surgery: Yes (TNSILLECTOMY, ZIGGY. ROTATOR CUFF REPAIR, ATRIAL SEPTAL OCCLUDER DEVICE) Anesthesia Reaction: No Hx 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 Disorder: Yes (STROKE, TIA, ND) Hx Respiratory Disorders: Yes (ASTHMA) Hx Cardiac Disorders: Yes (CARDIAC ARREST. HEART ATTACK, MARFAN SYNDROME, PUL. HTN) Hx Psychiatric Problems: No Hx Miscellaneous Medical Probl: No Hx Alcohol Use: No Hx Substance Use: No Hx Tobacco Use: No Smoking Status: Never smoker Physical Exam Vitals Vital Signs Date Temp Pulse Resp B/P (MAP) Pulse Ox O2 O2 Flow FiO2 Time Delivery Rate 05/19/18 61 16 123/77 100 Room Air 03:49 (92) 05/19/18 98.4 69 18 120/71 100 Room Air 01:53 (87) 05/19/18 99.1 71 16 133/67 100 01:21 (89) Physical Exam Const: No acute distress Head: Atraumatic Eyes: Normal Conjunctiva ENT: Normal External Ears, Nose and Mouth. Neck: Full range of motion. No meningismus. Resp: Clear to auscultation bilaterally Cardio: Regular rate and rhythm, no murmurs Abd: Soft, non tender, non distended. Normal bowel sounds Skin: No petechiae or rashes Back: No midline or flank tenderness Ext: No cyanosis, or edema Neur: Awake and alert Psych: Normal Mood and Affect Result Diagram: 05/19/18 0234 05/19/18 0234 Results 24 hrs Laboratory Tests Test 05/19/18 02:34 White Blood Count 6.6 10^3/ul Red Blood Count 4.44 10^6/ul Hemoglobin 12.3 g/dl Hematocrit 40.2 % Mean Corpuscular Volume 90.5 fl Mean Corpuscular Hemoglobin 27.7 pg Mean Corpuscular Hemoglobin Concent 30.6 g/dl Red Cell Distribution Width 17.7 % Platelet Count 223 10^3/UL Mean Platelet Volume 8.6 fl Immature Granulocytes % 0.500 % Neutrophils % 56.0 % Lymphocytes % 34.2 % Monocytes % 8.5 % Eosinophils % 0.5 % Basophils % 0.3 % Nucleated Red Blood Cells % 0.0 /100WBC Immature Granulocytes # 0.030 10^3/ul Neutrophils # 3.7 10^3/ul Lymphocytes # 2.3 10^3/ul Monocytes # 0.6 10^3/ul Eosinophils # 0.0 10^3/ul Basophils # 0.0 10^3/ul Nucleated Red Blood Cells # 0.0 10^3/ul Prothrombin Time 12.9 Sec Prothrombin Time Ratio 1.0 INR International Normalized Ratio 0.96 Activated Partial Thromboplast Time 45.4 Sec Sodium Level 143 mmol/L Potassium Level 3.6 mmol/L Chloride Level 104 mmol/L Carbon Dioxide Level 29 mmol/L Anion Gap 10 Blood Urea Nitrogen 11 mg/dl Creatinine 0.53 mg/dl Est Glomerular Filtrat Rate mL/min > 60 mL/min Glucose Level 84 mg/dl Calcium Level 9.1 mg/dl Total Bilirubin 0.2 mg/dl Direct Bilirubin 0.00 mg/dl Indirect Bilirubin 0.2 mg/dl Aspartate Amino Transf (AST/SGOT) 14 IU/L Alanine Aminotransferase (ALT/SGPT) 27 IU/L Alkaline Phosphatase 139 IU/L Troponin I < 0.012 ng/ml Total Protein 6.4 g/dl Albumin 3.9 g/dl Globulin 2.50 g/dl Albumin/Globulin Ratio 1.56 Lipase 180 U/L Current Medications Medications Dose Sig/Yoselyn Start Time Status Last (Trade) Ordered Route PRN Stop Time Admin Dose Reason Admin Sodium 1,000 ml @ Q1H STAT 05/19/18 DC 05/19/18 Chloride 1,000 mls/hr IV 01:52 05/19/18 03:07 02:51 Pantoprazole 100 ml @ ONCE STAT 05/19/18 DC 05/19/18 80 mg/Sodium 400 mls/hr IVPB 01:52 05/19/18 03:10 Chloride 02:06 Pantoprazole 100 ml @ ONCE STAT 05/19/18 05/19/18 80 mg/Sodium 10 mls/hr IV 01:52 05/19/18 03:28 Chloride 11:51 Octreotide 26 ml @ Q16M STAT 05/19/18 DC 05/19/18 Acetate 50 100 mls/hr IVPB 01:52 05/19/18 03:11 mcg/ Sodium 02:07 Chloride Octreotide 50 ml @ 5 ONCE STAT 05/19/18 05/19/18 Acetate 500 mls/hr IV 01:52 05/19/18 03:28 mcg/ Sodium 11:51 Chloride Ondansetron 4 mg ONCE STAT 05/19/18 DC 05/19/18 HCl (Zofran IV 01:52 05/19/18 03:07 Inj) 01:54 Morphine 4 mg ONCE STAT 05/19/18 DC 05/19/18 Sulfate IV 01:52 05/19/18 03:07 (morphine) 01:54 25 mg ONCE ONCE 05/19/18 DC 05/19/18 Diphenhydrami IV 03:30 05/19/18 03:12 ne HCl 03:31 (Benadryl) Furosemide 20 mg ONCE ONCE 05/19/18 DC (Lasix) IV 04:30 05/19/18 04:39 Morphine 4 mg ONCE STAT 05/19/18 DC 05/19/18 Sulfate IV 04:34 05/19/18 04:45 (morphine) 04:35 Procedures/MDM Emergency room course: Patient seen and evaluated. Placement family evaluation. Had 2 large-bore IVs placed. child monitor was placed. Started on octreotide and Protonix continuous infusion. Serial exams are stable. EKG: Rate/Rhythm: [Normal Sinus Rhythm] QRS, ST, T-waves: [No changes consistent w/ acute ischemia] Impression: [No evidence of ischemia or arrhythmia] Chest X-ray 1V Interpreted by me: Soft Tissue: No acute abnor malities Bones: No acute abnormalities Mediastinum/Cardiac Silhouette/Lungs: [No acute abnormalities] Medical decision making: This very pleasant patient infection seems to have an upper GI bleed. He is been started on appropriate therapies. Patient is a legal [facility] patient, however [place] Week was given us authorization to admit to the hospitalist. Hospitalist made aware at 5:15 AM. Departure Diagnosis: Primary Impression: Upper GI bleed Condition: Serious CARLENE VITAL May 19, 2018 05:31
[2018-05-19] MEDS: OCTREOTIDE 1 MG in DEXTROSE 5% 95 ML IV SCH ×2 (06:11→10:27)
[2018-05-19] MEDS: PANTOPRAZOLE IV 80 MG in SOD CHLORIDE 0.9% 100 ML IV SCH ×3 (06:11→21:32)
[2018-05-19] MEDS: morphine 2 MG INJ IV PRN ×2 (06:51→13:51)
[2018-05-19] MEDS: SOD CHLORIDE 0.9% 1,000 ML IV SCH ×2 (08:44→20:30)
--- NOTE | 2018-05-19 08:53 | HP ---
Date/Time of Note Date/Time of Note DATE: 05/19/18 TIME: 08:47 Assessment/Plan VTE Prophylaxis SCD applied (from Nsg): Yes Pharmacological prophylaxis: NA/contraindicated Pharm contraindication: low risk/ambulating Lines/Catheters IV Catheter Type (from Nrsg): Peripheral IV Assessment/Plan Hospital Course This is a 32-year-old male being admitted to the telemetry floor for: #1 Upper GI bleed:: Likely secondary to underlying gastric ulcers AVMs. At the current time the will continue the patient on Protonix IV and octreotide. Patient also had chest pain with these episodes, will trend cardiac enzymes for completeness sake. Will consult GI Dr. banuelos for possible EGD. Patient's hemoglobin at the current time appears stable will trend every 6 hours. Patient also had chest pain with these episodes, will trend cardiac enzymes for completeness sake. #2 history of pulmonary embolism: Patient currently on Lovenox and Eliquis, we will hold this at the current time. Resume upon discharge once bleeding is ruled out. Patient is managed by [facility] and [facility]aut[facility] regarding this condition. #3 history of V. tach/V. fib arrest status post AICD placement #4 history of sick sinus syndrome status post pacemaker placement #5 history of Marfan's syndrome: Continue to monitor, follow-up with specialist at [facility] and [facility]. #6 DVT and GI prophylaxis: SCDs, Protonix Further treatment strategy will be implemented as per the clinical course. Result Diagram: 05/19/18 0234 05/19/18 0234 Results 24hrs Laboratory Tests Test 05/19/18 02:34 White Blood Count 6.6 # Red Blood Count 4.44 L Hemoglobin 12.3 L Hematocrit 40.2 L Mean Corpuscular Volume 90.5 Mean Corpuscular Hemoglobin 27.7 L Mean Corpuscular Hemoglobin Concent 30.6 L Red Cell Distribution Width 17.7 H Platelet Count 223 # Mean Platelet Volume 8.6 Immature Granulocytes % 0.500 H Neutrophils % 56.0 Lymphocytes % 34.2 Monocytes % 8.5 Eosinophils % 0.5 Basophils % 0.3 Nucleated Red Blood Cells % 0.0 Immature Granulocytes # 0.030 Neutrophils # 3.7 Lymphocytes # 2.3 Monocytes # 0.6 Eosinophils # 0.0 Basophils # 0.0 Nucleated Red Blood Cells # 0.0 Prothrombin Time 12.9 Prothrombin Time Ratio 1.0 INR International Normalized Ratio 0.96 Activated Partial Thromboplast Time 45.4 H Sodium Level 143 Potassium Level 3.6 Chloride Level 104 Carbon Dioxide Level 29 Anion Gap 10 Blood Urea Nitrogen 11 Creatinine 0.53 L Est Glomerular Filtrat Rate mL/min > 60 Glucose Level 84 Calcium Level 9.1 Total Bilirubin 0.2 Direct Bilirubin 0.00 Indirect Bilirubin 0.2 Aspartate Amino Transf (AST/SGOT) 14 L Alanine Aminotransferase (ALT/SGPT) 27 Alkaline Phosphatase 139 H Troponin I < 0.012 Total Protein 6.4 Albumin 3.9 Globulin 2.50 Albumin/Globulin Ratio 1.56 Lipase 180 HPI/ROS Admit Date/Time Admit Date/Time May 19, 2018 at 05:21 Hx of Present Illness Chief complaint: Hematemesis, substernal chest pain radiating to left shoulder This is a 32-year-old male with a past medical history of gastric AVMs who presents with chest pain and hematemesis. Patient reports that he has had hematemesis times 1 day where he is reported 4 teaspoonfuls of bright red blood. He has a history of gastric AVMs and whenever he has bleeding he is told to seek medical attention. Patient also reports that he had left-sided chest pain radiating to his shoulder back in his left leg. He states the pain was 8 out of 10 and it was described as ripping splitting gnawing source of pain. He reports that he started throwing up after having this pain. At the current time patient does report that his pain has subsided and he has not had any repeat hematemesis episodes. Allergies: Multiple allergies please see EMR Medications: See EMR ROS Const: As per HPI Eyes : No pain discharge or redness or change in visual acuity ENT: No pain, sore throat, congestion, congestion, dysphagia or discharge Respiratory: No shortness of breath, cough, sputum, wheezing, or pleuritic pain Cardiovascular: No chest pain, palpitation, PND, or edema GI : As per HPI Genitourinary: No dysuria, hematuria, flank pain , discharge or CVA tenderness Musculoskeletal: No joint pain, back pain, neck pain, restricted range of motion in neck or joints Skin: No rash, bruising or hives Neuro: No headache, dizziness, syncope, seizure, focal weakness Endocrine: No polyuria, polydipsia, temperature intolerance Psych: No hallucination, depression, anxiety or suicidal ideation PMH/Family/Social Past Medical History Marfan syndrome, history of AVMs, history of gastric ulcers, pulmonary embolism in 2012 in 2018, hypertension, hyperlipidemia, asthma, history of ND, history of cardiac arrest x2, defibrillator/pacemaker, pulmonary hypertension, atrial septal defect status post closure, history of sick sinus syndrome Medications Current Medications Pantoprazole 80 mg/Sodium Chloride 100 ml @ 10 mls/hr ONCE STAT IV Last administered on 05/19/18at 03:28; Admin Dose 10 MLS/HR; Start 05/19/18 at 01:52; Stop 05/19/18 at 11:51 Octreotide Acetate 500 mcg/ Sodium Chloride 50 ml @ 5 mls/hr ONCE STAT IV Last administered on 05/19/18at 03:28; Admin Dose 5 MLS/HR; Start 05/19/18 at 01:52; Stop 05/19/18 at 11:51 Sodium Chloride 1,000 ml @ 70 mls/hr [id number] IV ; Start 05/19/18 at 05:27 IV Flush (NS 3 ml) 3 ml PER PROTOCOL IV ; Start 05/19/18 at 05:30 Ondansetron HCl (Zofran Inj) 4 mg Q6H PRN IV NAUSEA/VOMITING; Start 05/19/18 at 05:30 Metoclopramide HCl (Reglan) 10 mg Q6H PRN IV NAUSEA/VOMITING; Start 05/19/18 at 05:30 Acetaminophen (Tylenol Tab) 650 mg Q6H PRN PO .PAIN 1-3 OR TEMP; Start 05/19/18 at 05:30 Morphine Sulfate (morphine) 2 mg Q4H PRN IV .PAIN 7-10 Last administered on 05/19/18at 06:51; Admin Dose 2 MG; Start 05/19/18 at 05:30 Carvedilol (Coreg) 6.25 mg BID PO ; Start 05/19/18 at 09:00 Digoxin (Digoxin) 0.125 mg DAILY@1300 PO ; Start 05/19/18 at 13:00 Sotalol HCl (Betapace) 80 mg DAILY PO ; Start 05/19/18 at 09:00 Pantoprazole 80 mg/Sodium Chloride 100 ml @ 10 mls/hr Q10H IV Last administered on 05/19/18at 06:11; Admin Dose 10 MLS/HR; Start 05/19/18 at 05:30 Octreotide Acetate 1 mg/ Dextrose 100 ml @ 5 mls/hr Q20H IV ; Start 05/19/18 at 05:30 Coded Allergies: avocado (Unverified Allergy, Severe, 05/19/18) banana (Unverified Allergy, Severe, 05/19/18) iodine (Unverified Allergy, Severe, ANAPHYLLACTIC, 05/19/18) latex (Unverified Allergy, Severe, ANAPHYLACTIC, 05/19/18) onion (Unverified Allergy, Severe, 05/19/18) promethazine (Unverified Allergy, Severe, 05/19/18) propofol (Unverified Allergy, Severe, ANAPHYLACTIC, 05/19/18) ketorolac (Unverified Allergy, Mild, RASH, 05/19/18) Iodinated Contrast- Oral and IV Dye (Unverified Allergy, Unknown, 05/19/18) kiwi (Unverified Allergy, Unknown, 05/19/18) anaphylactic shock tomato (Unverified Allergy, Unknown, 05/19/18) anaphylactic shock Past Surgical History The defibrillator/pacemaker insertion, atrial septal defect closure device, bilateral shoulder surgery Past Surgical Hx: other Family History Significant Family History: no pertinent family hx Social History Alcohol Use: none Smoking Status: Never smoker Drug Use: none Exam/Review of Systems Vital Signs Vitals Vital Signs Date Temp Pulse Resp B/P (MAP) Pulse Ox O2 O2 Flow FiO2 Time Delivery Rate 05/19/18 97.7 68 20 110/55 96 Room Air 07:23 (73) Exam Exam General: Currently lying in bed he does report some right lower quadrant abdominal pain HEENT: Atraumatic, normocephalic. The pupils are equal, round and reactive. Extraocular motor are intact Neck: Supple with full range of motion. No rigidity or meningismus Chest: Nontender Lungs: Clear to auscultation bilaterally no crackles rales or wheezing Heart: Normal S1-S2, Regular rhythm and rate. No murmur, S3, or S4 Abdomen: Soft , tenderness palpation over the right lower abdomen, nondistended , bowel sounds are present. No guarding no rebound tenderness , No masses or organomegaly. No costovertebral temporal angle mass Extremities: Normal to inspection, no edema no cyanosis Neurologic: Normal mental status, speech normal, cranial nerves II through XII are intact, motor and sensory are intact, Additional Comments EKG: Rate/Rhythm: [Normal Sinus Rhythm] QRS, ST, T-waves: [No changes consistent w/ acute ischemia] Impression: [No evidence of ischemia or arrhythmia] PROCEDURE: CHEST - 1 VIEW CLINICAL INDICATION: 32-year-old male with chest pain. TECHNIQUE: A single frontal AP portable view of the chest was performed. The images were reviewed on a PACS workstation. COMPARISON: CR CHEST 04/18/2018; CR CHEST 02/09/2018; FINDINGS: There is a right-sided PICC line present with the tip in the mid superior vena c taniya. There is a left-sided AICD dual-chamber pacemaker combination. The cardiomediastinal silhouette is within normal limits. There is no evidence for an infiltrate. There is no evidence for congestive heart failure. There is no evidence for pneumothorax. The osseous structures are intact. IMPRESSION: 1. Right-sided PICC line with the tip in the mid superior vena cava. 2. Left-sided AICD dual-chamber pacemaker combination. .Flaco Sotomayor MD, MD Date Time Electronically viewed and signed by .Flaco Sotomayor MD, MD on 05/19/2018 04:06 .M/ CC: CARLENE VITAL [id number] STEVEN ROOT May 19, 2018 08:53
[2018-05-19] MEDS ORDERED: HYDROmorphONE 1 MG/ML SYG IV PRN (09:00)
[2018-05-19] MEDS: SOTALOL 80 MG TAB PO SCH (10:01)
[2018-05-19] MEDS ORDERED: MAGNESIUM SULFATE 2 GM/50 ML 50 ML IVPB ONE (11:00)
--- NOTE | 2018-05-19 11:43 | CONS ---
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 Ct abd/pelvis pending Patient seen in collaboration with Dr. Hoffman CC: SUE HOFFMAN ; Consultation Date/Type/Reason Admit Date/Time May 19, 2018 at 05:21 Date of Consultation: May 19, 2018 Type of Consult GI Reason for Consultation Hematemesis Date/Time of Note DATE: 05/19/18 TIME: 11:38 Hx of Present Illness This is a 32-year-old male, well-known to GI services, with past history of Marfan syndrome, AVMs, and recurrent DVTs/PEs who presents to the hospital again with complaints of hematemesis. Patient states he had x5 episodes with moderate amount of hematemesis noted. Currently patient is on Eliquis and Lovenox. Last Eliquis dose was about 2 days ago and last Lovenox dose was yesterday. Patient was seen here at [facility] in January 2018 underwent an EGD at that time showing gastric body AVMs treated with APC oozing was noted and a resolution clip was placed. States he has not had any additional EGD since then. However does note recent hip fracture and has been in a longterm facility patient contributes this with poor appetite as he does note almost 30 pound weight loss in March however according to records in January patient's weight was 102 kg this admission patient's weight is 98 kg. Patient does complain of intermittent abdominal cramping worse with greasy foods we will order abdominal ultrasound for further evaluation. He currently denies nausea/vomiting, diarrhea, constipation, hematemesis, hematochezia, or melena. The lower clinical picture we will proceed with a EGD tomorrow patient will be started on a clear liquid diet today n.p.o. after 8 AM tomorrow morning Review of Systems: [A 12 system, review was conducted and is negative except as noted in the HPI or here.] Past Medical History Home Meds Reported Medications Ondansetron Hcl* (Ondansetron Hcl*) 4 Mg Tablet, 4 MG PO Q6 PRN for NAUSEA AND/OR VOMITING 05/19/18 Cyanocobalamin* (Vitamin B12*) 500 Mcg Tab, 1000 MCG PO DAILY, TAB 05/19/18 Ferrous Sulfate* (Ferrous Sulfate*) 325 Mg Tabec, 325 MG PO BID for 30 Days, #60 TAKE 1 TABLET BY MOUTH TWICE A DAY WITH MEALS 05/19/18 Buprenorphine Hcl-Naloxone Hcl (Suboxone SL) 2-0.5 Mg Film, SL PLACE 1 FLIM UNDER THE TONGUE EVERY 6 HOURS; 05/19/18 Methocarbamol* (Methocarbamol*) 750 Mg Tablet, 750 MG PO QID TAKE 1 TABLET BY MOUTH 4 TIMES A DAY NEEDED 05/19/18 Enoxaparin Sodium (Enoxaparin Sodium) 100 Mg/1 Ml Syringe, 100 MG SQ BID, SYR 10/11/17 Salmeterol Xinaf-Fluticasone* (Advair*) 500/50 Diskus Inhaler, 1 INH INHALATION BID, #1 INHALER 10/11/17 Apixaban* (Eliquis*) 5 Mg Tablet, 5 MG PO BID, TAB 07/10/17 Zolpidem Tartrate* (Zolpidem Tartrate*) 10 Mg Tablet, 10 MG PO QHS PRN for INSOMNIA, #30 TAB 07/10/17 Tramadol Hcl* (Ultram*) 50 Mg Tablet, 50 MG PO Q6H PRN for PAIN, TAB 07/10/17 Sucralfate* (Carafate*) 1 Gm Tab, 1 GM PO AC MEALS AND BEDTIME, TAB 07/10/17 Sotalol Hcl* (Sotalol Hcl*) 80 Mg Tablet, 80 MG PO DAILY, TAB 07/10/17 Sertraline Hcl* (Sertraline Hcl*) 50 Mg Tablet, 50 MG PO DAILY, #30 TAB 07/10/17 Potassium Chloride* (K-Dur*) 10 Meq Tab.prt.sr, 10 MEQ PO BID, TAB 07/10/17 Pantoprazole* (Pantoprazole*) 40 Mg Tablet.dr, 40 MG PO AC BREAKFAST, TAB 07/10/17 Nitroglycerin* (Nitroglycerin* SL) 0.4 Mg Tab.subl, 0.4 MG SL Q5MIN PRN for CHEST PAIN, BOTTLE 07/10/17 Isosorbide Mononitrate* (Isosorbide Mononitrate*) 60 Mg Tab.er.24h, 60 MG PO QAM, TAB 07/10/17 Gabapentin* (Gabapentin*) 300 Mg Capsule, 300 MG PO TID, #90 CAP 07/10/17 Duloxetine Hcl* (Duloxetine Hcl*) 60 Mg Capsule.dr, 60 MG PO DAILY, #30 CAP 07/10/17 Docusate Sodium* (Colace*) 100 Mg Capsule, 100 MG PO BID, #60 CAP 07/10/17 Digoxin* (Digitek*) 125 Mcg Tablet, 0.125 MG PO DAILY, TAB 07/10/17 Carvedilol* (Carvedilol*) 6.25 Mg Tablet, 6.25 MG PO BID, #60 TAB 07/10/17 Atorvastatin Calcium (Atorvastatin Calcium) 10 Mg Tablet, 10 MG PO QHS, #30 TAB 07/10/17 Aspirin* (Aspirin* EC) 81 Mg Tablet.dr, 81 MG PO DAILY, TAB 07/10/17 Medications Current Medications Pantoprazole 80 mg/Sodium Chloride 100 ml @ 10 mls/hr ONCE STAT IV Last administered on 05/19/18at 03:28; Admin Dose 10 MLS/HR; Start 05/19/18 at 01:52; S top 05/19/18 at 11:51 Octreotide Acetate 500 mcg/ Sodium Chloride 50 ml @ 5 mls/hr ONCE STAT IV Last administered on 05/19/18at 03:28; Admin Dose 5 MLS/HR; Start 05/19/18 at 01:52; Stop 05/19/18 at 11:51 Sodium Chloride 1,000 ml @ 70 mls/hr [id number] IV Last administered on 05/19/18at 08:44; Admin Dose 70 MLS/HR; Start 05/19/18 at 05:27 IV Flush (NS 3 ml) 3 ml PER PROTOCOL IV ; Start 05/19/18 at 05:30 Ondansetron HCl (Zofran Inj) 4 mg Q6H PRN IV NAUSEA/VOMITING; Start 05/19/18 at 05:30 Metoclopramide HCl (Reglan) 10 mg Q6H PRN IV NAUSEA/VOMITING; Start 05/19/18 at 05:30 Acetaminophen (Tylenol Tab) 650 mg Q6H PRN PO .PAIN 1-3 OR TEMP; Start 05/19/18 at 05:30 Morphine Sulfate (morphine) 2 mg Q4H PRN IV .PAIN 7-10 Last administered on 05/19/18at 06:51; Admin Dose 2 MG; Start 05/19/18 at 05:30 Carvedilol (Coreg) 6.25 mg BID PO Last administered on 05/19/18at 10:02; Admin Dose 6.25 MG; Start 05/19/18 at 09:00 Digoxin (Digoxin) 0.125 mg DAILY@1300 PO ; Start 05/19/18 at 13:00 Sotalol HCl (Betapace) 80 mg DAILY PO Last administered on 05/19/18at 10:01; Admin Dose 80 MG; Start 05/19/18 at 09:00 Pantoprazole 80 mg/Sodium Chloride 100 ml @ 10 mls/hr Q10H IV Last administered on 05/19/18at 10:29; Admin Dose 10 MLS/HR; Start 05/19/18 at 05:30 Octreotide Acetate 1 mg/ Dextrose 100 ml @ 5 mls/hr Q20H IV Last administered on 05/19/18at 10:27; Admin Dose 5 MLS/HR; Start 05/19/18 at 05:30 Magnesium Sulfate 50 ml @ 25 mls/hr ONCE ONCE IVPB ; Start 05/19/18 at 11:00; Stop 05/19/18 at 12:59 Allergies: Coded Allergies: avocado (Unverified Allergy, Severe, 05/19/18) banana (Unverified Allergy, Severe, 05/19/18) iodine (Unverified Allergy, Severe, ANAPHYLLACTIC, 05/19/18) latex (Unverified Allergy, Severe, ANAPHYLACTIC, 05/19/18) onion (Unverified Allergy, Severe, 05/19/18) promethazine (Unverified Allergy, Severe, 05/19/18) propofol (Unverified Allergy, Severe, ANAPHYLACTIC, 05/19/18) ketorolac (Unverified Allergy, Mild, RASH, 05/19/18) Iodinated Contrast- Oral and IV Dye (Unverified Allergy, Unknown, 05/19/18) kiwi (Unverified Allergy, Unknown, 05/19/18) anaphylactic shock tomato (Unverified Allergy, Unknown, 05/19/18) anaphylactic shock Past Surgical History Past Surgical Hx: other Social History Smoking Status: Never smoker Exam/Review of Systems Exam Vitals Vital Signs Date Temp Pulse Resp B/P (MAP) Pulse Ox O2 O2 Flow FiO2 Time Delivery Rate 05/19/18 97.3 63 20 113/56 96 Room Air 11:35 (75) Exam PHYSICAL EXAMINATION: GENERAL: Alert & oriented x 3, in no acute distress SKIN: No lesions EYES: Pupils equal reactive to light, no discharge. EARS/NOSE AND THROAT: Ears normal, nose normal. NECK: Supple, no masses CHEST: Inspection within normal limits. CARDIOVASCULAR: Heart: Regular rate and rhythm RESPIRATORY: Lungs clear to auscultation GASTROINTESTINAL AND LIVER: Abdomen: Soft, abd tenderness, non-distended, no hernias, normoactive bowel sounds. Rectal: Deferred. EXTREMITIES: No cyanosis, clubbing or edema. Results Result Diagram: 05/19/18 0853 05/19/18 0234 Results 24hrs Laboratory Tests Test 05/19/18 02:34 05/19/18 08:53 White Blood Count 6.6 # 4.9 # Red Blood Count 4.44 L 3.97 L Hemoglobin 12.3 L 11.1 L Hematocrit 40.2 L 35.7 L Mean Corpuscular Volume 90.5 89.9 Mean Corpuscular Hemoglobin 27.7 L 28.0 L Mean Corpuscular Hemoglobin Concent 30.6 L 31.1 L Red Cell Distribution Width 17.7 H 17.7 H Platelet Count 223 # 199 Mean Platelet Volume 8.6 8.5 Immature Granulocytes % 0.500 H 0.400 Neutrophils % 56.0 53.4 Lymphocytes % 34.2 35.3 Monocytes % 8.5 9.7 Eosinophils % 0.5 0.8 Basophils % 0.3 0.4 Nucleated Red Blood Cells % 0.0 0.0 Immature Granulocytes # 0.030 0.020 Neutrophils # 3.7 2.6 Lymphocytes # 2.3 1.7 Monocytes # 0.6 0.5 Eosinophils # 0.0 0.0 Basophils # 0.0 0.0 Nucleated Red Blood Cells # 0.0 0.0 Prothrombin Time 12.9 Prothrombin Time Ratio 1.0 INR International Normalized Ratio 0.96 Activated Partial Thromboplast Time 45.4 H Sodium Level 143 Potassium Level 3.6 Chloride Level 104 Carbon Dioxide Level 29 Anion Gap 10 Blood Urea Nitrogen 11 Creatinine 0.53 L Est Glomerular Filtrat Rate mL/min > 60 Glucose Level 84 Calcium Level 9.1 Total Bilirubin 0.2 Direct Bilirubin 0.00 Indirect Bilirubin 0.2 Aspartate Amino Transf (AST/SGOT) 14 L Alanine Aminotransferase (ALT/SGPT) 27 Alkaline Phosphatase 139 H Troponin I < 0.012 < 0.012 Total Protein 6.4 Albumin 3.9 Globulin 2.50 Albumin/Globulin Ratio 1.56 Lipase 180 Magnesium Level 1.5 L Creatine Kinase 109 Creatine Kinase Index 3.3 Creatinine Kinase MB (Mass) 3.60 H Medications Medication Current Medications Pantoprazole 80 mg/Sodium Chloride 100 ml @ 10 mls/hr ONCE STAT IV Last administered on 05/19/18at 03:28; Admin Dose 10 MLS/HR; Start 05/19/18 at 01:52; Stop 05/19/18 at 11:51 Octreotide Acetate 500 mcg/ Sodium Chloride 50 ml @ 5 mls/hr ONCE STAT IV Last administered on 05/19/18at 03:28; Admin Dose 5 MLS/HR; Start 05/19/18 at 01:52; Stop 05/19/18 at 11:51 Sodium Chloride 1,000 ml @ 70 mls/hr [id number] IV Last administered on 05/19/18at 08:44; Admin Dose 70 MLS/HR; Start 05/19/18 at 05:27 IV Flush (NS 3 ml) 3 ml PER PROTOCOL IV ; Start 05/19/18 at 05:30 Ondansetron HCl (Zofran Inj) 4 mg Q6H PRN IV NAUSEA/VOMITING; Start 05/19/18 at 05:30 Metoclopramide HCl (Reglan) 10 mg Q6H PRN IV NAUSEA/VOMITING; Start 05/19/18 at 05:30 Acetaminophen (Tylenol Tab) 650 mg Q6H PRN PO .PAIN 1-3 OR TEMP; Start 05/19/18 at 05:30 Morphine Sulfate (morphine) 2 mg Q4H PRN IV .PAIN 7-10 Last administered on 05/19/18at 06:51; Admin Dose 2 MG; Start 05/19/18 at 05:30 Carvedilol (Coreg) 6.25 mg BID PO Last administered on 05/19/18 10:02; Admin Dose 6.25 MG; Start 05/19/18 at 09:00 Digoxin (Digoxin) 0.125 mg DAILY@1300 PO ; Start 05/19/18 at 13:00 Sotalol HCl (Betapace) 80 mg DAILY PO Last administered on 05/19/18at 10:01; Admin Dose 80 MG; Start 05/19/18 at 09:00 Pantoprazole 80 mg/Sodium Chloride 100 ml @ 10 mls/hr Q10H IV Last administered on 05/19/18at 10:29; Admin Dose 10 MLS/HR; Start 05/19/18 at 05:30 Octreotide Acetate 1 mg/ Dextrose 100 ml @ 5 mls/hr Q20H IV Last administered on 05/19/18 10:27; Admin Dose 5 MLS/HR; Start 05/19/18 at 05:30 Magnesium Sulfate 50 ml @ 25 mls/hr ONCE ONCE IVPB ; Start 05/19/18 at 11:00; Stop 05/19/18 at 12:59 MARY LOU LE May 19, 2018 11:43
[2018-05-19] MEDS: DIGOXIN 0.125 MG TAB PO SCH (13:41)
--- NOTE | 2018-05-19 15:24 | QN ---
Documentation Comment Did talk to the medical records analyst of [facility] Dr. Cooley. As per the conversation, the patient goes from one hospital to another complaining of chest pain or hematemesis. He had multiple investigative procedures done including almost [address]s and 30 esophagogastroduodenoscopies. The patient had been ruled out multiple times for any active gastrointestinal bleeding. The patient also had been ruled out multiple times for any acute coronary syndrome. The patient's last esophagogastroduodenoscopy was on February 08, 2018 that was negative. The patient specifically tells to the healthcare providers that he had "3-4 tablespoons" of vomiting/spitting blood. The patient is also dependent on opioids. [facility] report pulled showed that he has multiple prescriptions for opioids including tramadol, [place], Dilaudid, and Suboxone. There was a relatively longer interval between his last hospitalization and the current hospitalization because he got adequate amounts of [place] and Dilaudid from his last hospitalization. He is also chronically anemic because of multiple phlebotomies from multiple hospitalizations. He also has no confirmation of Marfan syndrome as per Dr. Cooley. The patient had his AICD placed in May 2016 at [facility]. The reason for AICD placement is unclear as per Dr. Cooley. The patient travels all over [facility] from [facility] to [facility] to visit different hospitals. He had almost 183 hospital admissions since the 2011. I did talk to the patient regarding his multiple esophagogastroduodenoscopies. The patient was very resistant to my conversation. The patient insisted that he needs to be on blood thinners and he has underlying gastrointestinal bleeding. Therefore, he wanted to proceed with esophagogastroduodenoscopy. All the patient's opioids will be discontinued at this time. The patient will be moved to medical surgical floor. Case discussed with Dr. Reeves. TIN DELANEY NP May 19, 2018 15:24
--- NOTE | 2018-05-19 16:39 | HPN ---
Date/Time of Note Date/Time of Note DATE: 05/19/18 TIME: 16:39 Interval H&P Admission Note Pt. seen H&P reviewed: No system changes SUE HOFFMAN May 19, 2018 16:39
--- NOTE | 2018-05-19 16:54 | PREAC ---
Date/Time of Note Date/Time of Note DATE: 05/19/18 TIME: 16:51 Anesthesia Eval and Record Evaluation Time Pre-Procedure Interview DATE: 05/19/18 TIME: 16:51 Age 32 Sex male NPO: 8 hrs Preoperative diagnosis Gastric AVM Planned procedure EGD Past Medical History Past Medical History: Includes Cardio: HTN, Arrythmia, Other (AICD placement) Musculoskeletal: Osteoarthritis, Rheumatoid arthritis, Other (Marfan Syndrom) GI: GERD Psych: Depression, Anxiety Surgery & Anesthesia Issues No known issue Meds Anticoagulation: Yes Beta Juice within 24 hr: No Reason Beta Jucie not given: Pt. not on B-Juice Reported Medications Ondansetron Hcl* (Ondansetron Hcl*) 4 Mg Tablet, 4 MG PO Q6 PRN for NAUSEA AND/OR VOMITING 05/19/18 Cyanocobalamin* (Vitamin B12*) 500 Mcg Tab, 1000 MCG PO DAILY, TAB 05/19/18 Ferrous Sulfate* (Ferrous Sulfate*) 325 Mg Tabec, 325 MG PO BID for 30 Days, #60 TAKE 1 TABLET BY MOUTH TWICE A DAY WITH MEALS 05/19/18 Buprenorphine Hcl-Naloxone Hcl (Suboxone SL) 2-0.5 Mg Film, SL PLACE 1 FLIM UNDER THE TONGUE EVERY 6 HOURS; 05/19/18 Methocarbamol* (Methocarbamol*) 750 Mg Tablet, 750 MG PO QID TAKE 1 TABLET BY MOUTH 4 TIMES A DAY NEEDED 05/19/18 Enoxaparin Sodium (Enoxaparin Sodium) 100 Mg/1 Ml Syringe, 100 MG SQ BID, SYR 10/11/17 Salmeterol Xinaf-Fluticasone* (Advair*) 500/50 Diskus Inhaler, 1 INH INHALATION BID, #1 INHALER 10/11/17 Apixaban* (Eliquis*) 5 Mg Tablet, 5 MG PO BID, TAB 07/10/17 Zolpidem Tartrate* (Zolpidem Tartrate*) 10 Mg Tablet, 10 MG PO QHS PRN for INSOMNIA, #30 TAB 07/10/17 Tramadol Hcl* (Ultram*) 50 Mg Tablet, 50 MG PO Q6H PRN for PAIN, TAB 07/10/17 Sucralfate* (Carafate*) 1 Gm Tab, 1 GM PO AC MEALS AND BEDTIME, TAB 4/28/18 Sotalol Hcl* (Sotalol Hcl*) 80 Mg Tablet, 80 MG PO DAILY, TAB 07/10/17 Sertraline Hcl* (Sertraline Hcl*) 50 Mg Tablet, 50 MG PO DAILY, #30 TAB 07/10/17 Potassium Chloride* (K-Dur*) 10 Meq Tab.prt.sr, 10 MEQ PO BID, TAB 07/10/17 Pantoprazole* (Pantoprazole*) 40 Mg Tablet.dr, 40 MG PO AC BREAKFAST, TAB 07/10/17 Nitroglycerin* (Nitroglycerin* SL) 0.4 Mg Tab.subl, 0.4 MG SL Q5MIN PRN for CHEST PAIN, BOTTLE 07/10/17 Isosorbide Mononitrate* (Isosorbide Mononitrate*) 60 Mg Tab.er.24h, 60 MG PO QAM, TAB 07/10/17 Gabapentin* (Gabapentin*) 300 Mg Capsule, 300 MG PO TID, #90 CAP 07/10/17 Duloxetine Hcl* (Duloxetine Hcl*) 60 Mg Capsule.dr, 60 MG PO DAILY, #30 CAP 07/10/17 Docusate Sodium* (Colace*) 100 Mg Capsule, 100 MG PO BID, #60 CAP 07/10/17 Digoxin* (Digitek*) 125 Mcg Tablet, 0.125 MG PO DAILY, TAB 07/10/17 Carvedilol* (Carvedilol*) 6.25 Mg Tablet, 6.25 MG PO BID, #60 TAB 07/10/17 Atorvastatin Calcium (Atorvastatin Calcium) 10 Mg Tablet, 10 MG PO QHS, #30 TAB 07/10/17 Aspirin* (Aspirin* EC) 81 Mg Tablet.dr, 81 MG PO DAILY, TAB 07/10/17 Current Medications Sodium Chloride 1,000 ml @ 70 mls/hr [id number] IV Last administered on 05/19/18at 08:44; Admin Dose 70 MLS/HR; Start 05/19/18 at 05:27 IV Flush (NS 3 ml) 3 ml PER PROTOCOL IV ; Start 05/19/18 at 05:30 Ondansetron HCl (Zofran Inj) 4 mg Q6H PRN IV NAUSEA/VOMITING; Start 05/19/18 at 05:30 Metoclopramide HCl (Reglan) 10 mg Q6H PRN IV NAUSEA/VOMITING; Start 05/19/18 at 05:30 Acetaminophen (Tylenol Tab) 650 mg Q6H PRN PO .PAIN 1-3 OR TEMP; Start 05/19/18 at 05:30 Carvedilol (Coreg) 6.25 mg BID PO Last administered on 05/19/18at 10:02; Admin Dose 6.25 MG; Start 05/19/18 at 09:00 Digoxin (Digoxin) 0.125 mg DAILY@1300 PO Last administered on 05/19/18at 13:41; Admin Dose 0.125 MG; Start 05/19/18 at 13:00 Sotalol HCl (Betapace) 80 mg DAILY PO Last administered on 05/19/18at 10:01; Admin Dose 80 MG; Start 05/19/18 at 09:00 Pantoprazole 80 mg/Sodium Chloride 100 ml @ 10 mls/hr Q10H IV Last administered on 05/19/18at 10:29; Admin Dose 10 MLS/HR; Start 05/19/18 at 05:30 Octreotide Acetate 1 mg/ Dextrose 100 ml @ 5 mls/hr Q20H IV Last administered on 05/19/18 10:27; Admin Dose 5 MLS/HR; Start 05/19/18 at 05:30 Meds reviewed: Yes Allergies Coded Allergies: avocado (Unverified Allergy, Severe, 05/19/18) banana (Unverified Allergy, Severe, 05/19/18) iodine (Unverified Allergy, Severe, ANAPHYLLACTIC, 05/19/18) latex (Unverified Allergy, Severe, ANAPHYLACTIC, 05/19/18) onion (Unverified Allergy, Severe, 05/19/18) promethazine (Unverified Allergy, Severe, 05/19/18) propofol (Unverified Allergy, Severe, ANAPHYLACTIC, 05/19/18) ketorolac (Unverified Allergy, Mild, RASH, 05/19/18) Iodinated Contrast- Oral and IV Dye (Unverified Allergy, Unknown, 05/19/18) kiwi (Unverified Allergy, Unknown, 05/19/18) anaphylactic shock tomato (Unverified Allergy, Unknown, 05/19/18) anaphylactic shock Allergies Reviewed: Yes Labs/Studies Labs Reviewed: Reviewed by anesthesiologist Result Diagram: 05/19/18 9349 05/19/18 0234 Laboratory Tests 05/19/18 02:34 05/19/18 14:32 Blood Bank Test 05/19/18 02:34 Antibody Screen NEGATIVE Blood Type O POSITIVE test: N/A Studies: ECG Pre-procedure Exam Last vitals Vital Signs Date Temp Pulse Resp B/P (MAP) Pulse Ox O2 O2 Flow FiO2 Time Delivery Rate 05/19/18 97.9 62 14 150/97 100 Room Air 16:46 (114) Airway: Adequate mouth opening, Adequate thyromental dist Mallampati: Mallampati II Teeth: Normal Lung: Normal Heart: Normal ASA Physical Status ASA physical status: 4 Emergency: None Planned Anesthetic General/MAC: MAC Planned Pain Management Parenteral pain med Pre-operative Attestations Prior to commencing anesthesia and surgery, the patient was re-evaluated, there was verification of: *The patient's identity *The results of appropriate recent lab work and preoperative vital signs *The above evaluation not changing prior to induction *Anesthetic plan, risk benefits, alternative and complications discussed with patient/family; questions answered; patient/family understands, accepts and wishes to proceed. CINTHIA SIFUENTES MD May 19, 2018 16:54
[2018-05-19] MEDS ORDERED: FENTAnyl 50 MCG/ML VIAL ONE ×2 (16:55→17:00)
[2018-05-19] MEDS ORDERED: DIPHENHYDRAMINE 50 MG INJ ONE (16:55)
[2018-05-19] MEDS ORDERED: MIDAZOLAM 1 MG/ML 2 ML INJ ONE ×2 (16:55)
[2018-05-19] MEDS ORDERED: KETAMINE (50 MG/ML) 10 ML VIAL ONE (17:02)
--- NOTE | 2018-05-19 17:26 | PAC ---
Date/Time of Note Date/Time of Note DATE: 05/19/18 TIME: 17:25 Post-Anesthesia Notes Post-Anesthesia Note Last documented vital signs Vital Signs Date Temp Pulse Resp B/P (MAP) Pulse Ox O2 O2 Flow FiO2 Time Delivery Rate 05/19/18 97.9 62 14 150/97 100 Room Air 16:46 (114) Activity: WNL Respiratory function: WNL Cardiovascular function: WNL Mental status: Baseline Pain reasonably controlled: Yes Hydration appropriate: Yes Nausea/Vomiting absent: Yes Comments BP:132/70, P:77, Spo2:100%, T:98,8 CINTHIA SIFUENTES MD May 19, 2018 17:26
[2018-05-19] MEDS ORDERED: HYDROmorphONE 1 MG/5 ML IV SYRINGE IV PRN ×2 (17:30)
[2018-05-19] MEDS: ACETAMINOPHEN 325 MG TAB PO PRN (20:26)
[2018-05-20] VITALS: BP 111/61; PULSE 68; RESP 20
[2018-05-20] MEDS: ACETAMINOPHEN 325 MG TAB PO PRN (02:18)
[2018-05-20 05:00] VITALS: BP 108/55; PULSE 68; RESP 18
[2018-05-20] MEDS: PANTOPRAZOLE IV 80 MG in SOD CHLORIDE 0.9% 100 ML IV SCH (07:19)
[2018-05-20 08:03] VITALS: BP 107/56; PULSE 65; RESP 18
[2018-05-20] MEDS: SOD CHLORIDE 0.9% 1,000 ML IV SCH (10:03)
--- NOTE | 2018-05-20 10:27 | QN ---
Documentation Comment Confirmed with case management that the patient belongs to [employer]. Therefore, the on-call physician for [employer], was called and sign out was given. The patient's care will be taken over by Dr. Henderson starting 05/20/2018. Case discussed with Dr. Reeves. TIN DELANEY NP May 20, 2018 10:27
--- NOTE | 2018-05-20 11:01 | PDOCDIS ---
Discharge Instructions CONDITION [id number] Patient Condition: [id number] Good HOME CARE INSTRUCTIONS: [id number] Diet Instructions: [id number] FOLLOW UP/APPOINTMENTS Follow-up Plan pcp [address] Elam 1 week LISA MICHAUD MD May 20, 2018 11:01
[2018-05-20] MEDS: SOTALOL 80 MG TAB PO SCH (11:34)
[2018-05-20] MEDS: DIGOXIN 0.125 MG TAB PO SCH (13:00)
[2018-05-20 13:56] VITALS: BP 131/74; PULSE 79; RESP 18
== END 2018-05-20 17:20 | disposition home or self-care (01) ==
LOC: E/R 01:18 → TEL 05:21 → MS1 16:00
PROVIDERS: ADMIT Internal Medicine; ATTEND Internal Medicine
DX: K92.2 Gastrointestinal hemorrhage, unspecified (principal); K92.0 Hematemesis; K55.20 Angiodysplasia of colon without hemorrhage; Q87.40 Marfan syndrome, unspecified; Z79.82 Long term (current) use of aspirin; Z86.73 Personal history of transient ischemic attack (TIA), and cerebral infarction without residual deficits; Z86.711 Personal history of pulmonary embolism; Z95.0 Presence of cardiac pacemaker; Z79.01 Long term (current) use of anticoagulants
CPT/HCPCS: 43235; 71045; 74176; 80053; 82550; 82553; 83690; 83735; 84484; 85025; 85610; 85730; 86850; 86900; 86901; 93005; 96374; 96375; 96376; C9113; J1170; J1200; J1940; J2250; J2270; J2354; J2405; J3010; J3475; J7030; Z7500; Z7502; Z7610; 99217; G0378

== ENCOUNTER 2018-06-20 22:12 | Observation (INO) | payer OTHER ==
[~2018-06-20] VITALS: Ht 190.5 cm; Wt 93.2 kg
[~2018-06-20 22:12] MED LIST changes: +BUPR1FIL SL; +CYAN500T46 PO; +FER325 PO; +METH750T2 PO; +ONDA4TAB95 PO
[2018-06-20] MEDS ORDERED: morphine 4 MG/ML VIAL IV STA (22:22)
[2018-06-20] MEDS ORDERED: ONDANSETRON 4 MG INJ IV STA (22:22)
[2018-06-20] MEDS ORDERED: SOD CHLORIDE 0.9% 1,000 ML IV STA (22:22)
[2018-06-20] MEDS ORDERED: DIPHENHYDRAMINE 50 MG INJ IV ONE (23:30)
[2018-06-21] VITALS (7 sets, daily range): BP systolic 112–131; BP diastolic 56–62; PULSE 61–69; RESP 20; Ht 190.5 cm; Wt 93.2 kg
[2018-06-21] MEDS ORDERED: morphine 4 MG/ML VIAL IV STA (01:10)
--- NOTE | 2018-06-21 05:39 | ERD ---
ER Documentation Chief Complaint Chief Complaint [id number],from home,CP radiating to back,hx Marfan's dz,pacemaker placement HPI This is a 32-year-old male brought in from home with chest pain rating to the back. Patient is a Marfan disease and pacemaker placement previous cardiac stent stenting. Pain is mild to moderate in intensity with no exacerbating or alleviating factors. Patient recently had a rule out in the past few months for acute coronary syndrome. ROS All systems reviewed and are negative except as per history of present illness. Medications Home Meds Reported Medications Ondansetron Hcl* (Ondansetron Hcl*) 4 Mg Tablet, 4 MG PO Q6 PRN for NAUSEA AND/OR VOMITING 05/19/18 Cyanocobalamin* (Vitamin B12*) 500 Mcg Tab, 1000 MCG PO DAILY, TAB 05/19/18 Ferrous Sulfate* (Ferrous Sulfate*) 325 Mg Tabec, 325 MG PO BID for 30 Days, #60 TAKE 1 TABLET BY MOUTH TWICE A DAY WITH MEALS 05/19/18 Buprenorphine Hcl-Naloxone Hcl (Suboxone SL) 2-0.5 Mg Film, SL PLACE 1 FLIM UNDER THE TONGUE EVERY 6 HOURS; 05/19/18 Methocarbamol* (Methocarbamol*) 750 Mg Tablet, 750 MG PO QID TAKE 1 TABLET BY MOUTH 4 TIMES A DAY NEEDED 05/19/18 Enoxaparin Sodium (Enoxaparin Sodium) 100 Mg/1 Ml Syringe, 100 MG SQ BID, SYR 10/11/17 Salmeterol Xinaf-Fluticasone* (Advair*) 500/50 Diskus Inhaler, 1 INH INHALATION BID, #1 INHALER 10/11/17 Apixaban* (Eliquis*) 5 Mg Tablet, 5 MG PO BID, TAB 07/10/17 Zolpidem Tartrate* (Zolpidem Tartrate*) 10 Mg Tablet, 10 MG PO QHS PRN for INSOMNIA, #30 TAB 07/10/17 Tramadol Hcl* (Ultram*) 50 Mg Tablet, 50 MG PO Q6H PRN for PAIN, TAB 07/10/17 Sucralfate* (Carafate*) 1 Gm Tab, 1 GM PO AC MEALS AND BEDTIME, TAB 07/10/17 Sotalol Hcl* (Sotalol Hcl*) 80 Mg Tablet, 80 MG PO DAILY, TAB 07/10/17 Sertraline Hcl* (Sertraline Hcl*) 50 Mg Tablet, 50 MG PO DAILY, #30 TAB 07/10/17 Potassium Chloride* (K-Dur*) 10 Meq Tab.prt.sr, 10 MEQ PO BID, TAB 07/10/17 Pantoprazole* (Pantoprazole*) 40 Mg Tablet.dr, 40 MG PO AC BREAKFAST, TAB 07/10/17 Nitroglycerin* (Nitroglycerin* SL) 0.4 Mg Tab.subl, 0.4 MG SL Q5MIN PRN for CHEST PAIN, BOTTLE 07/10/17 Isosorbide Mononitrate* (Isosorbide Mononitrate*) 60 Mg Tab.er.24h, 60 MG PO QAM , TAB 07/10/17 Gabapentin* (Gabapentin*) 300 Mg Capsule, 300 MG PO TID, #90 CAP 07/10/17 Duloxetine Hcl* (Duloxetine Hcl*) 60 Mg Capsule.dr, 60 MG PO DAILY, #30 CAP 07/10/17 Docusate Sodium* (Colace*) 100 Mg Capsule, 100 MG PO BID, #60 CAP 07/10/17 Digoxin* (Digitek*) 125 Mcg Tablet, 0.125 MG PO DAILY, TAB 07/10/17 Carvedilol* (Carvedilol*) 6.25 Mg Tablet, 6.25 MG PO BID, #60 TAB 07/10/17 Atorvastatin Calcium (Atorvastatin Calcium) 10 Mg Tablet, 10 MG PO QHS, #30 TAB 07/10/17 Aspirin* (Aspirin* EC) 81 Mg Tablet.dr, 81 MG PO DAILY, TAB 07/10/17 Allergies Allergies: Coded Allergies: avocado (Unverified Allergy, Severe, 06/21/18) banana (Unverified Allergy, Severe, 06/21/18) iodine (Unverified Allergy, Severe, ANAPHYLLACTIC, 06/21/18) latex (Unverified Allergy, Severe, ANAPHYLACTIC, 06/21/18) onion (Unverified Allergy, Severe, 06/21/18) promethazine (Unverified Allergy, Severe, 06/21/18) propofol (Unverified Allergy, Severe, ANAPHYLACTIC, 06/21/18) ketorolac (Unverified Allergy, Mild, RASH, 06/21/18) Iodinated Contrast- Oral and IV Dye (Unverified Allergy, Unknown, 06/21/18) kiwi (Unverified Allergy, Unknown, 06/21/18) anaphylactic shock tomato (Unverified Allergy, Unknown, 06/21/18) anaphylactic shock PMhx/Soc History of Surgery: Yes (Tonsilectomy, bilateral rotator cuff repair, atrial septal occuluder device) Anesthesia Reaction: No Hx 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 Disorder: No Hx Respiratory Disorders: Yes (PE) Hx Cardiac Disorders: Yes (Sick sinus syndrome, Ventricular Tachcardia, HTN, High cholesterol) Hx Psychiatric Problems: No Hx Alcohol Use: No Hx Substance Use: No Hx Tobacco Use: No Smoking Status: Never smoker Physical Exam Vitals Vital Signs Date Temp Pulse Resp B/P (MAP) Pulse Ox O2 O2 Flow FiO2 Time Delivery Rate 06/20/18 98.1 103 18 131/62 100 22:16 (85) Physical Exam Const: No acute distress Head: Atraumatic Eyes: Normal Conjunctiva ENT: Normal External Ears, Nose and Mouth. Neck: Full range of motion. No meningismus. Resp: Clear to auscultation bilaterally Cardio: Regular rate and rhythm, no murmurs Abd: Soft, non tender, non distended. Normal bowel sounds Skin: No petechiae or rashes Back: No midline or flank tenderness Ext: No cyanosis, or edema Neur: Awake and alert Psych: Normal Mood and Affect Result Diagram: 06/20/18224706/20/182247 Results 24 hrs Laboratory Tests Test 06/20/18 22:48 White Blood Count 8.2 10^3/ul Red Blood Count 4.29 10^6/ul Hemoglobin 12.1 g/dl Hematocrit 38.9 % Mean Corpuscular Volume 90.7 fl Mean Corpuscular Hemoglobin 28.2 pg Mean Corpuscular Hemoglobin Concent 31.1 g/dl Red Cell Distribution Width 15.9 % Platelet Count 218 10^3/UL Mean Platelet Volume 8.5 fl Immature Granulocytes % 0.700 % Neutrophils % 73.6 % Lymphocytes % 16.8 % Monocytes % 8.6 % Eosinophils % 0.2 % Basophils % 0.1 % Nucleated Red Blood Cells % 0.0 /100WBC Immature Granulocytes # 0.060 10^3/ul Neutrophils # 6.0 10^3/ul Lymphocytes # 1.4 10^3/ul Monocytes # 0.7 10^3/ul Eosinophils # 0.0 10^3/ul Basophils # 0.0 10^3/ul Nucleated Red Blood Cells # 0.0 10^3/ul Prothrombin Time 11.8 Sec Prothrombin Time Ratio 0.9 INR International Normalized Ratio 0.86 Activated Partial Thromboplast Time 22.5 Sec Sodium Level 145 mmol/L Potassium Level 3.4 mmol/L Chloride Level 105 mmol/L Carbon Dioxide Level 30 mmol/L Anion Gap 10 Blood Urea Nitrogen 17 mg/dl Creatinine 0.74 mg/dl Est Glomerular Filtrat Rate mL/min > 60 mL/min Glucose Level 77 mg/dl Calcium Level 9.2 mg/dl Total Bilirubin 0.1 mg/dl Direct Bilirubin 0.00 mg/dl Indirect Bilirubin 0.1 mg/dl Aspartate Amino Transf (AST/SGOT) 39 IU/L Alanine Aminotransferase (ALT/SGPT) 42 IU/L Alkaline Phosphatase 112 IU/L Troponin I < 0.012 ng/ml B-Type Natriuretic Peptide 86 PG/ML Total Protein 6.6 g/dl Albumin 4.1 g/dl Globulin 2.50 g/dl Albumin/Globulin Ratio 1.64 Current Medications Medications Dose Sig/Yoselyn Start Time Status Last (Trade) Ordered Route PRN Stop Time Admin Dose Reason Admin Sodium 1,000 ml @ Q1H STAT 06/20/18 DC 06/20/18 Chloride 1,000 mls/hr IV 22:22 06/20/18 22:55 23:21 Morphine 4 mg ONCE STAT 06/20/18 DC 06/20/18 Sulfate IV 22:22 06/20/18 22:55 (morphine) 22:24 Ondansetron 4 mg ONCE STAT 06/20/18 DC 06/20/18 HCl (Zofran IV 22:22 06/20/18 22:55 Inj) 22:24 50 mg ONCE ONCE 06/20/18 DC 06/20/18 Diphenhydrami IV 23:30 06/20/18 23:22 ne HCl 23:31 (Benadryl) Morphine 4 mg ONCE STAT 06/21/18 DC 06/21/18 Sulfate IV 01:10 06/21/18 02:16 (morphine) 01:36 Procedures/MDM EKG: Rate/Rhythm: [Normal Sinus Rhythm] QRS, ST, T-waves: [No changes consistent w/ acute ischemia], normal intervals, upgoing T waves, normal axis Impression: [No evidence of ischemia or arrhythmia] Chest X-ray 1V Interpreted by me: Soft Tissue: No acute abnormalities Bones: No acute abnormalities Mediastinum/Cardiac Silhouette/Lungs: [No acute abnormalities] Medical decision make: Patient's symptoms are concerning for cardiac cause will require inpatient workup and continuous monitoring. Further w/u for ischemia, arrhythmia, PE or dissection will be deferred to the inpatient team. Accepting Care Team: Current data and ongoing care discussed. Time: 5:40 AM Primary Provider: Dr. Bar Consulting: [XOXOXO] Outstanding Data: none Departure Diagnosis: Primary Impression: Chest pain Chest pain type: unspecified Qualified Codes: R07.9 - Chest pain, unspecified Condition: Serious CARLENE VITAL Jun 21, 2018 05:39
--- NOTE | 2018-06-21 12:28 | CONS ---
Assessment/Plan Assessment/Plan Hospital Course (Demo Recall) Summary Assessment and Plan: Assessment: Hematemesis Hx of UGIB 2/2 TO AVMs CP- Trop x2 neg -Stress test 06/21/18 Hx of PM History of Marfan's syndrome Hx of DVT/PE Plan: NPO for stress test today EGD tomorrow NPO after midnight Endoscopy - risks/benefits/alternatives/indications of procedure and sedation/anesthesia discussed with patient who states understanding and gives informed consent to proceed. Patient seen in collaboration with Dr. Addison CC: MICHAEL ADDISON MD ; Consultation Date/Type/Reason Admit Date/Time Jun 21, 2018 at 05:33 Date of Consultation: Jun 21, 2018 Type of Consult GI Reason for Consultation Hematemesis Date/Time of Note DATE: 06/21/18 TIME: 12:22 Hx of Present Illness Mr. 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 Who presented to the hospital with complaints of chest pain and hematemesis GI has been consulted for further evaluation. Patient has undergone multiple EGDs all showing AVMs status post cauterization. Cardiology has been consulted with plan for patient to have a stress test today. The results will plan for EGD tomorrow. Aware of risk/benefits of both sedation and procedure and is agreeable to EGD. Review of Systems: A 12 system, review was conducted and is negative except as noted in the HPI or here. Past Medical History Home Meds Reported Medications Ondansetron Hcl* (Ondansetron Hcl*) 4 Mg Tablet, 4 MG PO Q6 PRN for NAUSEA AND/OR VOMITING 05/19/18 Cyanocobalamin* (Vitamin B12*) 500 Mcg Tab, 1000 MCG PO DAILY, TAB 05/19/18 Ferrous Sulfate* (Ferrous Sulfate*) 325 Mg Tabec, 325 MG PO BID for 30 Days, #60 TAKE 1 TABLET BY MOUTH TWICE A DAY WITH MEALS 05/19/18 Buprenorphine Hcl-Naloxone Hcl (Suboxone SL) 2-0.5 Mg Film, SL PLACE 1 FLIM UNDER THE TONGUE EVERY 6 HOURS; 05/19/18 Methocarbamol* (Methocarbamol*) 750 Mg Tablet, 750 MG PO QID TAKE 1 TABLET BY MOUTH 4 TIMES A DAY NEEDED 05/19/18 Enoxaparin Sodium (Enoxaparin Sodium) 100 Mg/1 Ml Syringe, 100 MG SQ BID, SYR 10/11/17 Salmeterol Xinaf-Fluticasone* (Advair*) 500/50 Diskus Inhaler, 1 INH INHALATION BID, #1 INHALER 10/11/17 Apixaban* (Eliquis*) 5 Mg Tablet, 5 MG PO BID, TAB 07/10/17 Zolpidem Tartrate* (Zolpidem Tartrate*) 10 Mg Tablet, 10 MG PO QHS PRN for INSOMNIA, #30 TAB 07/10/17 Tramadol Hcl* (Ultram*) 50 Mg Tablet, 50 MG PO Q6H PRN for PAIN, TAB 07/10/17 Sucralfate* (Carafate*) 1 Gm Tab, 1 GM PO AC MEALS AND BEDTIME, TAB 07/10/17 Sotalol Hcl* (Sotalol Hcl*) 80 Mg Tablet, 80 MG PO DAILY, TAB 07/10/17 Sertraline Hcl* (Sertraline Hcl*) 50 Mg Tablet, 50 MG PO DAILY, #30 TAB 07/10/17 Potassium Chloride* (K-Dur*) 10 Meq Tab.prt.sr, 10 MEQ PO BID, TAB 07/10/17 Pantoprazole* (Pantoprazole*) 40 Mg Tablet.dr, 40 MG PO AC BREAKFAST, TAB 07/10/17 Nitroglycerin* (Nitroglycerin* SL) 0.4 Mg Tab.subl, 0.4 MG SL Q5MIN PRN for CHES T PAIN, BOTTLE 07/10/17 Isosorbide Mononitrate* (Isosorbide Mononitrate*) 60 Mg Tab.er.24h, 60 MG PO QAM, TAB 07/10/17 Gabapentin* (Gabapentin*) 300 Mg Capsule, 300 MG PO TID, #90 CAP 07/10/17 Duloxetine Hcl* (Duloxetine Hcl*) 60 Mg Capsule.dr, 60 MG PO DAILY, #30 CAP 07/10/17 Docusate Sodium* (Colace*) 100 Mg Capsule, 100 MG PO BID, #60 CAP 07/10/17 Digoxin* (Digitek*) 125 Mcg Tablet, 0.125 MG PO DAILY, TAB 07/10/17 Carvedilol* (Carvedilol*) 6.25 Mg Tablet, 6.25 MG PO BID, #60 TAB 07/10/17 Atorvastatin Calcium (Atorvastatin Calcium) 10 Mg Tablet, 10 MG PO QHS, #30 TAB 07/10/17 Aspirin* (Aspirin* EC) 81 Mg Tablet.dr, 81 MG PO DAILY, TAB 07/10/17 Allergies: Coded Allergies: avocado (Unverified Allergy, Severe, 06/21/18) banana (Unverified Allergy, Severe, 06/21/18) iodine (Unverified Allergy, Severe, ANAPHYLLACTIC, 06/21/18) latex (Unverified Allergy, Severe, ANAPHYLACTIC, 06/21/18) onion (Unverified Allergy, Severe, 06/21/18) promethazine (Unverified Allergy, Severe, 06/21/18) propofol (Unverified Allergy, Severe, ANAPHYLACTIC, 06/21/18) ketorolac (Unverified Allergy, Mild, RASH, 06/21/18) Iodinated Contrast- Oral and IV Dye (Unverified Allergy, Unknown, 06/21/18) kiwi (Unverified Allergy, Unknown, 06/21/18) anaphylactic shock tomato (Unverified Allergy, Unknown, 06/21/18) anaphylactic shock Past Surgical History Past Surgical Hx: other Social History Smoking Status: Never smoker Exam/Review of Systems Exam Vitals Vital Signs Date Temp Pulse Resp B/P (MAP) Pulse Ox O2 O2 Flow FiO2 Time Delivery Rate 06/21/18 98.2 69 20 131/62 100 Room Air 11:32 (85) Constitutional: alert, oriented Psych: no complaints Head: normocephalic, atraumatic Eyes: nl conjunctiva ENMT: nl external ears & nose, nl lips & teeth Neck: supple, non-tender Respiratory: clear to auscultation Cardiovascular: regular rate and rhythm Gastrointestinal: soft, bowel sounds Results Result Diagram: 06/21/18 1140 06/20/18 2248 Results 24hrs Laboratory Tests Test 06/20/18 22:48 06/21/18 10:06 06/21/18 11:40 White Blood Count 8.2 # Red Blood Count 4.29 L Hemoglobin 12.1 L 11.3 L Hematocrit 38.9 L Mean Corpuscular Volume 90.7 Mean Corpuscular Hemoglobin 28.2 L Mean Corpuscular Hemoglobin Concent 31.1 L Red Cell Distribution Width 15.9 H Platelet Count 218 Mean Platelet Volume 8.5 Immature Granulocytes % 0.700 H Neutrophils % 73.6 Lymphocytes % 16.8 Monocytes % 8.6 Eosinophils % 0.2 Basophils % 0.1 Nucleated Red Blood Cells % 0.0 Immature Granulocytes # 0.060 H Neutrophils # 6.0 Lymphocytes # 1.4 Monocytes # 0.7 Eosinophils # 0.0 Basophils # 0.0 Nucleated Red Blood Cells # 0.0 Prothrombin Time 11.8 L Prothrombin Time Ratio 0.9 INR International Normalized Ratio 0.86 Activated Partial Thromboplast Time 22.5 L Sodium Level 145 H Potassium Level 3.4 L Chloride Level 105 Carbon Dioxide Level 30 Anion Gap 10 Blood Urea Nitrogen 17 Creatinine 0.74 Est Glomerular Filtrat Rate mL/min > 60 Glucose Level 77 Calcium Level 9.2 Total Bilirubin 0.1 L Direct Bilirubin 0.00 Indirect Bilirubin 0.1 Aspartate Amino Transf (AST/SGOT) 39 Alanine Aminotransferase (ALT/SGPT) 42 Alkaline Phosphatase 112 Troponin I < 0.012 < 0.012 B-Type Natriuretic Peptide 86 Total Protein 6.6 Albumin 4.1 Globulin 2.50 Albumin/Globulin Ratio 1.64 MARY LOU LE Jun 21, 2018 12:28
[2018-06-21] MEDS ORDERED: morphine 2 MG INJ IV PRN (13:00)
[2018-06-21] MEDS: REGADENOSON 0.4 MG/5 ML SYG ONE ×2 (13:19→14:10)
[2018-06-21] MEDS ORDERED: DIPHENHYDRAMINE 50 MG CAP PO PRN (15:30)
--- NOTE | 2018-06-21 17:08 | CONS ---
Assessment/Plan Assessment/Plan Hospital Course (Demo Recall) Hematemesis Chest painresolved Normal nuclear perfusion study 06/21/2018 Preserved ejection fraction Marfan syndrome Cardiac arrest with history of ICD ASD status post percutaneous closure -Patient presents with hematemesis followed by sharp and burning-like chest pain -Serial cardiac enzymes remain negative, ECG with no significant ischemic abnormalities -Patient status post nuclear cardiac perfusion study with no evidence of ischemia -Echocardiogram pulmonary with preserved ejection fraction with no significant with functional valvular abnormalities -Patient undergoing GI workup and plan for EGD tomorrow -Given risk factors and history, at the current time, the patient is at an inter mediate risk for any untoward cardiac events for endoscopy, the benefits likely outweigh the risks. Consultation Date/Type/Reason Admit Date/Time Jun 21, 2018 at 05:33 Type of Consult Cardiology Reason for Consultation Chest pain Date/Time of Note DATE: 06/21/18 TIME: 17:01 Hx of Present Illness This is a 32-year-old male with past medical history of cardiac arrest status post ICD, Marfan syndrome, AVMs who presents with hematemesis and chest pain. Patient with hematemesis yesterday. He has had multiple episodes of this in the past with history of AVMs. Approximately 1 hour afterwards, patient with chest pain. Patient chest pain was sharp and burning-like. His chest pain is since resolved. He otherwise denies exertional chest pain. He does get occasional shortness of breath. He denies any nausea at the current time. 12 point review of systems was performed with all pertinent positives and negatives mentioned above and all else is negative Past Medical History Marfan syndrome Arrhythmia AVMs Home Meds Reported Medications Ondansetron Hcl* (Ondansetron Hcl*) 4 Mg Tablet, 4 MG PO Q6 PRN for NAUSEA AND/OR VOMITING 05/19/18 Cyanocobalamin* (Vitamin B12*) 500 Mcg Tab, 1000 MCG PO DAILY, TAB 05/19/18 Ferrous Sulfate* (Ferrous Sulfate*) 325 Mg Tabec, 325 MG PO BID for 30 Days, #60 TAKE 1 TABLET BY MOUTH TWICE A DAY WITH MEALS 05/19/18 Buprenorphine Hcl-Naloxone Hcl (Suboxone SL) 2-0.5 Mg Film, SL PLACE 1 FLIM UNDER THE TONGUE EVERY 6 HOURS; 05/19/18 Methocarbamol* (Methocarbamol*) 750 Mg Tablet, 750 MG PO QID TAKE 1 TABLET BY MOUTH 4 TIMES A DAY NEEDED 05/19/18 Enoxaparin Sodium (Enoxaparin Sodium) 100 Mg/1 Ml Syringe, 100 MG SQ BID, SYR 10/11/17 Salmeterol Xinaf-Fluticasone* (Advair*) 500/50 Diskus Inhaler, 1 INH INHALATION BID, #1 INHALER 10/11/17 Apixaban* (Eliquis*) 5 Mg Tablet, 5 MG PO BID, TAB 07/10/17 Zolpidem Tartrate* (Zolpidem Tartrate*) 10 Mg Tablet, 10 MG PO QHS PRN for INSOMNIA, #30 TAB 07/10/17 Tramadol Hcl* (Ultram*) 50 Mg Tablet, 50 MG PO Q6H PRN for PAIN, TAB 07/10/17 Sucralfate* (Carafate*) 1 Gm Tab, 1 GM PO AC MEALS AND BEDTIME, TAB 07/10/17 Sotalol Hcl* (Sotalol Hcl*) 80 Mg Tablet, 80 MG PO DAILY, TAB 07/10/17 Sertraline Hcl* (Sertraline Hcl*) 50 Mg Tablet, 50 MG PO DAILY, #30 TAB 07/10/17 Potassium Chloride* (K-Dur*) 10 Meq Tab.prt.sr, 10 MEQ PO BID, TAB 07/10/17 Pantoprazole* (Pantoprazole*) 40 Mg Tablet.dr, 40 MG PO AC BREAKFAST, TAB 07/10/17 Nitroglycerin* (Nitroglycerin* SL) 0.4 Mg Tab.subl, 0.4 MG SL Q5MIN PRN for CHEST PAIN, BOTTLE 07/10/17 Isosorbide Mononitrate* (Isosorbide Mononitrate*) 60 Mg Tab.er.24h, 60 MG PO QAM, TAB 07/10/17 Gabapentin* (Gabapentin*) 300 Mg Capsule, 300 MG PO TID, #90 CAP 07/10/17 Duloxetine Hcl* (Duloxetine Hcl*) 60 Mg Capsule.dr, 60 MG PO DAILY, #30 CAP 07/10/17 Docusate Sodium* (Colace*) 100 Mg Capsule, 100 MG PO BID, #60 CAP 07/10/17 Digoxin* (Digitek*) 125 Mcg Tablet, 0.125 MG PO DAILY, TAB 07/10/17 Carvedilol* (Carvedilol*) 6.25 Mg Tablet, 6.25 MG PO BID, #60 TAB 07/10/17 Atorvastatin Calcium (Atorvastatin Calcium) 10 Mg Tablet, 10 MG PO QHS, #30 TAB 07/10/17 Aspirin* (Aspirin* EC) 81 Mg Tablet.dr, 81 MG PO DAILY, TAB 07/10/17 Medications Current Medications Morphine Sulfate (morphine) 2 mg Q3H PRN IV SEVERE PAIN LEVEL 7-10 Last administered on 06/21/18at 14:57; Admin Dose 2 MG; Start 06/21/18 at 13:00 Diphenhydramine HCl (Benadryl) 50 mg Q6H PRN PO ITCHING; Start 06/21/18 at 15:30 Allergies: Coded Allergies: avocado (Unverified Allergy, Severe, 06/21/18) banana (Unverified Allergy, Severe, 06/21/18) iodine (Unverified Allergy, Severe, ANAPHYLLACTIC, 06/21/18) latex (Unverified Allergy, Severe, ANAPHYLACTIC, 06/21/18) onion (Unverified Allergy, Severe, 06/21/18) promethazine (Unverified Allergy, Severe, 06/21/18) propofol (Unverified Allergy, Severe, ANAPHYLACTIC, 06/21/18) ketorolac (Unverified Allergy, Mild, RASH, 06/21/18) Iodinated Contrast- Oral and IV Dye (Unverified Allergy, Unknown, 06/21/18) kiwi (Unverified Allergy, Unknown, 06/21/18) anaphylactic shock tomato (Unverified Allergy, Unknown, 06/21/18) anaphylactic shock Past Surgical History Orthopedic surgery, ICD Past Surgical Hx: other Social History Smoking Status: Never smoker Exam/Review of Systems Vital Signs Vitals Vital Signs Date Temp Pulse Resp B/P (MAP) Pulse Ox O2 O2 Flow FiO2 Time Delivery Rate 06/21/18 98.5 61 20 118/62 96 Room Air 15:18 (80) Exam Constitutional: alert, oriented (No apparent distress) Head: normocephalic Respiratory: other (Coarse breath sounds bilaterally, no wheezing) Cardiovascular: regular rate and rhythm (S1-S2 heard) Gastrointestinal: soft, non-tender, bowel sounds Extremities: other (No significant edema) Labs Result Diagram: 06/21/18 1140 06/20/18 2248 Results 24hrs Laboratory Tests Test 06/20/18 22:48 06/21/18 10:06 06/21/18 11:40 White Blood Count 8.2 # Red Blood Count 4.29 L Hemoglobin 12.1 L 11.3 L Hematocrit 38.9 L Mean Corpuscular Volume 90.7 Mean Corpuscular Hemoglobin 28.2 L Mean Corpuscular Hemoglobin Concent 31.1 L Red Cell Distribution Width 15.9 H Platelet Count 218 Mean Platelet Volume 8.5 Immature Granulocytes % 0.700 H Neutrophils % 73.6 Lymphocytes % 16.8 Monocytes % 8.6 Eosinophils % 0.2 Basophils % 0.1 Nucleated Red Blood Cells % 0.0 Immature Granulocytes # 0.060 H Neutrophils # 6.0 Lymphocytes # 1.4 Monocytes # 0.7 Eosinophils # 0.0 Basophils # 0.0 Nucleated Red Blood Cells # 0.0 Prothrombin Time 11.8 L Prothrombin Time Ratio 0.9 INR International Normalized Ratio 0.86 Activated Partial Thromboplast Time 22.5 L Sodium Level 145 H Potassium Level 3.4 L Chloride Level 105 Carbon Dioxide Level 30 Anion Gap 10 Blood Urea Nitrogen 17 Creatinine 0.74 Est Glomerular Filtrat Rate mL/min > 60 Glucose Level 77 Calcium Level 9.2 Total Bilirubin 0.1 L Direct Bilirubin 0.00 Indirect Bilirubin 0.1 Aspartate Amino Transf (AST/SGOT) 39 Alanine Aminotransferase (ALT/SGPT) 42 Alkaline Phosphatase 112 Troponin I < 0.012 < 0.012 B-Type Natriuretic Peptide 86 Total Protein 6.6 Albumin 4.1 Globulin 2.50 Albumin/Globulin Ratio 1.64 Imaging Imaging ECG demonstrates sinus rhythm, LVH, nonspecific ST abnormalities Medications Medications Current Medications Morphine Sulfate (morphine) 2 mg Q3H PRN IV SEVERE PAIN LEVEL 7-10 Last administered on 06/21/18at 14:57; Admin Dose 2 MG; Start 06/21/18 at 13:00 Diphenhydramine HCl (Benadryl) 50 mg Q6H PRN PO ITCHING; Start 06/21/18 at 15:30 Aiden Merrill DO Jun 21, 2018 17:08
[2018-06-21] MEDS ORDERED: POTASSIUM CHLORIDE (SR) 10 MEQ TAB PO ONE (17:30)
--- NOTE | 2018-06-21 17:38 | PDOCDIS ---
Discharge Instructions CONDITION [id number] Patient Condition: [id number] Good HOME CARE INSTRUCTIONS: [id number] Diet Instructions: [id number] FOLLOW UP/APPOINTMENTS Follow-up Plan pcp 1 week OTHER ORDERS: Other Orders: Return to ER with recurrent vomiting of blood LISA MICHAUD MD Jun 21, 2018 17:37
--- NOTE | 2018-06-21 17:55 | RADRPT ---
Echocardiogram Report Patient Name: CONRADO ABERNATHYLPatient ID: [id number] : 1985 (32y 10m)Study Date: 06/21/2018 1:36:24 PM Gender: MAccession #: [id number] Tech: Sant[facility] Location: EKG Ref.Physician: AIDEN MERRILL Height(Cm): BSA: Weight(Kg): Quality: AdequateAccount #: Procedures: Echocardiographic Report: Transthoracic echocardiogram with complete 2D, M-Mode, and doppler examination. Indications: Marfan's. Measurements: 2D/M Mode Doppler Measurement Value Normal Range Measurement Value Normal Range LVIDd 2D 5.2 [ 4.2 - 5.8 ] cm AV Peak [place]on 1.4 [ 100.0 - 170.0 ] cm/sec LVIDs 2D 3.3 [ 2.5 - 4.0 ] cm AV Peak PG 8.0 [ 2.0 - 9.0 ] mmHg LVPWd 2D 1.0 [ 0.6 - 1.0 ] cm LVOT Peak Eldon 1.2 [ 70.0 - 110.0 ] cm/sec IVSd 2D 1.1 [ 0.6 - 1.0 ] cm LVOT Peak PG 6.0 [ 2.0 - 6.0 ] mmHg IVS/LVPW 2D 1.0 ratio MV E Peak Eldon 1.0 [ 60.0 - 130.0 ] cm/sec AoR Diam 2D 2.6 [ 2.6 - 3.4 ] cm MV A Peak Eldon 0.5 [ 100.0 - 120.0 ] cm/sec LA/Ao 2D 2 ratio MV E/A 2.2 [ 0.8 - 1.5 ] ratio EF 2D 65.0 [ 52.0 - 72.0 ] percent MV Decel Time 201 [ 104 - 258 ] msec LA Dimen 2D 3.9 [ 3.0 - 4.0 ] cm Lat E` Eldon 0.2 [ 10.0 - 15.0 ] cm/sec MV E/A 2.2 [ 0.8 - 1.5 ] ratio TR Peak Eldon 2.7 [ 100.0 - 280.0 ] cm/sec TR Peak PG 30.0 mmHg RVSP 33.0 [ 10.0 - 36.0 ] mmHg Findings: Left Ventricle: Normal left ventricular systolic function. Normal left ventricular cavity size. Left ventricular wall thickness upper limits of normal. Ejection fraction is visually estimated at 65 %. Right Ventricle: Normal right ventricular systolic function. Mild enlargement of right ventricle. Linear artifact in right ventricle suggestive of catheter, pacer lead, or ICD lead. Left Atrium: The left atrium is normal in size. Right Atrium: The right atrium is normal in size. Atrial Septum: Atrial septal closure device likely present. Mitral Valve: Mild mitral leaflet calcification. Mild mitral annular calcification. Trace mitral regurgitation. Aortic Valve: No hemodynamically significant aortic stenosis by doppler. Aortic cusps appear mildly calcified. Tricuspid Valve: Normal appearance and function of the tricuspid valve with trace physiologic regurgitation. Estimated peak PA systolic pressure 33 mmHg. Pulmonic Valve: Normal pulmonic valve appearance. Pericardium: Normal pericardium with no significant pericardial effusion. Aorta: Normal aortic root. IVC: Normal size and normal respiratory collapse consistent with normal right atrial pressure. Conclusions: Normal left ventricular systolic function. Normal left ventricular cavity size. Left ventricular wall thickness upper limits of normal. Ejection fraction is visually estimated at 65 %. Normal right ventricular systolic function. Mild enlargement of right ventricle. Linear artifact in right ventricle suggestive of catheter, pacer lead, or ICD lead. The left atrium is normal in size. The right atrium is normal in size. Atrial septal closure device likely present. No significant valvular stenosis or regurgitation seen. Normal pericardium with no significant pericardial effusion. Electronically Signed By: Aiden Merrill 2018-06-21 17:54:55 PDT
--- NOTE | 2018-06-21 18:54 | HP ---
DATE OF ADMISSION: 06/21/2018 CHIEF COMPLAINT: Chest pain. HISTORY OF PRESENT ILLNESS: A 32-year-old male with a history of Marfan syndrome, pulmonary hyperten ulises, and a previous upper GI bleed due to AVMs, presented to Emergency Room with complaint of chest pain radiating to jaw and left arm and lasting about 45 minutes. There was no shortness of breath. No nausea, vomiting or diaphoresis. The patient also reports having several episodes of hematemesis. He has a previous history of AVMs and underwent EGD and cauterization about 1 month prior to admiss ion. Initial hemoglobin was normal. Initial troponin was also normal. The patient was free of chest pain following admission. PAST MEDICAL HISTORY: 1. Marfan syndrome. 2. History of sick sinus syndrome. 3. History of ventricular tachycardia, ventricular fib arrest. 4. History of PE. 5. Pulmonary hypertension. 6. History of upper gastrointestinal bleed due to AVMs. MEDICATIONS: Prior to admission: 1. Methocarbamol. 2. Eliquis. 3. Levaquin. 4. Ferrous sulfate. 5. Atorvastatin. 6. Coreg. 7. Digoxin. 8. Isosorbide mononitrate. 9. Sublingual nitroglycerin as needed. 10. Sotalol. 11. Aspirin. 12. Suboxone. 13. Duloxetine. 14. Gabapentin. 15. Sertraline. 16. Tramadol. 17. Ambien. PHYSICAL EXAMINATION: GENERAL: Well-developed, well-nourished young male who is in no apparent distress. VITAL SIGNS: Stable. He is afebrile. HEENT: Extraocular muscles intact. Pupils equal and reactive to light bilaterally. Sclerae are ani cteric. Oropharynx is clear and moist. NECK: Supple, no JVD, no carotid bruits. LUNGS: Clear to auscultation bilaterally. CARDIAC: Regular rate and rhythm. No murmurs, rubs or gallops. ABDOMEN: Soft, nontender, nondistended, normoactive bowel sounds. EXTREMITIES: No clubbing, cyanosis, or edema. NEUROLOGIC: Nonfocal. SKIN: Has multiple macular spots on the upper torso and back. LABORATORY DATA: White blood cell count 8.2, hemoglobin 12.1, platelet is 218,000. Basic metabolic panel is within normal limits. Troponin is less than point .012 albumin is 4.1. ASSESSMENT: 1. A 32-year-old male presenting with chest pain, rule out coronary ischemia. 2. History of ventricular tach/arrest status post AICD placement. 3. Recurrent upper GI bleed, most likely due to AVMs. 4. History of PE, on Eliquis and Lovenox. 5. Marfan syndrome. 6. Pulmonary hypertension. PLAN: 1. Admit to telemetry. 2. Proceed with a nuclear stress test. 3. Monitor hemoglobin. 4. Cardiology and GI consultations were requested. Dictated By: LISA ASH/DAVID Conf#: [id number] DID#: [id number] CC: Dr. Ashton; ABDIFATAH ROMO DO;*[facility]*
--- NOTE | 2018-06-23 02:16 | DS ---
DATE OF ADMISSION: 06/21/2018 DATE OF DISCHARGE: 06/21/2018 DISCHARGE DIAGNOSES: 1. A 32-year-old male with atypical chest pain. Status post Lexiscan stress test with no evidence o f coronary ischemia. 2. History of upper GI bleed due to an arteriovenous malformations. 3. Marfan syndrome. 4. History of pulmonary embolus, on Eliquis and Lovenox. 5. [place]. HOSPITAL COURSE: A 32-year-old male with history of Marfan syndrome, presented to emergency room wit h complaint of chest pain radiating to jaw and left arm lasting 45 minutes. There were no associated symptoms. The patient also reported hematemesis. Hemoglobin on admission was 12.3. The patient wa s seen in consultation by Dr. Merrill and underwent a Lexiscan stress test. There was no evidence of coronary ischemia. EF was 66%. I received a call from [employer], Dr. Cooley. Apparent ly, the patient had been going to many different hospitals throughout the city with similar complaint s. He has had 190 admissions in the last 7 years. He underwent an [facility]GD [facility] times[facility]. The patient exhibited drug-seeking behavior and requested that the Dilaudid. The plan was fo r him to be discharged home. Prior to discharge, the patient eloped and left the hospital without an y notifications. Dictated By: LISA ASH/DAVID Conf#: [id number] DID#: [id number] CC: ABDIFATAH MERRILL DO; SUE HOFFMAN MD;*End*
== END 2018-06-21 18:04 | disposition left against medical advice (07) ==
LOC: E/R 22:12 → TEL 06-21 05:33
PROVIDERS: ADMIT Internal Medicine; ATTEND Internal Medicine
DX: R07.9 Chest pain, unspecified (principal); Q87.40 Marfan syndrome, unspecified; I49.5 Sick sinus syndrome; Z86.711 Personal history of pulmonary embolism; I27.20 Pulmonary hypertension, unspecified; Z79.01 Long term (current) use of anticoagulants; Z79.82 Long term (current) use of aspirin; Z95.810 Presence of automatic (implantable) cardiac defibrillator; Z53.21 Procedure and treatment not carried out due to patient leaving prior to being seen by health care provider
CPT/HCPCS: 36415; 71045; 71250; 74176; 78452; 80053; 83880; 84484; 85018; 85025; 85610; 85730; 93005; 93017; 93306; 96374; 96375; 96376; A9500; A9505; J1200; J2270; J2405; J2785; J7030; Z7500; Z7502; Z7610; G0378

== ENCOUNTER 2018-08-29 23:54 | Emergency (ER) | payer OTHER ==
[~2018-08-29] VITALS: Ht 190.5 cm; Wt 96.3 kg
[~2018-08-29 23:54] MED LIST changes: -ISOS60TA PO; -NITR0.4T32 SL
[2018-08-29 23:58] VITALS: Ht 190.5 cm; Wt 96.3 kg
[2018-08-30] MEDS ORDERED: traMADol 50 MG TAB PO ONE (03:00)
--- NOTE | 2018-08-30 04:44 | ERD ---
ER Documentation Chief Complaint Chief Complaint CHEST PAIN [id number] AND VOMITING [id number] AGO; HX OF MARFANS AND WA HPI Is a 32 mg which has been for 20 minutes that he vomited 30 minutes ago. He said the vomiting was bloody but he says he has a history of Marfan's and WA in the past. Reviewing his EMR, patient is been in multiple times for similar complaints. Reviewing his last admission, admitting physician noted the patient's been admitted and exorbitant amount of time but has shown drug-seeking behavior. Patient does immediately asked for narcotic pain medication along with Benadryl. ROS All systems reviewed and are negative except as per history of present illness. Medications Home Meds Reported Medications Ondansetron Hcl* (Ondansetron Hcl*) 4 Mg Tablet, 4 MG PO Q6 PRN for NAUSEA AND/OR VOMITING 05/19/18 Cyanocobalamin* (Vitamin B12*) 500 Mcg Tab, 1000 MCG PO DAILY, TAB 05/19/18 Ferrous Sulfate* (Ferrous Sulfate*) 325 Mg Tabec, 325 MG PO BID for 30 Days, #60 TAKE 1 TABLET BY MOUTH TWICE A DAY WITH MEALS 05/19/18 Buprenorphine Hcl-Naloxone Hcl (Suboxone SL) 2-0.5 Mg Film, SL PLACE 1 FLIM UNDER THE TONGUE EVERY 6 HOURS; 05/19/18 Methocarbamol* (Methocarbamol*) 750 Mg Tablet, 750 MG PO QID TAKE 1 TABLET BY MOUTH 4 TIMES A DAY NEEDED 05/19/18 Enoxaparin Sodium (Enoxaparin Sodium) 100 Mg/1 Ml Syringe, 100 MG SQ BID, SYR 10/11/17 Salmeterol Xinaf-Fluticasone* (Advair*) 500/50 Diskus Inhaler, 1 INH INHALATION BID, #1 INHALER 10/11/17 Apixaban* (Eliquis*) 5 Mg Tablet, 5 MG PO BID, TAB 07/10/17 Zolpidem Tartrate* (Zolpidem Tartrate*) 10 Mg Tablet, 10 MG PO QHS PRN for INSOMNIA, #30 TAB 07/10/17 Tramadol Hcl* (Ultram*) 50 Mg Tablet, 50 MG PO Q6H PRN for PAIN, TAB 07/10/17 Sucralfate* (Carafate*) 1 Gm Tab, 1 GM PO AC MEALS AND BEDTIME, TAB 07/10/17 Sotalol Hcl* (Sotalol Hcl*) 80 Mg Tablet, 80 MG PO DAILY, TAB 07/10/17 Sertraline Hcl* (Sertraline Hcl*) 50 Mg Tablet, 50 MG PO DAILY, #30 TAB 07/10/17 Potassium Chloride* (K-Dur*) 10 Meq Tab.prt.sr, 10 MEQ PO BID, TAB 07/10/17 Pantoprazole* (Pantoprazole*) 40 Mg Tablet.dr, 40 MG PO AC BREAKFAST, TAB 07/10/17 Gabapentin* (Gabapentin*) 300 Mg Capsule, 300 MG PO TID, #90 CAP 07/10/17 Duloxetine Hcl* (Duloxetine Hcl*) 60 Mg Capsule.dr, 60 MG PO DAILY, #30 CAP 07/10/17 Docusate Sodium* (Colace*) 100 Mg Capsule, 100 MG PO BID, #60 CAP 07/10/17 Digoxin* (Digitek*) 125 Mcg Tablet, 0.125 MG PO DAILY, TAB 07/10/17 Carvedilol* (Carvedilol*) 6.25 Mg Tablet, 6.25 MG PO BID, #60 TAB 07/10/17 Atorvastatin Calcium (Atorvastatin Calcium) 10 Mg Tablet, 10 MG PO QHS, #30 TAB 07/10/17 Aspirin* (Aspirin* EC) 81 Mg Tablet.dr, 81 MG PO DAILY, TAB 07/10/17 Allergies Allergies: Coded Allergies: avocado (Unverified Allergy, Severe, 08/30/18) banana (Unverified Allergy, Severe, 08/30/18) iodine (Unverified Allergy, Severe, ANAPHYLLACTIC, 08/30/18) latex (Unverified Allergy, Severe, ANAPHYLACTIC, 08/30/18) onion (Unverified Allergy, Severe, 08/30/18) promethazine (Unverified Allergy, Severe, 08/30/18) propofol (Unverified Allergy, Severe, ANAPHYLACTIC, 08/30/18) ketorolac (Unverified Allergy, Mild, RASH, 08/30/18) Iodinated Contrast- Oral and IV Dye (Unverified Allergy, Unknown, 08/30/18) kiwi (Unverified Allergy, Unknown, 08/30/18) anaphylactic shock tomato (Unverified Allergy, Unknown, 08/30/18) anaphylactic shock PMhx/Soc History of Surgery: Yes (tonsillectomy, bilateral rotator cuff repair, pacemaker/defib) Anesthesia Reaction: No Hx 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 Disorder: No Hx Respiratory Disorders: Yes (asthma) Hx Cardiac Disorders: Yes (ASD) Hx Psychiatric Problems: Yes (depression) Hx Miscellaneous Medical Probl: Yes (MARPHAN'S SYNDROME) Hx Alcohol Use: No Hx Substance Use: No Hx Tobacco Use: No Smoking Status: Never smoker Physical Exam Vitals Vital Signs Date Temp Pulse Resp B/P (MAP) Pulse Ox O2 O2 Flow FiO2 Time Delivery Rate 08/30/18 95 20 101/56 98 Room Air 03:00 (71) 08/30/18 105 24 116/72 100 Room Air 01:00 (87) 08/29/18 98.7 128 20 122/63 100 23:58 (82) Physical Exam Const: No acute distress Head: Atraumatic Eyes: Normal Conjunctiva ENT: Normal External Ears, Nose and Mouth. Neck: Full range of motion. No meningismus. Resp: Clear to auscultation bilaterally Cardio: Regular rate and rhythm, no murmurs Abd: Soft, non tender, non distended. Normal bowel sounds Skin: No petechiae or rashes Back: No midline or flank tenderness Ext: No cyanosis, or edema Neur: Awake and alert Psych: Normal Mood and Affect Result Diagram: 08/30/18 0133 08/30/18 0133 Results 24 hrs Laboratory Tests Test 08/30/18 01:33 White Blood Count 8.3 10^3/ul Red Blood Count 3.78 10^6/ul Hemoglobin 10.8 g/dl Hematocrit 34.5 % Mean Corpuscular Volume 91.3 fl Mean Corpuscular Hemoglobin 28.6 pg Mean Corpuscular Hemoglobin Concent 31.3 g/dl Red Cell Distribution Width 16.5 % Platelet Count 209 10^3/UL Mean Platelet Volume 8.5 fl Immature Granulocytes % 0.600 % Neutrophils % 70.7 % Lymphocytes % 18.9 % Monocytes % 9.2 % Eosinophils % 0.4 % Basophils % 0.2 % Nucleated Red Blood Cells % 0.0 /100WBC Immature Granulocytes # 0.050 10^3/ul Neutrophils # 5.9 10^3/ul Lymphocytes # 1.6 10^3/ul Monocytes # 0.8 10^3/ul Eosinophils # 0.0 10^3/ul Basophils # 0.0 10^3/ul Nucleated Red Blood Cells # 0.0 10^3/ul Sodium Level 141 mmol/L Potassium Level 3.7 mmol/L Chloride Level 103 mmol/L Carbon Dioxide Level 31 mmol/L Anion Gap 7 Blood Urea Nitrogen 12 mg/dl Creatinine 0.55 mg/dl Est Glomerular Filtrat Rate mL/min > 60 mL/min Glucose Level 93 mg/dl Calcium Level 8.9 mg/dl Troponin I < 0.012 ng/ml Current Medications Medications Dose Sig/Yoselyn Start Time Status Last (Trade) Ordered Route PRN Stop Time Admin Dose Reason Admin Tramadol 50 mg ONCE ONCE 08/30/18 DC 08/30/18 HCl PO 03:00 03:00 (Ultram) 08/30/18 03:01 Procedures/MDM EKG: Rate/Rhythm: [Normal Sinus Rhythm] QRS, ST, T-waves: [No changes consistent w/ acute ischemia] Impression: [No evidence of ischemia or arrhythmia] Chest X-ray 1V Interpreted by me: Soft Tissue: No acute abnormali ties Bones: No acute abnormalities Mediastinum/Cardiac Silhouette/Lungs: [No acute abnormalities] Patient's thoracic symptoms have stabilized while in the department and are stable for outpatient follow up. Exam and work up not consistent w/ ischemia, arrhythmia, PE or dissection. Symptomology is vague and inconsistent. Upon repeat questioning the patient quantify the amount of blood. I do feel the patient does have drug-seeking behavior and malingering. At this point patient I feel is stable for trial of outpatient management. Departure Diagnosis: Primary Impression: Chest pain Chest pain type: unspecified Qualified Codes: R07.9 - Chest pain, unspecified Condition: Stable CARLENE VITAL Aug 30, 2018 04:44
[2018-08-30 05:05] VITALS: BP 99/59; PULSE 92; RESP 18
== END 2018-08-30 09:54 | disposition home or self-care (01) ==
LOC: E/R 23:54
DX: R07.9 Chest pain, unspecified (principal); J45.909 Unspecified asthma, uncomplicated; R11.10 Vomiting, unspecified; Z79.01 Long term (current) use of anticoagulants; Z79.82 Long term (current) use of aspirin; Z91.040 Latex allergy status
CPT/HCPCS: 36415; 71045; 80048; 84484; 85025; 93005; Z7502; Z7610

== ENCOUNTER 2019-01-16 18:43 | Observation (INO) | payer OTHER ==
[~2019-01-16] VITALS: Ht 190.5 cm; Wt 93.2 kg
[~2019-01-16 18:43] MED LIST changes: +CYAN500T44 SL; -CYAN500T46 PO; +CYAN500T55 PO; -DULO60CA59 PO; +DULO60CA60 PO; +ENOX100D2 SC; +MONT10TA21 PO; +ONDA4TAB8 PO; +TIOT18CA INHALATION
[2019-01-16] MEDS ORDERED: ASPIRIN 81 MG TAB PO STA (19:48)
[2019-01-16] MEDS ORDERED: NITROGLYCERIN 2% 1 GM OINT PKT TD STA (19:48)
[2019-01-16] MEDS ORDERED: NITROGLYCERIN (SL) 0.4 MG TAB SL PRN (20:00)
[2019-01-16] MEDS ORDERED: ONDANSETRON 4 MG INJ IV STA (20:27)
[2019-01-16] MEDS ORDERED: DIPHENHYDRAMINE 50 MG INJ IV ONE (20:30)
[2019-01-16] MEDS ORDERED: ONDANSETRON 4 MG INJ IV PRN (21:00)
[2019-01-16] MEDS ORDERED: ACETAMINOPHEN 325 MG TAB PO PRN (21:00)
[2019-01-16] MEDS ORDERED: ONDANSETRON (ODT) 4 MG TAB ODT PRN (22:00)
[2019-01-16 23:15] VITALS: BP 160/68; PULSE 89; RESP 18
[2019-01-16 23:51] VITALS: Ht 190.5 cm; Wt 93.2 kg
[2019-01-17] VITALS: BP 134/66; PULSE 97; RESP 18
[2019-01-17] MEDS ORDERED: ONDANSETRON 4 MG TAB PO PRN (00:30)
[2019-01-17] MEDS ORDERED: ACETAMINOPHEN 325 MG TAB PO PRN (00:30)
[2019-01-17] MEDS ORDERED: ZOLPIDEM 5 MG TAB PO PRN (00:30)
[2019-01-17] MEDS ORDERED: [UNRECOGNIZED DRUG - REMARK] SL PRN (02:30)
[2019-01-17 04:00] VITALS: BP 119/61; PULSE 89; RESP 18
[2019-01-17] MEDS: SUCRALFATE 1 GM TAB PO SCH ×2 (06:56→11:51)
[2019-01-17] MEDS ORDERED: PANTOPRAZOLE (EC) 40 MG TAB PO SCH (07:00)
[2019-01-17 07:30] VITALS: BP 100/54; PULSE 79; RESP 18
[2019-01-17] MEDS ORDERED: CYANOCOBALAMIN 500 MCG TAB PO SCH (09:00)
[2019-01-17] MEDS ORDERED: SERTRALINE 50 MG TAB PO SCH (09:00)
[2019-01-17] MEDS ORDERED: FLUTICASONE/VILANTEROL 200-25 INH DEVICE INH SCH ×2 (09:00→21:00)
[2019-01-17] MEDS ORDERED: ASPIRIN (EC) 81 MG TAB PO SCH ×2 (09:00)
[2019-01-17] MEDS ORDERED: DULOXETINE 30 MG CAP DR PO SCH (09:00)
[2019-01-17] MEDS ORDERED: POTASSIUM CHLORIDE (SR) 10 MEQ TAB PO SCH (09:00)
[2019-01-17] MEDS ORDERED: APIXABAN 5 MG TABLET PO SCH (09:00)
[2019-01-17] MEDS ORDERED: TIOTROPIUM 18 MCG CAPSULE INHA DEV INH SCH ×2 (09:00→21:00)
[2019-01-17] MEDS ORDERED: DIGOXIN 0.125 MG TAB PO SCH ×2 (09:00→13:00)
[2019-01-17] MEDS ORDERED: DOCUSATE SODIUM 100 MG CAP PO SCH (09:00)
[2019-01-17] MEDS: GABAPENTIN 300 MG CAP PO SCH ×2 (09:27→13:00)
[2019-01-17] MEDS: FERROUS SULFATE (EC) 325 MG TAB PO SCH ×2 (09:27→13:00)
[2019-01-17 11:33] VITALS: BP 112/58; PULSE 81; RESP 18
[2019-01-17 13:00] VITALS: PULSE 73
[2019-01-17] MEDS ORDERED: MONTELUKAST 10 MG TAB PO SCH (21:00)
== END 2019-01-17 14:29 | disposition home or self-care (01) ==
LOC: E/R 18:43 → 6WM 20:55 → EDBEDREQ 21:19
PROVIDERS: ADMIT Internal Medicine; ATTEND Internal Medicine
DX: R07.9 Chest pain, unspecified (principal); Q87.40 Marfan syndrome, unspecified; D64.9 Anemia, unspecified; Z76.5 Malingerer [conscious simulation]; Z86.74 Personal history of sudden cardiac arrest; Z86.711 Personal history of pulmonary embolism; Z79.01 Long term (current) use of anticoagulants; Z79.899 Other long term (current) drug therapy
CPT/HCPCS: 71045; 80048; 80061; 80307; 82550; 82553; 84484; 85025; 85610; 85730; 87081; 93005; J1200; J2405; Z7500; Z7610; 36415; 96374; 96375; G0378